=== PATIENT | female | born 1990 | race Caucasian/White ===

== ENCOUNTER 2022-11-25 21:32 | Outpatient (REF) | payer OTHER, SELFPAY ==
[2022-11-29 17:09] LABS: Age Gdln ACOG Testing Note (.); HPV Aptima Negative (Negative); IGP, Aptima HPV, rfx 16/18,45 Note (.)
== END 2022-11-25 21:33 | disposition home or self-care (01) ==
LOC: LAB 21:32
PROVIDERS: Visit Provider Physician Assistant
DX: Z01.419 Encounter for gynecological examination (general) (routine) without abnormal findings (principal)
CPT/HCPCS: 87624; G0145

== ENCOUNTER 2023-01-22 14:30 | Outpatient (RCR) | payer OTHER, SELFPAY ==
[2023-01-22 15:24] LABS: HCG Quantitative 1631 mIU/mL
== END 2023-02-13 15:48 | disposition home or self-care (01) ==
LOC: LAB 14:30
PROVIDERS: Visit Provider Obstetrics & Gynecology
DX: Z34.91 Encounter for supervision of normal pregnancy, unspecified, first trimester (principal)
CPT/HCPCS: 36415; 84702

== ENCOUNTER 2023-01-24 04:22 | Emergency (ER) | payer OTHER, SELFPAY ==
[2023-01-24 04:28] VITALS: BP 119/88; PULSE 86; RESP 98; TEMP 36.8; O2SAT 100; BMI 35.5
--- NOTE | 2023-01-24 04:36 | PC.NURSE ---
Patient to ED with complaint of vaginal bleeding and cramping at 5 weeks . This is her second , her first being when she was 18 years old and was terminated with an . Her OB is Dr Escobedo who ordered a quant HCG on that was drawn here and she was to have that repeated this AM, but when her bleeding was accompanied by cramping she decided to come to the ED. She has been bleeding for 6 days with no stopping, just varying degrees of flow and color.
--- NOTE | 2023-01-24 04:51 | ED.FEMALEGU1 ---
HPI - Female Genitourinary General Chief complaint: Vaginal Bleeding Stated complaint: vaginal bleeding Time Seen by Provider: 01/24/23 04:47 Source: patient Mode of arrival: walk-in Limitations: no limitations History of Present Illness HPI Narrative: patient believes she is about 5-6 weeks . mild bleeding on and off for 6 days. Tonight pelvic pain that would come and go. Pain tonight and she went to [facility]. Was never seen. Went home as the pain had resolved. At home the pain returned and she came here. Now that she is here, the pain has resolved again Related Data Home Medications Medication Instructions Recorded Confirmed levothyroxine 175 mcg tablet 175 mcg PO DAILY 01/24/23 01/24/23 Allergies Allergy/AdvReac Type Severity Reaction Status Date / Time No Known Drug Allergies Allergy Verified 01/24/23 04:31 Review of Systems ROS Status of ROS 10 or more systems reviewed and unremarkable except as noted in history and below PFSH PFSH Social History Smoking status: Never smoker Exam Constitutional Vital Signs, click to edit/add: Last Vital Signs Temp 98.3 F 01/24/23 04:28 Pulse 86 01/24/23 04:28 Resp 98 H 01/24/23 04:28 BP 119/88 01/24/23 04:28 Pulse Ox 100 01/24/23 04:28 O2 Del Method Room Air 01/24/23 04:28 Common normals: no apparent distress, average body habitus, oriented x3, no limitations, healthy appearing, alert and well nourished Eye Common normals: EOMs intact bilaterally Respiratory Common normals: normal respiratory effort, no retractions, no use of accessory muscles and clear to auscultation bilaterally Cardio Common normals: regular rate, regular rhythm, S1 normal heart sound and S2 normal heart sound GI Common normals: Normal to inspection, nondistended, normoactive bowel sounds present, soft to palpation and non-tender Extremity Common normals: normal to inspection and full ROM Neuro Common normals: oriented x3, CN's II-XII intact bilaterally, moves all extremities, no focal motor deficits and no sensory deficits noted Psych Appearance: grossly normal Course Vital Signs Vital signs: Vital Signs Temperature 98.3 F 01/24/23 04:28 Pulse Rate 86 01/24/23 04:28 Respiratory Rate 98 H 01/24/23 04:28 Blood Pressure 119/88 01/24/23 04:28 Pulse Oximetry 100 01/24/23 04:28 Oxygen Delivery Method Room Air 01/24/23 04:28 Temperature 98.3 F 01/24/23 04:28 Pulse Rate 86 01/24/23 04:28 Respiratory Rate 98 H 01/24/23 04:28 Blood Pressure 119/88 01/24/23 04:28 Pulse Oximetry 100 01/24/23 04:28 Oxygen Delivery Method Room Air 01/24/23 04:28 MDM - Female Genitourinary MDM Narrative Medical decision making narrative: patient presents with history of of 5-6 week duration based on her last menstrual period. She has been bleeding on and off for past 6 days. Called her OB and had lab testing performed a couple of days ago. Developed pain and cramping tonight and went to [facility]. There she was never seen . Her pain resolved and she went home. At home the pain returned and she came here. Arrives here asymptomatic. Physicall exam neg. Labs returned and her quantitative HCG has decreased from 1631 01/22 to 949 today. She has developed more cramping since she has been waiting. She is informed clinically she is having a miscarriage. Discussed ordering a Pelvic US. She understands the Tech is not here in the hospital and would have to come from home for the procedure. She did not want to wait. discussed performing a pelvic exam and she decided she did not want either at this time and would follow up with Dr Escobedo. She was advised she could return is she changed her mind Lab Data Labs: Lab Results 01/24/23 01/24/23 Range/Units 05:00 05:18 WBC 8.6 (4.0-11.0) 10^3/uL RBC 4.21 (4.20-5.40) 10^6/uL Hgb 12.9 (12.0-16.0) g/dL Hct 37.6 (36.0-48.0) % MCV 89.3 (81.0-99.0) fL MCH 30.6 (26.7-34.0) pg MCHC 34.3 (29.9-35.2) g/dL RDW 11.7 (11.0-15.0) % Plt Count 287 (150-450) 10^3/uL MPV 10.3 (9.5-13.5) fL Neut % (Auto) 62.9 (43.0-75.0) % Lymph % (Auto) 24.0 (20.5-60.0) % Harlan % (Auto) 9.4 (1.7-12.0) % Eos % (Auto) 2.4 (0.9-7.0) % Baso % (Auto) 1.0 (0.2-2.0) % Neut # (Auto) 5.4 (1.4-6.5) 10^3/uL Lymph # (Auto) 2.1 (1.2-3.8) 10^3/uL Harlan # (Auto) 0.8 (0.3-0.8) 10^3/uL Eos # (Auto) 0.2 (0.0-0.7) 10^3/uL Baso # (Auto) 0.1 (0.0-0.1) 10^3/uL Abs Immat Gran (auto) 0.03 (0.00-0.03) 10^3/uL Imm/Tot Granulo (auto) 0.3 (0.0-0.5) % Sodium 140 (136-145) mmol/L Potassium 3.7 (3.5-5.1) mmol/L Chloride 106 (98-107) mmol/L Carbon Dioxide 26.4 (21.0-32.0) mmol/L Anion Gap 11.3 BUN 5.0 L (7.0-18.0) mg/dL Creatinine 0.71 (0.55-1.02) mg/dL Est GFR ( Amer) >60 (>=60) Est GFR (Non-Af Amer) >60 (>=60) BUN/Creatinine Ratio 7.0 Glucose 105 (74-106) mg/dL Calcium 9.0 (8.5-10.1) mg/dL HCG, Quant 949 mIU/mL Urine Color Lt. yellow (YELLOW) Urine Clarity Clear (CLEAR) Urine pH 7.5 (5.0-9.0) Ur Specific [place] 1.010 (1.005-1.025) Urine Protein Negative (NEG/TRACE) mg/dL Urine Glucose (UA) Negative (NEGATIVE) mg/dL Urine Ketones Negative (NEGATIVE) mg/dL Urine Occult Blood Large A (NEGATIVE) Urine Nitrite Negative (NEGATIVE) Urine Bilirubin Negative (NEGATIVE) Urine Urobilinogen 0.2 (0.2-1.0) EU/dL Ur Leukocyte Esterase Negative (NEGATIVE) Urine RBC 2-5 A (0-2) #/HPF Urine WBC None seen (NONE SEEN) #/HPF Ur Squamous Epith Cells None seen (NONE/RARE) #/LPF Urine Crystals None seen (None Seen) #/HPF Urine Bacteria None seen (NONE SEEN) #/HPF Urine Casts None seen (NONE SEEN) #/LPF Urine Mucus None seen (NONE SEEN) C.trachomatis DNA (JANEEN) Negative (Negative) N.gonorrhoeae DNA (JANEEN) Negative (Negative) Discharge Plan Discharge Chief Complaint: Vaginal Bleeding Clinical Impression: Threatened Patient Disposition: Home, Self-Care Prescriptions / Home Meds: No Action levothyroxine 175 mcg tablet 175 mcg PO DAILY Instructions: Threatened Miscarriage (ED) Additional Instructions: follow up with Dr Escobedo Thursday. Stand Alone Forms: Portal Instructions Referrals: Physician,Non-Staff, [Primary Care Provider] - 1 week Discharge Date/Time: 01/24/23 06:23
[2023-01-24 05:21] LABS: Bilirubin Urine NEGATIVE (NEGATIVE); Blood Urine LARGE (NEGATIVE); Clarity Urine CLEAR (CLEAR); Color Urine LT. YELLOW (YELLOW); Glucose Urine UA NEGATIVE (NEGATIVE); Ketones Urine NEGATIVE (NEGATIVE); Leukocyte Esterase Urine NEGATIVE (NEGATIVE); Nitrite Urine NEGATIVE (NEGATIVE); Protein Urine NEGATIVE (NEG/TRACE); Urobilinogen Urine 0.2 EU/dL (0.2-1.0); pH Urine 7.5 (5.0-9.0)
[2023-01-24 05:23] LABS: Urine Microscopic Indicated YES
[2023-01-24 05:26] LABS: Basophils Absolute Auto 0.1 10^3/uL (0.0-0.1); Eosinophils Absolute Auto 0.2 10^3/uL (0.0-0.7); Eosinophils Percent Auto 2.4 % (0.9-7.0); Hematocrit 37.6 % (36.0-48.0); Hemoglobin 12.9 g/dL (12.0-16.0); Immature Granulocytes Abs Auto 0.03 10^3/uL (0.00-0.03); Immature Granulocytes Pct Auto 0.3 % (0.0-0.5); Lymphocytes Absolute Auto 2.1 10^3/uL (1.2-3.8); Mean Corpuscular HGB Conc 34.3 g/dL (29.9-35.2); Mean Corpuscular Hemoglobin 30.6 pg (26.7-34.0); Mean Corpuscular Volume 89.3 fL (81.0-99.0); Mean Platelet Volume 10.3 fL (9.5-13.5); Monocytes Absolute Auto 0.8 10^3/uL (0.3-0.8); Monocytes Percent Auto 9.4 % (1.7-12.0); Neutrophils Absolute Auto 5.4 10^3/uL (1.4-6.5); Neutrophils Percent Auto 62.9 % (43.0-75.0); Platelet Count 287 10^3/uL (150-450); Red Blood Count 4.21 10^6/uL (4.20-5.40); Red Cell Distribution Width 11.7 % (11.0-15.0); White Blood Count 8.6 10^3/uL (4.0-11.0)
[2023-01-24 05:51] LABS: Bacteria Urine NONE SEEN #/HPF (NONE SEEN); Cast Seen? NONE SEEN #/LPF (NONE SEEN); Crystals Seen? None Seen #/HPF (None Seen); Mucus Urine NONE SEEN (NONE SEEN); Squamous Epithelial Cell Urine NONE SEEN #/LPF (NONE/RARE); WBC Urine NONE SEEN #/HPF (NONE SEEN)
[2023-01-24 06:00] LABS: Anion Gap 11.3; Carbon Dioxide 26.4 mmol/L (21.0-32.0); Chloride 106 mmol/L (98-107); Estimated GFR (African America >60 (>=60); Estimated GFR (Non-African Ame >60 (>=60); Glucose 105 mg/dL (74-106); HCG Quantitative 949 mIU/mL; Potassium 3.7 mmol/L (3.5-5.1); Sodium 140 mmol/L (136-145)
[2023-01-26 22:08] LABS: Neisseria gonorrhoeae, NAA Negative (Negative)
== END 2023-01-24 06:23 | disposition home or self-care (01) ==
PROVIDERS: Emergency Provider Internal Medicine
DX: O20.0 Threatened abortion (principal); Z3A.01 Less than 8 weeks gestation of pregnancy; Z79.890 Hormone replacement therapy
CPT/HCPCS: 36415; 80048; 81001; 84702; 85025; 87210; 87491; 87591; 99283

== ENCOUNTER 2023-02-05 10:02 | Outpatient (RCR) | payer OTHER, SELFPAY ==
[2023-02-05 10:45] LABS: HCG Quantitative 87 mIU/mL
[2023-02-12 10:58] LABS: HCG Quantitative 128 mIU/mL
== END 2023-02-15 08:00 | disposition home or self-care (01) ==
LOC: LAB 10:02
PROVIDERS: Visit Provider Obstetrics & Gynecology
DX: O03.9 Complete or unspecified spontaneous abortion without complication (principal)
CPT/HCPCS: 36415; 84702

== ENCOUNTER 2023-02-19 09:30 | Outpatient (RCR) | payer OTHER, SELFPAY ==
--- OUTSIDE RECORDS SUMMARY | 2023-02-19 09:33 | XMS_ITS | CCD ---
Author Name Unknown Address [address] [place] [address] Organization [facility] Care Team Providers Care Cloth Grader Name Role Phone DR DAVID BARCLAY Admitting Unavailable NING, DR HERNANDEZ Attending Unavailable DR LE MENDOZA Primary Care Unavailable DR DAVID BARCLAY Consulting Unavailable AYLEEN TRUJILLO Attending Unavailable JAYRO COREY Referring Unavailable JAYRO COREY Attending Unavailable DAVID BARCLAY Attending Unavailable Problems Problem Classification Problem Date Documented Date Episodic/Chronic Immunizations and screening for infectious disease (1 source) Encounter for screening for human papillomavirus (HPV); Translations: [ENC SCREENING HUMAN PAPILLOMAVIRUS] Onset: 11-21-2021 Episodic Other screening for suspected conditions (not mental disorders or infectious disease) (4 sources) Encounter for screening for malignant neoplasm of cervix; Translations: [ENC SCREENING MALIG NEOPLASM CERV] Onset: 11-19-2021 Episodic Results Test Name Value Interpretation Reference Range Facil ity PAP ACOG PANEL 2: 30 to 65on 11-26-2021 . . Normal [facility] Comment on above: Result Comment: Performed at: WB Performed By: #### [id number] #### [facility] [address] [address] [address] Florencia Carpenter Age Gdln ACOG Testing 30-65 Normal [facility] Comment on above: Performed By: #### [id number] #### [facility] [address] [address] [address] Florencia Carpenter DIAGNOSIS: Comment [facility] Comment on above: Result Comment: NEGATIVE FOR INTRAEPITHE LIAL LESION OR MALIGNANCY. Performed at: WB Performed By: #### [id number] #### [facility] [address] [address] [address] Florencia Carpenter HPV Aptima Negative Normal Negative [facility] Comment on above: Result Comment: This nucleic acid amplif ication test detects fourteen high-risk HPV types (16,18,31,33,35,39,45,51,52,56,58,59,66,68) without differentiation. Performed at: =G Performed By: #### [id number] #### [facility] [address] [place] [address] Dr. Florencia Carpenter Methodology: Comment Normal [facility] Comment on above: Result Comment: This liquid based ThinPr ep(R) pap test was screened with the use of an image guided system. Performed at: WB Performed By: #### [id number] #### [facility] [address] [place] [address] Dr. Florencia Carpenter Note: Comment Normal [facility] Comment on above: Result Comment: The Pap smear is a scree rebeka test designed to aid in the detection of premalignant and malignant conditions of the uterine cervix. It is not a diagnostic procedure and should not be used as the sole means of detecting cervical cancer. Both false-positive and false-negative reports do occur. . Performed at: WB Performed By: #### [id number] #### [facility] [address] [place] [address] Dr. Florencia Carpenter Performed by: Comment Normal [facility] Comment on above: Result Comment: Ruthann Ricketts Cytotechnol ogdayana (ASCP) Performed at: WB Performed By: #### [id number] #### [facility] [address] [place] [address] Dr. Florencia Carpenter Specimen adequacy: Comment Normal [facility] Comment on above: Result Comment: Satisfactory for evaluat ion. Endocervical and/or squamous metaplastic cells (endocervical component) are present. Performed at: WB Performed By: #### [id number] #### [facility] [address] [place] [address] Dr. Florencia Carpenter Encounters Encounter Date Encounter Type Care Provider Facility Start: 02-05-2023 End: 02-05-2023 ambulatory DAVID BARCLAY Not Available Start: 01-16-2023 End: 01-16-2023 ambulatory JAYRO COREY Not Available Start: 12-31-2022 End: 12-31-2022 ambulatory AYLEEN TRUJILLO Not Available Start: 11-19-2021 End: 11-19-[address] DAVID BARCLAY Facility: Payers Date Payer Category Payer Unknown [id number] 1990 Unknown [id number] 2.16.84 [id number] 1990 Unknown [id number] 1990 Unknown [id number] 1990 Unknown [id number]. [id number] 1959 Unknown [id number] Summary Purpose Family History No Family History Records FoundNo Family History Records Found Advance Directives No Advanced Directives Records FoundNo Advanced Directives Records Found Additional Source Comments INFORMATION SOURCE (unrecogn ized section and content) DATE CREATED AUTHOR 11/26/2021 [facility] DATE CREATED AUTHOR AUTHOR'S ROSLYN ATLILLIAM 02/06/2023 [facility] EPIC FOR RECORDS PERTAINING TO PATIENTS WHO ARE OR HAVE BEEN ENROLLED IN A CHEMICAL DEPENDENCY/SUBSTANCEABUSE PROGRAM, SOME INFORMATION MAY BE OMITTED. This clinical summary was aggregated from multiple sources. Caution should be exercised in using it in the provision of clinical care. This summary normalizes information from multiple sources, and as a consequence, information in this document may materially change the coding, format and clinical context of patient data. In addition, data may be omitted in some cases. CLINICAL DECISIONS SHOULD BE BASED ON THE PRIMARY CLINICAL RECORDS. [facility] [employer] provides no warranty or guarantee of the accuracy or completeness of information in this document.
[2023-02-19 10:26] LABS: HCG Quantitative 94 mIU/mL
--- OUTSIDE RECORDS SUMMARY | 2023-02-26 09:24 | XMS_ITS | CCD ---
Author Name Unknown Address [address] [place] [address] Organization [facility] Care Team Providers Care Outboard Motor Assembler Name Role Phone DR DAVID BARCLAY Admitting [...] 30 to 65on 11-26-2021 . . Normal [facility] Comment on above: Result Comment: Performed at: WB Performed By: #### [id number] #### [facility] [address] [address] [address] Florencia Carpenter Age Gdln ACOG Testing 30-65 Normal [facility] Comment on above: Performed By: #### [id number] #### [facility] [address] [address] [address] Florencia Carpenter DIAGNOSIS: Comment [facility] Comment on above: Result Comment: NEGATIVE FOR INTRAEPITHE LIAL LESION OR MALIGNANCY. Performed at: WB Performed By: #### [id number] #### [facility] [address] [address] [address] Florencia Carpenter HPV Aptima Negative Normal Negative [facility] Comment on above: Result Comment: This nucleic acid amplif ication test detects fourteen high-risk HPV types (16,18,31,33,35,39,45,51,52,56,58,59,66,68) without differentiation. Performed at: =G Performed By: #### [id number] #### [facility] [address] [place] [address] Dr. Florencia Carpenter Methodology: Comment Normal [facility] Comment on above: Result Comment: This liquid based ThinPr ep(R) pap test was screened with the use of an image guided system. Performed at: WB Performed By: #### [id number] #### [facility] [address] [place] [address] Dr. Florencia Carpenter Note: Comment Normal [facility] Comment on above: Result Comment: The Pap smear is a scree rbeeka test designed to aid in the detection of premalignant and malignant conditions of the uterine cervix. It is not a diagnostic procedure and should not be used as the sole means of detecting cervical cancer. Both false-positive and false-negative reports do occur. . Performed at: WB Performed By: #### [id number] #### [facility] [address] [place] [address] Dr. Florencia Carpenter Performed by: Comment Normal [facility] Comment on above: Result Comment: Ruthann Ricketts Cytotechnol ogdayana (ASCP) Performed at: WB Performed By: #### [id number] #### [facility] [address] [place] [address] Dr. Florencia Carpenter Specimen adequacy: Comment Normal [facility] Comment on above: Result Comment: Satisfactory for evaluat ion. Endocervical and/or squamous metaplastic cells (endocervical component) are present. Performed at: WB Performed By: #### [id number] #### [facility] [address] [place] [address] Dr. Florencia Carpenter Encounters Encounter Date Encounter Type Care Provider Facility Start: 02-05-2023 End: 02-05-2023 ambulatory DAVID BARCLAY Not Available Start: 01-16-2023 End: 01-16-2023 ambulatory JAYRO COREY Not Available Start: 12-31-2022 End: 12-31-2022 ambulatory AYLEEN TRUJILLO Not Available Start: 11-19-2021 End: 11-19-[address] DAVID BARCLAY Facility: Payers Date Payer Category Payer Unknown [id number] 1990 Unknown [id number] 2.16.84 [id number] 1990 Unknown [id number] 1990 Unknown [id number] 1990 Unknown [id number]. [id number] 1959 Unknown [id number] Summary Purpose Family History No Family History Records FoundNo Family History Records Found Advance Directives No Advanced Directives Records FoundNo Advanced Directives Records Found Additional Source Comments INFORMATION SOURCE (unrecogn ized section and content) DATE CREATED AUTHOR 11/26/2021 [facility] DATE CREATED AUTHOR AUTHOR'S ROSLYN ATLILLIAM 02/06/2023 [facility] EPIC FOR RECORDS [...] BE BASED ON THE PRIMARY CLINICAL RECORDS. [facility] [employer] provides no warranty or guarantee of the accuracy or completeness of information in this document.
[2023-02-26 10:33] LABS: HCG Quantitative 53 mIU/mL
[2023-03-05 12:30] LABS: HCG Quantitative 24 mIU/mL
[2023-03-12 12:07] LABS: HCG Quantitative 11 mIU/mL
== END 2023-03-18 17:25 | disposition home or self-care (01) ==
LOC: LAB 09:30
PROVIDERS: Visit Provider Obstetrics & Gynecology
DX: O03.9 Complete or unspecified spontaneous abortion without complication (principal)
CPT/HCPCS: 36415; 84702

== ENCOUNTER 2023-02-21 09:45 | Outpatient (OUT) | payer OTHER, SELFPAY ==
--- OUTSIDE RECORDS SUMMARY | 2023-02-21 09:50 | XMS_ITS | CCD ---
Author Name Unknown Address [address] [place] [address] Organization [facility] Care Team Providers Care Web Design Intern Name Role Phone DR DAVID BARCLAY Admitting [...] 30 to 65on 11-26-2021 . . Normal [facility] Comment on above: Result Comment: Performed at: WB Performed By: #### [id number] #### [facility] [address] [address] [address] Florencia Carpenter Age Gdln ACOG Testing 30-65 Normal [facility] Comment on above: Performed By: #### [id number] #### [facility] [address] [address] [address] Florencia Carpenter DIAGNOSIS: Comment [facility] Comment on above: Result Comment: NEGATIVE FOR INTRAEPITHE LIAL LESION OR MALIGNANCY. Performed at: WB Performed By: #### [id number] #### [facility] [address] [address] [address] Florencia Carpenter HPV Aptima Negative Normal Negative [facility] Comment on above: Result Comment: This nucleic acid amplif ication test detects fourteen high-risk HPV types (16,18,31,33,35,39,45,51,52,56,58,59,66,68) without differentiation. Performed at: =G Performed By: #### [id number] #### [facility] [address] [place] [address] Dr. Florencia Carpenter Methodology: Comment Normal [facility] Comment on above: Result Comment: This liquid based ThinPr ep(R) pap test was screened with the use of an image guided system. Performed at: WB Performed By: #### [id number] #### [facility] [address] [place] [address] Dr. Florencia Carpenter Note: Comment Normal [facility] Comment on above: Result Comment: The Pap smear is a scree rebeka test designed to aid in the detection of premalignant and malignant conditions of the uterine cervix. It is not a diagnostic procedure and should not be used as the sole means of detecting cervical cancer. Both false-positive and false-negative reports do occur. . Performed at: WB Performed By: #### [id number] #### [facility] [address] [place] [address] Dr. Florencia Carpenter Performed by: Comment Normal [facility] Comment on above: Result Comment: Ruthann Ricketts Cytotechnol ogdayana (ASCP) Performed at: WB Performed By: #### [id number] #### [facility] [address] [place] [address] Dr. Florencia Carpenter Specimen adequacy: Comment Normal [facility] Comment on above: Result Comment: Satisfactory for evaluat ion. Endocervical and/or squamous metaplastic cells (endocervical component) are present. Performed at: WB Performed By: #### [id number] #### [facility] [address] [place] [address] Dr. Florencia Carpenter Encounters Encounter Date Encounter Type Care Provider Facility Start: 02-05-2023 End: 02-05-2023 ambulatory DAVID BARCLAY Not Available Start: 01-16-2023 End: 01-16-2023 ambulatory JAYRO COREY Not Available Start: 12-31-2022 End: 12-31-2022 ambulatory AYLEEN TRUJILLO Not Available Start: 11-19-2021 End: 11-19-[address] DAVID BARCLAY Facility: Payers Date Payer Category Payer Unknown [id number] 1990 Unknown [id number] 2.16.84 [id number] 1990 Unknown [id number] 1990 Unknown [id number] 1990 Unknown [id number]. [id number] 1959 Unknown [id number] Summary Purpose Family History No Family History Records FoundNo Family History Records Found Advance Directives No Advanced Directives Records FoundNo Advanced Directives Records Found Additional Source Comments INFORMATION SOURCE (unrecogn ized section and content) DATE CREATED AUTHOR 11/26/2021 [facility] DATE CREATED AUTHOR AUTHOR'S ROSLYN ATLILLIAM 02/06/2023 [facility] d[facility] Specialists EPIC FOR RECORDS PERTAINING TO [...] BE BASED ON THE PRIMARY CLINICAL RECORDS. [facility] [employer] provides no warranty or guarantee of the accuracy or completeness of information in this document.
--- NOTE | 2023-02-21 09:57 | US_ITS ---
The [address] [address] Patient Name: PAM ACEVES MRN: [id number] date: 1990 Sex: F Assigned Patient Location: Current Patient Location: LAB Accession/Order Number: [id number] Exam Date: 02/21/2023 10:00 Report Date: 02/23/2023 07:59 At the request of: DAVID BARCLAY Procedure: US pelvis transvaginal EXAM: Ultrasound of the pelvis HISTORY: . Follow up miscarriage O03.9 . COMPARISON: None. TECHNIQUE: Transvaginal scanning was performed FINDINGS: Scanning of the pelvis demonstrates a retroverted uterus measuring 7.1 x 4.3 x 3.6 cm. Endometrial complex measures 9 mm in its maximal AP dimension. No fluid or masses are noted within the endometrial complex. Right ovary measures 4.3 x 2.1 x 2.3 cm. Color-flow is noted. Follicles are noted. Left ovary measures 3.4 x 3 x 2.4 cm. Color-flow is noted. There is a 1.7 x 1.3 cm cyst within the left ovary. No fluid is noted in the cul-de-sac. US/US pelvis transvaginal IMPRESSION: 1. Normal-appearing uterus and endometrial complex. 2. Normal right ovary. 3. 1.7 x 1.3 cm simple cyst within the left ovary. Electronically authenticated by: ANGEL MCWILLIAMS Date: 02/23/2023 07:59
== END 2023-02-21 09:46 | disposition home or self-care (01) ==
LOC: US 09:48
PROVIDERS: Visit Provider Obstetrics & Gynecology
DX: O03.9 Complete or unspecified spontaneous abortion without complication (principal); N83.292 Other ovarian cyst, left side
CPT/HCPCS: 76830

== ENCOUNTER 2023-03-19 10:17 | Outpatient (RCR) | payer OTHER, SELFPAY ==
--- OUTSIDE RECORDS SUMMARY | 2023-03-19 10:40 | XMS_ITS | CCD ---
Author Name Unknown Address [address] [place] [address] Organization [facility] Care Team Providers Care Wound Nurse Name Role Phone DR DAVID BARCLAY Admitting [...] 30 to 65on 11-26-2021 . . Normal [facility] Comment on above: Result Comment: Performed at: WB Performed By: #### [id number] #### [facility] [address] [address] [address] Florencia Carpenter Age Gdln ACOG Testing 30-65 Normal [facility] Comment on above: Performed By: #### [id number] #### [facility] [address] [address] [address] Florencia Carpenter DIAGNOSIS: Comment [facility] Comment on above: Result Comment: NEGATIVE FOR INTRAEPITHE LIAL LESION OR MALIGNANCY. Performed at: WB Performed By: #### [id number] #### [facility] [address] [address] [address] Florencia Carpenter HPV Aptima Negative Normal Negative [facility] Comment on above: Result Comment: This nucleic acid amplif ication test detects fourteen high-risk HPV types (16,18,31,33,35,39,45,51,52,56,58,59,66,68) without differentiation. Performed at: =G Performed By: #### [id number] #### [facility] [address] [place] [address] Dr. Florencia Carpenter Methodology: Comment Normal [facility] Comment on above: Result Comment: This liquid based ThinPr ep(R) pap test was screened with the use of an image guided system. Performed at: WB Performed By: #### [id number] #### [facility] [address] [place] [address] Dr. Florencia Carpenter Note: Comment Normal [facility] Comment on above: Result Comment: The Pap smear is a scree rebeka test designed to aid in the detection of premalignant and malignant conditions of the uterine cervix. It is not a diagnostic procedure and should not be used as the sole means of detecting cervical cancer. Both false-positive and false-negative reports do occur. . Performed at: WB Performed By: #### [id number] #### [facility] [address] [place] [address] Dr. Florencia Carpenter Performed by: Comment Normal [facility] Comment on above: Result Comment: Ruthann Ricketts Cytotechnol ogdayana (ASCP) Performed at: WB Performed By: #### [id number] #### [facility] [address] [place] [address] Dr. Florencia Carpenter Specimen adequacy: Comment Normal [facility] Comment on above: Result Comment: Satisfactory for evaluat ion. Endocervical and/or squamous metaplastic cells (endocervical component) are present. Performed at: WB Performed By: #### [id number] #### [facility] [address] [place] [address] Dr. Florencia Carpenter Encounters Encounter Date Encounter Type Care Provider Facility Start: 02-05-2023 End: 02-05-2023 ambulatory DAVID BARCLAY Not Available Start: 01-16-2023 End: 01-16-2023 ambulatory JAYRO COREY Not Available Start: 12-31-2022 End: 12-31-2022 ambulatory AYLEEN TRUJILLO Not Available Start: 11-19-2021 End: 11-19-[address] DAVID BARCLAY Facility: Payers Date Payer Category Payer Unknown [id number] 1990 Unknown [id number] 2.16.84 [id number] 1990 Unknown [id number] 1990 Unknown [id number] 2.16.840 .[id number] 1990 Unknown [id number] 2.16.840. [id number] 1959 Unknown [id number] Summary Purpose Family History No Family History Records FoundNo Family History Records Found Advance Directives No Advanced Directives Records FoundNo Advanced Directives Records Found Additional Source Comments INFORMATION SOURCE (unrecogn ized section and content) DATE CREATED AUTHOR 11/26/2021 [facility] DATE CREATED AUTHOR AUTHOR'S ROSLYN ATLILLIAM 02/06/2023 [facility] EPIC FOR RECORDS PERTAINING [...] BE BASED ON THE PRIMARY CLINICAL RECORDS. [facility] [employer] provides no warranty or guarantee of the accuracy or completeness of information in this document.
[2023-03-19 12:35] LABS: HCG Quantitative 7 mIU/mL
== END 2023-04-16 17:42 | disposition home or self-care (01) ==
LOC: LAB 10:17
PROVIDERS: Visit Provider Obstetrics & Gynecology
DX: O03.9 Complete or unspecified spontaneous abortion without complication (principal)
CPT/HCPCS: 36415; 84702

== ENCOUNTER 2023-03-26 15:17 | Outpatient (OUT) | payer OTHER, SELFPAY ==
--- OUTSIDE RECORDS SUMMARY | 2023-03-26 15:23 | XMS_ITS | CCD ---
Author Name Unknown Address [address] [place] [address] Organization [facility] Care Team Providers Care Pump And Blower Operator Name Role Phone DR DAVID BARCLAY Admitting [...] 30 to 65on 11-26-2021 . . Normal [facility] Comment on above: Result Comment: Performed at: WB Performed By: #### [id number] #### [facility] [address] [address] [address] Florencia Carpenter Age Gdln ACOG Testing 30-65 Normal [facility] Comment on above: Performed By: #### [id number] #### [facility] [address] [address] [address] Florencia Carpenter DIAGNOSIS: Comment [facility] Comment on above: Result Comment: NEGATIVE FOR INTRAEPITHE LIAL LESION OR MALIGNANCY. Performed at: WB Performed By: #### [id number] #### [facility] [address] [address] [address] Florencia Carpenter HPV Aptima Negative Normal Negative [facility] Comment on above: Result Comment: This nucleic acid amplif ication test detects fourteen high-risk HPV types (16,18,31,33,35,39,45,51,52,56,58,59,66,68) without differentiation. Performed at: =G Performed By: #### [id number] #### [facility] [address] [place] [address] Dr. Florencia Carpenter Methodology: Comment Normal [facility] Comment on above: Result Comment: This liquid based ThinPr ep(R) pap test was screened with the use of an image guided system. Performed at: WB Performed By: #### [id number] #### [facility] [address] [place] [address] Dr. Florencia Carpenter Note: Comment Normal [facility] Comment on above: [...] Performed at: WB Performed By: #### [id number] #### [facility] [address] [place] [address] Dr. Florencia Carpenter Performed by: Comment Normal [facility] Comment on above: Result Comment: Ruthann Ricketts Cytotechnol ogdayana (ASCP) Performed at: WB Performed By: #### [id number] #### [facility] [address] [place] [address] Dr. Florencia Carpenter Specimen adequacy: Comment Normal [facility] Comment on above: Result Comment: Satisfactory for evaluat ion. Endocervical and/or squamous metaplastic cells (endocervical component) are present. Performed at: WB Performed By: #### [id number] #### [facility] [address] [place] [address] Dr. Florencia Carpenter Encounters Encounter Date Encounter Type Care Provider Facility Start: 02-05-2023 End: 02-05-2023 ambulatory DAVID BARCLAY Not Available Start: 01-16-2023 End: 01-16-2023 ambulatory JAYRO COREY Not Available Start: 12-31-2022 End: 12-31-2022 ambulatory AYLEEN TRUJILLO Not Available Start: 11-19-2021 End: 11-19-[address] DAVID BARCLAY Facility: Payers Date Payer Category Payer Unknown [id number] 1990 Unknown [id number] 2.16.84 [id number] 1990 Unknown [id number] 1990 Unknown [id number] 2.16.840 .[id number] 1990 Unknown [id number]. [id number] 1959 Unknown [id number] Summary Purpose Family History No Family History Records FoundNo Family History Records Found Advance Directives No Advanced Directives Records FoundNo Advanced Directives Records Found Additional Source Comments INFORMATION SOURCE (unrecogn ized section and content) DATE CREATED AUTHOR 11/26/2021 [facility] DATE CREATED AUTHOR AUTHOR'S ROSLYN ATLILLIAM 02/06/2023 [facility] Specialists EPIC FOR RECORDS [...] BE BASED ON THE PRIMARY CLINICAL RECORDS. [facility] [employer] provides no warranty or guarantee of the accuracy or completeness of information in this document.
[2023-03-26 16:23] LABS: HCG Quantitative 5 mIU/mL
== END 2023-03-26 15:18 | disposition home or self-care (01) ==
LOC: LAB 15:18
PROVIDERS: Visit Provider Obstetrics & Gynecology
DX: O03.9 Complete or unspecified spontaneous abortion without complication (principal)
CPT/HCPCS: 36415; 84702

== ENCOUNTER 2023-03-28 10:29 | Outpatient (OUT) | payer OTHER, SELFPAY ==
--- OUTSIDE RECORDS SUMMARY | 2023-03-28 10:32 | XMS_ITS | CCD ---
Author Name Unknown Address [address] [place] [address] Organization [facility] Care Team Providers Care Sterile Processing Technologist Name Role Phone DR DAVID BARCLAY Admitting [...] 30 to 65on 11-26-2021 . . Normal [facility] Comment on above: Result Comment: Performed at: WB Performed By: #### [id number] #### [facility] [address] [address] [address] Florencia Carpenter Age Gdln ACOG Testing 30-65 Normal [facility] Comment on above: Performed By: #### [id number] #### [facility] [address] [address] [address] Florencia Carpenter DIAGNOSIS: Comment [facility] Comment on above: Result Comment: NEGATIVE FOR INTRAEPITHE LIAL LESION OR MALIGNANCY. Performed at: WB Performed By: #### [id number] #### [facility] [address] [address] [address] Florencia Carpenter HPV Aptima Negative Normal Negative [facility] Comment on above: Result Comment: This nucleic acid amplif ication test detects fourteen high-risk HPV types (16,18,31,33,35,39,45,51,52,56,58,59,66,68) without differentiation. Performed at: =G Performed By: #### [id number] #### [facility] [address] [place] [address] Dr. Florencia Carpenter Methodology: Comment Normal [facility] Comment on above: Result Comment: This liquid based ThinPr ep(R) pap test was screened with the use of an image guided system. Performed at: WB Performed By: #### [id number] #### [facility] [address] [place] [address] Dr. Florencia Carpenter Note: Comment Normal [facility] Comment on above: Result Comment: [...] Performed at: WB Performed By: #### [id number] #### [facility] [address] [place] [address] Dr. Florencia Carpenter Performed by: Comment Normal [facility] Comment on above: Result Comment: Ruthann Ricketts Cytotechnol ogdayana (ASCP) Performed at: WB Performed By: #### [id number] #### [facility] [address] [place] [address] Dr. Florencia Carpenter Specimen adequacy: Comment Normal [facility] Comment on above: Result Comment: Satisfactory for evaluat ion. Endocervical and/or squamous metaplastic cells (endocervical component) are present. Performed at: WB Performed By: #### [id number] #### [facility] [address] [place] [address] Dr. Florencia Carpenter Encounters Encounter Date Encounter Type Care Provider Facility Start: 02-05-2023 End: 02-05-2023 ambulatory DAVID BARCLAY Not Available Start: 01-16-2023 End: 01-16-2023 ambulatory JAYRO COREY Not Available Start: 12-31-2022 End: 12-31-2022 ambulatory AYLEEN TRUJILLO Not Available Start: 11-19-2021 End: 11-19-[address] DAVID BARCLAY Facility: Payers Date Payer Category Payer Unknown [id number] 1990 Unknown [id number] 2.16.84 [id number] 1990 Unknown [id number] [id number] [id number] 1990 Unknown [id number] 2.16.840 .[id number] 1990 Unknown [id number] 2.16.840. [id number] 1959 Unknown [id number] Summary Purpose Family History No Family History Records FoundNo Family History Records Found Advance Directives No Advanced Directives Records FoundNo Advanced Directives Records Found Additional Source Comments INFORMATION SOURCE (unrecogn ized section and content) DATE CREATED AUTHOR 11/26/2021 [facility] DATE CREATED AUTHOR AUTHOR'S ROSLYN ATLILLIAM 02/06/2023 [facility] EPIC FOR RECORDS PERTAINING [...] BE BASED ON THE PRIMARY CLINICAL RECORDS. [facility] [employer] provides no warranty or guarantee of the accuracy or completeness of information in this document.
[2023-03-28 11:40] LABS: HCG Quantitative 6 mIU/mL
== END 2023-03-28 10:30 | disposition home or self-care (01) ==
LOC: LAB 10:30
PROVIDERS: Visit Provider Obstetrics & Gynecology
DX: O03.9 Complete or unspecified spontaneous abortion without complication (principal)
CPT/HCPCS: 36415; 84702

== ENCOUNTER 2023-08-21 02:06 | Emergency (ER) | payer OTHER, SELFPAY ==
[2023-08-21 02:13] VITALS: BP 115/89; PULSE 104; TEMP 36.4; O2SAT 99; BMI 33.9
--- OUTSIDE RECORDS SUMMARY | 2023-08-21 02:13 | XMS_ITS ---
Patient Summarization (C-CDA 2.1 CCD) Created on: August 21, 2023 PAM ACEVES : 1990 Sex: Female Author Organization Sample organization Care Team Providers Care Binding Bench Worker Name Role Phone DR DAVID ESCOBEDO Admitting Unavailable FANNY, DR HERNANDEZ Attending Unavailable DR LE MENDOZA Primary Care Unavailable FANNY, DR HERNANDEZ Consulting Unavailable Anamika CLEARY, Joceline Primary Care Provider AYLEEN TRUJILLO Attending Unavailable MADHAV, JAYRO Referring Unavailable MADHAV, JAYRO Attending Unavailable MADHAV, JAYRO Attending Unavailable FANNY, DAVID Attending Unavailable MADHAV, JAYRO Attending Unavailable Encounters Encounter Date Encounter Type Care Provider Facility Start: 05-11-2023 End: 05-11-2023 ambulatory JAYROTRINA BARRAZAPFER Not Available Start: 04-27-2023 End: 04-27-2023 ambulatory JAYRO BARRAZAPFER Not Available Start: 03-28-2023 [facility] Result Encounter David Escobedo DO Work Phone: [facility] Unsolicited Start: 03-28-2023 [facility] Result Encounter David Escobedo DO Work Phone: [facility] Unsolicited Start: 02-05-2023 End: 02-05-2023 ambulatory DAVID FANNY Not Available Start: 01-16-2023 End: 01-16-2023 ambulatory JAYRO BARRAZAPFER Not Available Start: 12-31-2022 End: 12-31-2022 ambulatory AYLEEN TRUJILLO Not Available Start: 11-19-2021 End: 11-19-[address] DAVID ESCOBEDO Facility:[facility] Medications Current Medications Medication Drug Class(es) Dates Sig (Normalized) Sig (Original) levothyroxine sodium 0.175 mg oral tablet (1 source) l-Thyroxine Start: 01-16-2023 End: 04-26-2023 take 1 tablet by mouth in the morning levothyroxine (Synthroid, Levoxyl) 175 MCG tablet Indications: Hypothyroidism (acquired) (CMS/HCC) Take 1 tablet (175 mcg) by mouth in the morning. 100 tablet 0 01/16/2023 04/26/2023 Active Payers Date Payer Category Payer Unknown [employer] [id number] 2022-Present [phone] [address] [address] [place] [address] [id number] 2022 Unknown [id number] 1990 Unknown [id number] [id number] 3 1990 Unknown [id number] [id number] 59 1990 Unknown [id number] [id number] 59 1990 Unknown [id number] [id number] 59 1990 Unknown [id number] [id number] 59 1990 Unknown [id number] 59 1959 Unknown [id number] Plan of Treatment Date Care Activity Detail Author Start: 11-26-2027 Screening for malign ant neoplasm of cervix [facility] Start: 11-30-2023 End: 11-30-2023 Patient encounter procedure 11/30/2023 10:00 AM EDT Office Visit [facility] [address] [facility] [place] [address] David Escobedo DO [address], [place] [id number] [facility] Start: 08-16-2023 Influenza vaccination Influenza Vacc ine (#1) [facility] Comment on above: Postponed from 10/17 (Patient Refused) Problems Problem Classification Problem Date Documented Date Episodic/Chronic Immunizations and screening for infectious disease (1 source) Encounter for screening for human papillomavirus (HPV); Translations: [ENC SCREENING HUMAN PAPILLOMAVIRUS] Onset: 11-21-2021 Episodic Other screening for suspected conditions (not mental disorders or infectious disease) (4 sources) Encounter for screening for malignant neoplasm of cervix; Translations: [ENC SCREENING MALIG NEOPLASM CERV] Onset: 11-19-2021 Episodic Procedures Date Procedure Procedure Detail Performing Clinician Start: 03-28-2023 [facility] PREG QUANT HCG Core y Fanny DO Work Phone: Start: 11-25-2022 Microscopic observat ion [Identifier] in Cervix by Cyto stain David [employer] DO Work Phone: Results Test Name Value Interpretation Reference Range Facil ity [facility] PREG QUANT HCGon 024 HCG QUANTITATIVE 6 mIU/mL [facility] Comment on above: 5-50 0.2-1 WEEK 50-500 1-2 WEEKS 100-5,000 2-3 WEEKS 500-10,000 3-4 WEEKS 1,000-50,000 4-5 WEEKS 10,000-100,000 5-6 WEEKS 15,000-200,000 6-8 WEEKS 10,000-100,000 2-3 MONTHS [facility] PAP ACOG PANEL 2: 30 to 65on 11-26-2021 . . Normal [facility] Comment on above: Result Comment: Perf ormed at: WB Performed By: #### [id number] #### [facility] [address] [place] [address] Dr. Florencia Carpenter Age Gdln ACOG Testing 30-65 Normal [facility] Comment on above: Performed By: #### [id number] #### [facility] [address] [address] [address] Florencia Carpenter DIAGNOSIS: Comment Normal [facility] Comment on above: Result Comment: NEGA TIVE FOR INTRAEPITHELIAL LESION OR MALIGNANCY. Performed at: WB Performed By: #### [id number] #### [facility] [address] [address] [address] Florencia Carpenter HPV Aptima Negative Normal Negative [facility] Comment on above: Result Comment: This nucleic acid amplification test detects fourteen high-risk HPV types (16,18,31,33,35,39,45,51,52,56,58,59,66,68) without differentiation. Performed at: =G Performed By: #### [id number] #### [facility] [address] [place] [address] Dr. Florencia Carpenter Methodology: Comment Normal [facility] Comment on above: Result Comment: This liquid based ThinPrep(R) pap test was screened with the use of an image guided system. Performed at: WB Performed By: #### [id number] #### [facility] [address] [place] [address] Dr. Florencia Carpenter Note: Comment Normal [facility] Comment on above: Result Comment: The Pap smear is a screening test designed to aid in the detection of premalignant and malignant conditions of the uterine cervix. It is not a diagnostic procedure and should not be used as the sole means of detecting cervical cancer. Both false-positive and false-negative reports do occur. . Performed at: WB Performed By: #### [id number] #### [facility] [address] [place] [address] Dr. Florencia Carpenter Performed by: Comment Normal [facility] Comment on above: Result Comment: Ermelinda Ricketts, Plant Engineering Manager (ASCP) Performed at: WB Performed By: #### [id number] #### [facility] [address] [place] [address] Dr. Florencia Carpenter Specimen adequacy: Comment Normal [facility] Comment on above: Result Comment: Sati sfactory for evaluation. Endocervical and/or squamous metaplastic cells (endocervical component) are present. Performed at: WB Performed By: #### [id number] #### [facility] [address] [place] [address] Dr. Florencia Carpenter Social History Date Type Detail Facility Start: 02-05-2023 Alcohol intake Ex-drinker (finding) [facility] Start: 01-16-2023 Alcohol Comment caffeine intak e: 1 cup of coffe daily [facility] Start: 12-19-2022 Tobacco smoking status NHIS Ex-smoke r [facility] Start: 12-12-2022 End: 12-19-2022 Cigarettes smoked current (pack per day) - Reported 0.5 [facility] Start: 12-19-2022 Tobacco use and exposure Smoke less tobacco non-user [facility] Start: 12-12-2022 End: 01-16-2023 Humiliation, Afraid, Rape, and Kick questionnaire [HARK] [facility] Start: 11-26-2015 End: 07-22-2022 History of tobacco use Current smoker [facility] Start: 11-26-2015 End: 07-22-2022 History of tobacco use Cigarette Smoker [facility] Start: 1990 Sex Assigned At Not on file [facility] Within the last year , have you been afraid of your partner or ex-partner? No [facility] Are you now , , , , never or living with a partner? [facility] How often to you hav e a drink containing alcohol? 2-3 time sa week [facility] How many standard dr inks containing alcohol do you have on a typical day? 1 or 2 [facility] How often do you hav e 6 or more drinks on 1 occasion? Never [facility] How hard is it for y ou to pay for the very basics like food, housing, medical care, and heating Not very hard [facility] Do you feel stress - tense, restless, nervous, or anxious, or unable to sleep at night because your mind is troubled all the time - these days [OSQ] Only a little [facility] On those days that y ou engage in moderate to strenuous exercise, how many minutes, on average, do you exercise? Patient refused [facility] (I/We) worried whelevon er (my/our) food would run out before (I/we) got money to buy more. Never true [facility] Summary Purpose Family History No Family History Records FoundNo Family History Records Found Advance Directives No Advanced Directives Records FoundNo Advanced Directives Records Found Additional Source Comments INFORMATION SOURCE (unrecogn ized section and content) DATE CREATED AUTHOR 11/26/2021 [facility] DATE CREATED AUTHOR AUTHOR'S ROSLYN JOHANSEN 05/12/2023 [facility] Specialists [facility] Care Teams (unrecognized sec tion and content) Binding Bench Worker Relationship Specialty Start Date End Date Joceline Willson MD [address] [place] [address] PCP - General Family Medicine 12/19/22 FOR RECORDS PERTAINING TO PATIENTS WHO ARE [...] BE BASED ON THE PRIMARY CLINICAL RECORDS. [facility]. provides no warranty or guarantee of the accuracy or completeness of information in this document.
--- NOTE | 2023-08-21 02:21 | ED.NAVMDI1 ---
HPI - Nausea/Vomiting/Diarrhea General Chief complaint: Nausea/Vomiting/Diarrhea Stated complaint: abd pain diarrhea Time Seen by Provider: 08/21/23 02:18 Source: patient Mode of arrival: walk-in History of Present Illness HPI Narrative: food poisoning this past thursday with recurrent vomiting . Now has nausea and diarrhea past couple of day. no blood. abdominal cramping Related Data Home Medications ?Medication ?Instructions ?Recorded ?Confirmed levothyroxine 175 mcg tablet 175 mcg PO DAILY 01/24/23 01/24/23 Allergies Allergy/AdvReac Type Severity Reaction Status Date / Time No Known Drug Allergies Allergy Verified 01/24/23 04:31 Review of Systems ROS Status of ROS 10 or more systems reviewed and unremarkable except as noted in history and below [facility] Social History Smoking status: Never smoker Exam Constitutional Vital Signs, click to edit/add: Last Vital Signs Temp 97.5 F L 08/21/23 02:13 Pulse 104 H 08/21/23 02:13 Resp 16 08/21/23 02:13 BP 115/89 08/21/23 02:13 Pulse Ox 99 08/21/23 02:13 O2 Del Method Room Air 08/21/23 02:13 Common normals: no apparent distress, average body habitus, oriented x3, no limitations, healthy appearing, alert and well nourished [facility] Common normals: normocephalic and head/scalp atraumatic Eye Common normals: PERRL, EOMs intact bilaterally and conjunctivae normal Respiratory Common normals: normal respiratory effort, no retractions, no use of accessory muscles and clear to auscultation bilaterally Cardio Common normals: regular rate, regular rhythm, S1 normal heart sound and S2 normal heart sound GI Common normals: Normal to inspection, nondistended, normoactive bowel sounds present, soft to palpation and non-tender Extremity Common normals: normal to inspection and full ROM Neuro Common normals: oriented x3, CN's II-XII intact bilaterally, moves all extremities and no focal motor deficits Psych Appearance: grossly normal Course Vital Signs Vital signs: Vital Signs Temperature 97.5 F L 08/21/23 02:13 Pulse Rate 104 H 08/21/23 02:13 Respiratory Rate 16 08/21/23 02:13 Blood Pressure 115/89 08/21/23 02:13 Pulse Oximetry 99 08/21/23 02:13 Oxygen Delivery Method Room Air 08/21/23 02:13 Temperature 97.5 F L 08/21/23 02:13 Pulse Rate 104 H 08/21/23 02:13 Respiratory Rate 16 08/21/23 02:13 Blood Pressure 115/89 08/21/23 02:13 Pulse Oximetry 99 08/21/23 02:13 Oxygen Delivery Method Room Air 08/21/23 02:13 MDM - Nausea/Vomiting/Diarrhea MDM Narrative Medical decision making narrative: patient presents with diarrhea and crampy abdominal pain. Abdomen nontender. Patient hydrated. labs sent including stool culture and patient discharged home with [facility] Lab Data Labs: Lab Results 08/21/23 08/21/23 Range/Units 02:20 02:30 WBC 12.3 H (4.0-11.0) 10^3/uL RBC 5.91 H (4.20-5.40) 10^6/uL Hgb 17.8 H (12.0-16.0) g/dL Hct 50.2 H (36.0-48.0) % MCV 84.9 (81.0-99.0) fL MCH 30.1 (26.7-34.0) pg MCHC 35.5 H (29.9-35.2) g/dL RDW 12.1 (11.0-15.0) % Plt Count 379 (150-450) 10^3/uL MPV 10.7 (9.5-13.5) fL Neut % (Auto) 65.9 (43.0-75.0) % Lymph % (Auto) 15.8 L (20.5-60.0) % Hernando % (Auto) 11.2 (1.7-12.0) % Eos % (Auto) 6.0 (0.9-7.0) % Baso % (Auto) 0.5 (0.2-2.0) % Neut # (Auto) 8.1 H (1.4-6.5) 10^3/uL Lymph # (Auto) 1.9 (1.2-3.8) 10^3/uL Hernando # (Auto) 1.4 H (0.3-0.8) 10^3/uL Eos # (Auto) 0.7 (0.0-0.7) 10^3/uL Baso # (Auto) 0.1 (0.0-0.1) 10^3/uL Abs Immat Gran (auto) 0.07 H (0.00-0.03) 10^3/uL Imm/Tot Granulo (auto) 0.6 H (0.0-0.5) % Sodium 135 L (136-145) mmol/L Potassium 3.9 (3.5-5.1) mmol/L Chloride 101 (98-107) mmol/L Carbon Dioxide 25.9 (21.0-32.0) mmol/L Anion Gap 12.0 BUN 10.0 (7.0-18.0) mg/dL Creatinine 0.97 (0.55-1.02) mg/dL Est GFR ( Amer) >60 (>=60) Est GFR (Non-Af Amer) >60 (>=60) BUN/Creatinine Ratio 10.3 Glucose 113 H (74-106) mg/dL Calcium 9.6 (8.5-10.1) mg/dL Total Bilirubin 0.6 (0.2-1.0) mg/dL AST 8 L (15-37) U/L ALT 16 (14-59) U/L Alkaline Phosphatase 84 (46-116) U/L Total Protein 7.3 (6.4-8.2) g/dL Albumin 3.8 (3.4-5.0) g/dL Globulin 3.5 g/dL Albumin/Globulin Ratio 1.1 Stl Cryptosporidium Ag Negative (Negative) Giardia lamblia Ag Negative (Negative) C. difficile Toxin PCR Negative (NEGATIVE) Discharge Plan Discharge Stand Alone Forms: Portal Instructions Chief Complaint: Nausea/Vomiting/Diarrhea Clinical Impression: Dehydration, Diarrhea Patient Disposition: Home, Self-Care Prescriptions / Home Meds: No Action levothyroxine 175 mcg tablet 175 mcg PO DAILY Print Language: Ukrainian Instructions: Dehydration (ED), Acute Diarrhea (ED) Additional Instructions: follow up with your family doctor next week Referrals: Genna Mcbride NP [Primary Care Provider] - 1 week Discharge Date/Time: 08/21/23 05:10
[2023-08-21 02:35] LABS: Basophils Percent Auto 0.5 % (0.2-2.0); Hematocrit 50.2 % (36.0-48.0); Hemoglobin 17.8 g/dL (12.0-16.0); Lymphocytes Percent Auto 15.8 % (20.5-60.0); Mean Corpuscular HGB Conc 35.5 g/dL (29.9-35.2); Mean Corpuscular Hemoglobin 30.1 pg (26.7-34.0); Mean Corpuscular Volume 84.9 fL (81.0-99.0); Mean Platelet Volume 10.7 fL (9.5-13.5); Monocytes Percent Auto 11.2 % (1.7-12.0); Neutrophils Percent Auto 65.9 % (43.0-75.0); Platelet Count 379 10^3/uL (150-450); Red Blood Count 5.91 10^6/uL (4.20-5.40); Red Cell Distribution Width 12.1 % (11.0-15.0); White Blood Count 12.3 10^3/uL (4.0-11.0)
[2023-08-21 02:36] LABS: Basophils Absolute Auto 0.1 10^3/uL (0.0-0.1); Eosinophils Absolute Auto 0.7 10^3/uL (0.0-0.7); Immature Granulocytes Abs Auto 0.07 10^3/uL (0.00-0.03); Immature Granulocytes Pct Auto 0.6 % (0.0-0.5); Lymphocytes Absolute Auto 1.9 10^3/uL (1.2-3.8); Monocytes Absolute Auto 1.4 10^3/uL (0.3-0.8); Neutrophils Absolute Auto 8.1 10^3/uL (1.4-6.5)
[2023-08-21] MEDS: 0.9 % SODIUM CHLORIDE 1,000 ML 999 ML IV ×2 (02:38→03:33)
[2023-08-21 02:50] LABS: Alanine Aminotransferase 16 U/L (14-59); Albumin Globulin Ratio 1.1; Albumin Level 3.8 g/dL (3.4-5.0); Alkaline Phosphatase 84 U/L (46-116); Aspartate Amino Transferase 8 U/L (15-37); BUN Creatinine Ratio 10.3; Bilirubin Total 0.6 mg/dL (0.2-1.0); Calcium 9.6 mg/dL (8.5-10.1); Carbon Dioxide 25.9 mmol/L (21.0-32.0); Chloride 101 mmol/L (98-107); Estimated GFR (African America >60 (>=60); Estimated GFR (Non-African Ame >60 (>=60); Globulin 3.5 g/dL; Glucose 113 mg/dL (74-106); Potassium 3.9 mmol/L (3.5-5.1); Sodium 135 mmol/L (136-145); Total Protein 7.3 g/dL (6.4-8.2)
[2023-08-21] MEDS: DICYCLOMINE HCL 20 MG/2 ML VIAL IM (05:01)
[2023-08-21 11:10] LABS: C. Difficile PCR NEGATIVE (NEGATIVE)
[2023-08-24 13:07] LABS: Cryptosporidium EIA Negative (Negative); Giardia lamblia Ag, EIA Negative (Negative)
== END 2023-08-21 05:10 | disposition home or self-care (01) ==
PROVIDERS: Emergency Provider Internal Medicine; PCP Nurse Practitioner Family
DX: E86.0 Dehydration (principal); R19.7 Diarrhea, unspecified
CPT/HCPCS: 36415; 80053; 85025; 87045; 87046; 87328; 87329; 87427; 87493; 87507; 96360; 96361; 96372; 99284; J0500

== ENCOUNTER 2023-12-07 19:39 | Outpatient (REF) | payer OTHER, SELFPAY ==
--- OUTSIDE RECORDS SUMMARY | 2023-12-07 19:43 | XMS_ITS | CCD ---
Author Organization [facility] Care Team Providers Care Reinforcing Bar Setter Name Role Phone DR DAVID ESCOBEDO Admitting Unavailable DR DAVID ESCOBEDO Attending Unavailable DR LE MENDOZA Primary Care Unavailable DR DAVID ESCOBEDO Consulting Unavailable Anamika CLEARY, Joceline Primary Care Provider AYLEEN TRUJILLO Attending Unavailable JAYRO MCBRIDE Referring Unavailable JAYRO MCBRIDE Attending Unavailable JAYRO MCBRIDE Attending Unavailable JAYRO MCBRIDE Attending Unavailable JAYRO MCBRIDE Attending Unavailable JAYRO MCBRIDE Attending Unavailable DAVID ESCOBEDO Attending Unavailable Medications Current Medications Medication Drug Class(es) Dates Sig (Normalized) Sig (Original) levothyroxine sodium 0.175 mg oral tablet (5 sources) l-Thyroxine Start: 10-01-2023 take 1 tablet by mouth in the morning levothyroxine (Synthroid, Levoxyl) 175 MCG tablet Indications: Hypothyroidism (acquired) (CMS/HCC) TAKE 1 TABLET(175 MCG) BY MOUTH IN THE MORNING 100 tablet 10/01/2023 Active Start: 01-16-2023 End: 04-26-2023 take 1 tablet by mouth in the morning levothyroxine (Synthroid, Levoxyl) 175 MCG tablet Indications: Hypothyroidism (acquired) (CMS/HCC) Take 1 tablet (175 mcg) by mouth in the morning. 100 tablet 0 01/16/2023 04/26/2023 Active 1 mg dose 1.5 ml semaglutide 1.34 mg/ml pen injector (4 sources) Start: 06-17-2023 semaglutide (O zempic) 2 MG/1.5ML solution pen-injector 2 mL 1 (one) time per week Takes 40 units weekly. 06/17/2023 Active Start: 06-17-2023 semaglutide (O zempic) 2 MG/1.5ML solution pen-injector 2.65 mg 1 (one) time per week 06/17/2023 Active Problems Problem Classification Problem Date Documented Date Episodic/Chronic Immunizations and screening for infectious disease (1 source) Encounter for screening for human papillomavirus (HPV); Translations: [ENC SCREENING HUMAN PAPILLOMAVIRUS] Onset: 11-21-2021 Episodic Malaise and fatigue (2 sources) Fatigue; Translations: [Other fatigue] 11-17-2023 Episodic Other screening for suspected conditions (not mental disorders or infectious disease) (4 sources) Encounter for screening for malignant neoplasm of cervix; Translations: [ENC SCREENING MALIG NEOPLASM CERV] Onset: 11-19-2021 Episodic Other skin disorders (2 sources) Alopecia; Translations: [Nonscarring hair loss, unspecified] 11-17-2023 Episodic Thyroid disorders (2 sources) Acquired hypothyroidism; Translations: [Hypothyroidism, unspecified] 11-17-2023 Chronic Results Test Name Value Interpretation Reference Range Facil ity [facility] PREG QUANT HCGon 024 HCG QUANTITATIVE 6 mIU/mL [facility] Comment on above: 5-50 0.2-1 WEEK 50-500 1-2 WEEKS 100-5,000 2-3 WEEKS 500-10,000 3-4 WEEKS 1,000-50,000 4-5 WEEKS 10,000-100,000 5-6 WEEKS 15,000-200,000 6-8 WEEKS 10,000-100,000 2-3 MONTHS [facility] PAP ACOG PANEL 2: 30 to 65on 11-26-2021 . . Normal [facility] Comment on above: Result Comment: Perf ormed at: WB Performed By: #### [id number] #### [facility] [address] [address] [address] Florencia Carpenter Age Gdln ACOG Testing 30-65 Normal [facility] Comment on above: Performed By: #### [id number] #### [facility] [address] [address] [address] Florencia Carpenter DIAGNOSIS: Comment [facility] Comment on above: Result Comment: NEGA TIVE FOR INTRAEPITHELIAL LESION OR MALIGNANCY. Performed at: WB Performed By: #### [id number] #### [facility] [address] [place] [address] Dr. Florencia Carpenter HPV Aptima Negative Normal Negative [facility] Comment on above: Result Comment: This nucleic acid amplification test detects fourteen high-risk HPV types (16,18,31,33,35,39,45,51,52,56,58,59,66,68) without differentiation. Performed at: =G Performed By: #### [id number] #### [facility] [address] [place] [address] Dr. Florencia Carpenter Methodology: Comment Normal [facility] Comment on above: Result Comment: This liquid based ThinPrep(R) pap test was screened with the use of an image guided system. Performed at: WB Performed By: #### [id number] #### [facility] [address] [place] [address] Dr. Florencia Carpenter Note: Comment Normal [facility] Comment on above: Result Comment: The Pap smear is a screening test designed to aid in the detection of premalignant and malignant conditions of the uterine cervix. It is not a diagnostic procedure and should not be used as the sole means of detecting cervical cancer. Both false-positive and false-negative reports do occur. . Performed at: WB Performed By: #### [id number] #### [facility] [address] [place] [address] Dr. Florencia Carpenter Performed by: Comment Normal [facility] Comment on above: Result Comment: Ermelinda Ricketts, Physical Therapy Manager (ASCP) Performed at: WB Performed By: #### [id number] #### [facility] [address] [place] [address] Dr. Florencia Carpenter Specimen adequacy: Comment Normal [facility] Comment on above: Result Comment: Sati sfactory for evaluation. Endocervical and/or squamous metaplastic cells (endocervical component) are present. Performed at: WB Performed By: #### [id number] #### [facility] [address] [place] [address] Dr. Florencia Carpenter Vital Signs Date Time Vital Sign Value Performing Clinician Faci lity 11-17-2023 15:26-0400 Body height 167.6 cm Jayro Mcbride [employer] Work Phone: [facility] 11-17-2023 15:26-0400 Body mass index (BMI) [Ratio] 30.09 kg/m2 Jayro Mcbride [employer] Work Phone: [facility] 11-17-2023 15:26-0400 Body weight 84.55 kg Jayro Mcbride [employer] Work Phone: [facility] 11-17-2023 15:26-0400 Diastolic blood pressure 86 mm[Hg] Jayro Mcbride [employer] Work Phone: [facility] 11-17-2023 15:26-0400 Heart rate 96 /min Jayro Mcbride [employer] Work Phone: [facility] 11-17-2023 15:26-0400 SaO2% (BldA) [Mass fraction] 96 % Jayro Mcbride [employer] Work Phone: [facility] 11-17-2023 15:26-0400 Systolic blood pressure 118 mm[Hg] Jayro Mcbride [employer] Work Phone: [facility] Encounters Encounter Date Encounter Type Care Provider Facility Start: 11-20-2023 End: 11-20-2023 Telephone encounter Ana Laura Brennan MA [facility] Start: 11-17-2023 End: 11-17-2023 Office outpatient visit 15 minutes Jayro Mcbride [employer] Work Phone: [facility] Comment on above: Alopecia; Other fatigue; Acquired hypothyroidism (CMS/HCC) Start: 11-17-2023 End: 11-17-2023 ambulatory JAYRO MCBRIDE Not Available Start: 11-17-2023 End: 11-17-2023 Bamboo flowsheet Jayro Mcbride [employer] Work Phone: [facility] Start: 11-17-2023 End: 11-17-2023 Bamboo flowsheet Jayro Mcbride [employer] Work Phone: [facility] Start: 08-28-2023 End: 08-28-2023 ambulatory JAYRO MCBRIDE Not Available Start: 05-11-2023 End: 05-11-2023 ambulatory JAYRO MCBRIDE Not Available Start: 04-27-2023 End: 04-27-2023 ambulatory JAYRO MCBRIDE Not Available Start: 03-28-2023 [facility] Result Encounter Cor shashank Dawkinso DO Work Phone: [facility] Unsolicited Start: 03-28-2023 [facility] Result Encounter Cor shashank Fanny DO Work Phone: [facility] Unsolicited Start: 02-05-2023 End: 02-05-2023 ambulatory DAVID ESCOBEDO Not Available Start: 01-16-2023 End: 01-16-2023 ambulatory JAYRO MCBRIDE Not Available Start: 12-31-2022 End: 12-31-2022 ambulatory AYLEEN THOMASIGGS Not Available Start: 11-19-2021 End: 11-19-[address] DAVID ESCOBEDO Facility: Procedures Date Procedure Procedure Detail Performing Clinician Start: 03-28-2023 [facility] PREG QUANT HCG Core y Fanny DO Work Phone: Start: 11-25-2022 Microscopic observat ion [Identifier] in Cervix by Cyto stain David Escobedo DO Work Phone: Plan of Treatment Date Care Activity Detail Author Start: 11-26-2027 Screening for malign ant neoplasm of cervix [facility] Start: 01-12-2024 Influenza vaccination Influenza Vacc ine (#1) [facility] Comment on above: Postponed from 10/17 (Patient Refused) Start: 12-07-2023 End: 12-07-2023 Patient encounter procedure 12/07/2023 3:40 PM EDT Office Visit [facility] [address] [place] [id number] David Escobedo DO [address] [place] [address] [facility] Start: 11-30-2023 End: 11-30-2023 Patient encounter procedure 11/30/2023 10:00 AM EDT Office Visit [facility] [address] [facility] [facility] [address] [place] [address] David Escobedo DO [address] [facility] [place] [address] [facility] Start: 11-17-2023 End: 11-17-2023 Patient encounter procedure 11/17/2023 3:30 PM EDT Office Visit [facility] [address] [facility] [place] [id number] Jayro Mcbride [employer] [address] [place], [place] [id number] Arrived [facility] Comment on above: Arrived Start: 11-17-2023 End: 11-16-2024 CBC W Auto Differential panel - Blood CBC and differential Lab Routine Alopecia Other fatigue Expected: 11/17/2023 (Approximate), Expires: 11/16/2024 [facility] Comment on above: Expected: 11/17/2023 (Approximate), Expires: 11/16/2024 Start: 11-17-2023 End: 11-16-2024 Ferritin [Mass/volume] in Serum or Plasma Ferritin Lab Routine Alopecia Other fatigue Expected: 11/17/2023 (Approximate), Expires: 11/16/2024 [facility] Comment on above: Expected: 11/17/2023 (Approximate), Expires: 11/16/2024 Start: 11-17-2023 End: 11-16-2024 TSH W/REFLEX TO FT4 TSH W/REFLEX TO FT4 Lab Routine Alopecia Other fatigue Acquired hypothyroidism (CMS/HCC) Expected: 11/17/2023 (Approximate), Expires: 11/16/2024 [facility] Work Phone: Comment on above: Expected: 11/17/2023 (Approximate), Expires: 11/16/2024 Start: 10-18-2023 Influenza vaccination Influenza Vacc ine (#1) [facility] Start: 08-16-2023 Influenza vaccination Influenza Vacc ine (#1) [facility] Comment on above: Postponed from 10/17 (Patient Refused) Payers Date Payer Category Payer Unknown [employer] [id number] 2022-Present [phone] [address] [address] [place] [address] [id number] 2022 Unknown [id number] 1990 Unknown [id number] 3 1990 Unknown [id number] 59 1990 Unknown [id number] 59 1990 Unknown [id number] 59 1990 Unknown [id number] 59 1990 Unknown [id number] 59 1990 Unknown [id number] 59 1990 Unknown [id number] 59 1959 Unknown [id number] Social History Date Type Detail Facility Start: 12-19-2022 End: 08-28-2023 Tobacco smoking status [facility] Ex-smoker [facility] are Start: 11-26-2015 End: 07-22-2022 History of tobacco use Current smoker [facility] Start: 11-26-2015 End: 07-22-2022 History of tobacco use Cigarette Smoker [facility] Start: 12-12-2022 End: 12-19-2022 Cigarettes smoked current (pack per day) - Reported 0.5 [facility] Start: 12-19-2022 End: 07-12-2024 Tobacco use and exposure Smokeless tobacco non-user [facility] Start: 02-05-2023 End: 08-28-2023 Alcohol intake Ex-drinker (finding) [facility] Start: 12-12-2022 End: 01-16-2023 Humiliation, Afraid, Rape, and Kick questionnaire [HARK] [facility] Within the last year , have [...] exercise? Patient refused [facility] (I/We) worried hailey er (my/our) food would run out before (I/we) got money to buy more. Never true [facility] Start: 01-16-2023 Alcohol Comment caffeine intak e: 1 cup of coffe daily [facility] Start: 1990 Sex Assigned At Not on file [facility] Start: 11-17-2023 Alcoholic beverage intake Curr ent drinker of alcohol (finding) [facility] Start: 11-17-2023 Alcohol Comment caffeine intak e: 1 cup daily [facility] Start: 08-28-2023 Alcohol Comment caffeine intake: [facility] Telephone encounter Note 11-20-2023 Telephone Encounter - Gerber Perdomo - 11/20/2023 4:21 PM EDT Note Date & Type Note Facility 11-20-2023 Telephone encount er Note Pt called back and I gave her the message :) [facility] Note 11-20-2023 Telephone Encounter - Gerber Perdomo - 11/20/2023 4:21 PM EDTTelephone Encounter - Ana Laura Brennan MA - 11/20/2023 2:45 PM EDT Note Date & Type Note Facility 11-20-2023 Miscellaneous Notes Formattin g of this note might be different from the original. Pt called back and I gave her the message :) MyChart message: Your labs are all normal range. Could definitely be a side effect of the semaglutide your using. documented in this encounter [facility] Telephone encounter Note 11-20-2023 Telephone Encounter - Ana Laura Brennan MA - 11/20/2023 2:45 PM EDT Note Date & Type Note Facility 11-20-2023 Telephone encount er Note MyChart message: Your labs are all normal range. Could definitely be a side effect of the semaglutide your using. [facility] History of Present illness Narrative 11-17-2023 Jayro Mcbride NP - 11/17/2023 3:30 PM EDT Note Date & Type Note Facility 11-17-2023 History of Presen t illness Narrative Images from the original note were not included. Cathy San is a 33 y.o. female presents with chief complaint of Fatigue and Alopecia HPI: HPI Presents to the office with complaints of fatigue and alopecia. Rarely uses curling iron or blow dryer on hair. Does root touch ups every 3 months. Has been losing clumps of hair the past few weeks and has noticed increased fatigue. She is using compounded semaglutide prescribed by another provider. Is planning on finishing the bottle she has at home and then taking a break. SUBJECTIVE: MEDICATIONS: Current Outpatient Medications Medication Instructions levothyroxine (Synthroid, Levoxyl) 175 MCG tablet TAKE 1 TABLET(175 MCG) BY MOUTH IN THE MORNING semaglutide (Ozempic) 2 MG/1.5ML solution pen-injector 2 mL, Weekly, Takes 40 units weekly. REVIEW OF SYMPTOMS: Review of Systems Constitutional: Positive for fatigue. OBJECTIVE: Visit Vitals BP 118/86 (BP Location: Left arm, Patient Position: Sitting, BP Cuff Size: Small adult) Pulse 96 Ht 5' 6 Wt 186 lb 6.4 oz SpO2 96% BMI 30.09 kg/m OB Status Having periods Smoking Status Former BSA 1.98 m Physical Exam Vitals reviewed. Constitutional: Appearance: Normal appearance. HENT: Head: Normocephalic and atraumatic. Mouth/Throat: Mouth: Mucous membranes are moist. Eyes: Pupils: Pupils are equal, round, and reactive to light. Cardiovascular: Rate and Rhythm: Normal rate and regular rhythm. Pulses: Normal pulses. Heart sounds: Normal heart sounds. Pulmonary: Effort: Pulmonary effort is normal. Breath sounds: Normal breath sounds. Musculoskeletal: Cervical back: Neck supple. Skin: General: Skin is warm and dry. Capillary Refill: Capillary refill takes less than 2 seconds. Findings: No rash. Neurological: General: No focal deficit present. Mental Status: She is alert and oriented to person, place, and time. ASSESSMENT AND PLAN: Assessment/Plan Diagnoses and all orders for this visit: Alopecia - TSH W/REFLEX TO FT4; Future - CBC and differential; Future - Ferritin; Future -Check labs to r/o underlying cause. Discussed it can be side effect from the semaglutide. Other fatigue - TSH W/REFLEX TO FT4; Future - CBC and differential; Future - Ferritin; Future -Check labs to r/o underlying cause Acquired hypothyroidism (CMS/HCC) - TSH W/REFLEX TO FT4; Future -On synthroid documented in this encounter [facility] Evaluation note Note Date & Type Note Facility Evaluation note Diagnosis Alopecia Other fatigue Acquired hypothyroidism (CMS/HCC) Unspecified hypothyroidism documented in this encounter [facility] Summary Purpose Family History No Family History Records FoundNo Family History Records Found Advance Directives No Advanced Directives Records FoundNo Advanced Directives Records Found Additional Source Comments INFORMATION SOURCE (unrecogn ized section and content) DATE CREATED AUTHOR 11/26/2021 [facility] DATE CREATED AUTHOR AUTHOR'S ORGANDOLORES ATION 11/19/2023 [facility] Care Teams (unrecognized sec tion and content) Reinforcing Bar Setter Relationship Specialty Start Date End Date Joceline Willson MD [address] [place] [address] PCP - General Family Medicine 12/19/22 [employer]forcing [employer]ter Relationship Specialty Start Date End Date Joceline Willson MD [address] [place] [address] PCP - General Family Medicine 12/19/22 Reinforcing Bar Setter Relationship Specialty Start Date End Date Joceline Willson MD [address] [place] [address] PCP - General Family Medicine 12/19/22 Reinforcing Bar Setter Relationship Specialty Start Date End Date Joceline Willson MD [address] [place] [address] PCP - General Family Medicine 12/19/22 Reason for Visit (unrecogniz ed section and content) Reason Comments Fatigue Alopecia FOR RECORDS PERTAINING TO PATIENTS WHO ARE [...] BE BASED ON THE PRIMARY CLINICAL RECORDS. [employer] provides no warranty or guarantee of the accuracy or completeness of information in this document.
== END 2023-12-07 19:40 | disposition home or self-care (01) ==
LOC: LAB 19:39
PROVIDERS: PCP Nurse Practitioner Family; Visit Provider Obstetrics & Gynecology
DX: Z01.419 Encounter for gynecological examination (general) (routine) without abnormal findings (principal)
CPT/HCPCS: 87624; 88175

== ENCOUNTER 2024-01-20 15:13 | Outpatient (RCR) | payer OTHER, SELFPAY ==
[2024-01-20 16:06] LABS: HCG Quantitative 79 mIU/mL
[2024-01-22 16:10] LABS: HCG Quantitative 158 mIU/mL
== END 2024-02-16 10:42 | disposition home or self-care (01) ==
LOC: LAB 15:13
PROVIDERS: PCP Nurse Practitioner Family; Visit Provider Obstetrics & Gynecology
DX: N92.6 Irregular menstruation, unspecified (principal); Z87.59 Personal history of other complications of pregnancy, childbirth and the puerperium
CPT/HCPCS: 36415; 84702

== ENCOUNTER 2024-01-28 14:01 | Outpatient (RCR) | payer OTHER, SELFPAY ==
[2024-01-28 15:12] LABS: HCG Quantitative 2239 mIU/mL
[2024-01-30 12:52] LABS: HCG Quantitative 2981 mIU/mL
[2024-02-04 16:13] LABS: HCG Quantitative 4079 mIU/mL
[2024-02-15 12:03] LABS: HCG Quantitative 5388 mIU/mL
== END 2024-02-16 10:41 | disposition home or self-care (01) ==
LOC: LAB 14:01
PROVIDERS: PCP Nurse Practitioner Family; Visit Provider Obstetrics & Gynecology
DX: N92.6 Irregular menstruation, unspecified (principal)
CPT/HCPCS: 36415; 84702

== ENCOUNTER 2024-02-12 12:41 | Outpatient (OUT) | payer OTHER, SELFPAY ==
--- NOTE | 2024-02-12 12:44 | US_ITS ---
The [address] [address] Patient Name: PAM ACEVES MRN: [id number] date: 1990 Sex: F Assigned Patient Location: US Current Patient Location: US Accession/Order Number: [id number] Exam Date: 02/12/2024 13:06 Report Date: 02/12/2024 13:53 At the request of: DAVID ESCOBEDO Procedure: US OB transvaginal EXAMINATION: US OB transvaginal HISTORY: Missed menses N92.6 COMPARISON: No relevant comparison available. FINDINGS: GESTATIONAL SAC: Absent YOLK SAC: Absent POLE: Absent CARDIAC: Absent UTERUS: Normal size and appearance. Small nabothian cysts within cervix. OVARIES: Right: Heterogeneous hyperechoic material within right adnexa adjacent the ovary approximately 3.4 x 3.6 x 1.5 cm in size. No appreciable blood flow within this tissue on color Doppler. There does appear to be a small focal pulsatile area that may represent blood vessel. Small amount of free fluid within right adnexa. Left: Normal. CERVIX: 2.8 cm in length and closed. CUL-DE-SAC: Normal. OTHER: None. AGE BY LMP: 7 weeks 3 days [place] BY LMP: 09/27/2024 AGE BY US CRL: Not applicable [place] BY US CRL: US/US OB transvaginal IMPRESSION: 1. No intrauterine and the endometrium is only 11 mm in thickness. 2. Heterogeneous material within right adnexa without appreciable gestational sac, yolk sac, or pole. A pulsatile area likely represents a vessel within this area. Small amount of free fluid within right adnexa. I suspect rupture of a hemorrhagic cysts from the right ovary with clotted blood products in the adnexa and small amount of free fluid. Given the lack of significant endometrial thickening and no current or history of patient tenderness within the right adnexa a ruptured ectopic is felt less likely. (I discussed how the patient was doing with the shipping receiving clerk). Follow-up recommended. Findings are being called to the office of Dr. Escobedo. Electronically authenticated by: TONY MISHRA Date: 02/12/2024 13:53
--- OUTSIDE RECORDS SUMMARY | 2024-02-12 12:56 | XMS_ITS | CCD ---
Author Organization [facility] Care Team Providers Care Commutator Tester Name Role Phone DR DAVID ESCOBEDO Admitting Unavailable DR DAVID ESCOBEDO Attending Unavailable DR LE MENDOZA Primary Care Unavailable DR DAVID ESCOBEDO Consulting Unavailable Anamika CLEARY, Joceline Primary Care Provider AYLEEN TRUJILLO Attending Unavailable JAYRO MCBRIDE Referring Unavailable JAYRO MCBRIDE Attending Unavailable JAYRO MCBRIDE Attending Unavailable JAYRO MCBRIDE Attending Unavailable JAYRO MCBRIDE Attending Unavailable JAYRO MCBRIDE Attending Unavailable DAVID ESCOBEDO Attending Unavailable DAVID ESCOBEDO Attending Unavailable Medications Current Medications Medication Drug Class(es) Dates Sig (Normalized) Sig (Original) levothyroxine sodium 0.175 mg oral tablet (14 sources) l-Thyroxine Start: 10-01-2023 take 1 tablet [...] morning. 100 tablet 0 01/16/2023 04/26/2023 Active Progesterone 200 MG supposit ory (5 sources) Start: 01-20-2024 End: 02-19-2024 Progesterone 200 MG supposit ory Indications: History of miscarriage Insert 200 mg into the vagina at bedtime Insert suppository vaginally every night at bedtime until 12 weeks gestation 30 suppository 3 01/20/2024 02/19/2024 Active 1 mg dose 1.5 ml semaglutide 1.34 mg/ml pen injector (13 sources) Start: 06-17-2023 semaglutide (O zempic) 2 MG/1.5ML solution pen-injector 2 mL 1 (one) time per week Takes 40 units weekly. 06/17/2023 Active Start: 06-17-2023 semaglutide (O zempic) 2 MG/1.5ML solution pen-injector 2.65 mg 1 (one) time per week 06/17/2023 Active Problems Problem Classification Problem Date Documented Date Episodic/Chronic Abdominal pain (2 sources) Pain in female pelvis; Translations: [Pelvic and perineal pain] 12-07-2023 Episodic Immunizations and screening for infectious disease (1 [...] [facility] PREG QUANT HCGon 024 HCG QUANTITATIVE 4079 mIU/mL [facility] Comment on above: 5-50 0.2-1 WEEK 50-500 1-2 WEEKS 100-5,000 2-3 WEEKS 500-10,000 3-4 WEEKS 1,000-50,000 4-5 WEEKS 10,000-100,000 5-6 WEEKS 15,000-200,000 6-8 WEEKS 10,000-100,000 2-3 MONTHS [facility] PREG QUANT HCGon 024 HCG QUANTITATIVE 2981 mIU/mL [facility] Comment on above: 5-50 0.2-1 WEEK 50-500 1-2 WEEKS 100-5,000 2-3 WEEKS 500-10,000 3-4 WEEKS 1,000-50,000 4-5 WEEKS 10,000-100,000 5-6 WEEKS 15,000-200,000 6-8 WEEKS 10,000-100,000 2-3 MONTHS [facility] [employer] TBH PREG QUANT HCGon 024 HCG QUANTITATIVE 2239 mIU/mL [facility] Comment on above: 5-50 0.2-1 WEEK 50-500 1-2 WEEKS 100-5,000 2-3 WEEKS 500-10,000 3-4 WEEKS 1,000-50,000 4-5 WEEKS 10,000-100,000 5-6 WEEKS 15,000-200,000 6-8 WEEKS 10,000-100,000 2-3 MONTHS [facility] [employer] [facility] TBH PREG QUANT HCGon 024 HCG QUANTITATIVE 158 mIU/mL [facility] Comment on above: 5-50 0.2-1 WEEK 50-500 1-2 WEEKS 100-5,000 2-3 WEEKS 500-10,000 3-4 WEEKS 1,000-50,000 4-5 WEEKS 10,000-100,000 5-6 WEEKS 15,000-200,000 6-8 WEEKS 10,000-100,000 2-3 MONTHS [facility] [employer] [facility] e TBH PREG QUANT HCGon 024 HCG QUANTITATIVE 79 mIU/mL [facility] Comment on above: 5-50 0.2-1 WEEK 50-500 1-2 WEEKS 100-5,000 2-3 WEEKS 500-10,000 3-4 WEEKS 1,000-50,000 4-5 WEEKS 10,000-100,000 5-6 WEEKS 15,000-200,000 6-8 WEEKS 10,000-100,000 2-3 MONTHS [facility] [employer] IGP,APTIMA HPV,AGE GDLNon AGE GDLN ACOG TESTING Note . [facility] Comment on above: TESTS RESULT FLAG UN ITS REF RANGE LAB Clinician Provided Cytology Information Source.............Cervix;Endocervix No. of containers..01 ThinPrep Vial Age Joe RUBALCAVA Wendy... 30 FLAG LEGEND: L-Low Normal,H-High Normal,LL-Alert Low,HH-Alert High <-Panic Low,>-Panic High,A-Abnormal,AA-Critical Abnormal Performed at: 01 =G [address] [address] Chanel Francois MD, HPV APTIMA Negative Negative [facility] Comment on above: This nucleic acid am plification test detects fourteen high- risk HPV types (16,18,31,33,35,39,45,51,52,56,58,59,66,68) without differentiation. Performed at: = - [address] [id number] Candle Extrusion Machine Operator: Chanel Francois MD, Phone: [phone] Performed at: - [address] [id number] Cand[employer] Extrusion Machine Operator: Chanel Francois MD, Phone: [phone] IGP, APTIMA HPV, RFX 16/18,45 Note . [facility] Comment on above: TESTS RESULT FLAG UN ITS REF RANGE LAB DIAGNOSIS: 02 NEGATIVE FOR INTRAEPITHELIAL LESION OR MALIGNANCY. Specimen adequacy: 02 Satisfactory for evaluation. Endocervical and/or squamous metaplastic cells (endocervical component) are present. Performed by: 02 Vega Madden, International Accounting Manager ([facility]) . 02 Note: Note 02 The Pap smear is a screening test designed to aid in the detection of premalignant and malignant conditions of the uterine cervix. It is not a diagnostic procedure and should not be used as the sole means of detecting cervical cancer. Both false-positive and false-negative reports do occur. Test Methodology: Note 02 This liquid based ThinPrep(R) pap test was screened with the use of an image guided system. HPV Genotype Reflex Note 02 Criteria not met, HPV Genotype not performed. FLAG LEGEND: L-Low Normal,H-High Normal,LL-Alert Low,HH-Alert High <-Panic Low,>-Panic High,A-Abnormal,AA-Critical Abnormal Performed at: [address] [place] [address] Chanel Francois MD, BRUSH-SPATULA CERVIX ENDOCERVIX [facility] PREG QUANT HCGon 03-28- 024 HCG QUANTITATIVE 6 mIU/mL [facility] Comment on above: 5-50 0.2-1 WEEK 50-500 1-2 WEEKS 100-5,000 2-3 WEEKS 500-10,000 3-4 WEEKS 1,000-50,000 4-5 WEEKS 10,000-100,000 5-6 WEEKS 15,000-200,000 6-8 WEEKS 10,000-100,000 2-3 MONTHS [facility] PAP ACOG PANEL 2: 30 to 65on 11-26-2021 . . Normal [facility] Comment on above: Result Comment: Perf ormed at: WB Performed By: #### [id number] #### [facility] [address] [address] [address] Florencia Carpenter Age Gdln ACOG Testing 30-65 Normal [facility] Comment on above: Performed By: #### [id number] #### [facility] [address] [address] [address] Florencia Carpenter DIAGNOSIS: Comment Normal [facility] Comment on above: Result Comment: NEGA TIVE FOR INTRAEPITHELIAL LESION OR MALIGNANCY. Performed at: WB Performed By: #### [id number] #### [facility] [address] [address] [address] Florencia Carpenter HPV Aptima Negative Normal Negative [facility] Comment on above: Result Comment: This nucleic acid amplification test detects fourteen high-risk HPV types (16,18,31,33,35,39,45,51,52,56,58,59,66,68) without differentiation. Performed at: =G Performed By: #### [id number] #### [facility] [address] [address] [address] Florencia Carpenter Methodology: Comment [facility] Comment on above: Result Comment: This liquid based ThinPrep(R) pap test was screened with the use of an image guided system. Performed at: WB Performed By: #### [id number] #### [facility] [address] [address] [address] Florencia Carpenter Note: Comment [facility] Comment on above: Result Comment: The Pap smear is a screening test designed to aid in the detection of premalignant and malignant conditions of the uterine cervix. It is not a diagnostic procedure and should not be used as the sole means of detecting cervical cancer. Both false-positive and false-negative reports do occur. . Performed at: WB Performed By: #### [id number] #### [facility] [address] [address] [address] Florencia Carpenter Performed by: Comment Normal [facility] Comment on above: Result Comment: Ermelinda Ricketts, International Accounting Manager ([employer]) Performed at: WB Performed By: #### [id number] #### [facility] [address] [place], [place] [address] Dr. Florencia Carpenter Specimen adequacy: Comment Normal [facility] Comment on above: Result Comment: Sati sfactory for evaluation. Endocervical and/or squamous metaplastic cells (endocervical component) are present. Performed at: WB Performed By: #### [id number] #### [facility] [address] [place], [place] [address] Dr. Florencia Carpenter Vital Signs Date Time Vital Sign Value Performing Clinician Faci lity 12-07-2023 16:37-0400 Body mass index (BMI) [Ratio] 31.31 kg/m2 David Fanny DO Work Phone: [facility] 12-07-2023 16:37-0400 Body weight 88 kg David Fanny DO Work Phone: [facility] 12-07-2023 16:37-0400 Diastolic blood pressure 78 mm[Hg] David Fanny DO Work Phone: [facility] 12-07-2023 16:37-0400 Systolic blood pressure 114 mm[Hg] David Fanny DO Work Phone: [facility] 11-17-2023 15:26-0400 Body height 167.6 cm Jayro Mcbride FORM SETTER SUPERVISOR Work Phone: [facility] 11-17-2023 15:26-0400 Body mass index (BMI) [Ratio] 30.09 kg/m2 Jayro Reed FORM SETTER SUPERVISOR Work Phone: [facility] 11-17-2023 15:26-0400 Body weight 84.55 kg Jayro Mcbride FORM SETTER SUPERVISOR Work Phone: [facility] 11-17-2023 15:26-0400 Diastolic blood pressure 86 mm[Hg] Jayro Mcbride FORM SETTER SUPERVISOR Work Phone: [facility] 11-17-2023 15:26-0400 Heart rate 96 /min Jayro Mcbride FORM SETTER SUPERVISOR Work Phone: [facility] 11-17-2023 15:26-0400 SaO2% (BldA) [Mass fraction] 96 % Jayro Mcbride FORM SETTER SUPERVISOR Work Phone: [facility] 11-17-2023 15:26-0400 Systolic blood pressure 118 mm[Hg] Jayro Mcbride FORM SETTER SUPERVISOR Work Phone: [facility] Encounters Encounter Date Encounter Type Care Provider Facility Start: 02-04-2024 End: 02-04-2024 [facility] Result Encounter David Fanny DO Work Phone: [facility] Unsolic[facility] Start: 02-04-2024 End: 02-04-2024 [facility] Result Encounter David Fanny DO Work Phone: [facility]olic[facility] Start: 01-30-2024 End: 01-30-2024 [facility] Result Encounter David Fanny DO Work Phone: [facility]solic[facility] Start: 01-30-2024 End: 01-30-2024 [facility] Result Encounter David Fanny DO Work Phone: [facility]olic[facility] Start: 01-28-2024 End: 01-28-2024 [facility] Result Encounter David Fanny DO Work Phone: [facility]olic[facility] Start: 01-28-2024 End: 01-28-2024 [facility] Result Encounter David Fanny DO Work Phone: [facility]olic[facility] Start: 01-22-2024 End: 01-22-2024 [facility] Result Encounter David Fanny DO Work Phone: [facility] Start: 01-22-2024 End: 01-22-2024 [facility] Result Encounter David Fanny DO Work Phone: [facility]solic[facility] Start: 01-20-2024 End: 01-20-2024 [facility] Result Encounter David Fanny DO Work Phone: [facility]solic[facility] Start: 01-20-2024 End: 01-20-2024 [facility] Result Encounter David Fanny DO Work Phone: [facility]solic[facility] Start: 12-07-2023 End: 12-07-2023 Patient encounter procedure David Fanny DO Work Phone: [facility] Work Phone: Start: 12-07-2023 End: 12-07-2023 Periodic preventive med est patient 18-39 yrs David Fanny DO Work Phone: [facility] Comment on above: Well woman exam with routine gynecological exam; Pelvic pain in female Start: 12-07-2023 End: 12-07-2023 ambulatory DAVID FANNY Not Available Start: 12-07-2023 End: 12-07-2023 Bamboo flowsheet David Fanny DO Work Phone: [facility] Start: 12-07-2023 End: 12-14-2023 Bamboo flowsheet Daivd Fanny DO Work Phone: [facility] Start: 12-07-2023 End: 12-14-2023 [facility] Result Encounter David Fanny DO Work Phone: [facility]solic[facility] Start: 11-20-2023 End: 11-20-2023 Telephone encounter Ana Laura Brennan MA [facility] Start: 11-17-2023 End: 11-17-2023 Office outpatient visit 15 minutes Jayro Mcbride FORM SETTER SUPERVISOR Work Phone: [facility] Comment on above: Alopecia; Other fatigue; Acquired hypothyroidism (CMS/HCC) Start: 11-17-2023 End: 11-17-2023 ambulatory JAYRO MCBRIDE Not Available Start: 11-17-2023 End: 11-17-2023 Bamboo flowsheet Jayro Mcbride FORM SETTER SUPERVISOR Work Phone: [facility] Start: 11-17-2023 End: 11-17-2023 Bamboo flowsheet Jayro Mcbride FORM SETTER SUPERVISOR Work Phone: [facility] Start: 08-28-2023 End: 08-28-2023 ambulatory JAYRO MCBRIDE Not Available Start: 05-11-2023 End: 05-11-2023 ambulatory JAYRO MCBRIDE Not Available Start: 04-27-2023 End: 04-27-2023 ambulatory JAYRO MCBRIDE Not Available Start: 03-28-2023 [facility] Result Encounter Cor ey Fanny DO Work Phone: [facility]solic[facility] Start: 03-28-2023 [facility] Result Encounter Cor ey Fanny DO Work Phone: [facility]solic[facility] Start: 02-05-2023 End: 02-05-2023 ambulatory DAVID ESCOBEDO Not Available Start: 01-16-2023 End: 01-16-2023 ambulatory JAYRO MCBRIDE Not Available Start: 12-31-2022 End: 12-31-2022 ambulatory AYLEEN TRUJILLO Not Available Start: 11-19-2021 End: 11-19-[address] DAVID ESCOBEDO Facility: Procedures Date Procedure Procedure Detail Performing Clinician Start: 02-04-2024 [facility] PREG QUANT HCG Core y Fanny DO Work Phone: Start: 01-30-2024 [facility] PREG QUANT HCG Core y Fanny DO Work Phone: Start: 01-28-2024 [facility] PREG QUANT HCG Core y Fanny DO Work Phone: Start: 01-22-2024 [facility] PREG QUANT HCG Core y Fanny DO Work Phone: Start: 01-20-2024 [facility] PREG QUANT HCG Core y Fanny DO Work Phone: Start: 12-07-2023 IGP,APTIMA HPV,AGE GDLN David Escobedo DO Work Phone: Start: 12-07-2023 Microscopic observat ion [Identifier] in Cervix by Cyto stain David Escobedo DO Work Phone: Start: 03-28-2023 [facility] PREG QUANT HCG Core y Fanny DO Work Phone: Start: 11-25-2022 Microscopic observat ion [Identifier] in Cervix by Cyto stain David Escobedo DO Work Phone: Plan of Treatment Date Care Activity Detail Author Start: 11-26-2027 Screening for malign ant neoplasm of cervix [facility] Start: 12-06-2026 Screening for malign ant neoplasm of cervix Pap Smear [facility] Start: 02-25-2024 End: 02-25-2024 ambulatory 02/25/2024 2:00 PM EST Initial [facility] [address] [place] [address] [facility] Start: 02-25-2024 End: 02-25-2024 Professional / ancillary services management 02/25/2024 1:30 PM EST [facility]illary [facility] [address] [place] [address] [facility] Start: 01-12-2024 Influenza vaccination Influenza Vacc ine (#1) [facility] Comment on above: Postponed from 10/17 (Patient Refused) Start: 12-07-2023 End: 12-07-2023 Patient encounter procedure [facility] Comment on above: Arrived Start: 12-07-2023 End: 12-06-2024 US for US PELVIS-TRANSVAG IF INDICATED Imaging Routine Pelvic pain in female Expected: 12/07/2023 (Approximate), Expires: 12/06/2024 [facility] Comment on above: Expected: 12/07/2023 (Approximate), Expires: 12/06/2024 Start: 11-30-2023 End: 11-30-2023 Patient encounter procedure 11/30/2023 10:00 AM EDT Office Visit [facility] [address] [place] [address] David Escobedo, DO [address] [place] [address] [facility] Start: 11-17-2023 End: 11-17-2023 Patient encounter procedure 11/17/2023 3:30 PM EDT Office Visit [facility] [address] [place] [address] Jayro Mcbride NP [address] [place] [address] Arrived [facility] Comment on above: Arrived Start: 11-17-2023 End: 11-16-2024 CBC W Auto Differential panel - Blood CBC and differential Lab Routine Alopecia Other fatigue Expected: 11/17/2023 (Approximate), Expires: 11/16/2024 [facility] Comment on above: Expected: 11/17/2023 (Approximate), Expires: 11/16/2024 Start: 11-17-2023 End: 11-16-2024 Ferritin [Mass/volume] in Serum or Plasma Ferritin Lab Routine Alopecia Other fatigue Expected: 11/17/2023 (Approximate), Expires: 11/16/2024 [facility] Comment on above: Expected: 11/17/2023 (Approximate), Expires: 11/16/2024 Start: 11-17-2023 End: 11-16-2024 TSH W/REFLEX TO FT4 TSH W/REFLEX TO FT4 Lab Routine Alopecia Other fatigue Acquired hypothyroidism (CMS/HCC) Expected: 11/17/2023 (Approximate), Expires: 11/16/2024 [facility] Work Phone: Comment on above: Expected: 11/17/2023 (Approximate), Expires: 11/16/2024 Start: 10-18-2023 Influenza vaccination Influenza Vacc ine (#1) [facility] Start: 08-16-2023 Influenza vaccination Influenza Vacc ine (#1) [facility] Comment on above: Postponed from 10/17 (Patient Refused) Cytology Cervical or vaginal smear or scraping study Pap Smear Pathology and Cytology Routine Well woman exam with routine gynecological exam Ordered: 12/07/2023 [facility] Work Phone: Comment on above: Ordered: 12/07/2023 Human papilloma viru s DNA [Presence] in Unspecified specimen by Probe with amplification HPV DNA probe, amplified Microbiology Routine Well woman exam with routine gynecological exam Ordered: 12/07/2023 [facility] Comment on above: Ordered: 12/07/2023 Payers Date Payer Category Payer Private Health Insurance [facility] [id number] 2022 Unknown [employer] [id number] 2022-Present [phone] [address] [address] [place] [address] [id number] 2022 Unknown [id number] 1990 Unknown [id number] .[id number] 1990 Unknown [id number] [id number] .2.1258 1990 Unknown [id number] [id number] .2.9 1990 Unknown [id number] [id number] .2.9 1990 Unknown [id number] [id number] .2.9 1990 Unknown [id number] [id number] .2.9 1990 Unknown [id number] [id number] .2.9 1990 Unknown [id number] [id number] .2.1259 1990 Unknown [id number] .2.1259 1959 Unknown [id number] Social History Date Type Detail Facility Start: 12-19-2022 End: 08-28-2023 Tobacco smoking status [facility] Start: 11-26-2015 End: 07-22-2022 History of tobacco use Current smoker [facility] Start: 11-26-2015 End: 07-22-2022 History of tobacco use Cigarette Smoker [facility] Start: 12-12-2022 End: 12-19-2022 Cigarettes smoked current (pack per day) - Reported 0.5 [facility] Start: 12-19-2022 End: 08-28-2023 Tobacco use and exposure Smokeless tobacco non-user [...] got money to buy more. Never true [facility] Start: 01-16-2023 Alcohol Comment caffeine intak e: 1 cup of coffe daily [facility] Start: 1990 Sex Assigned At Not on file [facility] Start: 11-17-2023 End: 12-07-2023 Alcoholic beverage intake Current drinker of alcohol (finding) [facility] Start: 11-17-2023 Alcohol Comment caffeine intak e: 1 cup daily [facility] Start: 08-28-2023 Alcohol Comment caffeine intake: [facility] History of Present illness Narrative 12-07-2023 Che Huitron LPN - 12/07/2023 3:40 PM EDT Note Date & Type Note Facility 12-07-2023 History of Presen t illness Narrative Reason for Appointment: Patient ID: Cathy San is a 33 y.o. female who presents for Well Women Visit Patient presents today for Annual Exam. MEDICATIONS Current Outpatient Medications Medication Instructions levothyroxine (Synthroid, Levoxyl) 175 MCG tablet TAKE 1 TABLET(175 MCG) BY MOUTH IN THE MORNING semaglutide (Ozempic) 2 MG/1.5ML solution pen-injector 2 mL, Weekly, Takes 40 units weekly. ALLERGIES No Known Allergies PROBLEMS Active Ambulatory Problems Diagnosis Date Noted No Active Ambulatory Problems Resolved Ambulatory Problems Diagnosis Date Noted No Resolved Ambulatory Problems Past Medical History: Diagnosis Date Asthma ([facility]) 1994 Disease of thyroid gland ([facility]) 2002 Miscarriage 01/26/2023 HISTORY PAST MEDICAL HISTORY SOCIAL HISTORY Past Medical History: Diagnosis Date Asthma ([facility]) 1994 Disease of thyroid gland ([facility]) 2002 Miscarriage 01/26/2023 Social History Tobacco Use Smoking status: Former Current packs/day: 0.00 Average packs/day: 0.5 packs/day for 7.0 years (3.5 ttl pk-yrs) Types: Cigarettes Start date: 11/26/2015 Quit date: 07/22/2022 Years since quittin.3 Smokeless tobacco: Never Vaping Use Vaping status: Never Used Substance Use Topics Alcohol use: Yes Comment: caffeine intake: 1 cup daily Drug use: Never FAMILY HISTORY Family History Problem Relation Name Age of Onset Miscarriages / Stillbirths Mother Mellissa San Arthritis Maternal Grandmother Neelima valentine Cancer Maternal Grandmother Neelima valentine Miscarriages / Stillbirths Sister Vidhya San Miscarriages / Stillbirths Sister Tiana Whaley SURGICAL HISTORY Past Surgical History: Procedure Laterality Date TONSILLECTOMY 1993 REVIEW OF SYSTEMS Review of Systems: Review of Systems Genitourinary: Positive for menstrual problem and pelvic pain. All other systems reviewed and are negative. OBJECTIVE Objective: Physical Exam Constitutional: Appearance: Normal appearance. She is well-developed. Genitourinary: Vulva normal. Breasts: Breasts are soft. Right: Normal. Left: Normal. Cardiovascular: Rate and Rhythm: Normal rate and regular rhythm. Pulmonary: Effort: Pulmonary effort is normal. Breath sounds: Normal breath sounds. Abdominal: General: Bowel sounds are normal. There is no distension. Palpations: Abdomen is soft. Tenderness: There is no abdominal tenderness. There is no guarding or rebound. Musculoskeletal: General: No swelling. Normal range of motion. Right lower leg: No edema. Left lower leg: No edema. Neurological: Mental Status: She is alert and oriented to person, place, and time. Skin: General: Skin is warm and dry. Psychiatric: Mood and Affect: Mood normal. Behavior: Behavior normal. Vitals and nursing note reviewed. Exam conducted with a executive services administrator present. Vitals: Estimated body mass index is 31.31 kg/m as calculated from the following: Height as of 11/17/23: 5' 6 . Weight as of this encounter: 194 lb. BP: 114/78 No LMP recorded. ASSESSMENT & PLAN ICD-10-CM 1. Well woman exam with routine gynecological exam Z01.419 Pap Smear HPV DNA probe, amplified Annual Exam: Patient presents today for an annual exam. Patient states she is doing well and has complaints of uterine pain snf through cycle. Patient to have US obtained on day 14 or 15 of cycle. Pap was obtained without difficulty. Orders Placed This Encounter Procedures HPV DNA probe, amplified Follow Up: Patient is to return in one year for annual unless needed otherwise. Documented by Che Huitron LPN on behalf of: David Escobedo DO documented in this encounter [facility] Telephone encounter Note 11-20-2023 Telephone Encounter [...] semaglutide your using. documented in this encounter [facility] Telephone encounter Note 11-20-2023 Telephone Encounter - Ana Laura Brennan MA - 11/20/2023 2:45 PM EDT Note Date & Type Note Facility 11-20-2023 Telephone encount er Note MyChart message: Your labs are all normal range. Could definitely be a side effect of the semaglutide your using. [facility] History of Present illness Narrative 11-17-2023 Jayro [...] hypothyroidism documented in this encounter [facility] Evaluation note Note Date & Type Note Facility Evaluation note Diagnosis Well woman exam with routine gynecological exam Routine gynecological examination Pelvic pain in female Unspecified symptom associated with female genital organs documented in this encounter [facility] Summary Purpose Family History No Family History Records FoundNo Family History Records Found Advance Directives No Advanced Directives Records FoundNo Advanced Directives Records Found Additional Source Comments INFORMATION SOURCE (unrecogn ized section and content) DATE CREATED AUTHOR 11/26/2021 [facility] DATE CREATED AUTHOR AUTHOR'S ORGANIZ ATION 12/09/2023 [facility] Special[facility] Care Teams (unrecognized sec tion and content) Commutator Tester Relationship Specialty Start Date End Date Joceline Willson MD [address] [facility] [place] [address] PCP - General Family Medicine 12/19/22 Commutator Tester Relationship Specialty Start Date End Date Joceline Willson MD [address] [place] [address] PCP - General Family Medicine 12/19/22 Commutator Tester Relationship Specialty Start Date End Date Joceline Willson MD [address] [facility] [place] [address] PCP - General Family Medicine 12/19/22 Commutator Tester Relationship Specialty Start Date End Date Joceline Willson MD [address] [place] [address] PCP - General Family Medicine 12/19/22 Commutator Tester Relationship Specialty Start Date End Date Joceline Willson MD [address] [facility] [place] [address] PCP - General Family Medicine 12/19/22 Commutator Tester Relationship Specialty Start Date End Date Joceline Willson MD [address] [place] [address] PCP - General Family Medicine 12/19/22 Commutator Tester Relationship Specialty Start Date End Date Joceline Willson MD [address] [place] [address] PCP - General Family Medicine 12/19/22 Reason for Visit (unrecogniz ed section and content) Reason Comments Fatigue Alopecia Reason Comments Well Women Visit FOR RECORDS PERTAINING TO PATIENTS WHO ARE [...] BE BASED ON THE PRIMARY CLINICAL RECORDS. [facility] [employer] [facility]. provides no warranty or guarantee of the accuracy or completeness of information in this document.
== END 2024-02-12 12:42 | disposition home or self-care (01) ==
LOC: US 12:41
PROVIDERS: PCP Nurse Practitioner Family; Visit Provider Obstetrics & Gynecology
DX: N92.6 Irregular menstruation, unspecified (principal)
CPT/HCPCS: 76817

== ENCOUNTER 2024-02-18 12:34 | Outpatient (RCR) | payer OTHER, SELFPAY ==
--- OUTSIDE RECORDS SUMMARY | 2024-02-18 12:47 | XMS_ITS | CCD ---
Author Organization [facility] Care Team Providers Care Society Editor Name Role Phone DR DAVID ESCOBEDO Admitting [...] (Original) levothyroxine sodium 0.175 mg oral tablet (15 sources) l-Thyroxine Start: 10-01-2023 take 1 tablet [...] 04/26/2023 Active Progesterone 200 MG supposit ory (6 sources) Start: 01-20-2024 End: 02-19-2024 Progesterone 200 MG supposit ory Indications: History of miscarriage Insert 200 mg into the vagina at bedtime Insert suppository vaginally every night at bedtime until 12 weeks gestation 30 suppository 3 01/20/2024 02/19/2024 Active 1 mg dose 1.5 ml semaglutide 1.34 mg/ml pen injector (14 sources) Start: 06-17-2023 semaglutide (O zempic) 2 [...] TBH PREG QUANT HCGon 024 HCG QUANTITATIVE 5388 mIU/mL [facility] Comment on above: 5-50 0.2-1 WEEK 50-500 1-2 WEEKS 100-5,000 2-3 WEEKS 500-10,000 3-4 WEEKS 1,000-50,000 4-5 WEEKS 10,000-100,000 5-6 WEEKS 15,000-200,000 6-8 WEEKS 10,000-100,000 2-3 MONTHS [facility] PREG QUANT HCGon 02-03- 024 HCG QUANTITATIVE 4079 mIU/mL [facility] Comment on above: 5-50 0.2-1 WEEK 50-500 1-2 WEEKS 100-5,000 2-3 WEEKS 500-10,000 3-4 WEEKS 1,000-50,000 4-5 WEEKS 10,000-100,000 5-6 WEEKS 15,000-200,000 6-8 WEEKS 10,000-100,000 2-[facility] PREG QUANT HCGon 024 HCG QUANTITATIVE 2981 mIU/mL [facility] Comment on above: 5-50 0.2-1 WEEK 50-500 1-2 WEEKS 100-5,000 2-3 WEEKS 500-10,000 3-4 WEEKS 1,000-50,000 4-5 WEEKS 10,000-100,000 5-6 WEEKS 15,000-200,000 6-8 WEEKS 10,000-100,000 2-3 [facility] TBH PREG QUANT HCGon 024 HCG QUANTITATIVE 2239 mIU/mL [facility] Comment on above: 5-50 0.2-1 WEEK 50-500 1-2 WEEKS 100-5,000 2-3 WEEKS 500-10,000 3-4 WEEKS 1,000-50,000 4-5 WEEKS 10,000-100,000 5-6 WEEKS 15,000-200,000 6-8 WEEKS 10,000-100,000 2-3 [facility] PREG [facility]ANT HCGon 024 HCG QUANTITATIVE 158 mIU/mL [facility] Comment on above: 5-50 0.2-1 WEEK 50-500 1-2 WEEKS 100-5,000 2-3 WEEKS 500-10,000 3-4 WEEKS 1,000-50,000 4-5 WEEKS 10,000-100,000 5-6 WEEKS 15,000-200,000 6-8 WEEKS 10,000-100,000 2-3 [facility]H PREG QUANT HCGon 024 HCG QUANTITATIVE 79 mIU/mL [facility] Comment on above: 5-50 0.2-1 WEEK 50-500 1-2 WEEKS 100-5,000 2-3 WEEKS 500-10,000 3-4 WEEKS 1,000-50,000 4-5 WEEKS 10,000-100,000 5-6 WEEKS 15,000-200,000 6-8 WEEKS 10,000-100,000 2-3 MONTHS CL[facility] [employer] e IGP,APTIMA HPV,AGE GDLNon AGE GDLN ACOG TESTING Note . [facility] Comment on above: TESTS RESULT FLAG UN ITS REF RANGE LAB Clinician Provided Cytology Information Source.............Cervix;Endocervix No. of containers..01 ThinPrep Vial Age Algo ACOG Wendy... FLAG LEGEND: L-Low Normal,H-High Normal,LL-Alert Low,HH-Alert High <-Panic Low,>-Panic High,A-Abnormal,AA-Critical Abnormal Performed at: 01 =[address] [place] [address] Chanel Francois MD, HPV APTIMA Negative Negative [facility] [employer] [facility] Comment on above: This nucleic acid am plification test detects fourteen high- risk HPV types (16,18,31,33,35,39,45,51,52,56,58,59,66,68) without differentiation. Performed at: =[address] [id number] Senior Analytic Consultant: Chanel Francois MD, Phone: [phone] Performed at: [address], [place], [place] [id number] Senior Analytic Consultant: Chanel Francois MD, Phone: [phone] IGP, APTIMA HPV, RFX 16/18,45 Note . [facility] Comment on above: TESTS RESULT FLAG UN ITS REF RANGE LAB DIAGNOSIS: 02 NEGATIVE FOR INTRAEPITHELIAL LESION OR MALIGNANCY. Specimen adequacy: 02 Satisfactory for evaluation. Endocervical and/or squamous metaplastic cells (endocervical component) are present. Performed by: 02 Vega Madden, Crushing Mill Operator ([facility]) . 02 Note: Note 02 The Pap [...] Low,>-Panic High,A-Abnormal,AA-Critical Abnormal Performed at: 02 WB [facility] [address] [place] [address] Chanel Francois MD, BRUSH-SPATULA CERVIX ENDOCERVIX [facility] TB PREG QUANT HCGon 024 HCG QUANTITATIVE 6 mIU/mL [facility] Comment on above: 5-50 0.2-1 WEEK 50-500 1-2 WEEKS 100-5,000 2-3 WEEKS 500-10,000 3-4 WEEKS 1,000-50,000 4-5 WEEKS 10,000-100,000 5-6 WEEKS 15,000-200,000 6-8 WEEKS 10,000-100,000 2-3 MONTHS [facility] PAP ACOG PANEL 2: 30 to 65on 11-26-2021 . . Normal [facility] Comment on above: Result Comment: Perf ormed at: WB Performed By: #### [id number] #### [facility] [address] [address] [address] Florencia Carpenter Age Gdln ACOG Testing 30-65 [facility] Comment on above: Performed By: #### [id number] #### [facility] [address] [address] [address] Florencia Carepnter DIAGNOSIS: Comment Normal [facility] Comment on above: Result Comment: NEGA TIVE FOR INTRAEPITHELIAL LESION OR MALIGNANCY. Performed at: WB Performed By: #### [id number] #### [facility] [address] [address] [address] Florencia Carpenter HPV Aptima Negative Normal Negative [facility] Comment on above: Result Comment: This nucleic acid amplification test detects fourteen high-risk HPV types (16,18,31,33,35,39,45,51,52,56,58,59,66,68) without differentiation. Performed at: =G Performed By: #### [id number] #### [facility] [address] [address] [address] Florencia Carpenter Methodology: Comment [facility] Comment on above: Result Comment: This liquid based ThinPrep(R) pap test was screened with the use of an image guided system. Performed at: WB Performed By: #### [id number] #### [facility] [address] [address] [address] Florencia Carpenter Note: Comment Normal [facility] Comment on above: Result Comment: The Pap smear is a screening test designed to aid in the detection of premalignant and malignant conditions of the uterine cervix. It is not a diagnostic procedure and should not be used as the sole means of detecting cervical cancer. Both false-positive and false-negative reports do occur. . Performed at: WB Performed By: #### [id number] #### [facility] [address] [address] [address] Florencia Carpenter Performed by: Comment Normal [facility] Comment on above: Result Comment: Ermelinda Ricketts, Crushing Mill Operator (ASCP) Performed at: WB Performed By: #### [id number] #### [facility] [address] [place] [address] Dr. Florencia Carpenter Specimen adequacy: Comment Normal [facility] Comment on above: Result Comment: Sati sfactory for evaluation. Endocervical and/or squamous metaplastic cells (endocervical component) are present. Performed at: WB Performed By: #### [id number] #### [facility] [address] [place] [address] Dr. Florencia Crapenter Vital Signs Date Time Vital Sign Value Performing Clinician Faci lity 12-07-2023 16:37-0400 Body mass index (BMI) [Ratio] 31.31 kg/m2 [employer] Work Phone: [facility] 12-07-2023 16:37-0400 Body weight 88 kg [employer] Work Phone: [facility] 12-07-2023 16:37-0400 Diastolic blood pressure 78 mm[Hg] David Fanny DO Work Phone: [facility] 12-07-2023 16:37-0400 Systolic blood pressure 114 mm[Hg] David Fanny [employer] Work Phone: [facility] 11-17-2023 15:26-0400 Body height 167.6 cm Jayro Reed [employer] Work Phone: [facility] 11-17-2023 15:26-0400 Body mass index (BMI) [Ratio] 30.09 kg/m2 Jayro Mcbride [employer] Work Phone: [facility] 11-17-2023 15:26-0400 Body weight 84.55 kg Jayro Mcbride [employer] Work Phone: [facility] 11-17-2023 15:26-0400 Diastolic blood pressure 86 mm[Hg] Jayro Mcbride [employer] Work Phone: [facility] 11-17-2023 15:26-0400 Heart rate 96 /min Jayro Mcbride [employer] Work Phone: [facility] 11-17-2023 15:26-0400 SaO2% (BldA) [Mass fraction] 96 % Jayro Mcbride [employer] Work Phone: [facility] 11-17-2023 15:26-0400 Systolic blood pressure 118 mm[Hg] Jayro Mcbride [employer] Work Phone: [facility] Healthcare Encounters Encounter Date Encounter Type Care Provider Facility Start: 02-15-2024 End: 02-15-2024 [facility] Result Encounter David Fanny DO Work Phone: [facility] Unsolicited Start: 02-15-2024 End: 02-15-2024 [facility] Result Encounter David Fanny DO Work [...] OB Start: 12-07-2023 End: 12-14-2023 Bamboo flowsheet David Fanny DO Work Phone: [facility] Start: 12-07-2023 End: 12-14-2023 [facility] Result Encounter David Fanny DO Work Phone: [facility] External [facility] Unsolicited Start: 11-20-2023 End: 11-20-2023 Telephone encounter Ana Laura Brennan MA [facility] Start: 11-17-2023 End: 11-17-2023 Office outpatient visit 15 minutes Jayro Mcbride [employer] Work Phone: [facility] Comment on above: Alopecia; Other fatigue; Acquired hypothyroidism (CMS/HCC) Start: 11-17-2023 End: 11-17-2023 ambulatory JAYRO KAMPFER Not Available Start: 11-17-2023 End: 11-17-2023 Bamboo flowsheet Jayro Mcbride [employer] Work Phone: [facility] Start: 11-17-2023 End: 11-17-2023 Bamboo flowsheet Jayro Lanepkenia [employer] Work Phone: [facility] Start: 08-28-2023 End: 08-28-2023 ambulatory JAYRO KAMPFER Not Available Start: 05-11-2023 End: 05-11-2023 ambulatory JAYRO KAMPFER Not Available Start: 04-27-2023 End: 04-27-2023 ambulatory JAYRO KAMPFER Not Available Start: 03-28-2023 [facility] Result Encounter Cor ey Fanny DO Work Phone: [facility] External [facility] Unsolicited Start: 03-28-2023 [facility] Result Encounter Cor ey Fanny DO Work Phone: [facility] External [facility] Unsolicited Start: 02-05-2023 End: 02-05-2023 ambulatory DAVID FANNY Not Available Start: 01-16-2023 End: 01-16-2023 ambulatory JAYRO KAMPFER Not Available Start: 12-31-2022 End: 12-31-2022 ambulatory AYLEEN TRUJILLO Not Available Start: 11-19-2021 End: 11-19-[address] DAVID ESCOBEDO Facility:H1 Procedures Date Procedure Procedure Detail Performing Clinician Start: 02-15-2024 TBH PREG QUANT HCG Core y Fanny DO Work Phone: Start: 02-04-2024 TBH PREG QUANT HCG Core [...] Phone: Start: 12-07-2023 IGP,APTIMA HPV,AGE GDLN David Fanny DO Work Phone: Start: 12-07-2023 Microscopic observat ion [Identifier] in Cervix by Cyto stain David Fanny DO Work Phone: Start: 03-28-2023 TBH PREG QUANT HCG Core y Fanny DO Work Phone: Start: 11-25-2022 Microscopic observat ion [Identifier] in Cervix by Cyto stain David Fanny DO Work Phone: Plan of Treatment Date Care Activity Detail Author Start: 11-26-2027 Screening for malign ant neoplasm of cervix [facility] Start: 12-06-2026 Screening for malign ant neoplasm of cervix Pap Smear [facility] Start: 02-25-2024 End: 02-25-2024 ambulatory 02/25/2024 2:00 PM EST Initial [facility] [address] [place] [address] [facility] Start: 02-25-2024 End: 02-25-2024 Professional / ancillary services management 02/25/2024 1:30 PM EST Ancillary Procedure [facility] [address] [place] [id number] [facility] Start: 01-12-2024 Influenza vaccination Influenza Vacc ine (#1) [facility] Comment on above: Postponed from 10/17 (Patient Refused) Start: 12-07-2023 End: 12-07-2023 Patient encounter procedure [facility] Comment on above: Arrived Start: 12-07-2023 End: 12-06-2024 US for US PELVIS-TRANSVAG IF INDICATED Imaging Routine Pelvic pain in female Expected: 12/07/2023 (Approximate), Expires: 12/06/2024 [facility] Comment on above: Expected: 12/07/2023 (Approximate), Expires: 12/06/2024 Start: 11-30-2023 End: 11-30-2023 Patient encounter procedure 11/30/2023 10:00 AM EDT Office Visit [facility] [address] [place] [id number] David Escobedo DO [address] [place] [address] [facility] Start: 11-17-2023 End: 11-17-2023 Patient encounter procedure 11/17/2023 3:30 PM EDT Office Visit [facility] [address] [place] [place] [phone] Jayro Mcbride NP [address] [place] [address] Arrived [facility] Comment on above: Arrived Start: 11-17-2023 End: 11-16-2024 CBC W Auto Differential panel - Blood CBC and differential Lab Routine Alopecia Other fatigue Expected: 11/17/2023 (Approximate), Expires: 11/16/2024 [facility] Comment on above: Expected: 11/17/2023 (Approximate), Expires: 11/16/2024 Start: 11-17-2023 End: 11-16-2024 Ferritin [Mass/volume] in Serum or Plasma Ferritin Lab Routine Alopecia Other fatigue Expected: 11/17/2023 (Approximate), Expires: 11/16/2024 [facility] Comment on above: Expected: 11/17/2023 (Approximate), Expires: 11/16/2024 Start: 11-17-2023 End: 11-16-2024 TSH W/REFLEX TO FT4 TSH W/REFLEX TO FT4 Lab Routine Alopecia Other fatigue Acquired hypothyroidism (CMS/HCC) Expected: 11/17/2023 (Approximate), Expires: 11/16/2024 [facility] Work Phone: Comment on above: Expected: 11/17/2023 (Approximate), Expires: 11/16/2024 Start: 10-18-2023 Influenza vaccination Influenza Vacc ine (#1) [facility] Start: 08-16-2023 Influenza vaccination Influenza Vacc ine (#1) [facility] Comment on above: Postponed from 10/17 (Patient Refused) Cytology Cervical or vaginal smear or scraping study Pap Smear Pathology and Cytology Routine Well woman exam with routine gynecological exam Ordered: 12/07/2023 [facility] Work Phone: Comment on above: Ordered: 12/07/2023 Human papilloma viru s DNA [Presence] in Unspecified specimen by Probe with amplification HPV DNA probe, amplified Microbiology Routine Well woman exam with routine gynecological exam Ordered: 12/07/2023 [facility] Comment on above: Ordered: 12/07/2023 Payers Date Payer Category Payer Private Health Insurance [facility] [id number] 2022 Unknown [employer] [id number] 2022-Present [phone] [address] [address] [place] [address] [id number] 2022 Unknown [id number] 1990 Unknown [id number] .[id number] 1990 Unknown [id number] [id number] .2.9 1990 Unknown [id number] [id number] .2.1258 1990 Unknown [id number] [id number] .2.9 1990 Unknown [id number] [id number] .2.9 1990 Unknown [id number] [id number] .2.9 1990 Unknown [id number] [id number] .2.9 1990 Unknown [id number] [id number] .2.9 1990 Unknown [id number] [id number] .2.9 1959 Unknown [id number] Social History Date Type Detail Facility Start: 12-19-2022 End: 08-28-2023 Tobacco smoking status [facility] Ex-smoker [facility] are Start: 11-26-2015 End: 07-22-2022 History of tobacco use Current smoker [facility] Start: 11-26-2015 End: 07-22-2022 History of tobacco use Cigarette Smoker [facility] Start: 12-12-2022 End: 12-19-2022 Cigarettes smoked current (pack per day) - Reported 0.5 [facility] Start: 12-19-2022 End: 08-28-2023 Tobacco use and exposure Smokeless tobacco non-user [facility] Start: 02-05-2023 End: 08-28-2023 Alcohol intake Ex-drinker (finding) [facility] Start: 12-12-2022 End: 01-16-2023 Humiliation, Afraid, [...] intak e: 1 cup of coffe daily [facility] Start: 1990 Sex Assigned At Not on file [facility] Start: 11-17-2023 End: 12-07-2023 Alcoholic beverage intake Current drinker of alcohol (finding) [facility] Start: 11-17-2023 Alcohol Comment caffeine intak e: 1 cup daily [facility] Start: 08-28-2023 Alcohol Comment caffeine intake: [...] Problems Past Medical History: Diagnosis Date Asthma ([facility]) 1994 Disease of thyroid gland ([facility]) 2002 Miscarriage 01/26/2023 HISTORY PAST MEDICAL HISTORY SOCIAL HISTORY Past Medical History: Diagnosis Date Asthma ([facility]) 1994 Disease of thyroid gland ([facility]) 2002 Miscarriage 01/26/2023 Social History Tobacco Use [...] nursing note reviewed. Exam conducted with a manager country present. Vitals: Estimated body mass index is [...] well and has complaints of uterine pain long term through cycle. Patient to have US obtained on day 14 or 15 of cycle. Pap was obtained without difficulty. Orders Placed This Encounter Procedures HPV DNA probe, amplified Follow Up: Patient is to return in one year for annual unless needed otherwise. Documented by Che Huitron LPN on behalf of: David Escobedo DO documented in this encounter [facility] Telephone encounter Note 11-20-2023 Telephone Encounter - Gerber Perdomo - 11/20/2023 4:21 PM EDT Note Date & Type Note Facility 11-20-2023 Telephone encount er Note Pt called back and I gave her the message :) [facility] Note 11-20-2023 Telephone Encounter - Gerber [...] semaglutide your using. documented in this encounter [facility] Telephone encounter Note 11-20-2023 Telephone Encounter - Ana Laura Brennan MA - 11/20/2023 2:45 PM EDT Note Date & Type Note Facility 11-20-2023 Telephone encount er Note MyChart message: Your labs are all normal range. Could definitely be a side effect of the semaglutide your using. [facility] History of Present illness Narrative 11-17-2023 Jayro [...] [facility] DATE CREATED AUTHOR AUTHOR'S ORGANIZ ATION 12/09/2023 [facility] dical Specialists [employer] Care Teams (unrecognized sec tion and content) Society Editor Relationship Specialty Start Date End Date Joceline Willson MD [address] [place] [address] PCP - General Family Medicine 12/19/22 Society Editor Relationship Specialty Start Date End Date Joceline Willson MD [address] [place] [address] PCP - General Family Medicine 12/19/22 Society Editor Relationship Specialty Start Date End Date Joceline Willson MD [address] [place] [address] PCP - General Family Medicine 12/19/22 Society Editor Relationship Specialty Start Date End Date Joceline Willson MD [address] [place] [address] PCP - General Family Medicine 12/19/22 Society Editor Relationship Specialty Start Date End Date Joceline Willson MD [address] [place] [address] PCP - General Family Medicine 12/19/22 Society Editor Relationship Specialty Start Date End Date Joceline Willson MD [address] [place] [address] PCP - General Family Medicine 12/19/22 Society Editor Relationship Specialty Start Date End Date Joceline Willson MD [address] [place] [address] PCP - General Family Medicine 12/19/22 Reason [...] BE BASED ON THE PRIMARY CLINICAL RECORDS. [facility] [employer] [facility]. provides no warranty or guarantee of the accuracy or completeness of information in this document.
[2024-02-18 13:51] LABS: HCG Quantitative 4654 mIU/mL
[2024-02-22 09:02] LABS: HCG Quantitative 4176 mIU/mL
[2024-03-17 16:10] LABS: HCG Quantitative 5 mIU/mL
== END 2024-03-18 12:34 | disposition home or self-care (01) ==
LOC: LAB 12:34
PROVIDERS: PCP Nurse Practitioner Family; Visit Provider Obstetrics & Gynecology
DX: O36.80X0 Pregnancy with inconclusive fetal viability, not applicable or unspecified (principal)
CPT/HCPCS: 36415; 84702

== ENCOUNTER 2024-02-24 08:50 | Outpatient (OUT) | payer OTHER, SELFPAY ==
--- NOTE | 2024-02-24 09:43 | P.GSHP_ITS ---
History of Present Illness History of Present Illness Chief complaint: Missed AB Narrative: Patient presents for presurgical testing. The patient states she had a positive home test on January 18 followed by vaginal bleeding and an ultrasound which demonstrated no yolk sac and no pole. The patient states her bleeding has slowed, and she does not have any cramping or abdominal pain today. Review of Systems ROS Narrative REVIEW OF SYSTEMS: Negative except as stated in HPI, ten or more systems reviewed. Constitutional: No fever, chills, weakness ENT: No sore throat or epistaxis Cardiovascular: No edema, chest pain, palpitations, or activity intolerance Respiratory: No shortness of breath, cough, or wheezing Musculoskeletal: No joint pain or swelling Gastrointestinal: No abdominal pain, constipation, diarrhea, or vomiting Genitourinary: No dysuria or hematuria Neurological: No numbness, tingling, weakness, or headache Psychiatric: No mood [facility] History (Updated 02/24/24 @ 09:38 by Patience Shin NP) Missed (~02/2024) ?O02.1 - Missed (ICD-10) Miscarriage (~2023) ?O03.9 - Complete or unspecified spontaneous without complication (ICD-10) COVID-19 (01/2024) ?U07.1 - COVID-19 (ICD-10) Asthma ?J45.909 - Unspecified asthma, uncomplicated (ICD-10) Migraine ?G43.909 - Migraine, unspecified, not intractable, without status migrainosus (ICD-10) Heartburn ?R12 - Heartburn (ICD-10) Hypothyroidism ?E03.9 - Hypothyroidism, unspecified (ICD-10) Surgical History (Updated 02/24/24 @ 09:23 by Patience Shin NP) History of tonsillectomy ?Z90.89 - Acquired absence of other organs (ICD-10) Family History (Updated 02/24/24 @ 09:23 by Patience Shin NP) Other Family history of DVT Family history of cancer Family history of myocardial infarction Social History (Updated 02/24/24 @ 09:19 by Patience Shin NP) Within the past year, how often did you have a drink containing alcohol: monthly or less Smoking status: Former smoker Non-prescribed substance use: denies use 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[employer], 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 Highest level of school completed/degree received: Associate degree: academic program Meds Home Medications and Allergies Home Medications ?Medication ?Instructions ?Recorded ?Confirmed ?Type levothyroxine 175 mcg tablet 175 mcg PO DAILY 01/24/23 02/24/24 History Allergies Allergy/AdvReac Type Severity Reaction Status Date / Time No Known Drug Allergies Allergy Verified 02/24/24 09:18 Exam Narrative Exam Narrative: Constitutional: Awake, alert, comfortable, well-appearing, nontoxic, interactive, vital signs as charted Head: Normocephalic, atraumatic Neck: Supple, normal appearance, normal range of motion, no meningeal signs, no lymphadenopathy Respiratory: No respiratory distress, breath sounds clear Cardiovascular: Regular rate and rhythm, strong and regular heart tones Abdomen: Nontender, normal bowel sounds, soft, no CVA tenderness Musculoskeletal: Normal gait, no swelling or edema Skin: No rashes or induration, no lesions, only visible skin inspected Neuro: No neurological deficits, normal sensation Psychiatric: Oriented ?3, normal affect Assessment and Plan Assessment and Plan (1) Missed : Onset Date: ~02/2024 Plan D&C with suction scheduled with Dr. Escobedo February 26, 2024.
== END 2024-02-24 08:51 | disposition home or self-care (01) ==
LOC: PST 08:50
PROVIDERS: PCP Nurse Practitioner Family; Visit Provider Obstetrics & Gynecology
DX: Z01.818 Encounter for other preprocedural examination (principal); O02.1 Missed abortion
CPT/HCPCS: G0463

== ENCOUNTER 2024-02-26 06:12 | Day surgery (SDC) | payer OTHER, SELFPAY ==
[2024-02-24 09:36] VITALS: BP 123/76; PULSE 77; TEMP 36.5; O2SAT 99; BMI 33.6
[2024-02-26] VITALS (9 sets, daily range): BP systolic 97–125; BP diastolic 71–90; PULSE 65–117; TEMP 36.2–36.7; O2SAT 98–100; BMI 34.0
--- OUTSIDE RECORDS SUMMARY | 2024-02-26 06:14 | XMS_ITS | CCD ---
Author Organization [facility] Care Team Providers Care Rn Research Name Role Phone DR DAVID ESCOBEDO Admitting [...] (Original) levothyroxine sodium 0.175 mg oral tablet (19 sources) l-Thyroxine Start: 02-19-2024 take 1 tablet by mouth before mealtime levothyroxine (Synthroid, Levoxyl) 175 MCG tablet Indications: Hypothyroidism (acquired) (CMS/HCC) Take 1 tablet (175 mcg) by mouth in the morning. Take before meals. 100 tablet 02/19/2024 Active Start: 10-01-2023 End: 02-19-2024 take 1 tablet by mouth in the morning levothyroxine (Synthroid, Levoxyl) 175 MCG tablet Indications: Hypothyroidism (acquired) (CMS/HCC) TAKE 1 TABLET(175 MCG) BY MOUTH IN THE MORNING 100 tablet 10/01/2023 02/19/2024 Discontinued (Reorder) Start: 01-16-2023 End: 04-26-2023 take 1 tablet by mouth in the morning levothyroxine (Synthroid, Levoxyl) 175 MCG tablet Indications: Hypothyroidism (acquired) (CMS/HCC) Take 1 tablet (175 mcg) by mouth in the morning. 100 tablet 0 01/16/2023 04/26/2023 Active Progesterone 200 MG supposit ory (8 sources) Start: 01-20-2024 End: 02-19-2024 Progesterone 200 MG supposit ory Indications: History of miscarriage Insert 200 mg into the vagina at bedtime Insert suppository vaginally every night at bedtime until 12 weeks gestation 30 suppository 3 01/20/2024 02/19/2024 Active 1 mg dose 1.5 ml semaglutide 1.34 mg/ml pen injector (17 sources) Start: 06-17-2023 semaglutide (O zempic) 2 [...] hair loss, unspecified] 11-17-2023 Episodic Thyroid disorders (3 sources) Acquired hypothyroidism; Translations: [Hypothyroidism, unspecified] 11-17-2023 Chronic Results Test Name Value Interpretation Reference Range Facil ity [facility] PREG QUANT HCGon 025 HCG QUANTITATIVE 4176 mIU/mL [facility] Comment on above: 5-50 0.2-1 WEEK 50-500 1-2 WEEKS 100-5,000 2-3 WEEKS 500-10,000 3-4 WEEKS 1,000-50,000 4-5 WEEKS 10,000-100,000 5-6 WEEKS 15,000-200,000 6-8 WEEKS 10,000-100,000 2-3 MON[facility]S [facility] 025 HCG QUANTITATIVE 4654 mIU/mL [facility] Comment on above: 5-50 0.2-1 WEEK 50-500 1-2 WEEKS 100-5,000 2-3 WEEKS 500-10,000 3-4 WEEKS 1,000-50,000 4-5 WEEKS 10,000-100,000 5-6 WEEKS 15,000-200,000 6-8 WEEKS 10,000-100,000 2-3 [facility] 024 HCG QUANTITATIVE 5388 mIU/mL [facility] Comment on above: 5-50 0.2-1 WEEK 50-500 1-2 WEEKS 100-5,000 2-3 WEEKS 500-10,000 3-4 WEEKS 1,000-50,000 4-5 WEEKS 10,000-100,000 5-6 WEEKS 15,000-200,000 6-8 WEEKS 10,000-100,000 2-3 [facility] HCGon 024 HCG QUANTITATIVE 4079 mIU/mL [facility] Comment on above: 5-50 0.2-1 WEEK 50-500 1-2 WEEKS 100-5,000 2-3 WEEKS 500-10,000 3-4 WEEKS 1,000-50,000 4-5 WEEKS 10,000-100,000 5-6 WEEKS 15,000-200,000 6-8 WEEKS 10,000-100,000 2-3 [facility]on 024 HCG QUANTITATIVE 2981 mIU/mL [facility] Comment on above: 5-50 0.2-1 WEEK 50-500 1-2 WEEKS 100-5,000 2-3 WEEKS 500-10,000 3-4 WEEKS 1,000-50,000 4-5 WEEKS 10,000-100,000 5-6 WEEKS 15,000-200,000 6-8 WEEKS 10,000-100,000 2-3 [facility] PREG QUANT HCGon 024 HCG QUANTITATIVE 2239 mIU/mL [facility] Comment on above: 5-50 0.2-1 WEEK 50-500 1-2 WEEKS 100-5,000 2-3 WEEKS 500-10,000 3-4 WEEKS 1,000-50,000 4-5 WEEKS 10,000-100,000 5-6 WEEKS 15,000-200,000 6-8 WEEKS 10,000-100,000 2-3 [facility] PREG QUANT HCGon 024 HCG QUANTITATIVE 158 mIU/mL [facility] Comment on above: 5-50 0.2-1 WEEK 50-500 1-2 WEEKS 100-5,000 2-3 WEEKS 500-10,000 3-4 WEEKS 1,000-50,000 4-5 WEEKS 10,000-100,000 5-6 WEEKS 15,000-200,000 6-8 WEEKS 10,000-100,000 2-3 [facility] PREG QUANT HCGon 024 HCG QUANTITATIVE 79 mIU/mL [facility] Comment on above: 5-50 0.2-1 WEEK 50-500 1-2 WEEKS 100-5,000 2-3 WEEKS 500-10,000 3-4 WEEKS 1,000-50,000 4-5 WEEKS 10,000-100,000 5-6 WEEKS 15,000-200,000 6-8 WEEKS 10,000-100,000 2-3 [facility] IGP,APTIMA HPV,AGE GDLNon AGE GDLN ACOG TESTING Note . [facility] Comment on above: TESTS RESULT FLAG UN ITS REF RANGE LAB Clinician Provided Cytology Information Source.............Cervix;Endocervix No. of containers..01 ThinPrep Vial Age Algo ACOG Wendy... 30-65 FLAG LEGEND: L-Low Normal,H-High Normal,LL-Alert Low,HH-Alert High <-Panic Low,>-Panic High,A-Abnormal,AA-Critical Abnormal Performed at: 01 =[address] [address] Chanel Francois MD, HPV APTIMA Negative Negative [facility] Comment on above: This nucleic acid am plification test detects fourteen high- risk HPV types (16,18,31,33,35,39,45,51,52,56,58,59,66,68) without differentiation. Performed at: =[facility] [id number] [employer]: Chanel Francois MD, Phone: [phone] Performed at: [address] [id number] [employer]: Chanel Francois MD, Phone: [phone] IGP, APTIMA HPV, RFX 16/18,45 Note . [facility] Comment on above: TESTS RESULT FLAG UN ITS REF RANGE LAB DIAGNOSIS: 02 NEGATIVE FOR INTRAEPITHELIAL LESION OR MALIGNANCY. Specimen adequacy: 02 Satisfactory for evaluation. Endocervical and/or squamous metaplastic cells (endocervical component) are present. Performed by: 02 Vega Madden, Pilot Safety Inspector (ASCP) . 02 Note: Note 02 The Pap [...] High,A-Abnormal,AA-Critical Abnormal Performed at: 02 WB [facility] [address] [address] Chanel Francois MD, BRUSH-SPATULA CERVIX ENDOCERVIX [facility] PREG QUANT HCGon 024 HCG QUANTITATIVE 6 mIU/mL [facility] Comment on above: 5-50 0.2-1 WEEK 50-500 1-2 WEEKS 100-5,000 2-3 WEEKS 500-10,000 3-4 WEEKS 1,000-50,000 4-5 WEEKS 10,000-100,000 5-6 WEEKS 15,000-200,000 6-8 WEEKS 10,000-100,000 2-3 MONTHS [facility] PAP ACOG PANEL 2: 30 to 65on 11-26-2021 . . Normal [facility] Comment on above: Result Comment: Perf ormed at: WB Performed By: #### [id number] #### [facility] [address] [place] [address] Dr. Florencia Carpenter Age Gdln ACOG Testing 30-65 Normal [facility] Comment on above: Performed By: #### [id number] #### [facility] [address] [place] [address] Dr. Florencia Carpenter DIAGNOSIS: Comment Normal [facility] Comment on above: Result Comment: NEGA TIVE FOR INTRAEPITHELIAL LESION OR MALIGNANCY. Performed at: WB Performed By: #### [id number] #### [facility] [address] [address] [address] Florencia Carpenter HPV Aptima Negative Normal Negative [facility] Comment on above: Result Comment: This nucleic acid amplification test detects fourteen high-risk HPV types (16,18,31,33,35,39,45,51,52,56,58,59,66,68) without differentiation. Performed at: =G Performed By: #### [id number] #### [facility] [address] [place] [address] Dr. Florencia Carpenter Methodology: Comment Normal [facility] Comment on above: Result Comment: This liquid based ThinPrep(R) pap test was screened with the use of an image guided system. Performed at: WB Performed By: #### [id number] #### [facility] [address] [place] [address] Dr. Florencia Carpenter Note: Comment Normal [facility] Comment on above: Result Comment: The Pap smear is a screening test designed to aid in the detection of premalignant and malignant conditions of the uterine cervix. It is not a diagnostic procedure and should not be used as the sole means of detecting cervical cancer. Both false-positive and false-negative reports do occur. . Performed at: WB Performed By: #### [id number] #### [facility] [address] [address] [address] Florencia Carpenter Performed by: Comment Normal [facility] Comment on above: Result Comment: Ermelnida Ricketts, Pilot Safety Inspector (ASCP) Performed at: WB Performed By: #### [id number] #### [facility] [address] [place] [address] Dr. Florencia Carpenter Specimen adequacy: Comment Normal [facility] Comment on above: Result Comment: Sati sfactory for evaluation. Endocervical and/or squamous metaplastic cells (endocervical component) are present. Performed at: WB Performed By: #### [id number] #### [facility] [address] [address] [address] Florencia Carpenter Vital Signs Date Time Vital Sign Value Performing Clinician Faci lity 12-07-2023 16:37-0400 Body mass index (BMI) [Ratio] 31.31 kg/m2 David Fanny DO Work Phone: [facility] 12-07-2023 16:37-0400 Body weight 88 kg David Fanny DO Work Phone: [facility] 12-07-2023 16:37-0400 Diastolic blood pressure 78 mm[Hg] LUBB-TEXo DO Work Phone: [facility] 12-07-2023 16:37-0400 Systolic blood pressure 114 mm[Hg] LUBB-TEXo DO Work Phone: [facility] 11-17-2023 15:26-0400 Body height 167.6 cm Jayro Laneconniekenia RELAY SHOP SUPERVISOR Work Phone: [facility] 11-17-2023 15:26-0400 Body mass index (BMI) [Ratio] 30.09 kg/m2 Jayro Lanetheresa [employer] SUPERVISOR Work Phone: [facility] 11-17-2023 15:26-0400 Body weight 84.55 kg Jayro Mcbride [employer] SUPERVISOR Work Phone: [facility] 11-17-2023 15:26-0400 Diastolic blood pressure 86 mm[Hg] Jayro Lanetheresa [employer]AY SH[employer] SUPERVISOR Work Phone: [facility] 11-17-2023 15:26-0400 Heart rate 96 /min Jayro Lanetheresa [employer] SUPERVISOR Work Phone: [facility] 11-17-2023 15:26-0400 SaO2% (BldA) [Mass fraction] 96 % Jayro Lanetheresa [employer] SUPERVISOR Work Phone: [place] [id number] 15:26-0400 Systolic blood pressure 118 mm[Hg] Jayro Reed CASTRO Work Phone: [facility] Encounters Encounter Date Encounter Type Care Provider Facility Start: 02-22-2024 End: 02-22-2024 [facility] Result Encounter David Fanny DO Work Phone: [facility] Unsolicited Start: 02-22-2024 End: 02-22-2024 [facility] Result Encounter David Fanny DO Work Phone: [facility] Unsolicited Start: 02-19-2024 End: 02-19-2024 Refgeorge Willson MD Work Phone: [facility] Comment on above: Hypothyroidism (acqu ired) (CMS/HCC) Start: 02-18-2024 End: 02-18-2024 [facility] Result Encounter David Fanny DO Work Phone: [facility] Unsolicited Start: 02-18-2024 End: 02-18-2024 [facility] Result Encounter David Fanny DO Work [...] Office outpatient visit 15 minutes Jayro Mcbride [employer] SUPERVISOR Work Phone: [facility] Comment on above: Alopecia; Other fatigue; Acquired hypothyroidism (CMS/HCC) Start: 11-17-2023 End: 11-17-2023 ambulatory JAYRO KAMPFER Not Available Start: 11-17-2023 End: 11-17-2023 Bamboo flowsheet Jayro Mcbride [employer] SUPERVISOR Work Phone: [facility] Start: 11-17-2023 End: 11-17-2023 Bamboo flowsheet Jayro Lanepfer [employer] SUPERVISOR Work Phone: [facility] Start: [...] Date Procedure Procedure Detail Performing Clinician Start: 02-22-2024 [facility] PREG QUANT HCG Core y Fanny DO Work Phone: Start: 02-18-2024 [facility] PREG QUANT HCG Core y Fanny DO Work Phone: Start: 02-15-2024 [facility] PREG QUANT HCG Core [...] Screening for malign ant neoplasm of cervix [facility] Start: 12-06-2026 Screening for malign ant neoplasm of cervix Pap Smear [facility] Start: 02-25-2024 End: 02-25-2024 ambulatory 02/25/2024 2:00 PM EST Initial [facility] [address] [place] [address] [facility] Start: 02-25-2024 End: 02-25-2024 Professional / ancillary services management 02/25/2024 1:30 PM EST Ancillary Procedure [facility] [address] [place] [id number] [facility] Start: 01-12-2024 Influenza vaccination Influenza Vacc ine (#1) [facility] Comment on above: Postponed from 10/17 (Patient Refused) Start: 12-07-2023 End: 12-07-2023 Patient encounter procedure [facility] Comment on above: Arrived Start: 12-07-2023 End: 12-06-2024 US for US PELVIS-TRANSVAG IF INDICATED Imaging Routine Pelvic pain in female Expected: 12/07/2023 (Approximate), Expires: 12/06/2024 [facility] Comment on above: Expected: 12/07/2023 (Approximate), Expires: 12/06/2024 Start: 11-30-2023 End: 11-30-2023 Patient encounter procedure 11/30/2023 10:00 AM EDT Office Visit [facility] [address] [place] [id number] David Escobedo DO [address] [place] [address] [facility] Start: 11-17-2023 End: 11-17-2023 Patient encounter procedure 11/17/2023 3:30 PM EDT Office Visit [facility] [address] [facility] [place] [id number] Jayro Mcbride, GLORIA [address] [facility] [place] [address] Arrived [facility] Comment on above: Arrived Start: 11-17-2023 End: 11-16-2024 CBC W Auto Differential panel - Blood CBC and differential Lab Routine Alopecia Other fatigue Expected: 11/17/2023 (Approximate), Expires: 11/16/2024 [facility] Comment on above: Expected: 11/17/2023 (Approximate), Expires: 11/16/2024 Start: 11-17-2023 End: 11-16-2024 Ferritin [Mass/volume] in Serum or Plasma Ferritin Lab Routine Alopecia Other fatigue Expected: 11/17/2023 (Approximate), Expires: 11/16/2024 [facility] Comment on above: Expected: 11/17/2023 (Approximate), Expires: 11/16/2024 Start: 11-17-2023 End: 11-16-2024 TSH W/REFLEX TO FT4 TSH W/REFLEX TO FT4 Lab Routine Alopecia Other fatigue Acquired hypothyroidism (CMS/HCC) Expected: 11/17/2023 (Approximate), Expires: 11/16/2024 [facility] Work Phone: Comment on above: Expected: 11/17/2023 (Approximate), Expires: 11/16/2024 Start: 10-18-2023 Influenza vaccination Influenza Vacc ine (#1) [facility] Start: 08-16-2023 Influenza vaccination Influenza Vacc ine (#1) [facility] Comment on above: Postponed from 10/17 (Patient Refused) Cytology Cervical or vaginal smear or scraping study Pap Smear Pathology and Cytology Routine Well woman exam with routine gynecological exam Ordered: 12/07/2023 [facility] Work Phone: Comment on above: Ordered: 12/07/2023 Human papilloma viru s DNA [Presence] in Unspecified specimen by Probe with amplification HPV DNA probe, amplified Microbiology Routine Well woman exam with routine gynecological exam Ordered: 12/07/2023 [facility] Comment on above: Ordered: 12/07/2023 Payers Date Payer Category Payer Private Health Insurance [employer] [id number] 2022 Unknown [employer] [id number] 2022-Present [phone] [address] [address] [place] [address] [id number] 2022 Unknown [id number] 1990 Unknown [id number] [id number] .2.593 1990 Unknown [id number] [id number] .2.1259 1990 Unknown [id number] [id number] .2.9 1990 Unknown [id number] [id number] .2.1259 1990 Unknown [id number] [id number] .2.9 1990 Unknown [id number] [id number] .2.1259 1990 Unknown [id number] [id number] .2.9 1990 Unknown [id number] [id number] .2.1259 1990 Unknown [id number] .2.1259 1959 Unknown [id number] Social History Date Type Detail Facility Start: 12-19-2022 End: 08-28-2023 Tobacco smoking status MNIS Ex-smoker [facility] Start: 11-26-2015 End: 07-22-2022 History of tobacco use Current smoker [facility] Start: 11-26-2015 End: 07-22-2022 History of tobacco use Cigarette Smoker [facility] Start: 12-12-2022 End: 12-19-2022 Cigarettes [...] History of Present illness Narrative 12-07-2023 Che Huitron, NAVIGATION OFFICER - 12/07/2023 3:40 PM EDT Note Date [...] Problems Past Medical History: Diagnosis Date Asthma ([facility] 1994 Disease of thyroid gland ([facility]) 2002 Miscarriage 01/26/2023 HISTORY PAST MEDICAL HISTORY SOCIAL HISTORY Past Medical History: Diagnosis Date Ast[facility] 1994 Disease of thyroid gland ([facility]) 2002 Miscarriage 01/26/2023 Social History Tobacco Use [...] Grandmother Neelima valentine Cancer Maternal Grandmother Neelima ripchemo Miscarriages / Stillbirths Sister Vidhya San Miscarriages / Stillbirths Sister Tiana Monaeer SURGICAL HISTORY Past Surgical History: Procedure Laterality [...] nursing note reviewed. Exam conducted with a director project management present. Vitals: Estimated body mass index is [...] well and has complaints of uterine pain chcf through cycle. Patient to have US obtained on day 14 or 15 of cycle. Pap was obtained without difficulty. Orders Placed This Encounter Procedures HPV DNA probe, amplified Follow Up: Patient is to return in one year for annual unless needed otherwise. Documented by Che Huitron LPN on behalf of: David Escobedo DO documented in this encounter [facility] Telephone encounter Note 11-20-2023 Telephone Encounter - Gerber Perdomo - 11/20/2023 4:21 PM EDT Note Date & Type Note Facility 11-20-2023 Telephone encount er Note Pt called back and I gave her the message :) [facility] Note 11-20-2023 Telephone Encounter - Gerber Perdomo - 11/20/2023 4:21 PM EDTTelephone Encounter - Ana Laura Brennan MA - 11/20/2023 2:45 PM EDT Note Date & Type Note Facility 11-20-2023 Miscellaneous Notes Formattin g of this note might be different from the original. Pt called back and I gave her the message :) [email or web address] message: Your labs are all normal range. Could definitely be a side effect of the semaglutide your using. documented in this encounter [facility] Telephone encounter Note 11-20-2023 Telephone Encounter - Ana Laura Brennan MA - 11/20/2023 2:45 PM EDT Note Date & Type Note Facility 11-20-2023 Telephone encount er Note [email or web address] message: Your labs are all normal range. Could definitely be a side effect of the semaglutide your using. [facility] History of Present illness Narrative 11-17-2023 Jayro [...] organs documented in this encounter [facility] Evaluation note Note Date & Type Note Facility Evaluation note Diagnosis Hypothyroidism (acquired) (CMS/HCC) Unspecified hypothyroidism documented in this encounter [facility] Summary Purpose Family History No Family History Records FoundNo Family History Records Found Advance Directives No Advanced Directives Records FoundNo Advanced Directives Records Found Additional Source Comments INFORMATION SOURCE (unrecogn ized section and content) DATE CREATED AUTHOR 11/26/2021 [facility] DATE CREATED AUTHOR AUTHOR'S ORGANIZ ATION 12/09/2023 [facility] d[facility] Specialists [facility] Care Teams (unrecognized sec tion and content) Rn Research Relationship Specialty Start Date End Date Joceline Willson MD [address] [place] [address] PCP - General Family Medicine 12/19/22 Rn Research Relationship Specialty Start Date End Date Joceline Willson MD [address] [place] [address] PCP - General Family Medicine 12/19/22 Rn Research Relationship Specialty Start Date End Date Joceline Willson MD [address] [place] [address] PCP - General Family Medicine 12/19/22 Rn Research Relationship Specialty Start Date End Date Joceline Willson MD [address] [place] [address] PCP - General Family Medicine 12/19/22 Rn Research Relationship Specialty Start Date End Date Joceline Willson MD [address] [place] [address] PCP - General Family Medicine 12/19/22 Rn Research Relationship Specialty Start Date End Date Joceline Willson MD [address] [place] [address] PCP - General Family Medicine 12/19/22 Rn Research Relationship Specialty Start Date End Date Joceline Willson MD [address] [place] [address] PCP - General Family Medicine 12/19/22 Rn Research Relationship Specialty Start Date End Date Joceline Willson MD [address] [place] [address] PCP - General Family Medicine 12/19/22 Reason [...] BE BASED ON THE PRIMARY CLINICAL RECORDS. [employer] [facility]. provides no warranty or guarantee of the accuracy or completeness of information in this document.
[2024-02-26 06:29] LABS: Basophils Absolute Auto 0.1 10^3/uL (0.0-0.1); Basophils Percent Auto 1.8 % (0.2-2.0); Eosinophils Absolute Auto 0.5 10^3/uL (0.0-0.7); Eosinophils Percent Auto 6.1 % (0.9-7.0); Hematocrit 41.5 % (36.0-48.0); Hemoglobin 14.2 g/dL (12.0-16.0); Immature Granulocytes Abs Auto 0.05 10^3/uL (0.00-0.03); Immature Granulocytes Pct Auto 0.6 % (0.0-0.5); Lymphocytes Absolute Auto 2.4 10^3/uL (1.2-3.8); Lymphocytes Percent Auto 31.3 % (20.5-60.0); Mean Corpuscular HGB Conc 34.2 g/dL (29.9-35.2); Mean Corpuscular Hemoglobin 30.1 pg (26.7-34.0); Mean Corpuscular Volume 88.1 fL (81.0-99.0); Mean Platelet Volume 9.9 fL (9.5-13.5); Monocytes Absolute Auto 0.6 10^3/uL (0.3-0.8); Monocytes Percent Auto 7.5 % (1.7-12.0); Neutrophils Absolute Auto 4.1 10^3/uL (1.4-6.5); Neutrophils Percent Auto 52.7 % (43.0-75.0); Platelet Count 286 10^3/uL (150-450); Red Blood Count 4.71 10^6/uL (4.20-5.40); White Blood Count 7.7 10^3/uL (4.0-11.0)
[2024-02-26] MEDS: LACTATED RINGER'S SOLUTION 1,000 ML 50 ML IV (07:04)
[2024-02-26 07:05] LABS: HCG Quantitative 2458 mIU/mL
--- NOTE | 2024-02-26 08:02 | P.ON_ITS ---
Brief Operative Note Date of procedure: 02/26/24 Pre-op diagnosis general: missed Post-op diagnosis: same as pre-op Procedure: NAME OF PROCEDURE: [D&C suction ] PROCEDURE: The patient was taken back to the OR where she was given general anesthesia without difficulty. She was then placed in dorsal lithotomy position, prepped and draped in the normal sterile fashion. A weighted speculum was placed in the patient's vagina and the anterior lip of the cervix was identified and grasped with a single-tooth tenaculum. The patient was then gently dilated using Hegar dilators after we had sounded roughly to 9 cm. The suction curette was then tested. The suction curette was then placed in the patient's uterus and products of conception were removed using an 10-Kosovan suction curette. ?Excellent hemostasis was noted. The patient tolerated the procedure well. Sponge, lap, and needle counts were correct x 2. All instruments were then removed from the patient's vagina. The patient was taken to the Recovery Room in stable condition . ?? Anesthesia: MAC Surgeon: Isael Escobedo Estimated blood loss (mL): 5 Pathology: other (poc) Condition: stable Disposition: PACU Urinary Catheter Management Urinary Catheter Management Urethral: Cath placed during this visit: no
--- NOTE | 2024-02-26 09:05 | PC.NURSE ---
0904: pt ambulates to bathroom,voids without difficulty.
== END 2024-02-26 09:10 | disposition home or self-care (01) ==
PROVIDERS: PCP Nurse Practitioner Family; Visit Provider Obstetrics & Gynecology
PROC: (CPT 1965; principal; 2024-02-26 07:30)
DX: O02.1 Missed abortion (principal); Z87.891 Personal history of nicotine dependence; J45.909 Unspecified asthma, uncomplicated; Z86.16 Personal history of COVID-19
CPT/HCPCS: 01965; 59820; 36415; 84702; 85025; 86900; 86901; 88305; J1100; J1885; J2250; J2405; J2704; J3010

== ENCOUNTER 2024-03-16 15:51 | Outpatient (OUT) | payer OTHER, SELFPAY ==
--- NOTE | 2024-03-16 15:53 | US_ITS ---
[address] [address] Patient Name: PAM ACEVES MRN: [id number] date: 1990 Sex: F Assigned Patient Location: US Current Patient Location: US Accession/Order Number: [id number] Exam Date: 03/16/2024 16:09 Report Date: 03/16/2024 19:39 At the request of: DAVID BARCLAY Procedure: US OB transvaginal EXAM: US OB transvaginal HISTORY: Hemorrhagic cyst. with uncertain viability COMPARISON: None. TECHNIQUE: Endovaginal approach OB ultrasound is performed. Multiple grayscale images are submitted for review. FINDINGS: The uterus is retroverted. The cervix measures 3.4 cm in length and appears closed. Small volume of fluid is seen within the cervical canal. The endometrium measures 9 mm in thickness. No intrauterine gestation sac is visualized. The right ovary measures 3.9 x 2.2 x 1.7 cm and demonstrates normal morphology. The left ovary measures 3.7 x 3 x 2.9 cm. approximately 2.2 x 1.3 x 2.2 cm cyst is seen in the left ovary. An approximately 2.5 cm heterogeneous hypoechoic structure with low-level internal echoes is seen adjacent to the left ovary. This structure may represent a paraovarian complex cystic structure. However, ectopic cannot be excluded. Clinical, laboratory and continued sonographic correlation is suggested. No significant free pelvic fluid is seen. US/US OB transvaginal IMPRESSION: No evidence for intrauterine . An approximately 2.5 cm heterogeneous hypoechoic structure with low-level internal echoes is seen adjacent to the left ovary. This structure may represent a paraovarian complex cystic structure. However, ectopic cannot be excluded. Clinical, laboratory and continued sonographic correlation is suggested. Electronically authenticated by: ELIZABETH RODRIGUEZ Date: 03/16/2024 19:39
--- OUTSIDE RECORDS SUMMARY | 2024-03-16 16:10 | XMS_ITS | CCD ---
Author Organization [facility] Care Team Providers Care Plant Culture Manager Name Role Phone DR DAVID ESCOBEDO Admitting Unavailable DR DAVID ESCOBEDO Attending Unavailable DR LE MENDOZA Primary Care Unavailable DR DAVID ESCOBEDO Consulting Unavailable Anamika CLEARY, Joceline Primary Care Provider KYLEIGH LYONS Attending Unavailable JAYRO MCBRIDE Attending Unavailable JAYRO MCBRIDE Attending Unavailable REED, JAYRO Attending Unavailable REED, JAYRO Attending Unavailable DAVID ESCOBEDO Attending Unavailable Medications Current Medications Medication Drug Class(es) Dates Sig (Normalized) Sig (Original) levothyroxine sodium 0.175 mg oral tablet (20 sources) l-Thyroxine Start: 10-01-2023 End: 02-19-2024 take 1 tablet by mouth before mealtime levothyroxine (Synthroid, Levoxyl) 175 MCG tablet Indications: Hypothyroidism (acquired) (CMS/HCC) Take 1 tablet (175 mcg) by mouth in the morning. Take before meals. 100 tablet 02/19/2024 Active Start: 01-16-2023 End: 04-26-2023 take 1 [...] gestation 30 suppository 3 01/20/2024 02/19/2024 Active Completed/Discontinued Medications Medication Drug Class(es) Dates Sig (Normalized) Sig (Original) 1 mg dose 1.5 ml semaglutide 1.34 mg/ml pen injector (20 sources) Start: 06-17-2023 End: 03-14-2024 semaglutide (Ozempic) 2 MG/1.5ML solution pen-injector 2 mL 1 (one) time per week Takes 40 units weekly. 06/17/2023 03/14/2024 Discontinued Start: 06-17-2023 semaglutide (O zempic) 2 MG/1.5ML [...] Fatigue; Translations: [Other fatigue] 11-17-2023 Episodic Other aftercare (2 sources) Surgical follow-up; Translations: [Encounter for follow-up examination after completed treatment for conditions other than malignant neoplasm] 03-14-2024 Episodic Other screening for suspected conditions (not mental disorders or infectious disease) (4 sources) Encounter for screening for malignant neoplasm of cervix; Translations: [ENC SCREENING MALIG NEOPLASM CERV] Onset: 11-19-2021 Episodic Other skin disorders (2 sources) Alopecia; Translations: [Nonscarring hair loss, unspecified] 11-17-2023 Episodic Thyroid disorders (3 sources) Acquired hypothyroidism; Translations: [Hypothyroidism, unspecified] 11-17-2023 Chronic Results Test Name Value Interpretation Reference Range Facility ALL CBC WITH AUTO DIFFon BASOPHILS ABSOLUTE AUTO 0.1 [facility] Basophils/100 WBC (Bld) 1.8 % 0.2 - 2.0 % [facility] Eosinophils/100 WBC (Bld) 6.1 % 0.9 - 7.0 % [facility] Erythrocyte distribution width (RBC) [Ratio] 12 % 11.0 - 15.0 % [facility] Hematocrit (Bld) [Volume fraction] 41.5 % 36.0 - 48.0 % [facility] Hemoglobin (Bld) [Mass/Vol] 14.2 g/dL 12.0 - 16.0 g/dL [facility] IMMATURE GRANULOCYTES ABS AUTO 0.05 High [facility] Immature granulocytes/100 WBC (Bld) 0.6 % High 0.0 - 0.5 % [facility] Interpretation and review of laboratory results Abnormal [facility] LYMPHOCYTES ABSOLUTE AUTO 2.4 [facility] Lymphocytes/100 WBC (Bld) 31.3 % 20.5 - 60.0 % [facility] MCH (RBC) [Entitic mass] 30.1 pg 26.7 - 34.0 pg [facility] MCHC (RBC) [Mass/Vol] 34.2 g/dL 29.9 - 35.2 g/dL [facility] MCV (RBC) [Entitic vol] 88.1 fL 81.0 - 99.0 fL [facility] MONOCYTES ABSOLUTE AUTO 0.6 [facility] Monocytes/100 WBC (Bld) 7.5 % 1.7 - 12.0 % [facility] NEUTROPHILS ABSOLUTE AUTO 4.1 [facility] Neutrophils/100 WBC (Bld) 52.7 % 43.0 - 75.0 % [facility] Platelet mean volume (Bld) [Entitic vol] 9.9 fL 9.5 - 13.5 fL [facility] are TBH EO # 0.5 [facility] TB PLT 286 [facility] TB RBC 4.71 [facility] TB WBC 7.7 [facility] PREG QUANT HCGon 025 HCG QUANTITATIVE 4176 mIU/mL [facility]thcare Comment on above: 5-50 0.2-1 WEEK 50-500 1-2 WEEKS 100-5,000 2-3 WEEKS 500-10,000 3-4 WEEKS 1,000-50,000 4-5 WEEKS 10,000-100,000 5-6 WEEKS 15,000-200,000 6-8 WEEKS 10,000-100,000 2-3 MONTHS [facility] TB[facility] PREG QUANT HCGon 025 HCG QUANTITATIVE 4654 mIU/mL [facility] Hea lthcare Comment on above: 5-50 0.2-1 WEEK 50-500 1-2 WEEKS 100-5,000 2-3 WEEKS 500-10,000 3-4 WEEKS 1,000-50,000 4-5 WEEKS 10,000-100,000 5-6 WEEKS 15,000-200,000 6-8 WEEKS 10,000-100,000 2-3 [facility]S [facility] PREG QUANT HCGon 02-14- 024 HCG QUANTITATIVE 5388 mIU/mL [facility] Hea ltare Comment on above: 5-50 0.2-1 WEEK 50-500 1-2 WEEKS 100-5,000 2-3 WEEKS 500-10,000 3-4 WEEKS 1,000-50,000 4-5 WEEKS 10,000-100,000 5-6 WEEKS 15,000-200,000 6-8 WEEKS 10,000-100,000 2-3 MONTHS [facility] TBH PREG QUANT HCGon 024 HCG QUANTITATIVE 4079 mIU/mL [facility] lthcare Comment on above: 5-50 0.2-1 WEEK 50-500 1-2 WEEKS 100-5,000 2-3 WEEKS 500-10,000 3-4 WEEKS 1,000-50,000 4-5 WEEKS 10,000-100,000 5-6 WEEKS 15,000-200,000 6-8 WEEKS 10,000-100,000 2-3 MONTHS [facility] e TBH PREG QUANT HCGon 024 HCG QUANTITATIVE 2981 mIU/mL [facility] lthcare Comment on above: 5-50 0.2-1 WEEK 50-500 1-2 WEEKS 100-5,000 2-3 WEEKS 500-10,000 3-4 WEEKS 1,000-50,000 4-5 WEEKS 10,000-100,000 5-6 WEEKS 15,000-200,000 6-8 WEEKS 10,000-100,000 2-3 MONTHS [facility] TB[facility] PREG QUANT HCGon 01-27- 024 HCG QUANTITATIVE 2239 mIU/mL [facility] Hea lthcare Comment on above: 5-50 0.2-1 WEEK 50-500 1-2 WEEKS 100-5,000 2-3 WEEKS 500-10,000 3-4 WEEKS 1,000-50,000 4-5 WEEKS 10,000-100,000 5-6 WEEKS 15,000-200,000 6-8 WEEKS 10,000-100,000 2-3 MONTHS [facility] TBH PREG QUANT HCGon 024 HCG QUANTITATIVE 158 mIU/mL [facility] Comment on above: 5-50 0.2-1 WEEK 50-500 1-2 WEEKS 100-5,000 2-3 WEEKS 500-10,000 3-4 WEEKS 1,000-50,000 4-5 WEEKS 10,000-100,000 5-6 WEEKS 15,000-200,000 6-8 WEEKS 10,000-100,000 2-3 MONTHS [facility] PREG QUANT HCGon 024 HCG QUANTITATIVE 79 mIU/mL [facility] Comment on above: 5-50 0.2-1 WEEK 50-500 1-2 WEEKS 100-5,000 2-3 WEEKS 500-10,000 3-4 WEEKS 1,000-50,000 4-5 WEEKS 10,000-100,000 5-6 WEEKS 15,000-200,000 6-8 WEEKS 10,000-100,000 2-3 MONTHS [facility] IGP,APTIMA HPV,AGE GDLNon AGE GDLN ACOG TESTING Note . [facility] Comment on above: TESTS RESULT FLAG UN ITS REF RANGE LAB Clinician Provided Cytology Information Source.............Cervix;Endocervix No. of containers..01 ThinPrep Vial Age Algo ACOG Wendy... FLAG LEGEND: L-Low Normal,H-High Normal,LL-Alert Low,HH-Alert High <-Panic Low,>-Panic High,A-Abnormal,AA-Critical Abnormal Performed at: 01 =[address] [place] [address] Chanel Francois MD, HPV APTIMA Negative Negative [facility] Comment on above: This nucleic acid am plification test detects fourteen high- risk HPV types (16,18,31,33,35,39,45,51,52,56,58,59,66,68) without differentiation. Performed at: =[address] [id number] [employer] Attendant: Chanel Francois MD, Phone: [phone] Performed at: [address], [place] [id number] [employer] Attendant: Chanel Francois MD, Phone: [phone] IGP, APTIMA HPV, RFX 16/18,45 Note . [facility] Comment on above: TESTS RESULT FLAG UN ITS REF RANGE LAB DIAGNOSIS: 02 NEGATIVE FOR INTRAEPITHELIAL LESION OR MALIGNANCY. Specimen adequacy: 02 Satisfactory for evaluation. Endocervical and/or squamous metaplastic cells (endocervical component) are present. Performed by: 02 Vega Madden, Material Preparation Worker (ASCP) . 02 Note: Note 02 The [...] High,A-Abnormal,AA-Critical Abnormal Performed at: 02 WB [facility] [address] [address] Chanel Francois MD, BRUSH-SPATULA CERVIX ENDOCERVIX [facility] PREG QUANT HCGon 02-- 024 HCG QUANTITATIVE 6 mIU/mL [facility] Comment on above: 5-50 0.2-1 WEEK 50-500 1-2 WEEKS 100-5,000 2-3 WEEKS 500-10,000 3-4 WEEKS 1,000-50,000 4-5 WEEKS 10,000-100,000 5-6 WEEKS 15,000-200,000 6-8 WEEKS 10,000-100,000 2-3 MONTHS [facility] PAP ACOG PANEL 2: 30 to 65on 11-26-2021 . . Normal [facility] Comment on above: Result Comment: Perf ormed at: WB Performed By: #### [id number] #### [facility] [address] [address] [address] Florencia Carpenter Age Gdln ACOG Testing 30-65 Normal [facility] Comment on above: Performed By: #### [id number] #### [facility] [address] [address] [address] Florencia Carpenter DIAGNOSIS: Comment Normal [facility] Comment on above: Result Comment: NEGA TIVE FOR INTRAEPITHELIAL LESION OR MALIGNANCY. Performed at: WB Performed By: #### [id number] #### [facility] [address] [place] [address] Dr. Florencia Carpenter HPV Aptima Negative Normal Negative [facility] Comment on above: Result Comment: This nucleic acid amplification test detects fourteen high-risk HPV types (16,18,31,33,35,39,45,51,52,56,58,59,66,68) without differentiation. Performed at: =G Performed By: #### [id number] #### [facility] [address] [place] [address] Dr. Florencia Carpenter Methodology: Comment Normal [facility] Comment on above: Result Comment: This liquid based ThinPrep(R) pap test was screened with the use of an image guided system. Performed at: WB Performed By: #### [id number] #### [facility] [address] [place] [address] Dr. Florencia Carpenter Note: Comment Normal [facility] Comment on above: Result Comment: The Pap smear is a screening test designed to aid in the detection of premalignant and malignant conditions of the uterine cervix. It is not a diagnostic procedure and should not be used as the sole means of detecting cervical cancer. Both false-positive and false-negative reports do occur. . Performed at: WB Performed By: #### [id number] #### [facility] [address] [place] [address] Dr. Florencia Carpenter Performed by: Comment Normal [facility] Comment on above: Result Comment: Ermelinda Ricketts, Material Preparation Worker (ASCP) Performed at: WB Performed By: #### [id number] #### [facility] [address] [place] [address] Dr. Florencia Carpenter Specimen adequacy: Comment Normal [facility] Comment on above: Result Comment: Sati sfactory for evaluation. Endocervical and/or squamous metaplastic cells (endocervical component) are present. Performed at: WB Performed By: #### [id number] #### [facility] [address] [place] [address] Dr. Florencia Carpenter Vital Signs Date Time Vital Sign Value Performing Clinician Faci rosarioy 03-14-2024 15:22-0500 Body mass index (BMI) [Ratio] 35.35 kg/m2 Kyleigh REYNOLDS Work Phone: [facility] 03-14-2024 15:22-0500 Body weight 99.34 kg Kyleigh REYNOLDS Work Phone: [facility] 03-14-2024 15:22-0500 Diastolic blood pressure 70 mm[Hg] Kyleigh REYNOLDS Work Phone: [facility] 03-14-2024 15:22-0500 Systolic blood pressure 110 mm[Hg] Kyleigh REYNOLDS Work Phone: [facility] 12-07-2023 16:37-0400 Body mass index (BMI) [Ratio] 31.31 kg/m2 David Fanny DO Work Phone: [facility] 12-07-2023 16:37-0400 Body weight 88 kg David Fanny DO Work Phone: [facility] 12-07-2023 16:37-0400 Diastolic blood pressure 78 mm[Hg] David Fanny DO Work Phone: [facility] 12-07-2023 16:37-0400 Systolic blood pressure 114 mm[Hg] David Fanny DO Work Phone: [facility] 11-17-2023 15:26-0400 Body height 167.6 cm Jayro Mcbride MANUFACTURER'S REPRESENTATIVE Work Phone: [facility] 11-17-2023 15:26-0400 Body mass index (BMI) [Ratio] 30.09 kg/m2 Jayro Mcbride MANUFACTURER'S REPRESENTATIVE Work Phone: [facility] 11-17-2023 15:26-0400 Body weight 84.55 kg Jayro Reed MANUFACTURER'S REPRESENTATIVE Work Phone: [facility] 11-17-2023 15:26-0400 Diastolic blood pressure 86 mm[Hg] Jayro Mcbride MANUFACTURER'S REPRESENTATIVE Work Phone: [facility] 11-17-2023 15:26-0400 Heart rate 96 /min Jayro Mcbride MANUFACTURER'S REPRESENTATIVE Work Phone: [facility] 11-17-2023 15:26-0400 SaO2% (BldA) [Mass fraction] 96 % Jayro Mcbride MANUFACTURER'S REPRESENTATIVE Work Phone: [facility] 11-17-2023 15:26-0400 Systolic blood pressure 118 mm[Hg] Jayro Mcbride MANUFACTURER'S REPRESENTATIVE Work Phone: [facility] Encounters Encounter Date Encounter Type Care Provider Facility Start: 03-14-2024 End: 03-14-2024 Postop follow up visit related to original px Kyleigh Lyons PA Work Phone: [facility] Comment on above: Postoperative examin ation Start: 03-14-2024 End: 03-14-2024 ambulatory KYLEIGH LYONS Not Available Start: 03-14-2024 End: 03-14-2024 Bamboo flowsheet Kyleigh Lyons PA Work Phone: [facility] Start: 03-14-2024 End: 03-14-2024 Bamboo flowsheet Kyleigh Lyons PA Work Phone: [facility] Start: 02-26-2024 End: 02-26-2024 [facility] Result Encounter David Fanny DO Work Phone: [facility] Unsolicited Start: 02-26-2024 End: 02-26-2024 [facility] Result Encounter David Fanny DO Work Phone: [facility] Start: 02-22-2024 End: 02-22-2024 [facility] Result Encounter David Fanny DO Work Phone: [facility] Start: 02-22-2024 End: 02-22-2024 [facility] Result Encounter David Fanny DO Work Phone: [facility] Start: 02-19-2024 End: 02-19-2024 Loli Willson MD Work Phone: [facility] Comment on above: Hypothyroidism (acqu ired) (CMS/HCC) [...] Office outpatient visit 15 minutes Jayro Mcbride MANUFACTURER'S REPRESENTATIVE Work Phone: [facility] Comment on above: Alopecia; Other fatigue; Acquired hypothyroidism (CMS/HCC) Start: 11-17-2023 End: 11-17-2023 ambulatory JAYRO MCBRIDE Not Available Start: 11-17-2023 End: 11-17-2023 Bamboo flowsheet Jayro Mcbride MANUFACTURER'S REPRESENTATIVE Work Phone: [facility] Start: 11-17-2023 End: 11-17-2023 Bamboo flowsheet Jayro Mcbride MANUFACTURER'S REPRESENTATIVE Work Phone: [facility] Start: 08-28-2023 End: 08-28-2023 ambulatory JAYRO MCBRIDE Not Available Start: 05-11-2023 End: 05-11-2023 ambulatory JAYRO MCBRIDE Not Available Start: 04-27-2023 End: 04-27-2023 ambulatory JAYRO MCBRIDE Not Available Start: 03-28-2023 [facility] Result Encounter Cor ey Fanny DO Work Phone: [facility]olic[facility] Start: 03-28-2023 [facility] Result Encounter Cor ey Fanny DO Work Phone: [facility] Unsolic[facility] Start: 11-19-2021 End: 11-19-[address] DAVID ESCOBEDO Facility: Procedures Date Procedure Procedure Detail Performing Clinician Start: 02-26-2024 ALL CBC WITH AUTO DIFF David Escobedo DO Work Phone: Start: 02-22-2024 TBH PREG QUANT HCG Core [...] Screening for malign ant neoplasm of cervix [facility] Start: 12-06-2026 Screening for malign ant neoplasm of cervix Pap Smear [facility] Start: 03-14-2024 End: 03-14-2024 Patient encounter procedure 03/14/2024 3:20 PM EST Office Visit [facility] [address] [facility] [place] [phone] Kyleigh Lyons PA [address] [place] [address] Arrived [facility] Comment on above: Arrived Start: 02-25-2024 End: 02-25-2024 ambulatory 02/25/2024 2:00 PM EST Initial [facility] [address] [place] [id number] [facility] Start: 02-25-2024 End: 02-25-2024 Professional / ancillary services management 02/25/2024 1:30 PM EST Ancillary Procedure [facility] [address] [place] [id number] [facility] Start: 01-12-2024 Influenza vaccination Influenza Vacc ine (#1) [facility] Comment on above: Postponed from 10/17 [...] EDT Office Visit [facility] [address] [place] [phone] David Escobedo DO [address] [place] [address] [facility] Start: 11-17-2023 End: 11-17-2023 Patient encounter procedure 11/17/2023 3:30 PM EDT Office Visit [facility] [address] [place] [phone] Jayro Mcbride NP [address] [place] [facility] [address] Arrived [facility] Comment on above: [...] hypothyroidism (CMS/HCC) Expected: 11/17/2023 (Approximate), Expires: 11/16/2024 [facility] Work Phone: Comment on above: Expected: 11/17/2023 (Approximate), Expires: 11/16/2024 Start: 10-18-2023 Influenza vaccination Influenza Vacc ine (#1) [facility] Start: 08-16-2023 Influenza vaccination Influenza Vacc ine (#1) [facility] Comment on above: Postponed from 10/17 (Patient Refused) Cytology Cervical or vaginal smear or scraping study Pap Smear Pathology and Cytology Routine Well woman exam with routine gynecological exam Ordered: 12/07/2023 [facility] Work Phone: Comment on above: Ordered: 12/07/2023 Human papilloma viru s DNA [Presence] in Unspecified specimen by Probe with amplification HPV DNA probe, amplified Microbiology Routine Well woman exam with routine gynecological exam Ordered: 12/07/2023 [facility] Comment on above: Ordered: 12/07/2023 Payers Date Payer Category Payer Private Health Insurance [facility] [id number] 2022 Unknown [employer] [id number] 2022-Present [phone] [address] [address] [place] [address] [id number] 2022 Unknown [id number] 1990 Unknown [id number] 1990 Unknown [id number] .2.9 1990 Unknown [id number] .2.9 1990 Unknown [id number] .2.9 1990 Unknown [id number] .2.9 1990 Unknown [id number] .2.9 1990 Unknown [id number] 1959 Unknown [id number] Social History Date Type Detail Facility Start: 12-19-2022 End: 08-28-2023 Tobacco smoking status [facility] Ex-smoker [facility] are Start: 11-26-2015 End: 07-22-2022 History of tobacco use Current smoker [facility] Start: 11-26-2015 End: 07-22-2022 History of tobacco use Cigarette Smoker [facility] Start: 12-12-2022 End: 12-19-2022 Cigarettes smoked current (pack per day) - Reported 0.5 [facility] Start: 12-19-2022 End: 08-28-2023 Tobacco use and exposure Smokeless tobacco non-user [facility] Start: 02-05-2023 End: 08-28-2023 Alcohol intake Ex-drinker (finding) [facility] Start: 12-12-2022 End: 01-16-2023 Humiliation, Afraid, [...] intak e: 1 cup of coffe daily [facility] Start: 1990 Sex Assigned At Not on file [facility] Start: 11-17-2023 End: 03-14-2024 Alcoholic beverage intake Current drinker of alcohol (finding) [facility] Start: 11-17-2023 Alcohol Comment caffeine intak e: 1 cup daily [facility] Start: 08-28-2023 Alcohol Comment caffeine intake: [facility] History of Present illness Narrative 03-14-2024 Che WanCAROL rangel - 03/14/2024 3:20 PM EST Note Date & Type Note Facility 03-14-2024 History of Presen t illness Narrative Reason for Appointment: Patient ID: Cathy San is a 33 y.o. female who presents for Post-op Visit Patient presents today for 2 Week Post Op Follow Up appointment. MEDICATIONS Current Outpatient Medications Medication Instructions levothyroxine (SYNTHROID, LEVOXYL) 175 mcg, Oral, Daily before breakfast ALLERGIES No Known Allergies PROBLEMS Active Ambulatory Problems Diagnosis Date Noted No Active Ambulatory Problems Resolved Ambulatory Problems Diagnosis Date Noted No Resolved Ambulatory Problems Past Medical History: Diagnosis Date Ast[facility] ([facility]) 1994 Disease of thyroid gland ([facility]) 2002 Miscarriage 01/26/2023 HISTORY PAST MEDICAL HISTORY SOCIAL HISTORY Past Medical History: Diagnosis Date Asthma ([facility]) 1994 Disease of thyroid gland ([facility]) 2002 Miscarriage 01/26/2023 Social History Tobacco Use Smoking status: Former Current packs/day: 0.00 Average packs/day: 0.5 packs/day for 7.0 years (3.5 ttl pk-yrs) Types: Cigarettes Start date: 11/26/2015 Quit date: 07/22/2022 Years since quittin.6 Smokeless tobacco: Never Vaping Use Vaping status: [...] SYSTEMS Review of Systems: Review of Systems All other systems reviewed and are negative. OBJECTIVE Objective: Physical Exam Constitutional: Appearance: Normal appearance. She is well-developed. Cardiovascular: Rate and Rhythm: Normal rate and [...] nursing note reviewed. Exam conducted with a combat control present. Vitals: Estimated body mass index is 35.35 kg/m as calculated from the following: Height as of 11/17/23: 5' 6 . Weight as of this encounter: 219 lb. BP: 110/70 No LMP recorded. ASSESSMENT & PLAN ICD-10-CM 1. Postoperative examination Z09 Patient presents for post operative appointment from suction D&C on 02/26/2024. Patient voiced that she was good for 6 days and then had a gush of blood. Patient voiced she is still losing tissue. Patient voiced that she had some questions in regards to insurance coverage for surgical procedure and Property Officer aware and will reach out to insurance to further look into. Answered patients questions in regards to conceiving in the future. Patient to return to office for annual and PRN. Documented by Che Huitron LPN on behalf of: GAIL Morales documented in this encounter [facility] History of Present illness Narrative 12-07-2023 [...] Problems Past Medical History: Diagnosis Date Asthma ([facility]) 1994 Disease of thyroid gland ([facility]) 2002 Miscarriage 01/26/2023 HISTORY PAST MEDICAL HISTORY SOCIAL HISTORY Past Medical History: Diagnosis Date Asthma ([facility]) 1994 Disease of thyroid gland ([facility]) 2002 Miscarriage 01/26/2023 Social History Tobacco [...] Mother Mellissa San Arthritis Maternal Grandmother Neelima ripple Cancer Maternal Grandmother Neelima valentine Miscarriages / [...] nursing note reviewed. Exam conducted with a combat control present. Vitals: Estimated body mass index is [...] well and has complaints of uterine pain correction through cycle. Patient to have US obtained on day 14 or 15 of cycle. Pap was obtained without difficulty. Orders Placed This Encounter Procedures HPV DNA probe, amplified Follow Up: Patient is to return in one year for annual unless needed otherwise. Documented by Che Huitron LPN on behalf of: David Escobedo DO documented in this encounter [facility] Telephone encounter Note 11-20-2023 Telephone Encounter - Gerber Perdomo - 11/20/2023 4:21 PM EDT Note Date & Type Note Facility 11-20-2023 Telephone encount er Note Pt called back and I gave her the message :) [facility] Healthcare Note 11-20-2023 Telephone Encounter - Gerber [...] semaglutide your using. documented in this encounter [facility] Telephone encounter Note 11-20-2023 Telephone Encounter - Ana Laura Brennan MA - 11/20/2023 2:45 PM EDT Note Date & Type Note Facility 11-20-2023 Telephone encount er Note MyChart message: Your labs are all normal range. Could definitely be a side effect of the semaglutide your using. [facility] History of Present illness Narrative 11-17-2023 [...] & Type Note Facility Evaluation note Diagnosis Postoperative examination Follow-up examination, following unspecified surgery documented in this encounter [facility] Summary Purpose Family History No Family History Records FoundNo Family History Records Found Advance Directives No Advanced Directives Records FoundNo Advanced Directives Records Found Additional Source Comments INFORMATION SOURCE (unrecogn ized section and content) DATE CREATED AUTHOR 11/26/2021 [facility] DATE CREATED AUTHOR AUTHOR'S ORGANIZ ATION 03/15/2024 [facility] Care Teams (unrecognized sec tion and content) Plant Culture Manager Relationship Specialty Start Date End Date Joceline Willson MD [address] [place] [address] PCP - General Family Medicine 12/19/22 Plant [employer] Manager Relationship Specialty Start Date End Date Joceline Willson MD [address] [facility] [place] [address] PCP - General Family Medicine 12/19/22 Plant Culture Manager Relationship Specialty Start Date End Date Joceline Willson MD [address] [facility] [place] [address] PCP - General Family Medicine 12/19/22 Plant Culture Manager Relationship Specialty Start Date End Date Joceline Willson MD [address] [facility] [place] [address] PCP - General Family Medicine 12/19/22 Plant Culture Manager Relationship Specialty Start Date End Date Joceline Willson MD [address] [facility] [place] [address] PCP - General Family Medicine 12/19/22 Plant Culture Manager Relationship Specialty Start Date End Date Joceline Willson MD [address] [place] [address] PCP - General Family Medicine 12/19/22 Plant Culture Manager Relationship Specialty Start Date End Date Joceline Willson MD [address] [place] [address] PCP - General Family Medicine 12/19/22 Plant Culture Manager Relationship Specialty Start Date End Date Joceline Willson MD [address] [facility] [place], [place] [id number] PCP - General Family Medicine 12/19/22 Reason for Visit (unrecogniz ed section and content) Reason Comments Fatigue Alopecia Reason Comments Well Women Visit Reason Comments Post-op Visit FOR RECORDS PERTAINING TO PATIENTS WHO [...] BE BASED ON THE PRIMARY CLINICAL RECORDS. [facility] [employer] provides no warranty or guarantee of the accuracy or completeness of information in this document.
== END 2024-03-16 15:52 | disposition home or self-care (01) ==
LOC: US 15:51
PROVIDERS: PCP Nurse Practitioner Family; Visit Provider Obstetrics & Gynecology
DX: O36.80X0 Pregnancy with inconclusive fetal viability, not applicable or unspecified (principal)
CPT/HCPCS: 76817

== ENCOUNTER 2024-04-27 15:14 | Outpatient (RCR) | payer OTHER, SELFPAY ==
--- OUTSIDE RECORDS SUMMARY | 2024-04-27 15:37 | XMS_ITS | CCD ---
Author Organization [facility] Care Team Providers Care Acute Coordinator Name Role Phone DR DAVID ESCOBEDO Admitting Unavailable DR DAVID ESCOBEDO Attending Unavailable DR LE MENDOZA Primary Care Unavailable DR DAVID ESCOBEDO Consulting Unavailable Anamika CLEARY, Joceline Primary Care Provider KYLEIGH LYONS Attending Unavailable JAYRO MCBRIDE Attending Unavailable JAYRO MCBRIDE Attending Unavailable MADHAV, JAYRO Attending Unavailable MADHAV, JAYRO Attending Unavailable DAVID ESCOBEDO Attending Unavailable [...] Test Name Value Interpretation Reference Range Facility [facility] PREG QUANT HCGon 025 HCG QUANTITATIVE 5 mIU/mL [facility] Comment on above: 5-50 0.2-1 WEEK 50-500 1-2 WEEKS 100-5,000 2-3 WEEKS 500-10,000 3-4 WEEKS 1,000-50,000 4-5 WEEKS 10,000-100,000 5-6 WEEKS 15,000-200,000 6-8 WEEKS 10,000-100,000 2-3 MONTHS [facility] US OB TRANSVAGINALon [address] [place] [address] Ultrasound Report Signed Patient: PAM SAN MR#: [id number] : 1990 Acct:[id number] Age/Sex: 33 / F ADM Date: 03/16/24 Loc: US Attending Dr: David Escobedo D.O. Ordering Physician: David Escobedo D.O. Date of Service: 03/16/24 Procedure(s): US OB transvaginal Accession Number(s): [id number] cc: David Escobedo D.O.; Jayro Mcbride NP [place] [id number] Patient Name: PAM SAN MRN: [id number] date: 1990 Sex: F Assigned Patient Location: US Current Patient Location: US Accession/Order Number: [id number] Exam Date: 03/16/2024 16:09 Report Date: 03/16/2024 19:39 At the request of: DAVID ESCOBEDO Procedure: US OB transvaginal EXAM: US OB transvaginal HISTORY: Hemorrhagic cyst. with uncertain viability COMPARISON: None. TECHNIQUE: Endovaginal approach OB ultrasound is performed. Multiple grayscale images are submitted for review. FINDINGS: The uterus is retroverted. The cervix measures 3.4 cm in length and appears closed. Small volume of fluid is seen within the cervical canal. The endometrium measures 9 mm in thickness. No intrauterine gestation sac is visualized. The right ovary measures 3.9 x 2.2 x 1.7 cm and demonstrates normal morphology. The left ovary measures 3.7 x 3 x 2.9 cm. approximately 2.2 x 1.3 x 2.2 cm cyst is seen in the left ovary. An approximately 2.5 cm heterogeneous hypoechoic structure with low-level internal echoes is seen adjacent to the left ovary. This structure may represent a paraovarian complex cystic structure. However, ectopic cannot be excluded. Clinical, laboratory and continued sonographic correlation is suggested. No significant free pelvic fluid is seen. US/US OB transvaginal IMPRESSION: No evidence for intrauterine . An approximately 2.5 cm heterogeneous hypoechoic structure with low-level internal echoes is seen adjacent to the left ovary. This structure may represent a paraovarian complex cystic structure. However, ectopic cannot be excluded. Clinical, laboratory and continued sonographic correlation is suggested. Electronically authenticated by: TATA VAUGHN Date: 03/16/2024 19:39 Dictated By: Tata Vaughn M.D. 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 Ordering Physician: David Escobedo D.O. Date of Service: 03/16/24 Procedure(s): US OB transvaginal Accession Number(s): [id number] cc: David Escobedo D.O.; Jayro Mcbride NP [address] [place] [id number] Patient Name: PAM SAN MRN: [facility]:[id number] date: 1990 Sex: F Assigned Patient Location: US Current Patient Location: US Accession/Order Number: [id number] Exam Date: 03/16/2024 16:09 Report Date: 03/16/2024 19:39 At the request of: DAVID ESCOBEDO Procedure: US OB transvaginal EXAM: US OB transvaginal HISTORY: Hemorrhagic cyst. with uncertain viability COMPARISON: None. TECHNIQUE: Endovaginal approach OB ultrasound is performed. Multiple grayscale images are submitted for review. FINDINGS: The uterus is retroverted. The cervix measures 3.4 cm in length and appears closed. Small volume of fluid is seen within the cervical canal. The endometrium measures 9 mm in thickness. No intrauterine gestation sac is visualized. The right ovary measures 3.9 x 2.2 x 1.7 cm and demonstrates normal morphology. The left ovary measures 3.7 x 3 x 2.9 cm. approximately 2.2 x 1.3 x 2.2 cm cyst is seen in the left ovary. An approximately 2.5 cm heterogeneous hypoechoic structure with low-level internal echoes is seen adjacent to the left ovary. This structure may represent a paraovarian complex cystic structure. However, ectopic cannot be excluded. Clinical, laboratory and continued sonographic correlation is suggested. No significant free pelvic fluid is seen. US/US OB transvaginal IMPRESSION: No evidence for intrauterine . An approximately 2.5 cm heterogeneous hypoechoic structure with low-level internal echoes is seen adjacent to the left ovary. This structure may represent a paraovarian complex cystic structure. However, ectopic cannot be excluded. Clinical, laboratory and continued sonographic correlation is suggested. Electronically authenticated by: TATA VAUGHN Date: 03/16/2024 19:39 Dictated By: Tata Vaughn M.D. 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 Helper: [facility] Radiology Study observation (narrative) [facility] US OB TRANSVAGINALOrdered By : Radiologist Radiology on 03-16-2024 [facility] Work Phone: ALL CBC WITH AUTO DIFFon BASOPHILS ABSOLUTE AUTO 0.1 N [facility] Basophils/100 WBC (Bld) 1.8 % 0.2 - 2.0 % [facility] Eosinophils/100 WBC (Bld) 6.1 % 0.9 - 7.0 % [facility] Erythrocyte distribution width (RBC) [Ratio] 12 % 11.0 - 15.0 % [facility] Hematocrit (Bld) [Volume fraction] 41.5 % 36.0 - 48.0 % [facility] Hemoglobin (Bld) [Mass/Vol] 14.2 g/dL 12.0 - 16.0 g/dL [facility] IMMATURE GRANULOCYTES ABS AUTO 0.05 High [facility] Immature granulocytes/100 WBC (Bld) 0.6 % High 0.0 - 0.5 % [facility] Interpretation and review of laboratory results Abnormal [facility] LYMPHOCYTES ABSOLUTE AUTO 2.4 [facility] Lymphocytes/100 WBC (Bld) 31.3 % 20.5 - 60.0 % [facility] MCH (RBC) [Entitic mass] 30.1 pg 26.7 - 34.0 pg [facility] MCHC (RBC) [Mass/Vol] 34.2 g/dL 29.9 - 35.2 g/dL [facility] MCV (RBC) [Entitic vol] 88.1 fL 81.0 - 99.0 fL [facility] MONOCYTES ABSOLUTE AUTO 0.6 N [facility] Monocytes/100 WBC (Bld) 7.5 % 1.7 - 12.0 % [facility] NEUTROPHILS ABSOLUTE AUTO 4.1 [facility] Neutrophils/100 WBC (Bld) 52.7 % 43.0 - 75.0 % [facility] Platelet mean volume (Bld) [Entitic vol] 9.9 fL 9.5 - 13.5 fL [facility] TB EO # 0.5 [facility] PLT 286 [facility] RBC 4.71 [facility] WBC 7.7 [facility] PREG QUANT HCGon 025 HCG QUANTITATIVE 4176 mIU/mL [facility] Comment on above: 5-50 0.2-1 WEEK 50-500 1-2 WEEKS 100-5,000 2-3 WEEKS 500-10,000 3-4 WEEKS 1,000-50,000 4-5 WEEKS 10,000-100,000 5-6 WEEKS 15,000-200,000 6-8 WEEKS 10,000-100,000 [facility]25 HCG QUANTITATIVE 4654 mIU/mL [facility] Comment on above: 5-50 0.2-1 WEEK 50-500 1-2 WEEKS 100-5,000 2-3 WEEKS 500-10,000 3-4 WEEKS 1,000-50,000 4-5 WEEKS 10,000-100,000 5-6 WEEKS 15,000-200,000 6-8 WEEKS 10,000-100,000 2[facility] 024 HCG QUANTITATIVE 5388 mIU/mL [facility] Comment on above: 5-50 0.2-1 WEEK 50-500 1-2 WEEKS 100-5,000 2-3 WEEKS 500-10,000 3-4 WEEKS 1,000-50,000 4-5 WEEKS 10,000-100,000 5-6 WEEKS 15,000-200,000 6-8 WEEKS 10,000-100,000 2-3 MONTHS [facility] PREG QUANT HCGon 024 HCG QUANTITATIVE 4079 mIU/mL [facility] Comment on above: 5-50 0.2-1 WEEK 50-500 1-2 WEEKS 100-5,000 2-3 WEEKS 500-10,000 3-4 WEEKS 1,000-50,000 4-5 WEEKS 10,000-100,000 5-6 WEEKS 15,000-200,000 6-8 WEEKS 10,000-100,000 2-3 MONTHS [facility] PREG QUANT HCGon 024 HCG QUANTITATIVE 2981 mIU/mL [facility] Comment on above: 5-50 0.2-1 WEEK 50-500 1-2 WEEKS 100-5,000 2-3 WEEKS 500-10,000 3-4 WEEKS 1,000-50,000 4-5 WEEKS 10,000-100,000 5-6 WEEKS 15,000-200,000 6-8 WEEKS 10,000-100,000 2-3 MONTHS [facility] PREG QUANT HCGon 024 HCG QUANTITATIVE 2239 mIU/mL [facility] Comment on above: 5-50 0.2-1 WEEK 50-500 1-2 WEEKS 100-5,000 2-3 WEEKS 500-10,000 3-4 WEEKS 1,000-50,000 4-5 WEEKS 10,000-100,000 5-6 WEEKS 15,000-200,000 6-8 WEEKS 10,000-100,000 2-3 MONTHS [facility] PREG QUANT HCGon 024 HCG QUANTITATIVE 158 mIU/mL [facility] Comment on above: 5-50 0.2-1 WEEK 50-500 1-2 WEEKS 100-5,000 2-3 WEEKS 500-10,000 3-4 WEEKS 1,000-50,000 4-5 WEEKS 10,000-100,000 5-6 WEEKS 15,000-200,000 6-8 WEEKS 10,000-100,000 2-[address] [facility] PREG QUANT HCGon 024 HCG QUANTITATIVE 79 mIU/mL [facility] Comment on above: 5-50 0.2-1 WEEK 50-500 1-2 WEEKS 100-5,000 2-3 WEEKS 500-10,000 3-4 WEEKS 1,000-50,000 4-5 WEEKS 10,000-100,000 5-6 WEEKS 15,000-200,000 6-8 WEEKS 10,000-100,000 2-[address] [facility] IGP,APTIMA HPV,AGE GDLNon AGE GDLN ACOG TESTING Note . [facility] Comment on above: TESTS RESULT FLAG UN ITS REF RANGE LAB Clinician Provided Cytology Information Source.............Cervix;Endocervix No. of containers..01 ThinPrep Vial Age Algo ACOG Wendy... FLAG LEGEND: L-Low Normal,H-High Normal,LL-Alert Low,HH-Alert High <-Panic Low,>-Panic High,A-Abnormal,AA-Critical Abnormal Performed at: 01 =G [address] [place] [address] Chanel Francois MD, HPV APTIMA Negative Negative [facility] Comment on above: This nucleic acid am plification test detects fourteen high- risk HPV types (16,18,31,33,35,39,45,51,52,56,58,59,66,68) without differentiation. Performed at: = - [facility] [id number] Radon Inspector: Chanel Francois MD, Phone: [phone] Performed at: - [facility], [place] [id number] Radon Inspector: Chanel Francois MD, Phone: [phone] IGP, APTIMA HPV, RFX 16/18,45 Note . [facility] Comment on above: TESTS RESULT FLAG UN ITS REF RANGE LAB DIAGNOSIS: 02 NEGATIVE FOR INTRAEPITHELIAL LESION OR MALIGNANCY. Specimen adequacy: 02 Satisfactory for evaluation. Endocervical and/or squamous metaplastic cells (endocervical component) are present. Performed by: 02 Vega Madden, Appian Developer ([facility]) . 02 Note: Note 02 [...] High,A-Abnormal,AA-Critical Abnormal Performed at: 02 WB [facility] [address] [place] [address] Chanel Francois MD, BRUSH-SPATULA CERVIX [facility]IX [facility] PREG QUANT HCGon 024 HCG QUANTITATIVE 6 mIU/mL [facility] Comment on above: 5-50 0.2-1 WEEK 50-500 1-2 WEEKS 100-5,000 2-3 WEEKS 500-10,000 3-4 WEEKS 1,000-50,000 4-5 WEEKS 10,000-100,000 5-6 WEEKS 15,000-200,000 6-8 WEEKS 10,000-100,000 2-3 [facility] PAP ACOG PANEL 2: 30 to 65on 11-26-2021 . . Normal [facility] Comment on above: Result Comment: Perf ormed at: WB Performed By: #### [id number] #### [facility] [address] [place] [address] [address] Florencia Carpenter Age Gdln ACOG Testing 30-65 Normal [facility] Comment on above: Performed By: #### [id number] #### [facility] [address] [place] [address] [address] Florencia Carpenter DIAGNOSIS: Comment Normal [facility] Comment on above: Result Comment: NEGA TIVE FOR INTRAEPITHELIAL LESION OR MALIGNANCY. Performed at: WB Performed By: #### [id number] #### [facility] [address] [place] [address] [address] Floerncia Carpenter HPV Aptima Negative Normal Negative [facility] Comment on above: Result Comment: This nucleic acid amplification test detects fourteen high-risk HPV types (16,18,31,33,35,39,45,51,52,56,58,59,66,68) without differentiation. Performed at: =G Performed By: #### [id number] #### [facility] [address] [place] [address] Dr. Florencia Carpenter Methodology: Comment Normal [facility] Comment on above: Result Comment: This liquid based ThinPrep(R) pap test was screened with the use of an image guided system. Performed at: WB Performed By: #### [id number] #### [facility] [address] [place] [address] Dr. Florencia Carpenter Note: Comment Normal [facility] Comment on above: Result Comment: The Pap smear is a screening test designed to aid in the detection of premalignant and malignant conditions of the uterine cervix. It is not a diagnostic procedure and should not be used as the sole means of detecting cervical cancer. Both false-positive and false-negative reports do occur. . Performed at: WB Performed By: #### [id number] #### [facility] [address] [place] [address] Dr. Florencia Carpenter Performed by: Comment Normal [facility] Comment on above: Result Comment: Ermelinda Ricketts, Appian Developer (ASCP) Performed at: WB Performed By: #### [id number] #### [facility] [address] [place] [address] Dr. Florencia Carpenter Specimen adequacy: Comment Normal [facility] Comment on above: Result Comment: Sati sfactory for evaluation. Endocervical and/or squamous metaplastic cells (endocervical component) are present. Performed at: WB Performed By: #### [id number] #### [facility] [address] [place] [address] Dr. Florencia Carpenter Vital Signs Date Time Vital Sign Value Performing Clinician Eulalia giang 03-14-2024 15:22-0500 Body mass index (BMI) [Ratio] 35.35 kg/m2 Kyleigh REYNOLDS Work Phone: [facility] 03-14-2024 15:22-0500 Body weight 99.34 kg Kyleigh REYNOLDS Work Phone: [facility] 03-14-2024 15:22-0500 Diastolic blood pressure 70 mm[Hg] Kyleigh REYNOLDS Work Phone: [facility] 03-14-2024 15:22-0500 Systolic blood pressure 110 mm[Hg] Kyleigh Lyons PA Work Phone: [facility] 12-07-2023 16:37-0400 Body mass index (BMI) [Ratio] 31.31 kg/m2 David Fanny DO Work Phone: [facility] 12-07-2023 16:37-0400 Body weight 88 kg David Fanny DO Work Phone: [facility] 12-07-2023 16:37-0400 Diastolic blood pressure 78 mm[Hg] David Fanny DO Work Phone: [facility] 12-07-2023 16:37-0400 Systolic blood pressure 114 mm[Hg] David Fanny DO Work Phone: [facility] 11-17-2023 15:26-0400 Body height 167.6 cm Jayro Lanetheresa SPECIAL EDUCATION ASSISTANT Work Phone: [facility] 11-17-2023 15:26-0400 Body mass index (BMI) [Ratio] 30.09 kg/m2 Jayro Lanetheresa SPECIAL EDUCATION ASSISTANT Work Phone: [facility] 11-17-2023 15:26-0400 Body weight 84.55 kg Jayro Mcbride SPECIAL EDUCATION ASSISTANT Work Phone: [facility] 11-17-2023 15:26-0400 Diastolic blood pressure 86 mm[Hg] Jayro Lanetheresa SPECIAL EDUCATION ASSISTANT Work Phone: [facility] 11-17-2023 15:26-0400 Heart rate 96 /min Jayro Lanetheresa SPECIAL EDUCATION ASSISTANT Work Phone: [facility] 11-17-2023 15:26-0400 SaO2% (BldA) [Mass fraction] 96 % Jayro Lanetheresa SPECIAL EDUCATION ASSISTANT Work Phone: [facility] 11-17-2023 15:26-0400 Systolic blood pressure 118 mm[Hg] Jayro Lanetheresa SPECIAL EDUCATION ASSISTANT Work Phone: [facility] Encounters Encounter Date Encounter Type Care Provider Facility Start: 03-17-2024 End: 03-17-2024 [facility] Result Encounter David Fanny DO Work Phone: [facility] Unsolicited Start: 03-17-2024 End: 03-17-2024 [facility] Result Encounter David Fanny DO Work Phone: [facility] Unsolic[facility] Start: 03-16-2024 End: 03-16-2024 [facility] Result Encounter David Fanny DO Work Phone: [facility] Unsolicited Start: 03-16-2024 End: 03-16-2024 [facility] Result Encounter David Fanny DO Work Phone: [facility] Unsolicited Start: 03-14-2024 End: 03-14-2024 Postop follow up visit related to original px Kyleigh REYNOLDS Work Phone: [facility] Comment on [...] Loli Willson MD Work Phone: [facility] Comment on above: Hypothyroidism (acqu ired) (CMS/HCC) [...] Office outpatient visit 15 minutes Jayro Mcbride SPECIAL EDUCATION ASSISTANT Work Phone: [facility] Comment on above: Alopecia; Other fatigue; Acquired hypothyroidism (CMS/HCC) Start: 11-17-2023 End: 11-17-2023 ambulatory JAYRO MCBRIDE Not Available Start: 11-17-2023 End: 11-17-2023 Bamboo flowsheet Jayro Mcbride SPECIAL EDUCATION ASSISTANT Work Phone: [facility] Start: 11-17-2023 End: 11-17-2023 Bamboo flowsheet Jayro Mcbride SPECIAL EDUCATION ASSISTANT Work Phone: [facility] Start: 08-28-2023 [...] Date Procedure Procedure Detail Performing Clinician Start: 03-17-2024 [facility] PREG QUANT HCG Core y Fanny DO Work Phone: Start: 03-16-2024 US OB TRANSVAGINAL Core y Fanyn DO Work Phone: Start: 02-26-2024 ALL CBC WITH AUTO DIFF David Fanny DO Work Phone: Start: 02-22-2024 [facility] PREG [...] Screening for malign ant neoplasm of cervix [facility] Start: 12-06-2026 Screening for malign ant neoplasm of cervix Pap Smear [facility] Start: 03-14-2024 End: 03-14-2024 Patient encounter procedure 03/14/2024 3:20 PM EST Office Visit [facility] [address] [place] [address] Kyleigh Lyons PA [address] [place], [place] [id number] Arrived [facility] Comment on above: Arrived Start: 02-25-2024 End: 02-25-2024 ambulatory 02/25/2024 2:00 PM EST Initial [facility] [address] [place] [address] [facility] Start: 02-25-2024 End: 02-25-2024 Professional / ancillary services management 02/25/2024 1:30 PM EST Ancillary Procedure [facility] [address] [place] [address] [facility] Start: 01-12-2024 Influenza vaccination Influenza Vacc ine (#1) [facility] Comment on above: Postponed from 10/17 (Patient Refused) Start: 12-07-2023 End: 12-07-2023 [facility] Comment on above: Arrived Start: 12-07-2023 End: 12-06-2024 US for US PELVIS-TRANSVAG IF INDICATED Imaging Routine Pelvic pain in female Expected: 12/07/2023 (Approximate), Expires: 12/06/2024 [facility] Comment on above: Expected: 12/07/2023 (Approximate), Expires: 12/06/2024 Start: 11-30-2023 End: 11-30-2023 Patient encounter procedure 11/30/2023 10:00 AM EDT Office Visit [facility] [address] [place] [address] David Escobedo DO [address] [facility] [address] [place] [address] [facility] Start: 11-17-2023 End: 11-17-2023 Patient encounter procedure 11/17/2023 3:30 PM EDT Office Visit [facility] [address] [place] [id number] Jayro Mcbride NP [address] [place] [address] Arrived [facility] Comment on above: Arrived Start: 11-17-2023 End: 11-16-2024 CBC W Auto Differential panel - Blood CBC and differential Lab Routine Alopecia Other fatigue Expected: 11/17/2023 (Approximate), Expires: 11/16/2024 [facility] Comment on above: Expected: 11/17/2023 (Approximate), Expires: 11/16/2024 Start: 11-17-2023 End: 11-16-2024 Ferritin [Mass/volume] in Serum or Plasma Ferritin Lab Routine Alopecia Other fatigue Expected: 11/17/2023 (Approximate), Expires: 11/16/2024 [facility] Comment on above: Expected: 11/17/2023 (Approximate), Expires: 11/16/2024 Start: 11-17-2023 End: 11-16-2024 TSH W/REFLEX TO FT4 TSH W/REFLEX TO FT4 Lab Routine Alopecia Other fatigue Acquired hypothyroidism (CMS/HCC) Expected: 11/17/2023 (Approximate), Expires: 11/16/2024 [facility] Work Phone: Comment on above: Expected: 11/17/2023 (Approximate), Expires: 11/16/2024 Start: 10-18-2023 Influenza vaccination Influenza Vacc ine (#1) [facility] Start: 08-16-2023 Influenza vaccination Influenza Vacc ine (#1) [facility] Comment on above: Postponed from 10/17 (Patient Refused) Cytology Cervical or vaginal smear or scraping study Pap Smear Pathology and Cytology Routine Well woman exam with routine gynecological exam Ordered: 12/07/2023 [facility] Work Phone: Comment on above: Ordered: 12/07/2023 Human papilloma viru s DNA [Presence] in Unspecified specimen by Probe with amplification HPV DNA probe, amplified Microbiology Routine Well woman exam with routine gynecological exam Ordered: 12/07/2023 [facility] Comment on above: Ordered: 12/07/2023 Payers Date Payer Category Payer Private Health Insurance [facility] [id number] 2022 Unknown [employer] [id number] 2022-Present [phone] [address] [address] [place] [address] [id number] 2022 Unknown [id number] 1990 Unknown [id number] .[id number] 1990 Unknown [id number] .2.9 1990 Unknown [id number] .2.9 1990 Unknown [id number] [id number] .2.9 1990 Unknown [id number] [id number] .2.9 1990 Unknown [id number] [id number] .2.9 1990 Unknown [id number] .2.1259 1959 Unknown [id number] Social History Date Type Detail Facility Start: 12-19-2022 End: 08-28-2023 Tobacco smoking status [facility] Ex-smoker [facility] are Start: 11-26-2015 End: 07-22-2022 History of tobacco use Current smoker [facility] Start: 11-26-2015 End: 07-22-2022 History of tobacco use Cigarette Smoker [facility] Start: 12-12-2022 End: 12-19-2022 Cigarettes smoked current (pack per day) - Reported 0.5 [facility] Start: 12-19-2022 End: 08-28-2023 Tobacco use and exposure Smokeless tobacco non-user [facility] Start: 02-05-2023 End: 08-28-2023 Alcohol [...] History of Present illness Narrative 03-14-2024 Che Huitron LPN - 03/14/2024 3:20 PM EST Note Date & Type Note Facility 03-14-2024 History of Presen t illness Narrative Reason for Appointment: Patient ID: Pam San is a 33 y.o. female who [...] Problems Past Medical History: Diagnosis Date Asthma ([facility]) 1994 Disease of thyroid gland ([facility]) 2002 Miscarriage 01/26/2023 HISTORY PAST MEDICAL HISTORY SOCIAL HISTORY Past Medical History: Diagnosis Date Asthma ([facility]) 1994 Disease of thyroid gland ([facility]) 2002 Miscarriage 01/26/2023 Social History Tobacco Use [...] nursing note reviewed. Exam conducted with a litigation attorney associate present. 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 female who [...] Problems Past Medical History: Diagnosis Date Asthma ([facility]) 1994 Disease of thyroid gland ([facility]) 2002 Miscarriage 01/26/2023 HISTORY PAST MEDICAL HISTORY SOCIAL HISTORY Past Medical History: Diagnosis Date Asthma (CMS/[facility]) 1994 Disease of thyroid gland ([facility]) 2002 Miscarriage 01/26/2023 Social History Tobacco Use [...] nursing note reviewed. Exam conducted with a litigation attorney associate present. Vitals: Estimated body mass index is [...] well and has complaints of uterine pain fpc through cycle. Patient to have US obtained on day 14 or 15 of cycle. Pap was obtained without difficulty. Orders Placed This Encounter Procedures HPV DNA probe, amplified Follow Up: Patient is to return in one year for annual unless needed otherwise. Documented by Che Huitron LPN on behalf of: David Escobedo DO documented in this encounter [facility] Telephone encounter Note 11-20-2023 Telephone Encounter [...] semaglutide your using. documented in this encounter [facility] Telephone encounter Note 11-20-2023 Telephone Encounter - Ana Laura Brennan MA - 11/20/2023 2:45 PM EDT Note Date & Type Note Facility 11-20-2023 Telephone encount er Note MyChart message: Your labs are all normal range. Could definitely be a side effect of the semaglutide your using. [facility] History of Present illness Narrative 11-17-2023 Jayro Mcbride NP - 11/17/2023 3:30 PM EDT Note Date & Type Note Facility 11-17-2023 History of Presen t illness Narrative Images from the original note were not included. Pam San is a 33 y.o. female presents [...] Future -On synthroid documented in this encounter [facility] Evaluation note Note Date & Type [...] (CMS/HCC) Unspecified hypothyroidism documented in this encounter [facility] Evaluation note Note Date & Type Note Facility Evaluation note Diagnosis Postoperative examination Follow-up examination, following unspecified surgery documented in this encounter [facility] Summary Purpose Family History No Family History Records FoundNo Family History Records Found Advance Directives No Advanced Directives Records FoundNo Advanced Directives Records Found Additional Source Comments INFORMATION SOURCE (unrecogn ized section and content) DATE CREATED AUTHOR 11/26/2021 [facility] DATE CREATED AUTHOR AUTHOR'S ORGANIZ ATION 03/15/2024 [facility] [employer] Care Teams (unrecognized sec tion and content) Acute Coordinator Relationship Specialty Start Date End Date Joceline Willson MD [address] [facility] [place] [address] PCP - General Family Medicine 12/19/22 Acute Coordinator Relationship Specialty Start Date End Date Joceline Willson MD [address] [facility] [place] [address] PCP - General Family Medicine 12/19/22 Acute Coordinator Relationship Specialty Start Date End Date Joceline Willson MD [address] [facility] [place] [address] PCP - General Family Medicine 12/19/22 Acute Coordinator Relationship Specialty Start Date End Date Joceline Willson MD [address] [place] [address] PCP - General Family Medicine 12/19/22 Acute Coordinator Relationship Specialty Start Date End Date Joceline Willson MD [address] [place] [address] PCP - General Family Medicine 12/19/22 Acute Coordinator Relationship Specialty Start Date End Date Joceline Willson MD [address] [place] [address] PCP - General Family Medicine 12/19/22 Acute Coordinator Relationship Specialty Start Date End Date Joceline Willson MD [address] [facility] [place] [address] PCP - General Family Medicine 12/19/22 Acute Coordinator Relationship Specialty Start Date End Date Joceline Willson MD [address] [place] [address] PCP - General Family Medicine 12/19/22 Acute Coordinator Relationship Specialty Start Date End Date Joceline Willson MD [address] [place] [address] PCP - General Family Medicine 12/19/22 Reason [...] BE BASED ON THE PRIMARY CLINICAL RECORDS. [facility]. provides no warranty or guarantee of the accuracy or completeness of information in this document.
[2024-04-27 15:52] LABS: HCG Quantitative 45 mIU/mL
[2024-04-29 13:21] LABS: HCG Quantitative 154 mIU/mL
[2024-05-02 15:53] LABS: HCG Quantitative 247 mIU/mL
[2024-05-04 12:22] LABS: HCG Quantitative 485 mIU/mL
[2024-05-09 16:26] LABS: HCG Quantitative 1449 mIU/mL
[2024-05-11 14:42] LABS: HCG Quantitative 1411 mIU/mL
== END 2024-05-16 13:03 | disposition home or self-care, planned readmission (81) ==
LOC: LAB 15:14
PROVIDERS: PCP Nurse Practitioner Family; Visit Provider Obstetrics & Gynecology
DX: Z87.59 Personal history of other complications of pregnancy, childbirth and the puerperium (principal)
CPT/HCPCS: 36415; 84702

== ENCOUNTER 2024-04-28 15:51 | Outpatient (OUT) | payer OTHER, SELFPAY ==
--- NOTE | 2024-04-28 15:54 | US_ITS ---
The [address] [address] Patient Name: PAM ACEVES MRN: [id number] date: 1990 Sex: F Assigned Patient Location: Current Patient Location: Accession/Order Number: [id number] Exam Date: 04/29/2024 08:16 Report Date: 04/29/2024 08:27 At the request of: DAVID BARCLAY DO Procedure: US OB transvaginal ULTRASOUND OB TRANSVAGINAL COMPARISON: 03/16/2024 CLINICAL DATA: Follow-up left ovarian cyst. Positive test. Real-time ultrasound evaluation pelvis was performed utilizing a transabdominal approach. No focal myometrial abnormalities are identified. The endometrial lining is estimated 8 - 9 mm. No gestational sac is identified. A nabothian cyst is again seen measuring 7 - 8 mm in size. The right ovary measures 4.3 x 2.5 x 3.1 cm. The left ovary measures 3.8 x 1.8 x 1.9 cm. Small follicles are present bilaterally. There is also a slightly irregular cystic structure within the right ovary with thickened wall measuring 2.3 x 2.1 x 2.3 cm. If patient is indeed , this might be the corpus luteum. There is a small paraovarian cyst on the left measuring 1 cm in size. There is also still a heterogeneous hypoechoic area adjacent to the left ovary measuring 14 x 17 x 13 mm area. This might be complex cystic. It is smaller than the prior. No free fluid is noted. US/US OB transvaginal IMPRESSION: NO EVIDENCE OF INTRAUTERINE . CORRELATION WITH BETA-HCG IS RECOMMENDED ALONG WITH REPEAT ULTRASOUND, WARRANTED. DECREASING SIZE OF LEFT SIMPLE AND COMPLEX APPEARING PARAOVARIAN CYSTIC STRUCTURES. CONTINUED ULTRASOUND FOLLOW-UP COULD BE CONSIDERED. SMALL COMPLEX RIGHT OVARIAN CYST. IF PATIENT IS TRULY , THIS MIGHT BE CORPUS LUTEUM. Impression dictated by: Johana Lackey M.D.04/29/2024 8:27 AM Dictation Location: [place] [address] Electronically authenticated by: [id number] Y Date: 04/29/2024 08:27
--- OUTSIDE RECORDS SUMMARY | 2024-04-28 15:57 | XMS_ITS | CCD ---
Author Organization [facility] Care Team Providers Care Mortgage Underwriter Name Role Phone DR DAVID ESCOBEDO Admitting [...] 04/26/2023 Active Progesterone 200 MG supposit ory (9 sources) Start: 04-27-2024 End: 05-27-2024 Progesterone 200 MG supposit ory Indications: History of miscarriage Insert 200 mg into the vagina in the morning and 200 mg before bedtime. Insert suppository vaginally twice daily.. 60 suppository 2 04/27/2024 05/27/2024 Active Start: 01-20-2024 End: 02-19-2024 Progesterone 200 MG [...] TBH PREG QUANT HCGon 025 HCG QUANTITATIVE 45 mIU/mL [facility] Comment on above: 5-50 0.2-1 WEEK 50-500 1-2 WEEKS 100-5,000 2-3 WEEKS 500-10,000 3-4 WEEKS 1,000-50,000 4-5 WEEKS 10,000-100,000 5-6 WEEKS 15,000-200,000 6-8 WEEKS 10,000-100,000 2-[facility]CGon 025 HCG QUANTITATIVE 5 mIU/mL [facility] Comment on above: 5-50 0.2-1 WEEK 50-500 1-2 WEEKS 100-5,000 2-3 WEEKS 500-10,000 3-4 WEEKS 1,000-50,000 4-5 WEEKS 10,000-100,000 5-6 WEEKS 15,000-200,000 6-8 WEEKS 10,000-100,000 2-3 [facility] TRANSVAGINALon 025 [place] [address] Ultrasound Report Signed Patient: PAM SAN MR#: [id number] : 1990 Acct:[id number] Age/Sex: 33 / F ADM Date: 03/16/24 Loc: US Attending Dr: David Escobedo D.O. Ordering Physician: David Escobedo D.O. Date of Service: 03/16/24 Procedure(s): US OB transvaginal Accession Number(s): [id number] cc: David Escobedo D.O.; Jayro Mcbride NP [address] [address] Patient Name: PAM SAN MRN: [id number] date: 1990 Sex: F Assigned Patient Location: US Current Patient Location: US Accession/Order Number: [id number] Exam Date: 03/16/2024 16:09 Report Date: 03/16/2024 [...] M.D. Signed By: 03/16/241941 DD/ 38 TD/TT: Administrative Officer: [facility] Radiology, Radiologist, MD - 03/16/2024 [place] [address] Ultrasound Report Signed Patient: PAM SAN MR#: [id number] : 1990 Acct:[id number] Age/Sex: 33 / F ADM Date: 03/16/24 Loc: US Attending Dr: David Escobedo D.O. Ordering Physician: David Escobedo D.O. Date of Service: 03/16/24 Procedure(s): US OB transvaginal Accession Number(s): [id number] cc: David Escobedo D.O.; Jayro Mcbride NP [address] [place] [id number] Patient Name: PAM SAN MRN: [id number] date: 1990 Sex: F Assigned Patient Location: US Current Patient Location: US Accession/Order Number: [id number] Exam Date: 03/16/2024 16:09 Report Date: 03/16/2024 [...] M.D. Signed By: 03/16/241941 DD/ 38 TD/TT: Administrative Officer: [facility] Radiology Study observation (narrative) [facility] US OB TRANSVAGINALOrdered By : Radiologist Radiology on 03-16-2024 [facility] Work Phone: ALL CBC WITH AUTO DIFFon BASOPHILS ABSOLUTE AUTO 0.1 N [facility] Basophils/100 WBC (Bld) 1.8 % 0.2 - 2.0 % [facility] Eosinophils/100 WBC (Bld) 6.1 % 0.9 - 7.0 % [facility] Erythrocyte distribution width (RBC) [Ratio] 12 % 11.0 - 15.0 % [facility] Hematocrit (Bld) [Volume fraction] 41.5 % 36.0 - 48.0 % [facility] Hemoglobin (Bld) [Mass/Vol] 14.2 g/dL 12.0 - 16.0 g/dL [facility] IMMATURE GRANULOCYTES ABS AUTO 0.05 High [facility] Immature granulocytes/100 WBC (Bld) 0.6 % High 0.0 - 0.5 % [facility] Interpretation and review of laboratory results Abnormal [facility] LYMPHOCYTES ABSOLUTE AUTO 2.4 [facility] Lymphocytes/100 WBC (Bld) 31.3 % 20.5 - 60.0 % [facility] MCH (RBC) [Entitic mass] 30.1 pg 26.7 - 34.0 pg [facility] MCHC (RBC) [Mass/Vol] 34.2 g/dL 29.9 - 35.2 g/dL [facility] MCV (RBC) [Entitic vol] 88.1 fL 81.0 - 99.0 fL [facility] MONOCYTES ABSOLUTE AUTO 0.6 N [facility] Monocytes/100 WBC (Bld) 7.5 % 1.7 - 12.0 % [facility] NEUTROPHILS ABSOLUTE AUTO 4.1 [facility] Neutrophils/100 WBC (Bld) 52.7 % 43.0 - 75.0 % [facility] Platelet mean volume (Bld) [Entitic vol] 9.9 fL 9.5 - 13.5 fL [facility] TBH EO # 0.5 [facility] TBH PLT 286 [facility] TB RBC 4.71 [facility] WBC 7.7 [facility] TB PREG QUANT HCGon 025 HCG QUANTITATIVE 4176 mIU/mL [facility] Comment on above: 5-50 0.2-1 WEEK 50-500 1-2 WEEKS 100-5,000 2-3 WEEKS 500-10,000 3-4 WEEKS 1,000-50,000 4-5 WEEKS 10,000-100,000 5-6 WEEKS 15,000-200,000 6-8 WEEKS 10,000-100,000 2-3 MONTHS [facility] PREG QUANT HCGon 025 HCG QUANTITATIVE 4654 mIU/mL [facility] Comment on above: 5-50 0.2-1 WEEK 50-500 1-2 WEEKS 100-5,000 2-3 WEEKS 500-10,000 3-4 WEEKS 1,000-50,000 4-5 WEEKS 10,000-100,000 5-6 WEEKS 15,000-200,000 6-8 WEEKS 10,000-100,000 2-3 MONTHS [facility] PREG QUANT HCGon 024 HCG QUANTITATIVE 5388 mIU/mL [facility] Comment on above: 5-50 0.2-1 WEEK 50-500 1-2 WEEKS 100-5,000 2-3 WEEKS 500-10,000 3-4 WEEKS 1,000-50,000 4-5 WEEKS 10,000-100,000 5-6 WEEKS 15,000-200,000 6-8 WEEKS 10,000-100,000 2-3 MONTHS [facility] PREG QUANT HCGon 024 HCG QUANTITATIVE 4079 mIU/mL [facility] Comment on above: 5-50 0.2-1 WEEK 50-500 1-2 WEEKS 100-5,000 2-3 WEEKS 500-10,000 3-4 WEEKS 1,000-50,000 4-5 WEEKS 10,000-100,000 5-6 WEEKS 15,000-200,000 6-8 WEEKS 10,000-100,000 2-3 MONTHS [facility] PREG QUANT HCGon 024 HCG QUANTITATIVE 2981 mIU/mL [facility] Comment on above: 5-50 0.2-1 WEEK 50-500 1-2 WEEKS 100-5,000 2-3 WEEKS 500-10,000 3-4 WEEKS 1,000-50,000 4-5 WEEKS 10,000-100,000 5-6 WEEKS 15,000-200,000 6-8 WEEKS 10,000-100,000 2-3 MONTHS [facility] PREG QUANT HCGon 024 HCG QUANTITATIVE 2239 mIU/mL [facility] Comment on above: 5-50 0.2-1 WEEK 50-500 1-2 WEEKS 100-5,000 2-3 WEEKS 500-10,000 3-4 WEEKS 1,000-50,000 4-5 WEEKS 10,000-100,000 5-6 WEEKS 15,000-200,000 6-8 WEEKS 10,000-100,000 2-3 MONTHS [facility] PREG QUANT HCGon 024 HCG QUANTITATIVE 158 mIU/mL [facility] Comment on above: 5-50 0.2-1 WEEK 50-500 1-2 WEEKS 100-5,000 2-3 WEEKS 500-10,000 3-4 WEEKS 1,000-50,000 4-5 WEEKS 10,000-100,000 5-6 WEEKS 15,000-200,000 6-8 WEEKS 10,000-100,000 2-3 MONTHS [facility] PREG QUANT HCGon 024 HCG QUANTITATIVE 79 mIU/mL [facility] Comment on above: 5-50 0.2-1 WEEK 50-500 1-2 WEEKS 100-5,000 2-3 WEEKS 500-10,000 3-4 WEEKS 1,000-50,000 4-5 WEEKS 10,000-100,000 5-6 WEEKS 15,000-200,000 6-8 WEEKS 10,000-100,000 2-3 MONTHS [facility] IGP,APTIMA HPV,AGE GDLNon AGE GDLN ACOG TESTING Note . [facility] Comment on above: TESTS RESULT FLAG UN ITS REF RANGE LAB Clinician Provided Cytology Information Source.............Cervix;Endocervix No. of containers..01 ThinPrep Vial Age Algo ACOG Wendy... 30-65 FLAG LEGEND: L-Low Normal,H-High Normal,LL-Alert Low,HH-Alert High <-Panic Low,>-Panic High,A-Abnormal,AA-Critical Abnormal Performed at: 01 =[address] [address] Chanel Francois MD, HPV APTIMA Negative Negative [facility] Comment on above: This nucleic acid am plification test detects fourteen high- risk HPV types (16,18,31,33,35,39,45,51,52,56,58,59,66,68) without differentiation. Performed at: =[address] [id number] Cad Application Support Specialist: Chanel Francois MD, Phone: [phone] Performed at: [address] [id number] Cad Application Support Specialist: Chanel Francois MD, Phone: [phone] IGP, APTIMA HPV, RFX 16/18,45 Note . [facility] Comment on above: TESTS RESULT FLAG UN ITS REF RANGE LAB DIAGNOSIS: 02 NEGATIVE FOR INTRAEPITHELIAL LESION OR MALIGNANCY. Specimen adequacy: 02 Satisfactory for evaluation. Endocervical and/or squamous metaplastic cells (endocervical component) are present. Performed by: 02 Vega Madden, Html Developer (ASC) . 02 Note: Note 02 The Pap [...] High,A-Abnormal,AA-Critical Abnormal Performed at: 02 WB [facility] [address] [address] Chanel Francois MD, BRUSH-SPATULA CERVIX ENDOCERVIX [facility] [email or web address] TBH PREG QUANT HCGon 024 HCG QUANTITATIVE 6 mIU/mL [facility] Comment on above: 5-50 0.2-1 WEEK 50-500 1-2 WEEKS 100-5,000 2-3 WEEKS 500-10,000 3-4 WEEKS 1,000-50,000 4-5 WEEKS 10,000-100,000 5-6 WEEKS 15,000-200,000 6-8 WEEKS 10,000-100,000 2-3 MONTHS [facility] [email or web address] PAP ACOG PANEL 2: 30 to 65on 11-26-2021 . . Normal [facility] Comment on above: Result Comment: Perf ormed at: WB Performed By: #### [id number] #### [facility] [address] [place] [address] Dr. Florencia Carpenter Age Gdln ACOG Testing 30-65 Normal [facility] Comment on above: Performed By: #### [id number] #### [facility] [address] [place] [address] Dr. Florencia Carpenter DIAGNOSIS: Comment Normal [facility] Comment on above: Result Comment: NEGA TIVE FOR INTRAEPITHELIAL LESION OR MALIGNANCY. Performed at: WB Performed By: #### [id number] #### [facility] [address] [address] [address] Florencia Carpenter HPV Aptima Negative Normal Negative [facility] Comment on above: Result Comment: This nucleic acid amplification test detects fourteen high-risk HPV types (16,18,31,33,35,39,45,51,52,56,58,59,66,68) without differentiation. Performed at: =G Performed By: #### [id number] #### [facility] [address] [place] [address] Dr. Florencia Carpenter Methodology: Comment Normal [facility] Comment on above: Result Comment: This liquid based ThinPrep(R) pap test was screened with the use of an image guided system. Performed at: WB Performed By: #### [id number] #### [facility] [address] [place] [address] Dr. Florencia Carpenter Note: Comment Normal [facility] Comment on above: Result Comment: The Pap smear is a screening test designed to aid in the detection of premalignant and malignant conditions of the uterine cervix. It is not a diagnostic procedure and should not be used as the sole means of detecting cervical cancer. Both false-positive and false-negative reports do occur. . Performed at: WB Performed By: #### [id number] #### [facility] [address] [place] [address] Dr. Florencia Carpenter Performed by: Comment Normal [facility] Comment on above: Result Comment: Ermelinda Ricketts, Html Developer (ASCP) Performed at: WB Performed By: #### [id number] #### [facility] [address] [place] [address] Dr. Florencia Carpenter Specimen adequacy: Comment Normal [facility] Comment on above: Result Comment: Sati sfactory for evaluation. Endocervical and/or squamous metaplastic cells (endocervical component) are present. Performed at: WB Performed By: #### [id number] #### [facility] [address] [place] [address] Dr. Florencia Carpenter Vital Signs Date Time Vital Sign Value Performing Clinician Eulalia giang 03-14-2024 15:22-0500 Body mass index (BMI) [Ratio] 35.35 kg/m2 Kyleigh REYNOLDS Work Phone: [facility] 03-14-2024 15:22-0500 Body weight 99.34 kg Kyleigh Lyons PA Work Phone: [facility] 03-14-2024 15:22-0500 Diastolic blood pressure 70 mm[Hg] Kyleigh Lyons PA Work Phone: [facility] 03-14-2024 15:22-0500 Systolic blood pressure 110 mm[Hg] Kyleigh Lyons PA Work Phone: [facility] 12-07-2023 16:37-0400 Body mass index (BMI) [Ratio] 31.31 kg/m2 David Fanny DO Work Phone: [facility] 12-07-2023 16:37-0400 Body weight 88 kg David Fanny DO Work Phone: [facility] 12-07-2023 16:37-0400 Diastolic blood pressure 78 mm[Hg] David Fanny DO Work Phone: [facility] 12-07-2023 16:37-0400 Systolic blood pressure 114 mm[Hg] David Fanny DO Work Phone: [facility] 11-17-2023 15:26-0400 Body height 167.6 cm Jayro Mcbride NP Work Phone: [facility] 11-17-2023 15:26-0400 Body mass index (BMI) [Ratio] 30.09 kg/m2 Jayro Mcbride CARD FILER Work Phone: [facility] 11-17-2023 15:26-0400 Body weight 84.55 kg Jayro Mcbride CARD FILER Work Phone: [facility] 11-17-2023 15:26-0400 Diastolic blood pressure 86 mm[Hg] Jayro Mcbride CARD FILER Work Phone: [facility] 11-17-2023 15:26-0400 Heart rate 96 /min Jayro Mcbride CARD FILER Work Phone: [facility] 11-17-2023 15:26-0400 SaO2% (BldA) [Mass fraction] 96 % Jayro Mcbride CARD FILER Work Phone: [facility] 11-17-2023 15:26-0400 Systolic blood pressure 118 mm[Hg] Jayro Mcbride CARD FILER Work Phone: [facility] Encounters Encounter Date Encounter Type Care Provider Facility Start: 04-27-2024 End: 04-27-2024 [facility] Result Encounter David Fanny DO Work Phone: [facility] External Department Unsolicited Start: 04-27-2024 End: 04-27-2024 [facility] Result Encounter David Fanny DO Work [...] Start: 03-14-2024 End: 03-14-2024 Bamboo flowsheet Kyleigh REYNOLDS Work Phone: [facility] Start: 02-26-2024 [...] Loli Willson MD Work Phone: [facility] Comment [...] Office outpatient visit 15 minutes Jayro Mcbride CARD FILER Work Phone: [facility] Comment on above: Alopecia; Other fatigue; Acquired hypothyroidism (CMS/HCC) Start: 11-17-2023 End: 11-17-2023 ambulatory JAYRO KAMPFER Not Available Start: 11-17-2023 End: 11-17-2023 Bamboo flowsheet Jayro Mcbride CARD FILER Work Phone: [facility] Start: 11-17-2023 End: 11-17-2023 Bamboo flowsheet Jayro Baldwinfer CARD FILER Work Phone: [facility] Start: 08-28-2023 [...] Date Procedure Procedure Detail Performing Clinician Start: 04-27-2024 [facility] PREG QUANT HCG Core y Fanny DO Work Phone: Start: 03-17-2024 TB[facility] PREG QUANT HCG Core y Fanny DO Work Phone: Start: 03-16-2024 US OB TRANSVAGINAL Core y Fanny DO Work Phone: Start: 02-26-2024 ALL CBC [...] Screening for malign ant neoplasm of cervix [facility] Start: 12-06-2026 Screening for malign ant neoplasm of cervix Pap Smear [facility] Start: 05-04-2024 End: 05-04-2024 Patient encounter procedure 05/04/2024 4:00 PM EDT Office Visit [facility] [address] [place] [phone] Jayro Mcbride NP [address] [place] [facility] [place] [address] [facility] Start: 03-14-2024 End: 03-14-2024 Patient encounter procedure 03/14/2024 3:20 PM EST Office Visit [facility] [address] [place] [address] Kyleigh Lyons PA [address] [place], [place] [id number] Arrived [facility] Comment on above: Arrived Start: 02-25-2024 End: 02-25-2024 ambulatory 02/25/2024 2:00 PM EST Initial [facility] [address] [place] [address] [facility] Start: 02-25-2024 End: 02-25-2024 Professional / ancillary services management 02/25/2024 1:30 PM EST Ancillary Procedure [facility] [address] [place] [address] [facility] Start: 01-12-2024 Influenza vaccination Influenza Vacc ine (#1) [facility] Comment on above: Postponed from 10/17 (Patient Refused) Start: 12-07-2023 End: 12-07-2023 Patient encounter procedure [facility] Comment on above: Arrived Start: 12-07-2023 End: 12-06-2024 US for US PELVIS-TRANSVAG IF INDICATED Imaging Routine Pelvic pain in female Expected: 12/07/2023 (Approximate), Expires: 12/06/2024 [facility] Comment on above: Expected: 12/07/2023 (Approximate), Expires: 12/06/2024 Start: 11-30-2023 End: 11-30-2023 Patient encounter procedure 11/30/2023 10:00 AM EDT Office Visit [facility] OB [address] [place] [phone] David Escobedo DO [address] [place], [place] [id number] [facility] Start: 11-17-2023 End: 11-17-2023 Patient encounter procedure 11/17/2023 3:30 PM EDT Office Visit [facility] [address] [place] [phone] Jayro Mcbride CARD FILER [address] [place] [address] Arrived [facility] Comment on above: Arrived Start: 11-17-2023 End: 11-16-2024 CBC W Auto Differential panel - Blood CBC and differential Lab Routine Alopecia Other fatigue Expected: 11/17/2023 (Approximate), Expires: 11/16/2024 [facility] Comment on above: Expected: 11/17/2023 (Approximate), Expires: 11/16/2024 Start: 11-17-2023 End: 11-16-2024 Ferritin [Mass/volume] in Serum or Plasma Ferritin Lab Routine Alopecia Other fatigue Expected: 11/17/2023 (Approximate), Expires: 11/16/2024 [facility] Comment on above: Expected: 11/17/2023 (Approximate), Expires: 11/16/2024 Start: 11-17-2023 End: 11-16-2024 TSH W/REFLEX TO FT4 TSH W/REFLEX TO FT4 Lab Routine Alopecia Other fatigue Acquired hypothyroidism (CMS/HCC) Expected: 11/17/2023 (Approximate), Expires: 11/16/2024 [facility] Work Phone: Comment on above: Expected: 11/17/2023 (Approximate), Expires: 11/16/2024 Start: 10-18-2023 Influenza vaccination Influenza Vacc ine (#1) [facility] Start: 08-16-2023 Influenza vaccination Influenza Vacc ine (#1) [facility] Comment on above: Postponed from 10/17 (Patient Refused) Cytology Cervical or vaginal smear or scraping study Pap Smear Pathology and Cytology Routine Well woman exam with routine gynecological exam Ordered: 12/07/2023 [facility] Work Phone: Comment on above: Ordered: 12/07/2023 Human papilloma viru s DNA [Presence] in Unspecified specimen by Probe with amplification HPV DNA probe, amplified Microbiology Routine Well woman exam with routine gynecological exam Ordered: 12/07/2023 [facility] Comment on above: Ordered: 12/07/2023 Payers Date Payer Category Payer Private Health Insurance [facility] [id number] 2022 Unknown [employer] [id number] 2022-Present [phone] [address] [address] [place] [address] [id number] 2022 Unknown [id number] 1990 Unknown [id number] .[id number] 1990 Unknown [id number] .2.9 1990 Unknown [id number] .2.9 1990 Unknown [id number] [id number] .2.9 1990 Unknown [id number] [id number] .2.9 1990 Unknown [id number] [id number] .2.9 1990 Unknown [id number] .[id number] 1959 Unknown [id number] Social History Date Type Detail Facility Start: 12-19-2022 End: 08-28-2023 Tobacco smoking status [facility] Ex-smoker [facility] are Start: 11-26-2015 End: 07-22-2022 History of tobacco use Current smoker [facility] Start: 11-26-2015 End: 07-22-2022 History of tobacco use Cigarette Smoker [facility] Start: 12-19-2022 End: 04-27-2024 Cigarettes smoked current (pack per day) - Reported 0.5 [facility] Start: 12-19-2022 End: 08-28-2023 Tobacco use and exposure Smokeless tobacco non-user [facility] Start: 02-05-2023 End: 08-28-2023 Alcohol intake Ex-drinker (finding) [facility] Start: 12-12-2022 End: 04-27-2024 Humiliation, Afraid, Rape, and Kick questionnaire [HARK] [...] Alcohol Comment caffeine intake: [facility] How often to you hav e a drink containing alcohol? 2-4 times a month [facility] Do you feel stress - tense, restless, nervous, or anxious, or unable to sleep at night because your mind is troubled all the time - these days [OSQ] Not at all [facility] History of Present illness Narrative 03-14-2024 [...] Problems Past Medical History: Diagnosis Date Asthma ([facility]) 1994 Disease of thyroid gland ([facility]) 2002 Miscarriage 01/26/2023 HISTORY PAST MEDICAL HISTORY SOCIAL HISTORY Past Medical History: Diagnosis Date Asthma ([facility]) 1994 Disease of thyroid gland ([facility]) 2002 Miscarriage 01/26/2023 Social History Tobacco [...] nursing note reviewed. Exam conducted with a agricultural pilot present. Vitals: Estimated body mass index is 35.35 kg/m as calculated from the following: Height as of 11/17/23: 5' 6 . Weight as of this encounter: 219 lb. BP: 110/70 No LMP recorded. ASSESSMENT & PLAN ICD-10-CM 1. Postoperative examination Z09 Patient presents for post operative appointment from [facility] on 02/26/2024. Patient voiced that she was good for 6 days and then had a gush of blood. Patient voiced she is still losing tissue. Patient voiced that she had some questions in regards to insurance coverage for surgical procedure and Rig Manager aware and will reach out to insurance [...] Problems Past Medical History: Diagnosis Date Asthma (CMS/HCC) 1994 Disease of thyroid gland ([facility]) 2002 Miscarriage 01/26/2023 HISTORY PAST MEDICAL HISTORY SOCIAL HISTORY Past Medical History: Diagnosis Date Asthma (CMS/HCC) 1994 Disease of thyroid gland ([facility]) 2002 Miscarriage 01/26/2023 Social History Tobacco [...] Mother Mellissa San Arthritis Maternal Grandmother Neelima mitchellple Cancer Maternal Grandmother Neelima valentine Miscarriages / Stillbirths Sister Vidhya San Miscarriages / Stillbirths Sister Tiana Whaley SURGICAL HISTORY Past Surgical History: Procedure Laterality Date TONSILLECTOMY 1994 REVIEW OF SYSTEMS Review of Systems: Review [...] nursing note reviewed. Exam conducted with a agricultural pilot present. Vitals: Estimated body mass index is [...] well and has complaints of uterine pain mcfp through cycle. Patient to have US obtained on day 14 or 15 of cycle. Pap was obtained without difficulty. Orders Placed This Encounter Procedures HPV DNA probe, amplified Follow Up: Patient is to return in one year for annual unless needed otherwise. Documented by Che Huitron LPN on behalf of: David Escobedo DO documented in this encounter [facility] Telephone encounter Note 11-20-2023 Telephone Encounter - Gerber Leanne - 11/20/2023 4:21 PM EDT Note Date [...] side effect of the semaglutide your using. [facility] History of Present illness Narrative 11-17-2023 [...] Future -On synthroid documented in this encounter [facility] Evaluation note Note Date & Type Note Facility Evaluation note Diagnosis Alopecia Other fatigue Acquired hypothyroidism (CMS/HCC) Unspecified hypothyroidism documented in this encounter [facility] Evaluation note Note Date & Type Note Facility Evaluation note Diagnosis Well woman exam with routine gynecological exam Routine gynecological examination Pelvic pain in female Unspecified symptom associated with female genital organs documented in this encounter [facility] Evaluation note Note Date & Type Note Facility Evaluation note Diagnosis Hypothyroidism (acquired) (CMS/HCC) Unspecified hypothyroidism documented in this encounter [facility] Evaluation note Note Date & Type Note Facility Evaluation note Diagnosis Postoperative examination Follow-up examination, following unspecified surgery documented in this encounter [facility] Summary Purpose Family History No Family History Records FoundNo Family History Records Found Advance Directives No Advanced Directives Records FoundNo Advanced Directives Records Found Additional Source Comments INFORMATION SOURCE (unrecogn ized section and content) DATE CREATED AUTHOR 11/26/2021 [facility] DATE CREATED AUTHOR AUTHOR'S ORGANIZ ATION 03/15/2024 [facility] Care Teams (unrecognized sec tion and content) Mortgage Underwriter Relationship Specialty Start Date End Date Joceline Willson MD [address] [place] [address] PCP - General Family Medicine 12/19/22 Mortgage Underwriter Relationship Specialty Start Date End Date Joceline Willson MD [address] [place] [address] PCP - General Family Medicine 12/19/22 Mortgage Underwriter Relationship Specialty Start Date End Date Joceline Willson MD [address] [place] [address] PCP - General Family Medicine 12/19/22 Mortgage Underwriter Relationship Specialty Start Date End Date Joceline Willson MD [address] [place] [address] PCP - General Family Medicine 12/19/22 Mortgage Underwriter Relationship Specialty Start Date End Date Joceline Willson MD [address] [place] [address] PCP - General [facility] Medicine 12/19/22 Mortgage Underwriter Relationship Specialty Start Date End Date Joceline Willson MD [address] [place] [address] PCP - [facility] 12/19/22 Mortgage Underwriter Relationship Specialty Start Date End Date Joceline Willson MD [address] [place] [address] PCP - General [facility] Medicine 12/19/22 Mortgage Underwriter Relationship Specialty Start Date End Date Joceline Willson MD [address] [place] [address] PCP - General [facility] Medicine 12/19/22 Mortgage Underwriter Relationship Specialty Start Date End Date Joceline Willson MD [address] [place] [address] PCP - General Family Medicine 12/19/22 Reason [...] BE BASED ON THE PRIMARY CLINICAL RECORDS. [facility] [facility]. provides no warranty or guarantee of the accuracy or completeness of information in this document.
== END 2024-04-28 15:52 | disposition home or self-care (01) ==
LOC: US 15:51
PROVIDERS: PCP Nurse Practitioner Family; Visit Provider Obstetrics & Gynecology
DX: N83.202 Unspecified ovarian cyst, left side (principal); N83.291 Other ovarian cyst, right side
CPT/HCPCS: 76817

== ENCOUNTER 2024-05-06 06:59 | Outpatient (OUT) | payer OTHER, SELFPAY ==
--- OUTSIDE RECORDS SUMMARY | 2024-05-06 07:02 | XMS_ITS | CCD ---
Author Organization [facility] Care Team Providers Care 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 Name Role Phone DR DAVID ESCOBEDO Admitting Unavailable DR DAVID ESCOBEDO Attending Unavailable DR LE MENDOZA Primary Care Unavailable DR DAVID ESCOBEDO Consulting Unavailable Anamika CLEARY, Joceline Primary Care Provider KYLEIGH LYONS Attending Unavailable REED, JAYRO Attending Unavailable JAYRO MCBRIDE Attending Unavailable REED, [...] morning. 100 tablet 0 01/16/2023 04/26/2023 Active Completed/Discontinued Medications Medication Drug Class(es) Dates Sig (Normalized) Sig (Original) Progesterone 200 MG suppository (10 sources) Start: 04-27-2024 End: 05-04-2024 Progesterone 200 MG suppository Indications: History of miscarriage Insert 200 mg into the vagina in the morning and 200 mg before bedtime. Insert suppository vaginally twice daily.. 60 suppository 2 04/27/2024 05/04/2024 Discontinued Start: 04-27-2024 End: 05-27-2024 Progesterone 200 MG [...] Start: 06-17-2023 End: 03-14-2024 semaglutide (Ozempic) 2 MG/1 .5ML solution pen-injector 2 mL 1 (one) time [...] other than malignant neoplasm] 03-14-2024 Episodic Other and delivery including normal (1 source) ; Translations: [Encounter for supervision of normal , unspecified, unspecified trimester] 05-05-2024 Episodic Other screening for suspected conditions (not mental disorders or infectious disease) (4 sources) Encounter for screening for malignant neoplasm of cervix; Translations: [ENC SCREENING MALIG NEOPLASM CERV] Onset: 11-19-2021 Episodic Other skin disorders (2 sources) Alopecia; Translations: [Nonscarring hair loss, unspecified] 11-17-2023 Episodic Thyroid disorders (4 sources) Acquired hypothyroidism; Translations: [Hypothyroidism, unspecified] 11-17-2023 Chronic Results Test Name Value Interpretation Reference Range Facility [facility] PREG QUANT HCGon 025 HCG QUANTITATIVE 45 mIU/mL [facility] Comment on above: 5-50 0.2-1 WEEK 50-500 1-2 WEEKS 100-5,000 2-3 WEEKS 500-10,000 3-4 WEEKS 1,000-50,000 4-5 WEEKS 10,000-100,000 5-6 WEEKS 15,000-200,000 6-8 WEEKS 10,000-100,000 2-[facility] 025 HCG QUANTITATIVE 5 mIU/mL [facility] Comment on above: 5-50 0.2-1 WEEK 50-500 1-2 WEEKS 100-5,000 2-3 WEEKS 500-10,000 3-4 WEEKS 1,000-50,000 4-5 WEEKS 10,000-100,000 5-6 WEEKS 15,000-200,000 6-8 WEEKS 10,000-100,000 2[facility] [address] [place] [address] Ultrasound Report Signed Patient: PAM SAN MR#: [id number] : 1990 Acct:[id number] Age/Sex: 33 / F ADM Date: 03/16/24 Loc: US Attending Dr: David Escobedo D.O. Ordering Physician: David Escobedo D.O. Date of Service: 03/16/24 Procedure(s): US OB transvaginal Accession Number(s): [id number] cc: David Escobedo D.O.; Jayro Mcbride NP [place] [id number] Patient Name: PAM SAN MRN: [facility]:[id number] date: 1990 Sex: F Assigned Patient Location: US Current Patient Location: US Accession/Order Number: [id number] Exam Date: 03/16/2024 16:09 Report Date: 03/16/2024 [...] M.D. Signed By: 03/16/241941 DD/ 38 TD/TT: Digital Data Analyst: [facility] Radiology, Radiologist, - 03/16/2024 [place] [address] Ultrasound Report Signed Patient: PAM SAN MR#: [id number] : 1990 Acct:[id number] Age/Sex: 33 / F ADM Date: 03/16/24 Loc: US Attending Dr: David Escobedo D.O. Ordering Physician: David Escobedo D.O. Date of Service: 03/16/24 Procedure(s): US OB transvaginal Accession Number(s): [id number] cc: David Escobedo D.O.; Jayro Mcbride NP [place] [id number] Patient Name: PAM SAN MRN: [id number] date: 1990 Sex: F Assigned Patient Location: US Current Patient Location: US Accession/Order Number: [id number] Exam Date: 03/16/2024 16:09 Report Date: 03/16/2024 [...] M.D. Signed By: 03/16/241941 DD/ 38 TD/TT: Digital Data Analyst: [facility] Radiology Study observation (narrative) [facility] US OB TRANSVAGINALOrdered By : Radiologist Radiology on 03-16-2024 [facility] Work Phone: ALL CBC WITH AUTO DIFFon BASOPHILS ABSOLUTE AUTO 0.1 [facility] Basophils/100 WBC (Bld) 1.8 % 0.2 - 2.0 % [facility] Eosinophils/100 WBC (Bld) 6.1 % 0.9 - 7.0 % [facility] Erythrocyte distribution width (RBC) [Ratio] 12 % 11.0 - 15.0 % [facility] Hematocrit (Bld) [Volume fraction] 41.5 % 36.0 - 48.0 % [facility] Hemoglobin (Bld) [Mass/Vol] 14.2 g/dL 12.0 - 16.0 g/dL [facility] IMMATURE GRANULOCYTES ABS AUTO 0.05 High [facility] Immature granulocytes/100 WBC (Bld) 0.6 % High 0.0 - 0.5 % [facility] Interpretation and review of laboratory results Abnormal [facility] LYMPHOCYTES ABSOLUTE AUTO 2.4 [facility] Lymphocytes/100 WBC (Bld) 31.3 % 20.5 - 60.0 % [facility] MCH (RBC) [Entitic mass] 30.1 pg 26.7 - 34.0 pg [facility] MCHC (RBC) [Mass/Vol] 34.2 g/dL 29.9 - 35.2 g/dL [facility] MCV (RBC) [Entitic vol] 88.1 fL 81.0 - 99.0 fL [facility] MONOCYTES ABSOLUTE AUTO 0.6 [facility] Monocytes/100 WBC (Bld) 7.5 % 1.7 - 12.0 % [facility] NEUTROPHILS ABSOLUTE AUTO 4.1 [facility] Neutrophils/100 WBC (Bld) 52.7 % 43.0 - 75.0 % [facility] Platelet mean volume (Bld) [Entitic vol] 9.9 fL 9.5 - 13.5 fL [facility] EO # 0.5 [facility] TB PLT 286 [facility] TB RBC 4.71 [facility] TB WBC 7.7 [facility] PREG QUANT HCGon 025 HCG QUANTITATIVE 4176 mIU/mL [facility] Comment on above: 5-50 0.2-1 WEEK 50-500 1-2 WEEKS 100-5,000 2-3 WEEKS 500-10,000 3-4 WEEKS 1,000-50,000 4-5 WEEKS 10,000-100,000 5-6 WEEKS 15,000-200,000 6-8 WEEKS 10,000-100,000 2-[facility] 025 HCG QUANTITATIVE 4654 mIU/mL [facility] Comment on above: 5-50 0.2-1 WEEK 50-500 1-2 WEEKS 100-5,000 2-3 WEEKS 500-10,000 3-4 WEEKS 1,000-50,000 4-5 WEEKS 10,000-100,000 5-6 WEEKS 15,000-200,000 6-8 WEEKS 10,000-100,000 2[facility] 024 HCG QUANTITATIVE 5388 mIU/mL [facility] Comment on above: 5-50 0.2-1 WEEK 50-500 1-2 WEEKS 100-5,000 2-3 WEEKS 500-10,000 3-4 WEEKS 1,000-50,000 4-5 WEEKS 10,000-100,000 5-6 WEEKS 15,000-200,000 6-8 WEEKS 10,000-100,000 2-[facility] 02-03- 024 HCG QUANTITATIVE 4079 mIU/mL [facility] Comment on above: 5-50 0.2-1 WEEK 50-500 1-2 WEEKS 100-5,000 2-3 WEEKS 500-10,000 3-4 WEEKS 1,000-50,000 4-5 WEEKS 10,000-100,000 5-6 WEEKS 15,000-200,000 6-8 WEEKS 10,000-100,000 2[facility] 12-14-2 024 HCG QUANTITATIVE 2981 mIU/mL [facility] Comment on above: 5-50 0.2-1 WEEK 50-500 1-2 WEEKS 100-5,000 2-3 WEEKS 500-10,000 3-4 WEEKS 1,000-50,000 4-5 WEEKS 10,000-100,000 5-6 WEEKS 15,000-200,000 6-8 WEEKS 10,000-100,000 2-3 MONTHS [facility] PREG QUANT HCGon 024 HCG QUANTITATIVE 2239 mIU/mL [facility] Comment on above: 5-50 0.2-1 WEEK 50-500 1-2 WEEKS 100-5,000 2-3 WEEKS 500-10,000 3-4 WEEKS 1,000-50,000 4-5 WEEKS 10,000-100,000 5-6 WEEKS 15,000-200,000 6-8 WEEKS 10,000-100,000 2-3 MONTHS [facility] PREG QUANT HCGon 024 HCG QUANTITATIVE 158 mIU/mL [facility] Comment on above: 5-50 0.2-1 WEEK 50-500 1-2 WEEKS 100-5,000 2-3 WEEKS 500-10,000 3-4 WEEKS 1,000-50,000 4-5 WEEKS 10,000-100,000 5-6 WEEKS 15,000-200,000 6-8 WEEKS 10,000-100,000 2-3 MONTHS [facility] PREG QUANT HCGon 024 HCG QUANTITATIVE 79 mIU/mL [facility] Comment on above: 5-50 0.2-1 WEEK 50-500 1-2 WEEKS 100-5,000 2-3 WEEKS 500-10,000 3-4 WEEKS 1,000-50,000 4-5 WEEKS 10,000-100,000 5-6 WEEKS 15,000-200,000 6-8 WEEKS 10,000-100,000 2-3 MONTHS [facility] [place] [facility] [place] IGP,APTIMA HPV,AGE GDLNon AGE GDLN ACOG TESTING Note . [facility] Comment on above: TESTS RESULT FLAG UN ITS REF RANGE LAB Clinician Provided Cytology Information Source.............Cervix;Endocervix No. of containers..01 ThinPrep Vial Age Joe RUBALCAVA Wendy... 30 FLAG LEGEND: L-Low Normal,H-High Normal,LL-Alert Low,HH-Alert High <-Panic Low,>-Panic High,A-Abnormal,AA-Critical Abnormal Performed at: 01 =G [address] [address] Chanel Francois MD, HPV APTIMA Negative Negative [facility] Comment on above: This nucleic acid am plification test detects fourteen high- risk HPV types (16,18,31,33,35,39,45,51,52,56,58,59,66,68) without differentiation. Performed at: =G - [facility] [id number] Box Car Washer: Chanel Francois MD, Phone: [phone] Performed at: - [address] [id number] Box Car Washer: Chanel Francois MD, Phone: [phone] IGP, APTIMA HPV, RFX 16/18,45 Note . [facility] Comment on above: TESTS RESULT FLAG UN ITS REF RANGE LAB DIAGNOSIS: 02 NEGATIVE FOR INTRAEPITHELIAL LESION OR MALIGNANCY. Specimen adequacy: 02 Satisfactory for evaluation. Endocervical and/or squamous metaplastic cells (endocervical component) are present. Performed by: 02 Vega Madden, Yard Pilot ([facility]) . 02 Note: Note [...] <-Panic Low,>-Panic High,A-Abnormal,AA-Critical Abnormal Performed at: [address] [address] Chanel Francois MD, BRUSH-SPATULA CERVIX [facility]REG [facility]ANT HCGon 03-28- 024 HCG QUANTITATIVE 6 mIU/mL [facility] Comment on above: 5-50 0.2-1 WEEK 50-500 1-2 WEEKS 100-5,000 2-3 WEEKS 500-10,000 3-4 WEEKS 1,000-50,000 4-5 WEEKS 10,000-100,000 5-6 WEEKS 15,000-200,000 6-8 WEEKS 10,000-100,000 2-[facility] PAP ACOG PANEL 2: 30 to 65on 11-26-2021 . . Normal [facility] Comment on above: Result Comment: Perf ormed at: WB Performed By: #### [id number] #### [facility] [address] [place] [address] Dr. Florencia Carpenter Age Gdln ACOG Testing 30-65 [facility] Comment on above: Performed By: #### [id number] #### [facility] [address] [place] [address] [address] Florencia Carpenter DIAGNOSIS: Comment [facility] Comment on above: Result Comment: NEGA TIVE FOR INTRAEPITHELIAL LESION OR MALIGNANCY. Performed at: WB Performed By: #### [id number] #### [facility] [address] [place] [address] Dr. Florencia Carpenter HPV Aptima Negative Normal Negative [facility] Comment on above: Result Comment: This nucleic acid amplification test detects fourteen high-risk HPV types (16,18,31,33,35,39,45,51,52,56,58,59,66,68) without differentiation. Performed at: =G Performed By: #### [id number] #### [facility] [address] [place] [address] Dr. Florencia Carpenter Methodology: Comment [facility] Comment on above: Result Comment: This liquid based ThinPrep(R) pap test was screened with the use of an image guided system. Performed at: WB Performed By: #### [id number] #### [facility] [address] [place] [address] [address] Florencia Carpenter Note: Comment [facility] Comment on above: Result Comment: The Pap smear is a screening test designed to aid in the detection of premalignant and malignant conditions of the uterine cervix. It is not a diagnostic procedure and should not be used as the sole means of detecting cervical cancer. Both false-positive and false-negative reports do occur. . Performed at: WB Performed By: #### [id number] #### [facility] [address] [place] [address] Dr. Florencia Carpenter Performed by: Comment Normal [facility] Comment on above: Result Comment: Ermelinda Ricketts, Yard Pilot (ASCP) Performed at: WB Performed By: #### [id number] #### [facility] [address] [place], [place] [address] Dr. Florencia Carpenter Specimen adequacy: Comment Normal [facility] Comment on above: Result Comment: Sati sfactory for evaluation. Endocervical and/or squamous metaplastic cells (endocervical component) are present. Performed at: WB Performed By: #### [id number] #### [facility] [address] [place], [place] [address] Dr. Florencia Carpenter Vital Signs Date Time Vital Sign Value Performing Clinician Faci lity 05-04-2024 15:46-0400 Body height 167.6 cm Jayro Reed MEDIA PRODUCTION SUPPORT MANAGER Work Phone: [facility] 05-04-2024 15:46-0400 Body mass index (BMI) [Ratio] 35.02 kg/m2 Jayro Reed MEDIA PRODUCTION SUPPORT MANAGER Work Phone: [facility] 05-04-2024 15:46-0400 Body temperature 99.39 [degF] Jayro Reed MEDIA PRODUCTION SUPPORT MANAGER Work Phone: [facility] 05-04-2024 15:46-0400 Body weight 98.43 kg Jayro Lanetheresa MEDIA PRODUCTION SUPPORT MANAGER Work Phone: [facility] 05-04-2024 15:46-0400 Diastolic blood pressure 60 mm[Hg] Jayro Lanetheresa MEDIA PRODUCTION SUPPORT MANAGER Work Phone: [facility] 05-04-2024 15:46-0400 Heart rate 102 /min Jayro Reed MEDIA PRODUCTION SUPPORT MANAGER Work Phone: [facility] 05-04-2024 15:46-0400 SaO2% (BldA) [Mass fraction] 98 % Jayro Reed MEDIA PRODUCTION SUPPORT MANAGER Work Phone: [facility] 05-04-2024 15:46-0400 Systolic blood pressure 120 mm[Hg] Jayro Reed MEDIA PRODUCTION SUPPORT MANAGER Work Phone: [facility] 03-14-2024 15:22-0500 Body mass index (BMI) [Ratio] 35.35 kg/m2 Kyleigh Lyons PA Work Phone: [facility] 03-14-2024 15:22-0500 Body weight 99.34 kg Kyleigh Lyons PA Work Phone: [facility] 03-14-2024 15:22-0500 Diastolic blood pressure 70 mm[Hg] Kyleigh Lyons PA Work Phone: [facility] 03-14-2024 15:22-0500 Systolic blood pressure 110 mm[Hg] Kyleigh Lyons PA Work Phone: [facility] 12-07-2023 16:37-0400 Body mass index (BMI) [Ratio] 31.31 kg/m2 David Fanny DO Work Phone: [facility] 12-07-2023 16:37-0400 Body weight 88 kg David Fanny DO Work Phone: [facility] 12-07-2023 16:37-0400 Diastolic blood pressure 78 mm[Hg] David Fanny DO Work Phone: [facility] 12-07-2023 16:37-0400 Systolic blood pressure 114 mm[Hg] David Fanny DO Work Phone: [facility] 11-17-2023 15:26-0400 Body height 167.6 cm Jayro Reed MEDIA PRODUCTION SUPPORT MANAGER Work Phone: [facility] 11-17-2023 15:26-0400 Body mass index (BMI) [Ratio] 30.09 kg/m2 Jayro Reed MEDIA PRODUCTION SUPPORT MANAGER Work Phone: [facility] 11-17-2023 15:26-0400 Body weight 84.55 kg Jayro Reed MEDIA PRODUCTION SUPPORT MANAGER Work Phone: [facility] 11-17-2023 15:26-0400 Diastolic blood pressure 86 mm[Hg] Jayro Reed MEDIA PRODUCTION SUPPORT MANAGER Work Phone: [facility] 11-17-2023 15:26-0400 Heart rate 96 /min Jayro Mcbride MEDIA PRODUCTION SUPPORT MANAGER Work Phone: [facility] 11-17-2023 15:26-0400 SaO2% (BldA) [Mass fraction] 96 % Jayro Mcbride MEDIA PRODUCTION SUPPORT MANAGER Work Phone: [facility] 11-17-2023 15:26-0400 Systolic blood pressure 118 mm[Hg] Jayro Mcbride MEDIA PRODUCTION SUPPORT MANAGER Work Phone: [facility] Encounters Encounter Date Encounter Type Care Provider Facility Start: 05-04-2024 End: 05-04-2024 Patient encounter status Jayro Mcbride MEDIA PRODUCTION SUPPORT MANAGER Work Phone: [facility] Work Phone: Start: 05-04-2024 End: 05-04-2024 Periodic preventive med est patient 18-39 yrs Jayro Mcbride MEDIA PRODUCTION SUPPORT MANAGER Work Phone: [facility] Comment on above: Encounter for wellne ss examination (Primary Dx); Acquired hypothyroidism (CMS/HCC); , unspecified gestational age Start: 04-27-2024 End: 04-27-2024 [facility] Result Encounter [...] up visit related to original px Kyleigh Rileyey PA Work Phone: [facility] Comment [...] Start: 01-30-2024 End: 01-30-2024 [facility] Result Encounter Dvaid Fanny DO Work Phone: [facility] Unsolicited Start: 01-30-2024 End: 01-30-2024 [facility] Result Encounter David Fanny DO Work Phone: [facility] Unsolicited Start: 01-28-2024 End: 01-28-2024 [facility] Result Encounter David Afnny DO Work Phone: [facility] Unsolicited [...] Office outpatient visit 15 minutes Jayro Mcbride MEDIA PRODUCTION SUPPORT MANAGER Work Phone: [facility] Comment on above: Alopecia; Other fatigue; Acquired hypothyroidism (CMS/HCC) Start: 11-17-2023 End: 11-17-2023 ambulatory JAYRO MCBRIDE Not Available Start: 11-17-2023 End: 11-17-2023 Bamboo flowsheet Jayro Mcbride MEDIA PRODUCTION SUPPORT MANAGER Work Phone: [facility] Start: 11-17-2023 End: 11-17-2023 Bamboo flowsheet Jayro Mcbride MEDIA PRODUCTION SUPPORT MANAGER Work Phone: [facility] Start: 08-28-2023 [...] Screening for malign ant neoplasm of cervix [facility] Start: 12-06-2026 Screening for malign ant neoplasm of cervix Pap Smear [facility] Start: 05-04-2024 End: 05-04-2024 Patient encounter procedure 05/04/2024 4:00 PM EDT Office Visit [facility] [address] [place] [address] Jayro Mcbride NP [address] [place] [address] [facility] Start: 03-14-2024 End: 03-14-2024 Patient encounter procedure 03/14/2024 3:20 PM EST Office Visit [facility] [address] [phone] Kyleigh Lyons PA [address] [place] [address] Arrived [facility] Comment on above: Arrived Start: 02-25-2024 End: 02-25-2024 ambulatory 02/25/2024 2:00 PM EST Initial [facility] [address] [place] [phone] [facility] Start: 02-25-2024 End: 02-25-2024 Professional / ancillary services management 02/25/2024 1:30 PM EST Ancillary Procedure [facility] [address] [phone] [facility] Start: 01-12-2024 Influenza vaccination Influenza Vacc ine (#1) [facility] Comment on above: Postponed from 10/17 (Patient Refused) Start: 12-07-2023 End: 12-07-2023 [facility] Comment on above: Arrived Start: 12-07-2023 End: 12-06-2024 US for US PELVIS-TRANSVAG IF INDICATED Imaging Routine Pelvic pain in female Expected: 12/07/2023 (Approximate), Expires: 12/06/2024 [facility] Comment on above: Expected: 12/07/2023 (Approximate), Expires: 12/06/2024 Start: 11-30-2023 End: 11-30-2023 Patient encounter procedure 11/30/2023 10:00 AM EDT Office Visit [facility] OB [address] [phone] David Escobedo DO [address] [place] [address] [facility] Start: 11-17-2023 End: 11-17-2023 Patient encounter procedure 11/17/2023 3:30 PM EDT Office Visit [facility] [address] [place] [address] Jayro Mcbride NP [address] [place] [address] Arrived [facility] Comment on above: Arrived Start: 11-17-2023 End: 11-16-2024 CBC W Auto Differential panel - Blood CBC and differential Lab Routine Alopecia Other fatigue Expected: 11/17/2023 (Approximate), Expires: 11/16/2024 [facility] Comment on above: Expected: 11/17/2023 (Approximate), Expires: 11/16/2024 Start: 11-17-2023 End: 11-16-2024 Ferritin [Mass/volume] in Serum or Plasma Ferritin Lab Routine Alopecia Other fatigue Expected: 11/17/2023 (Approximate), Expires: 11/16/2024 [facility] Comment on above: Expected: 11/17/2023 (Approximate), Expires: 11/16/2024 Start: 11-17-2023 End: 11-16-2024 TSH W/REFLEX TO FT4 TSH W/REFLEX TO FT4 Lab Routine Alopecia Other fatigue Acquired hypothyroidism (CMS/HCC) Expected: 11/17/2023 (Approximate), Expires: 11/16/2024 [facility] Work Phone: Comment on above: Expected: 11/17/2023 (Approximate), Expires: 11/16/2024 Start: 10-18-2023 Influenza vaccination Influenza Vacc ine (#1) [facility] Start: 08-16-2023 Influenza vaccination Influenza Vacc ine (#1) [facility] Comment on above: Postponed from 10/17 (Patient Refused) Cytology Cervical or vaginal smear or scraping study Pap Smear Pathology and Cytology Routine Well woman exam with routine gynecological exam Ordered: 12/07/2023 [facility] Work Phone: Comment on above: Ordered: 12/07/2023 Human papilloma viru s DNA [Presence] in Unspecified specimen by Probe with amplification HPV DNA probe, amplified Microbiology Routine Well woman exam with routine gynecological exam Ordered: 12/07/2023 [facility] Comment on above: Ordered: 12/07/2023 Immunizations Immunization Date Immunization Notes Care Provider Ronaldo romo 12-20-2020 Pfizer Purple Cap SARS-CoV-2 Vaccination Jayro Mcbride MEDIA PRODUCTION SUPPORT MANAGER Work Phone: [facility] 11-29-2020 Pfizer Purple Cap SARS-CoV-2 Vaccination Jayro Mcbride MEDIA PRODUCTION SUPPORT MANAGER Work Phone: [facility] 08-24-2017 tetanus toxoid, redu devon diphtheria toxoid, and acellular pertussis vaccine, adsorbed Jayro Mcbride MEDIA PRODUCTION SUPPORT MANAGER Work Phone: [facility] 09-05-1996 diphtheria, tetanus toxoids and acellular pertussis vaccine, unspecified formulation Jayro Mcbride MEDIA PRODUCTION SUPPORT MANAGER Work Phone: [facility] 09-05-1996 measles, mumps and rubella virus vaccine Jayro Laneconniekenia MEDIA PRODUCTION SUPPORT MANAGER Work Phone: [facility] Payers Date Payer Category Payer Private Health Insurance [facility] [place] [id number] 2022 Unknown [employer] [id number] 2022-Present [phone] [address] [address] [place] [phone] 2022 Unknown [id number] 1990 Unknown [id number] .[id number] 1990 Unknown [id number] .2.1258 1990 Unknown [id number] .2.1258 1990 Unknown [id number] .2.9 1990 Unknown [id number] .2.1258 1990 Unknown [id number] .2.9 1990 Unknown [id number] .2.1259 1959 Unknown [id number] Social History Date Type Detail Facility Start: 12-19-2022 End: 08-28-2023 Tobacco smoking status NHIS Ex-smoker [facility] are Start: 11-26-2015 End: 07-22-2022 History of tobacco use Current smoker [facility] Start: 11-26-2015 End: 07-22-2022 History of tobacco use Cigarette Smoker [facility] Start: 12-19-2022 End: 04-27-2024 Cigarettes smoked [...] Sex Assigned At Not on file N [facility] Start: 11-17-2023 End: 05-04-2024 Alcoholic beverage intake Current drinker of alcohol (finding) [facility] Start: 11-17-2023 Alcohol Comment caffeine intak e: 1 cup daily [facility] Start: 08-28-2023 Alcohol Comment caffeine intake: [facility] How often to you hav e a drink containing alcohol? 2-4 times a month [facility] Do you feel stress - tense, restless, nervous, or anxious, or unable to sleep at night because your mind is troubled all the time - these days [OSQ] Not at all [facility] Clinical Notes 11-17-2023 to 05-04-2024 Jayro Mcbride NP - 05/04/2024 4:00 PM EDTSusan Spitler, CARPENTER'S ASSISTANT - 03/14/2024 3:20 PM ESTSusan Spitler, CARPENTER'S ASSISTANT - 12/07/2023 3:40 PM EDTTelephone Encounter - Gerber Perdomo - 11/20/2023 4:21 PM EDT Note Date & Type Note Facility 05-04-2024 History of Presen t illness Narrative Images from the original note were not included. Pam San is a 33 y.o. female presents with chief complaint of Annual Exam HPI: HPI History of Present Illness The patient is a 33-year-old female who presents for her annual exam. She reports a potential miscarriage, having discovered her on Thursday. Initial blood work on showed normal results, and a subsequent test on Thursday indicated a threefold increase in hCG levels. However, she experienced bleeding on Thursday night, and a follow-up blood test on Thursday revealed only a slight increase in hCG levels. This pattern mirrors her previous miscarriage. Despite this, her hCG levels have doubled over the past two days. She continues to experience dark, non-clotty bleeding. She has discontinued progesterone due to its cost and lack of insurance coverage. She has been unable to contact Dr. Escobedo's office for her transvaginal ultrasound results. 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 She has no children. She reports no early symptoms such as nausea but does report a metallic taste in her mouth and occasional lightheadedness. She also reports mild pain in her right ovary, which was not present during her last . She has not noticed any leg swelling or easy bruising. She has gained some weight and has been experiencing hair loss, which she attributes to semaglutide use. Her thyroid function was last checked in October or November 2023, and her medication dosage has remained unchanged for over a year. She has been experiencing hand and elbow pain, which she attributes to her work. She has not been formally diagnosed with arthritis. She has also been experiencing intermittent shoulder pain for the past two weeks and back pain for the past six months. She reports no unusual rashes and has not been evaluated for autoimmune conditions. She occasionally wakes up with joint pain, which resolves with movement. She finds ibuprofen helpful for severe pain. She reports no gastrointestinal issues or urinary problems. She recently learned that her father has a blood clotting disorder and is on anticoagulant therapy. She has not been evaluated for this condition. She has a family history of miscarriages, with her grandmother having had four before successfully carrying a to term. She has been three times but has not carried any to term. Supplemental Information She needs to go to the eye doctor, as it has been a few years since her last visit. She went to the dentist last month. SOCIAL HISTORY She does not smoke or drink alcohol. 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 FAMILY HISTORY Her father has a blood clotting disorder and is on blood thinners. Her grandmother had four miscarriages before having one child. Three out of five women in her family, including her mother, have had at least one miscarriage. MEDICATIONS Current: semaglutide SUBJECTIVE: MEDICATIONS: Current Outpatient Medications Medication Instructions levothyroxine (SYNTHROID, LEVOXYL) 175 mcg, Oral, Daily before breakfast REVIEW OF SYMPTOMS: Review of Systems Constitutional: Negative. HENT: Negative. Eyes: Negative. Respiratory: Negative. Cardiovascular: Negative. Gastrointestinal: Negative for abdominal pain and nausea. Genitourinary: Positive for vaginal bleeding. Negative for pelvic pain and vaginal pain. Skin: Negative for pallor. Neurological: Negative for dizziness, weakness and light-headedness. Endocrine: Negative. Allergic/Immunologic: Negative. OBJECTIVE: Visit Vitals BP 120/60 Pulse 102 Temp 99.4 F (Tympanic) Ht 5' 6 Wt 217 lb SpO2 98% BMI 35.02 kg/m OB Status Having periods Smoking Status Former BSA 2.14 m Physical Exam Vitals reviewed. Constitutional: General: She is awake. She is not in acute distress. Appearance: Normal appearance. She is well-developed and normal weight. She is not ill-appearing. HENT: Head: Normocephalic and atraumatic. Right Ear: Tympanic membrane, ear canal and external ear normal. Left Ear: Tympanic membrane, ear canal and external ear normal. Nose: Nose normal. Mouth/Throat: Mouth: Mucous membranes are moist. Pharynx: Oropharynx is clear. Eyes: General: No scleral icterus. Pupils: Pupils are equal, round, and reactive to light. Cardiovascular: Rate and Rhythm: Normal rate and regular rhythm. Pulses: Normal pulses. Heart sounds: Normal heart sounds. Pulmonary: Effort: Pulmonary effort is normal. Breath sounds: Normal breath sounds. Abdominal: General: Abdomen is protuberant. Bowel sounds are normal. Palpations: Abdomen is soft. Tenderness: There is no abdominal tenderness. Musculoskeletal: Cervical back: Normal range of motion and neck supple. Right lower leg: No edema. Left lower leg: No edema. Skin: General: Skin is warm and dry. Capillary Refill: Capillary refill takes less than 2 seconds. Findings: No rash. Neurological: General: No focal deficit present. Mental Status: She is alert and oriented to person, place, and time. Sensory: Sensation is intact. Motor: Motor function is intact. Coordination: Coordination is intact. Gait: Gait is intact. Psychiatric: Attention and Perception: Attention and perception normal. Mood and Affect: Mood and affect normal. Speech: Speech normal. Behavior: Behavior is cooperative. Thought Content: Thought content normal. Cognition and Memory: Cognition and memory normal. Judgment: Judgment normal. ASSESSMENT AND PLAN: Assessment/Plan Diagnoses and all orders for this visit: Encounter for wellness examination -Wellness performed at today. Height, weight, BMI, problem list, and immunizations records reviewed. Dental care discussed with patient. Encouraged annual vision screenings and semi-annual dental care. Encouraged healthy eating habits, limit or eliminate junk food and sources of excess calories. Encouraged regular periods of exercise, 150 minutes of exercise weekly or amount appropriate to current level of function. Discussed family/friend/social support and importance of maintaining emotional connections. Follow up annually and as needed. Acquired hypothyroidism (CMS/HCC) -On synthroid , unspecified gestational age -Managed by Dr. Escobedo, imaging and labs pending per patient. documented in this encounter [facility] 03-14-2024 History of Presen t illness Narrative [...] Problems Past Medical History: Diagnosis Date Asthma ([facility]) 1994 Disease of thyroid gland ([facility]) 2002 Miscarriage 01/26/2023 HISTORY PAST MEDICAL HISTORY SOCIAL HISTORY Past Medical History: Diagnosis Date Asthma (CMS/HCC) 1994 Disease of thyroid gland ([facility]/HCC) 2002 Miscarriage 01/26/2023 Social History Tobacco Use [...] Grandmother Neelima ripple Cancer Maternal Grandmother Neelima ripchemo Miscarriages / [...] nursing note reviewed. Exam conducted with a fabric normalizer present. Vitals: Estimated body mass index is 35.35 kg/m as calculated from the following: Height as of 11/17/23: 5' 6 . Weight as of this encounter: 219 lb. BP: 110/70 No LMP recorded. ASSESSMENT & PLAN ICD-10-CM 1. Postoperative examination Z09 Patient presents for post operative appointment from [facility] on [facility]26/2024. Patient voiced that she was good for 6 days and then had a gush of blood. Patient voiced she is still losing tissue. Patient voiced that she had some questions in regards to insurance coverage for surgical procedure and Welfare Eligibility Interviewer aware and will reach out to insurance to further look into. Answered patients questions in regards to conceiving in the future. Patient to return to office for annual and PRN. Documented by Che Huitron LPN on behalf of: GAIL Morales documented in this encounter [facility] 12-07-2023 History of Presen t illness Narrative [...] Problems Past Medical History: Diagnosis Date Asthma ([facility]) 1994 Disease of thyroid gland ([facility]) 2002 Miscarriage 01/26/2023 HISTORY PAST MEDICAL HISTORY SOCIAL HISTORY Past Medical History: Diagnosis Date Asthma ([facility]) 1994 Disease of thyroid gland ([facility]) 2002 Miscarriage 01/26/2023 Social History Tobacco Use [...] Grandmother Neelima ripple Cancer Maternal Grandmother Neelima ripple Miscarriages / Stillbirths Sister Vidhya San Miscarriages [...] nursing note reviewed. Exam conducted with a fabric normalizer present. Vitals: Estimated body mass index is 31.31 kg/m as calculated from the following: Height as of 10/1/24: 5' 6 . Weight as of this encounter: 194 lb. BP: 114/78 No LMP recorded. ASSESSMENT & PLAN ICD-10-CM 1. Well woman exam with routine gynecological exam Z01.419 Pap Smear HPV DNA probe, amplified Annual Exam: Patient presents today for an annual exam. Patient states she is doing well and has complaints of uterine pain detention through cycle. Patient to have US obtained on day 14 or 15 of cycle. Pap was obtained without difficulty. Orders Placed This Encounter Procedures HPV DNA probe, amplified Follow Up: Patient is to return in one year for annual unless needed otherwise. Documented by Che Huitron LPN on behalf of: David Escobedo DO documented in this encounter [facility] 11-20-2023 Telephone encount er Note Pt called back and I gave her the message :) [facility] 11-20-2023 Miscellaneous Notes Formattin g of this note might be different from the original. Pt called back and I gave her the message :) MyChart message: Your labs are all normal range. Could definitely be a side effect of the semaglutide your using. documented in this encounter [facility] 11-20-2023 Telephone encount er Note MyChart message: Your labs are all normal range. Could definitely be a side effect of the semaglutide your using. [facility] 11-17-2023 History of Presen t illness Narrative [...] in this encounter [facility] Evaluation note Diagnosis Alopecia Other fatigue Acquired hypothyroidism (CMS/HCC) Unspecified hypothyroidism [facility] Diagnosis Well woman exam with routine gynecological exam Routine gynecological examination Pelvic pain in female Unspecified symptom associated with female genital organs [facility] Diagnosis Hypothyroidism (acquired) (CMS/HCC) Unspecified hypothyroidism [facility] Diagnosis Postoperative examination Follow-up examination, following unspecified surgery [facility] Diagnosis Encounter for wellness examination- Primary Acquired hypothyroidism (CMS/HCC) Unspecified hypothyroidism , unspecified gestational age documented in this encounter [facility] Summary Purpose Family History No Family History Records FoundNo Family History Records Found Advance Directives No Advanced Directives Records FoundNo Advanced Directives Records Found Additional Source Comments INFORMATION SOURCE (unrecogn ized section and content) DATE CREATED AUTHOR 11/26/2021 [facility] DATE CREATED AUTHOR AUTHOR'S ORGANIZ ATION 03/15/2024 [facility] Care Teams (unrecognized sec tion and content) 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 Relationship Specialty Start Date End Date Joceline Willson MD [address] [facility] [place] [address] PCP - General Family Medicine 12/19/22 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 Relationship Specialty Start Date End Date Joceline Willson MD [address] [facility] [place] [address] PCP - General Family Medicine 12/19/22 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 Relationship Specialty Start Date End Date Joceline Willson MD [address] [facility] [place] [address] PCP - General Family Medicine 12/19/22 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 Relationship Specialty Start Date End Date Joceline Willson MD [address] [facility] [place] [address] PCP - General Family Medicine 12/19/22 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 Relationship Specialty Start Date End Date Joceline Willson MD [address] [place] [address] PCP - General Family Medicine 12/19/22 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 Relationship Specialty Start Date End Date Joceline Willson MD [address] [place] [address] PCP - General Family Medicine 12/19/22 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 Relationship Specialty Start Date End Date Joceline Willson MD [address] [place] [address] PCP - General Family Medicine 12/19/22 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 Relationship Specialty Start Date End Date Joceline Willson MD [address] [place] [address] PCP - General Family Medicine 12/19/22 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 Relationship Specialty Start Date End Date Joceline Willson MD [address] [place] [address] PCP - General Family Medicine 12/19/22 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 Relationship Specialty Start Date End Date Joceline Willson MD [address] [place] [address] PCP - General Family Medicine 12/19/22 Reason for Visit (unrecogniz ed section and content) Reason Comments Fatigue Alopecia Reason Comments Well Women Visit Reason Comments Post-op Visit Reason Comments Annual Exam FOR RECORDS PERTAINING TO PATIENTS WHO ARE [...] BE BASED ON THE PRIMARY CLINICAL RECORDS. [facility] provides no warranty or guarantee of the accuracy or completeness of information in this document.
[2024-05-06 07:18] LABS: Basophils Absolute Auto 0.1 10^3/uL (0.0-0.1); Basophils Percent Auto 1.2 % (0.2-2.0); Eosinophils Absolute Auto 0.4 10^3/uL (0.0-0.7); Eosinophils Percent Auto 4.9 % (0.9-7.0); Hematocrit 39.5 % (36.0-48.0); Hemoglobin 13.9 g/dL (12.0-16.0); Immature Granulocytes Abs Auto 0.02 10^3/uL (0.00-0.03); Immature Granulocytes Pct Auto 0.3 % (0.0-0.5); Lymphocytes Absolute Auto 1.6 10^3/uL (1.2-3.8); Mean Corpuscular HGB Conc 35.2 g/dL (29.9-35.2); Mean Corpuscular Hemoglobin 30.4 pg (26.7-34.0); Mean Corpuscular Volume 86.4 fL (81.0-99.0); Mean Platelet Volume 9.9 fL (9.5-13.5); Monocytes Absolute Auto 0.7 10^3/uL (0.3-0.8); Monocytes Percent Auto 8.6 % (1.7-12.0); Neutrophils Absolute Auto 4.8 10^3/uL (1.4-6.5); Platelet Count 259 10^3/uL (150-450); Red Blood Count 4.57 10^6/uL (4.20-5.40); Red Cell Distribution Width 12.2 % (11.0-15.0); White Blood Count 7.5 10^3/uL (4.0-11.0)
[2024-05-06 07:28] LABS: Estimated Average Glucose 94 mg/dL; Glycohemoglobin A1C 4.9 % (4.5-6.2)
[2024-05-06 08:45] LABS: Free T4 0.89 ng/dL (0.76-1.46)
[2024-05-06 08:54] LABS: Thyroid Stimulating Hormone 17.866 uIU/mL (0.358-3.740)
[2024-05-06 08:55] LABS: HCG Quantitative 599 mIU/mL
== END 2024-05-06 07:00 | disposition home or self-care (01) ==
LOC: LAB 07:00
PROVIDERS: PCP Nurse Practitioner Family; Visit Provider Obstetrics & Gynecology
DX: Z87.59 Personal history of other complications of pregnancy, childbirth and the puerperium (principal)
CPT/HCPCS: 36415; 83036; 84439; 84443; 84702; 85025

== ENCOUNTER 2024-05-18 15:14 | Outpatient (RCR) | payer OTHER, SELFPAY ==
[2024-05-18 16:33] LABS: HCG Quantitative 2873 mIU/mL
[2024-05-25 13:42] LABS: HCG Quantitative 4020 mIU/mL
[2024-06-02 09:25] LABS: HCG Quantitative 4187 mIU/mL
[2024-06-09 17:15] LABS: HCG Quantitative 2022 mIU/mL
== END 2024-06-20 09:54 | disposition home or self-care (01) ==
LOC: LAB 15:14
PROVIDERS: PCP Nurse Practitioner Family; Visit Provider Obstetrics & Gynecology
DX: O36.80X0 Pregnancy with inconclusive fetal viability, not applicable or unspecified (principal); Z87.59 Personal history of other complications of pregnancy, childbirth and the puerperium; Z3A.00 Weeks of gestation of pregnancy not specified
CPT/HCPCS: 36415; 84702

== ENCOUNTER 2024-06-04 08:31 | Outpatient (OUT) | payer OTHER, SELFPAY ==
--- OUTSIDE RECORDS SUMMARY | 2024-06-04 08:35 | XMS_ITS | CCD ---
Author Organization [facility] Care Team Providers Care Floor Manager Name Role Phone DR DAVID ESCOBEDO [...] Drug Class(es) Dates Sig (Normalized) Sig (Original) Ethinyl Estradiol / Ferrous fumarate / Norethindrone (1 source) Estrogen Start: 05-30-2024 End: 06-27-2024 take 1 tablet by mouth once daily, then take 1 tablet by mouth once daily norethindrone-ethiny l estradiol (03/07) 1-20 MG-MCG tablet Indications: History of miscarriage Take 1 tablet by mouth Daily for 28 days Take 1 tablet by mouth daily 28 tablet 11 05/30/2024 06/27/2024 Active levothyroxine sodium 0.175 mg oral tablet (20 sources) l-Thyroxine Start: 05-30-2024 take 1 tablet by mouth before mealtime levothyroxine (Synthroid, Levoxyl) 175 MCG tablet Indications: Hypothyroidism (acquired) (CMS/HCC) TAKE 1 TABLET BY MOUTH IN THE MORNING. TAKE BEFORE MEALS 100 tablet 05/30/2024 Active Start: 05-09-2024 End: 05-09-2025 take 1 tablet by mouth before mealtime levothyroxine (Synthroid) 50 MCG tablet Indications: Thyroid disease (CMS/HCC) Take 1 tablet (50 mcg) by mouth in the morning. Take before meals. 30 tablet 11 05/09/2024 05/09/2025 Active Start: 10-01-2023 End: 05-30-2024 take 1 tablet by mouth before mealtime levothyroxine (Synthroid, Levoxyl) 175 MCG tablet Indications: Hypothyroidism (acquired) (CMS/HCC) Take 1 tablet (175 mcg) by mouth in the morning. Take before meals. 100 tablet 02/19/2024 05/30/2024 Discontinued Start: 01-16-2023 End: 04-26-2023 take 1 tablet [...] hair loss, unspecified] 11-17-2023 Episodic Thyroid disorders (5 sources) Acquired hypothyroidism; Translations: [Hypothyroidism, unspecified] 11-17-2023 Chronic Results Test Name Value Interpretation Reference Range Facility [facility] PREG QUANT HCGon 025 HCG QUANTITATIVE 4187 mIU/mL [facility] Comment on above: 5-50 0.2-1 WEEK 50-500 1-2 WEEKS 100-5,000 2-3 WEEKS 500-10,000 3-4 WEEKS 1,000-50,000 4-5 WEEKS 10,000-100,000 5-6 WEEKS 15,000-200,000 6-8 WEEKS 10,000-100,000 2-3 MONTHS [facility] PREG QUANT HCGon 025 HCG QUANTITATIVE 4020 mIU/mL [facility] Comment on above: 5-50 0.2-1 WEEK 50-500 1-2 WEEKS 100-5,000 2-3 WEEKS 500-10,000 3-4 WEEKS 1,000-50,000 4-5 WEEKS 10,000-100,000 5-6 WEEKS 15,000-200,000 6-8 WEEKS 10,000-100,000 2-3 MONTHS [facility] PREG QUANT HCGon 025 HCG QUANTITATIVE 2873 mIU/mL [facility] Comment on above: 5-50 0.2-1 WEEK 50-500 1-2 WEEKS 100-5,000 2-3 WEEKS 500-10,000 3-4 WEEKS 1,000-50,000 4-5 WEEKS 10,000-100,000 5-6 WEEKS 15,000-200,000 6-8 WEEKS 10,000-100,000 2-3 MONTHS [facility] PREG QUANT HCGon 025 HCG QUANTITATIVE 1411 mIU/mL [facility] Comment on above: 5-50 0.2-1 WEEK 50-500 1-2 WEEKS 100-5,000 2-3 WEEKS 500-10,000 3-4 WEEKS 1,000-50,000 4-5 WEEKS 10,000-100,000 5-6 WEEKS 15,000-200,000 6-8 WEEKS 10,000-100,000 2-3 MONTHS [facility] PREG QUANT HCGon 025 HCG QUANTITATIVE 1449 mIU/mL [facility] Comment on above: 5-50 0.2-1 WEEK 50-500 1-2 WEEKS 100-5,000 2-3 WEEKS 500-10,000 3-4 WEEKS 1,000-50,000 4-5 WEEKS 10,000-100,000 5-6 WEEKS 15,000-200,000 6-8 WEEKS 10,000-100,000 2-3 MONTHS [facility] PREG QUANT HCGon 04-27- 025 HCG QUANTITATIVE 45 mIU/mL [facility] Comment on above: 5-50 0.2-1 WEEK 50-500 1-2 WEEKS 100-5,000 2-3 WEEKS 500-10,000 3-4 WEEKS 1,000-50,000 4-5 WEEKS 10,000-100,000 5-6 WEEKS 15,000-200,000 6-8 WEEKS 10,000-100,000 2-3 MONTHS [facility] PREG QUANT HCGon 025 HCG QUANTITATIVE 5 mIU/mL [facility] Comment on above: 5-50 0.2-1 WEEK 50-500 1-2 WEEKS 100-5,000 2-3 WEEKS 500-10,000 3-4 WEEKS 1,000-50,000 4-5 WEEKS 10,000-100,000 5-6 WEEKS 15,000-200,000 6-8 WEEKS 10,000-100,000 2-[address] [facility] US OB TRANSVAGINALon 025 [place] [address] Ultrasound Report Signed Patient: PAM SAN MR#: [id number] : 1990 Acct:[id number] Age/Sex: 33 / F ADM Date: 03/16/24 Loc: US Attending Dr: David Escobedo D.O. Ordering Physician: David Escobedo D.O. Date of Service: 03/16/24 Procedure(s): US OB transvaginal Accession Number(s): [id number] cc: David Escobedo D.O.; Jayro Mcbride NP [place] [id number] Patient Name: PAM SAN MRN: [id number] date: 1990 Sex: F Assigned Patient Location: Current Patient Location: US Accession/Order Number: [id number] Exam Date: 03/16/2024 16:09 Report Date: 03/16/2024 [...] M.D. Signed By: 03/16/241941 DD/ 38 TD/TT: Prefitter Doors: [facility] Radiology, Radiologist, MD - 03/16/2024 [place] [address] Ultrasound Report Signed Patient: PAM SAN MR#: [id number] : 1990 Acct:[id number] Age/Sex: 33 / F ADM Date: 03/16/24 Loc: US Attending Dr: David Escobedo D.O. Ordering Physician: David Escobedo D.O. Date of Service: 03/16/24 Procedure(s): US OB transvaginal Accession Number(s): [id number] cc: David Escobedo D.O.; Jayro Mcbride NP The [address] [address] Patient Name: PAM SAN MRN: [facility]:[id number] date: 1990 Sex: F Assigned Patient Location: US Current Patient Location: US Accession/Order Number: [id number] Exam Date: 03/16/2024 16:09 Report Date: 03/16/2024 [...] M.D. Signed By: 03/16/241941 DD/ 38 TD/TT: Prefitter Doors: [facility] Radiology Study observation (narrative) [facility] US OB TRANSVAGINALOrdered By : Radiologist Radiology on 03-16-[address] [facility] Work Phone: ALL CBC WITH AUTO DIFFon BASOPHILS ABSOLUTE AUTO 0.1 N [facility] Basophils/100 WBC (Bld) 1.8 % 0.2 - 2.0 % [facility] Eosinophils/100 WBC (Bld) 6.1 % 0.9 - 7.0 % [facility] Erythrocyte distribution width (RBC) [Ratio] 12 % 11.0 - 15.0 % [facility] Hematocrit (Bld) [Volume fraction] 41.5 % 36.0 - 48.0 % [facility] Hemoglobin (Bld) [Mass/Vol] 14.2 g/dL 12.0 - 16.0 g/dL [facility] IMMATURE GRANULOCYTES ABS AUTO 0.[address] [facility] Immature granulocytes/100 WBC (Bld) 0.6 % High 0.0 - 0.5 % [facility] Interpretation and review of laboratory results Abnormal [facility] LYMPHOCYTES ABSOLUTE AUTO 2.[address] [facility] Lymphocytes/100 WBC (Bld) 31.3 % 20.5 - 60.0 % [facility] MCH (RBC) [Entitic mass] 30.1 pg 26.7 - 34.[address] [facility] MCHC (RBC) [Mass/Vol] 34.2 g/dL 29.9 - 35.2 g/dL [facility] MCV (RBC) [Entitic vol] 88.1 fL 81.0 - 99.[address] [facility] MONOCYTES ABSOLUTE AUTO 0.6 N [facility] Monocytes/100 WBC (Bld) 7.5 % 1.7 - 12.0 % [facility] NEUTROPHILS ABSOLUTE AUTO 4.[address] [facility] Neutrophils/100 WBC (Bld) 52.7 % 43.0 - 75.0 % [facility] Platelet mean volume (Bld) [Entitic vol] 9.9 fL 9.5 - 13.5 fL [facility] EO # 0.5 [facility] PLT 286 [facility] RBC 4.71 [facility] WBC 7.[address] [facility] HCG QUANTITATIVE 4176 mIU/mL [facility] Comment on above: 5-50 0.2-1 WEEK 50-500 1-2 WEEKS 100-5,000 2-3 WEEKS 500-10,000 3-4 WEEKS 1,000-50,000 4-5 WEEKS 10,000-100,000 5-6 WEEKS 15,000-200,000 6-8 WEEKS 10,000-100,000 2-3 MONTHS [facility] PREG QUANT HCGon 025 HCG QUANTITATIVE 4654 mIU/mL [facility] Comment on above: 5-50 0.2-1 WEEK 50-500 1-2 WEEKS 100-5,000 2-3 WEEKS 500-10,000 3-4 WEEKS 1,000-50,000 4-5 WEEKS 10,000-100,000 5-6 WEEKS 15,000-200,000 6-8 WEEKS 10,000-100,000 2-3 MONTHS [facility] PREG QUANT HCGon 024 HCG QUANTITATIVE 5388 mIU/mL [facility] Comment on above: 5-50 0.2-1 WEEK 50-500 1-2 WEEKS 100-5,000 2-3 WEEKS 500-10,000 3-4 WEEKS 1,000-50,000 4-5 WEEKS 10,000-100,000 5-6 WEEKS 15,000-200,000 6-8 WEEKS 10,000-100,000 2-3 MONTHS [facility] PREG QUANT HCGon 024 HCG QUANTITATIVE 4079 mIU/mL [facility] Comment on above: 5-50 0.2-1 WEEK 50-500 1-2 WEEKS 100-5,000 2-3 WEEKS 500-10,000 3-4 WEEKS 1,000-50,000 4-5 WEEKS 10,000-100,000 5-6 WEEKS 15,000-200,000 6-8 WEEKS 10,000-100,000 2-3 MONTHS [facility] PREG QUANT HCGon 024 HCG QUANTITATIVE 2981 mIU/mL [facility] Comment on above: 5-50 0.2-1 WEEK 50-500 1-2 WEEKS 100-5,000 2-3 WEEKS 500-10,000 3-4 WEEKS 1,000-50,000 4-5 WEEKS 10,000-100,000 5-6 WEEKS 15,000-200,000 6-8 WEEKS 10,000-100,000 2-3 MONTHS [facility] PREG QUANT HCGon 024 HCG QUANTITATIVE 2239 mIU/mL [facility] Comment on above: 5-50 0.2-1 WEEK 50-500 1-2 WEEKS 100-5,000 2-3 WEEKS 500-10,000 3-4 WEEKS 1,000-50,000 4-5 WEEKS 10,000-100,000 5-6 WEEKS 15,000-200,000 6-8 WEEKS 10,000-100,000 2-3 MONTHS [facility] PREG QUANT HCGon 024 HCG QUANTITATIVE 158 mIU/mL [facility] Comment on above: 5-50 0.2-1 WEEK 50-500 1-2 WEEKS 100-5,000 2-3 WEEKS 500-10,000 3-4 WEEKS 1,000-50,000 4-5 WEEKS 10,000-100,000 5-6 WEEKS 15,000-200,000 6-8 WEEKS 10,000-100,000 2-3 MONTHS [facility] PREG QUANT HCGon 024 HCG QUANTITATIVE 79 mIU/mL [facility] Comment on above: 5-50 0.2-1 WEEK 50-500 1-2 WEEKS 100-5,000 2-3 WEEKS 500-10,000 3-4 WEEKS 1,000-50,000 4-5 WEEKS 10,000-100,000 5-6 WEEKS 15,000-200,000 6-8 WEEKS 10,000-100,000 2-3 MONTHS [facility] IGP,APTIMA HPV,AGE GDLNon AGE GDLN ACOG TESTING Note . [facility] Comment on above: TESTS RESULT FLAG UN ITS REF RANGE LAB Clinician Provided Cytology Information Source.............Cervix;Endocervix No. of containers..01 ThinPrep Vial Age Algo ACOG Wendy... 01 FLAG LEGEND: L-Low Normal,H-High Normal,LL-Alert Low,HH-Alert High <-Panic Low,>-Panic High,A-Abnormal,AA-Critical Abnormal Performed at: 01 =[address] [place] [address] Chanel Francois MD, HPV APTIMA Negative Negative [facility] Comment on above: This nucleic acid am plification test detects fourteen high- risk HPV types (16,18,31,33,35,39,45,51,52,56,58,59,66,68) without differentiation. Performed at: =[address] [id number] Internal Medicine Physician: Chanel Francois MD, Phone: [phone] Performed at: [address] [id number] Internal Medicine Physician: Chanel Francois MD, Phone: [phone] IGP, APTIMA HPV, RFX 16/18,[address] [facility] Comment on above: TESTS RESULT FLAG UN ITS REF RANGE LAB DIAGNOSIS: 02 NEGATIVE FOR INTRAEPITHELIAL LESION OR MALIGNANCY. Specimen adequacy: 02 Satisfactory for evaluation. Endocervical and/or squamous metaplastic cells (endocervical component) are present. Performed by: 02 Vega Madden[employer] ([employer]) . 02 Note: Note 02 The [...] High,A-Abnormal,AA-Critical Abnormal Performed at: 02 WB [facility] [address] [address] Chanel Francois MD, BRUSH-SPATULA CERVIX [facility] P[facility] HCGon 03-28- 024 HCG QUANTITATIVE 6 mIU/mL [facility] Comment on above: 5-50 0.2-1 WEEK 50-500 1-2 WEEKS 100-5,000 2-3 WEEKS 500-10,000 3-4 WEEKS 1,000-50,000 4-5 WEEKS 10,000-100,000 5-6 WEEKS 15,000-200,000 6-8 WEEKS 10,000-100,000 2-3 [facility]COG PAN[facility] 2: 30 to 65on 11-26-2021 . . Normal [facility] Comment on above: Result Comment: Perf ormed at: WB Performed By: #### [id number] #### [facility] [address] [place] [address] Dr. Florencia Carpenter Age Gdln ACOG Testing 30-65 Normal [facility] Comment on above: Performed By: #### [id number] #### [facility] [address] [place] [address] Dr. Florencia Carpenter DIAGNOSIS: Comment [facility] Comment on above: Result Comment: NEGA TIVE FOR INTRAEPITHELIAL LESION OR MALIGNANCY. Performed at: WB Performed By: #### [id number] #### [facility] [address] [place] [address] Dr. Florencia Carpenter HPV Aptima Negative Normal Negative [facility] Comment on above: Result Comment: This nucleic acid amplification test detects fourteen high-risk HPV types (16,18,31,33,35,39,45,51,52,56,58,59,66,68) without differentiation. Performed at: =G Performed By: #### [id number] #### [facility] [address] [place] [address] Dr. Florencia Carpenter Methodology: Comment Normal [facility] Comment on above: Result Comment: This liquid based ThinPrep(R) pap test was screened with the use of an image guided system. Performed at: WB Performed By: #### [id number] #### [facility] [address] [place] [address] Dr. Florencia Carpenter Note: Comment Normal [facility] Comment on above: Result Comment: The Pap smear is a screening test designed to aid in the detection of premalignant and malignant conditions of the uterine cervix. It is not a diagnostic procedure and should not be used as the sole means of detecting cervical cancer. Both false-positive and false-negative reports do occur. . Performed at: WB Performed By: #### [id number] #### [facility] [address] [place] [address] Dr. Florencia Carpenter Performed by: Comment Normal [facility] Comment on above: Result Comment: Ermelinda Ricketts, [employer] ([employer]) Performed at: WB Performed By: #### [id number] #### [facility] [address] [place] [address] Dr. Florencia Carpenter Specimen adequacy: Comment Normal [facility] Comment on above: Result Comment: Sati sfactory for evaluation. Endocervical and/or squamous metaplastic cells (endocervical component) are present. Performed at: WB Performed By: #### [id number] #### [facility] [address] [place] [address] Dr. Florencia Carpenter Vital Signs Date Time Vital Sign Value Performing Clinician Faci lity 05-04-2024 15:46-0400 Body height 167.6 cm Jayro Mcbride NP Work Phone: [facility] 05-04-2024 15:46-0400 Body mass index (BMI) [Ratio] 35.02 kg/m2 Jayro Mcbride [employer] Work Phone: [facility] 05-04-2024 15:46-0400 Body temperature 99.39 [degF] Jayro Mcbride [employer] Work Phone: [facility] 05-04-2024 15:46-0400 Body weight 98.43 kg Jayro Mcbride [employer] Work Phone: [facility] 05-04-2024 15:46-0400 Diastolic blood pressure 60 mm[Hg] Jayro Mcbride [employer] Work Phone: [facility] 05-04-2024 15:46-0400 Heart rate 102 /min Jayro Mcbride [employer] Work Phone: [facility] 05-04-2024 15:46-0400 SaO2% (BldA) [Mass fraction] 98 % Jayro Mcbride [employer] Work Phone: [facility] 05-04-2024 15:46-0400 Systolic blood pressure 120 mm[Hg] Jayro Mcbride [employer] Work Phone: [facility] 03-14-2024 15:22-0500 Body mass index (BMI) [Ratio] 35.35 kg/m2 Kyleigh REYNOLDS Work Phone: [facility] 03-14-2024 15:22-0500 Body weight 99.34 kg Kyleigh REYNOLDS Work Phone: [facility] 03-14-2024 15:22-0500 Diastolic blood pressure 70 mm[Hg] Kyleigh REYNOLDS Work Phone: [facility] 03-14-2024 15:22-0500 Systolic blood pressure 110 mm[Hg] Kyleigh REYNOLDS Work Phone: [facility] 12-07-2023 16:37-0400 Body mass index (BMI) [Ratio] 31.31 kg/m2 David Escobedo DO Work Phone: [facility] 12-07-2023 16:37-0400 Body weight 88 kg David Fanny DO Work Phone: [facility] 12-07-2023 16:37-0400 Diastolic blood pressure 78 mm[Hg] David Fanny DO Work Phone: [facility] 12-07-2023 16:37-0400 Systolic blood pressure 114 mm[Hg] David Fanny DO Work Phone: [facility] 11-17-2023 15:26-0400 Body height 167.6 cm Jayro Mcbride [employer] Work Phone: [facility] 11-17-2023 15:26-0400 Body mass index (BMI) [Ratio] 30.09 kg/m2 Jayro Mcbride [employer] Work Phone: [facility] 11-17-2023 15:26-0400 Body weight 84.55 kg Jayro Mcbride [employer] Work Phone: [facility] 11-17-2023 15:26-0400 Diastolic blood pressure 86 mm[Hg] Jayro Mcbride [employer] Work Phone: [facility] 11-17-2023 15:26-0400 Heart rate 96 /min Jayro Mcbride [employer] Work Phone: [facility] 11-17-2023 15:26-0400 SaO2% (BldA) [Mass fraction] 96 % Jayro Mcbride [employer] Work Phone: [facility] 11-17-2023 15:26-0400 Systolic blood pressure 118 mm[Hg] Jayro Mcbride [employer] Work Phone: [facility] Healthcare Encounters Encounter Date Encounter Type Care Provider Facility Start: 06-02-2024 End: 06-02-2024 [facility] Result Encounter David Fanny DO Work Phone: [facility] External Department Unsolicited Start: 06-02-2024 End: 06-02-2024 [facility] Result Encounter David Fanny DO Work Phone: [facility] External Department Unsolicited Start: 05-30-2024 End: 05-30-2024 Refill Susu Brasher Paul [employer] Work Phone: [facility] Comment on above: Hypothyroidism (acqu ired) (CMS/HCC) Start: 05-25-2024 End: 05-25-2024 [facility] Result Encounter David Fanny DO Work Phone: [facility] External Department Unsolicited Start: 05-25-2024 End: 05-25-2024 [facility] Result Encounter David Fanny DO Work Phone: [facility] External Department Unsolicited Start: 05-18-2024 End: 05-18-2024 [facility] Result Encounter David Fanny DO Work Phone: [facility] External Department Unsolicited Start: 05-18-2024 End: 05-18-2024 [facility] Result Encounter David Fanny DO Work Phone: [facility] External Department Unsolicited Start: 05-11-2024 End: 05-11-2024 [facility] Result Encounter David Fanny DO Work Phone: [facility] External Department Unsolicited Start: 05-11-2024 End: 05-11-2024 [facility] Result Encounter David Fanny DO Work Phone: [facility] External Department Unsolicited Start: 05-09-2024 End: 05-09-2024 [facility] Result Encounter David Fanny DO Work Phone: [facility] External Department Unsolicited Start: 05-09-2024 End: 05-09-2024 [facility] Result Encounter David Fanny DO Work Phone: [facility] External Department Unsolicited Start: 05-04-2024 End: 05-04-2024 Patient encounter status Jayro Mcbride [employer] Work Phone: [facility] Work Phone: Start: 05-04-2024 End: 05-04-2024 Periodic preventive med est patient 18-39 yrs Jayro Mcbride [employer] Work Phone: [facility] Comment on above: Encounter for wellne ss examination (Primary Dx); Acquired hypothyroidism (CMS/HCC); , unspecified gestational age Start: 05-04-2024 End: 05-04-2024 ambulatory JAYRO MCBRIDE Not Available Start: 04-27-2024 End: 04-27-2024 [facility] Result Encounter [...] REYNOLDS Work Phone: [facility] Start: 03-14-2024 [...] Refgeorge Willson MD Work Phone: [facility] [...] Office outpatient visit 15 minutes Jayro Mcbride [employer] Work Phone: [facility] Comment on above: Alopecia; Other fatigue; Acquired hypothyroidism (CMS/HCC) Start: 11-17-2023 End: 11-17-2023 ambulatory JAYRO MCBRIDE Not Available Start: 11-17-2023 End: 11-17-2023 Bamboo flowsheet Jayro Mcbride [employer] Work Phone: [facility] Start: 11-17-2023 End: 11-17-2023 Bamboo flowsheet Jayro Mcbride [employer] Work Phone: [facility] Start: 08-28-2023 End: 08-28-2023 ambulatory JAYRO MCBRIDE Not Available Start: 05-11-2023 End: 05-11-2023 ambulatory JAYRO MCBRIDE Not Available Start: 03-28-2023 [facility] Result Encounter David Fanny DO Work Phone: [facility] External Department Unsolicited Start: 03-28-2023 [facility] Result Encounter David Fanyn DO Work Phone: [facility] External Department Unsolicited Start: 11-19-2021 End: 11-19-[address] DAVID ESCOBEDO Facility:[facility] Procedures Date Procedure Procedure Detail Performing Clinician Start: 06-02-2024 TB PREG QUANT HCG Core y Fanny DO Work Phone: Start: 05-25-2024 [facility] PREG QUANT HCG Core y Fanny DO Work Phone: Start: 05-18-2024 [facility] PREG QUANT HCG Core y Fanny DO Work Phone: Start: 05-11-2024 [facility] PREG QUANT HCG Core y Fanny DO Work Phone: Start: 05-09-2024 [facility] PREG QUANT HCG Core y Fanny DO Work Phone: Start: 04-27-2024 [facility] PREG QUANT HCG Core [...] Screening for malign ant neoplasm of cervix [facility] Start: 12-06-2026 Screening for malign ant neoplasm of cervix Pap Smear [facility] Start: 10-17-2024 Influenza vaccination Influenz a Vaccine (Season Ended) [facility] Start: 05-04-2024 End: 05-04-2024 Patient encounter procedure 05/04/2024 4:00 PM EDT Office Visit [facility] [address] [place] [address] Jayro Mcbride NP [address] [place] [address] [facility] Start: 03-14-2024 End: 03-14-2024 Patient encounter procedure 03/14/2024 3:20 PM EST Office Visit [facility] [address] [address] Kyleigh Lyons PA [address] [place] [address] Arrived [facility] Comment on above: Arrived Start: 02-25-2024 End: 02-25-2024 ambulatory 02/25/2024 2:00 PM EST Initial [facility] [address] [place] [phone] [facility] Start: 02-25-2024 End: 02-25-2024 Professional / ancillary services management 02/25/2024 1:30 PM EST Ancillary Procedure [facility] [address] [phone] [facility] Start: 01-12-2024 Influenza vaccination Influenza Vacc ine (#1) [facility] Comment on above: Postponed from 10/17 (Patient Refused) Start: 12-07-2023 End: 12-07-2023 Patient encounter procedure [facility] Comment on above: Arrived Start: 12-07-2023 End: 12-06-2024 US for US PELVIS-TRANSVAG IF INDICATED Imaging Routine Pelvic pain in female Expected: 12/07/2023 (Approximate), Expires: 12/06/2024 [facility] Comment on above: Expected: 12/07/2023 (Approximate), Expires: 12/06/2024 Start: 11-30-2023 End: 11-30-2023 Patient encounter procedure 11/30/2023 10:00 AM EDT Office Visit [facility] [address] [place] [phone] David Escobedo DO [address] [place] [address] [facility] Start: 11-17-2023 End: 11-17-2023 Patient encounter procedure 11/17/2023 3:30 PM EDT Office Visit [facility] [address] [place] [phone] Jayro Mcbride NP [address] [place] [address] Arrived [facility] Comment on above: Arrived Start: 11-17-2023 End: 11-16-2024 CBC W Auto Differential panel - Blood CBC and differential Lab Routine Alopecia Other fatigue Expected: 11/17/2023 (Approximate), Expires: 11/16/2024 [facility] Comment on above: Expected: 11/17/2023 (Approximate), Expires: 11/16/2024 Start: 11-17-2023 End: 11-16-2024 Ferritin [Mass/volume] in Serum or Plasma Ferritin Lab Routine Alopecia Other fatigue Expected: 11/17/2023 (Approximate), Expires: 11/16/[address] [facility] Comment on above: Expected: 11/17/2023 (Approximate), Expires: 11/16/2024 Start: 11-17-2023 End: 11-16-2024 TSH W/REFLEX TO FT4 TSH W/REFLEX TO FT4 Lab Routine Alopecia Other fatigue Acquired hypothyroidism (CMS/HCC) Expected: 11/17/2023 (Approximate), Expires: 11/16/[address] [facility] Work Phone: Comment on above: Expected: 11/17/2023 (Approximate), Expires: 11/16/2024 Start: 10-18-2023 Influenza vaccination Influenza Vacc ine (#1) [facility] Start: 08-16-2023 Influenza vaccination Influenza Vacc ine (#1) [facility] Comment on above: Postponed from 10/17 (Patient Refused) Cytology Cervical or vaginal smear or scraping study Pap Smear Pathology and Cytology Routine Well woman exam with routine gynecological exam Ordered: 12/07/[address] [facility] Work Phone: Comment on above: Ordered: 12/07/2023 Human papilloma viru s DNA [Presence] in Unspecified specimen by Probe with amplification HPV DNA probe, amplified Microbiology Routine Well woman exam with routine gynecological exam Ordered: 12/07/[address] [facility] Comment on above: Ordered: 12/07/2023 Immunizations Immunization Date Immunization Notes Care Provider Ronaldo romo 12-20-2020 Pfizer Purple Cap SARS-CoV-2 Vaccination Jayro Mcbride [employer] Work Phone: [facility] 11-29-2020 Pfizer Purple Cap SARS-CoV-2 Vaccination Jayro Mcbride [employer] OFFICER Work Phone: [facility] 08-24-2017 tetanus toxoid, redu devon diphtheria toxoid, and acellular pertussis vaccine, adsorbed Jayro Mcbride JUVENILE CORRECTIONS OFFICER Work Phone: [facility] 09-05-1996 diphtheria, tetanus toxoids and acellular pertussis vaccine, unspecified formulation Jayro Mcbride JUVENILE CORRECTIONS OFFICER Work Phone: [facility] 09-05-1996 measles, mumps and rubella virus vaccine Jayro Laneconniekenia JUVENILE CORRECTIONS OFFICER Work Phone: [facility] Payers Date Payer Category Payer Private Health Insurance [employer] [id number] 2022 Unknown [employer] [id number] 2022-Present [phone] [place] [address] [id number] 2022 Unknown [id number] 1990 Unknown [id number] .2.593 1990 Unknown [id number] [id number] .2.9 1990 Unknown [id number] [id number] .2.9 1990 Unknown [id number] 2.16.840.1.259003.3.579 .2.9 1990 Unknown [id number] [id number] .2.1258 1990 Unknown [id number] [id number] .2.9 1990 Unknown [id number] .2.1259 1959 Unknown [id number] Social History Date Type Detail Facility Start: 12-19-2022 End: 08-28-2023 Tobacco smoking status NHIS Ex-smoker [facility] are Start: 11-26-2015 End: 07-22-2022 History [...] file N [facility] Start: 11-17-2023 End: 05-04-2024 Alcoholic beverage intake Current drinker of alcohol (finding) [facility] Start: 11-17-2023 Alcohol Comment caffeine intak e: 1 cup daily [facility] Start: 08-28-2023 Alcohol Comment caffeine intake: [facility] How often to you hav e a drink containing alcohol? 2-4 times a month [facility] Do you feel stress - tense, restless, nervous, or anxious, or unable to sleep at night because your mind is troubled all the time - these days [OSQ] Not at all [facility] Clinical Notes 11-17-2023 to 05-04-2024 Jayro Mcbride, JUVENILE CORRECTIONS OFFICER - 05/04/2024 4:00 PM EDTSusan Spitler, STERILE PROCESS COORDINATOR - 03/14/2024 3:20 PM ESTSusan Spitler, STERILE PROCESS COORDINATOR - 12/07/2023 3:40 PM EDTTelephone Encounter - Artemiochuck Leanne - 11/20/2023 4:21 PM EDT Note [...] smoke or drink alcohol. 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 documented in this encounter [facility] 03-14-2024 History of Presen t illness Narrative [...] Problems Past Medical History: Diagnosis Date Asthma ([facility]/HCC) 1994 Disease of thyroid gland ([facility]) 2002 Miscarriage 01/26/2023 HISTORY PAST MEDICAL HISTORY SOCIAL HISTORY Past Medical History: Diagnosis Date Asthma (CMS/HCC) 1994 Disease of thyroid gland ([facility]/HCC) 2002 Miscarriage 01/26/2023 Social History Tobacco [...] nursing note reviewed. Exam conducted with a dynamite packing machine feeder present. Vitals: Estimated body mass index is 35.35 kg/m as calculated from the following: Height as of 11/17/23: 5' 6 . Weight as of this encounter: 219 lb. BP: 110/70 No LMP recorded. ASSESSMENT & PLAN ICD-10-CM 1. Postoperative examination Z09 Patient presents for post operative appointment from [facility] on 02/26/2024. Patient voiced that she was good for 6 days and then had a gush of blood. Patient voiced she is still losing tissue. Patient voiced that she had some questions in regards to insurance coverage for surgical procedure and Distribution Agent aware and will reach out to insurance to further look into. Answered patients questions in regards to conceiving in the future. Patient to return to office for annual and PRN. Documented by Che Huitron LPN on behalf of: GAIL Morales documented in this encounter [facility] 12-07-2023 History of Presen t illness Narrative [...] Problems Past Medical History: Diagnosis Date Asthma (CMS/[facility]) 1994 Disease of thyroid gland ([facility]) 2002 Miscarriage 01/26/2023 HISTORY PAST MEDICAL HISTORY SOCIAL HISTORY Past Medical History: Diagnosis Date Asthma ([facility]) 1994 Disease of thyroid gland ([facility]) 2002 Miscarriage 01/26/2023 Social History Tobacco [...] nursing note reviewed. Exam conducted with a dynamite packing machine feeder present. Vitals: Estimated body mass index is [...] well and has complaints of uterine pain fci through cycle. Patient to have US obtained on day 14 or 15 of cycle. Pap was obtained without difficulty. Orders Placed This Encounter Procedures HPV DNA probe, amplified Follow Up: Patient is to return in one year for annual unless needed otherwise. Documented by Che Huitron LPN on behalf of: David Escobedo DO documented in this encounter [facility] 11-20-2023 Telephone encount er Note Pt called back and I gave her the message :) [facility] 11-20-2023 Miscellaneous Notes Formattin g of this note might be different from the original. Pt called back and I gave her the message :) MyChart message: Your labs are all normal range. Could definitely be a side effect of the semaglutide your using. documented in this encounter [facility] 11-20-2023 Telephone encount er Note MyChart message: Your labs are all normal range. Could definitely be a side effect of the semaglutide your using. [facility] 11-17-2023 History of Presen t illness Narrative [...] gestational age documented [facility] [...] pital DATE CREATED AUTHOR AUTHOR'S ORGANIZ ATION 05/06/2024 [facility] dical Specialists [facility] Care Teams (unrecognized sec tion and content) Floor Manager Relationship Specialty Start Date End Date Joceline Willson MD [address] [place] [address] PCP - General Family Medicine 12/19/22 Floor Manager Relationship Specialty Start Date End Date Joceline Willson MD [address] [place] [address] PCP - General Family Medicine 12/19/22 Floor Manager Relationship Specialty Start Date End Date Joceline Willson MD [address] [place] [address] PCP - General Family Medicine 12/19/22 Floor Manager Relationship Specialty Start Date End Date Joceline Willson MD [address] [place] [address] PCP - General Family Medicine 12/19/22 Floor Manager Relationship Specialty Start Date End Date Joceline Willson MD [address] [place] [address] PCP - General Family Medicine 12/19/22 Floor Manager Relationship Specialty Start Date End Date Joceline Willson MD [address] [place] [address] PCP - General Family Medicine 12/19/22 Floor Manager Relationship Specialty Start Date End Date Joceline Willson MD [address] [place] [address] PCP - General Family Medicine 12/19/22 Floor Manager Relationship Specialty Start Date End Date Joceline Willson MD [address] [place] [address] PCP - General Family Medicine 12/19/22 Floor Manager Relationship Specialty Start Date End Date Joceline Willson MD [address] [place] [address] PCP - General Family Medicine 12/19/22 Floor Manager Relationship Specialty Start Date End Date Joceline Willson MD [address] [place] [address] PCP - General Family Medicine 12/19/22 Floor Manager Relationship Specialty Start Date End Date Joceline Willson MD [address] [place] [address] PCP - General Family Medicine 12/19/22 Floor Manager Relationship Specialty Start Date End Date Joceline Willson MD [address] [place] [address] PCP - General Family Medicine 12/19/22 Reason for Visit (unrecogniz ed section and content) Reason Comments Fatigue Alopecia Reason Comments Well Women Visit Reason Comments Post-op Visit Reason Comments Annual Exam Reason Comments Med Refill FOR RECORDS PERTAINING TO PATIENTS WHO ARE [...] BE BASED ON THE PRIMARY CLINICAL RECORDS. [facility] [employer] [facility]. provides no warranty or guarantee of the accuracy or completeness of information in this document.
[2024-06-04 09:39] LABS: Thyroid Stimulating Hormone 1.029 uIU/mL (0.358-3.740)
== END 2024-06-04 08:32 | disposition home or self-care (01) ==
LOC: LAB 08:32
PROVIDERS: PCP Nurse Practitioner Family; Visit Provider Obstetrics & Gynecology
DX: E07.9 Disorder of thyroid, unspecified (principal)
CPT/HCPCS: 36415; 84443

== ENCOUNTER 2024-06-16 15:16 | Outpatient (OUT) | payer OTHER, SELFPAY ==
[2024-06-16 16:39] LABS: HCG Quantitative 936 mIU/mL
== END 2024-06-16 15:17 | disposition home or self-care (01) ==
LOC: LAB 15:17
PROVIDERS: PCP Nurse Practitioner Family; Visit Provider Obstetrics & Gynecology
DX: Z87.59 Personal history of other complications of pregnancy, childbirth and the puerperium (principal)
CPT/HCPCS: 36415; 84702

== ENCOUNTER 2024-06-22 13:02 | Emergency (ER) | payer OTHER, SELFPAY ==
[2024-06-22] VITALS (18 sets, daily range): BP systolic 114–118; BP diastolic 65–81; PULSE 69–771; TEMP 36.7; O2SAT 98–100; BMI 34.7
--- NOTE | 2024-06-22 13:09 | ECG_ITS ---
The [facility] Test Date: 2024-06-22 Pat Name: PAM ACEVES Department: Room: - Gender: Female City Wellness Coordinator: : 1990 Requested By: 1030 Order Number: [id number] Reading MD: JENNY CORADO M.D. Measurements Intervals [place] Rate: 69 P: 65 VA: 132 QRS: 81 QRSD: 78 T: 57 QT: 372 QTc: 390 Interpretive Statements 1100 Sinus rhythm 1102 Sinus arrhythmia 9110 normal ECG No previous ECG available for comparison Electronically Signed On 06-22-2024 18:14:11 EDT by JENNY CORADO M.D.
--- NOTE | 2024-06-22 13:10 | ED_ITS ---
HPI HPI - General Adult General Chief complaint: Weakness Stated complaint: CHEST PAINS Time Seen by Provider: 06/22/24 13:04 Source: patient Mode of arrival: ambulance Limitations: no limitations History of Present Illness HPI narrative: 33-year-old female presents to the emergency department for chest pain and palpitations. She was at work and the entire episode lasted about 3 minutes. She developed a sharp pain in the left upper part of her chest which lasted for about 1-1/2 minutes. She felt like her heart was racing and then she felt like she was going to pass out but she did not. By the time she arrived here her symptoms had gone away completely. No trauma or fever. Related Data Home Medications ?Medication ?Instructions ?Recorded ?Confirmed levothyroxine 175 mcg tablet 175 mcg PO DAILY 01/24/23 06/22/24 Allergies Allergy/AdvReac Type Severity Reaction Status Date / Time No Known Drug Allergies Allergy Verified 02/24/24 09:18 Opioid HPI Opioid Management Most Recent Opioid Data: Last Pain Scale 3 02/26/24, 09:04 Review of Systems ROS Narrative A ten point review of systems is negative except as noted above. [facility] Medical History (Updated 06/22/24 @ 15:23 by Hammad Blanca MD) Missed (~02/2024) ?O02.1 - Missed (ICD-10) Miscarriage (~2023) ?O03.9 - Complete or unspecified spontaneous without complication (ICD-10) COVID-19 (01/2024) ?U07.1 - COVID-19 (ICD-10) Asthma ?J45.909 - Unspecified asthma, uncomplicated (ICD-10) Migraine ?G43.909 - Migraine, unspecified, not intractable, without status migrainosus (ICD-10) Heartburn ?R12 - Heartburn (ICD-10) Hypothyroidism ?E03.9 - Hypothyroidism, unspecified (ICD-10) Surgical History (Updated 02/24/24 @ 09:23 by Patience Shin NP) History of tonsillectomy ?Z90.89 - Acquired absence of other organs (ICD-10) Family History (Updated 02/24/24 @ 09:23 by Patience Shin NP) Other Family history of DVT Family history of cancer Family history of myocardial infarction Social History (Updated 02/24/24 @ 09:19 by Patience Shin NP) Within the past year, how often did you have a drink containing alcohol: monthly or less Smoking status: Former smoker Non-prescribed substance use: denies use 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 General: The patient appears well and in no apparent distress. Patient is resting comfortably on cart. Skin: Warm, dry, no pallor noted. There is no rash noted. Head: Normocephalic, atraumatic Eye: Normal conjunctiva, no drainage Ears, Nose, Mouth, and Throat: oral mucosa is moist. Nares patent. Cardiovascular: Regular Rate and Rhythm Respiratory: Patient is in no distress, no accessory muscle use, lungs are clear to auscultation, no wheezing, rales or rhonchi Back: non-tender GI: Soft and nontender Musculoskeletal: The patient has no evidence of calf tenderness, no pitting edema, symmetrical pulses noted bilaterally Neurological: A&O x4, normal speech Psychiatric: Cooperative Constitutional Vital Signs, click to edit/add: Last Vital Signs Temp 98.1 F 06/22/24 13:04 Pulse 79 06/22/24 15:10 Resp 21 H 06/22/24 15:10 BP 118/68 06/22/24 14:46 Pulse Ox 98 06/22/24 15:10 O2 Del Method Room Air 06/22/24 13:04 Course Vital Signs Vital signs: Vital Signs Blood Pressure 114/81 06/22/24 13:01 Temperature 98.1 F 06/22/24 13:04 Pulse Rate 79 06/22/24 15:10 Respiratory Rate 21 H 06/22/24 15:10 Blood Pressure 118/68 06/22/24 14:46 Pulse Oximetry 98 06/22/24 15:10 Oxygen Delivery Method Room Air 06/22/24 13:04 Medical Decision Making MDM Narrative Medical decision making narrative: Her workup including 2 sets of troponin is negative. D-dimer is negative. Her symptoms have not recurred and she has had no dysrhythmias here. She will follow-up with her physician and is discharged home. Treatment diagnosis and follow-up were discussed with the patient. Differential Diagnosis Differential Diagnosis: Cardiac dysrhythmia, myocardial infarction, pulmonary embolus Lab Data Lab results reviewed: Yes I reviewed the patient's lab results Labs: Lab Results 06/22/24 06/22/24 Range/Units 13:24 14:35 WBC 8.0 (4.0-11.0) 10^3/uL RBC 4.58 (4.20-5.40) 10^6/uL Hgb 13.9 (12.0-16.0) g/dL Hct 39.4 (36.0-48.0) % MCV 86.0 (81.0-99.0) fL MCH 30.3 (26.7-34.0) pg MCHC 35.3 H (29.9-35.2) g/dL RDW 11.9 (11.0-15.0) % Plt Count 258 (150-450) 10^3/uL MPV 10.4 (9.5-13.5) fL Neut % (Auto) 59.5 (43.0-75.0) % Lymph % (Auto) 23.5 (20.5-60.0) % [place] % (Auto) 10.9 (1.7-12.0) % Eos % (Auto) 4.5 (0.9-7.0) % Baso % (Auto) 1.1 (0.2-2.0) % Neut # (Auto) 4.8 (1.4-6.5) 10^3/uL Lymph # (Auto) 1.9 (1.2-3.8) 10^3/uL [place] # (Auto) 0.9 H (0.3-0.8) 10^3/uL Eos # (Auto) 0.4 (0.0-0.7) 10^3/uL Baso # (Auto) 0.1 (0.0-0.1) 10^3/uL Abs Immat Gran (auto) 0.04 H (0.00-0.03) 10^3/uL Imm/Tot Granulo (auto) 0.5 (0.0-0.5) % D-Dimer 0.21 (<=0.59) mg/L FEU Sodium 137 (136-145) mmol/L Potassium 3.5 (3.5-5.1) mmol/L Chloride 103 (98-107) mmol/L Carbon Dioxide 29.4 (21.0-32.0) mmol/L Anion Gap 8.1 BUN 11.0 (7.0-18.0) mg/dL Creatinine 0.77 (0.55-1.02) mg/dL Est GFR ( Amer) >60 (>=60 mL/min/1.73m^2) Est GFR (Non-Af Amer) >60 (>=60 mL/min/1.73m^2) BUN/Creatinine Ratio 14.3 Glucose 81 (74-106) mg/dL Calcium 9.5 (8.5-10.1) mg/dL Troponin I High Sens <4.0 L <4.0 L (4.0-51.3) pg/mL Imaging Data Chest x-ray: Radiologist's impression: No acute process ECG Data Attestation: I personally reviewed and interpreted this ECG as follows: (EKG on my interpretation shows sinus rhythm with rate of 69 and no acute change) Discharge Plan Discharge Chief Complaint: Weakness Clinical Impression: Chest pain, Palpitations, Near syncope Patient Disposition: Home, Self-Care Time of Disposition Decision: 15:22 Condition: Good Mode of Transportation: Private Vehicle Prescriptions / Home Meds: No Action levothyroxine 175 mcg tablet 175 mcg PO DAILY Print Language: Luxembourgish Instructions: Chest Pain (ED), Heart Palpitations (ED), Syncope (ED) Referrals: Genna Mcbride NP [Primary Care Provider] - 1 week
[2024-06-22 13:37] LABS: Basophils Absolute Auto 0.1 10^3/uL (0.0-0.1); Basophils Percent Auto 1.1 % (0.2-2.0); Eosinophils Absolute Auto 0.4 10^3/uL (0.0-0.7); Eosinophils Percent Auto 4.5 % (0.9-7.0); Hematocrit 39.4 % (36.0-48.0); Hemoglobin 13.9 g/dL (12.0-16.0); Immature Granulocytes Abs Auto 0.04 10^3/uL (0.00-0.03); Immature Granulocytes Pct Auto 0.5 % (0.0-0.5); Lymphocytes Absolute Auto 1.9 10^3/uL (1.2-3.8); Lymphocytes Percent Auto 23.5 % (20.5-60.0); Mean Corpuscular HGB Conc 35.3 g/dL (29.9-35.2); Mean Corpuscular Hemoglobin 30.3 pg (26.7-34.0); Mean Platelet Volume 10.4 fL (9.5-13.5); Monocytes Absolute Auto 0.9 10^3/uL (0.3-0.8); Monocytes Percent Auto 10.9 % (1.7-12.0); Neutrophils Absolute Auto 4.8 10^3/uL (1.4-6.5); Neutrophils Percent Auto 59.5 % (43.0-75.0); Platelet Count 258 10^3/uL (150-450); Red Blood Count 4.58 10^6/uL (4.20-5.40); Red Cell Distribution Width 11.9 % (11.0-15.0)
[2024-06-22 13:58] LABS: Anion Gap 8.1; BUN Creatinine Ratio 14.3; Calcium 9.5 mg/dL (8.5-10.1); Carbon Dioxide 29.4 mmol/L (21.0-32.0); Chloride 103 mmol/L (98-107); Estimated GFR (African America >60 (>=60 mL/min/1.73m^2); Estimated GFR (Non-African Ame >60 (>=60 mL/min/1.73m^2); Glucose 81 mg/dL (74-106); Potassium 3.5 mmol/L (3.5-5.1); Sodium 137 mmol/L (136-145); Troponin I High Sensitivity <4.0 pg/mL (4.0-51.3)
[2024-06-22 14:55] LABS: D Dimer 0.21 mg/L FEU (<=0.59)
[2024-06-22 15:24] LABS: Troponin I High Sensitivity <4.0 pg/mL (4.0-51.3)
== END 2024-06-22 15:53 | disposition home or self-care (01) ==
PROVIDERS: Emergency Provider Emergency Medicine; PCP Nurse Practitioner Family
DX: R07.9 Chest pain, unspecified (principal); R00.2 Palpitations; R55 Syncope and collapse; Z87.891 Personal history of nicotine dependence
CPT/HCPCS: 36415; 71045; 80048; 84484; 85025; 85378; 93005; 99285

== ENCOUNTER 2024-06-24 10:49 | Outpatient (RCR) | payer OTHER, SELFPAY ==
[2024-06-24 11:38] LABS: HCG Quantitative 368 mIU/mL
[2024-07-07 15:57] LABS: HCG Quantitative 117 mIU/mL
[2024-07-14 15:55] LABS: HCG Quantitative 78 mIU/mL
== END 2024-07-18 10:55 | disposition home or self-care (01) ==
LOC: LAB 10:49
PROVIDERS: PCP Nurse Practitioner Family; Visit Provider Obstetrics & Gynecology
DX: O36.80X0 Pregnancy with inconclusive fetal viability, not applicable or unspecified (principal); Z87.59 Personal history of other complications of pregnancy, childbirth and the puerperium
CPT/HCPCS: 36415; 84702

== ENCOUNTER 2024-06-27 12:41 | Outpatient (OUT) | payer OTHER, SELFPAY ==
--- NOTE | 2024-06-27 12:44 | US_ITS ---
The [address] [address] Patient Name: PAM ACEVES MRN: [id number] date: 1990 Sex: F Assigned Patient Location: US Current Patient Location: US Accession/Order Number: [id number] Exam Date: 06/27/2024 13:27 Report Date: 06/27/2024 13:34 At the request of: DAVID BARCLAY DO Procedure: US thyroid THYROID ULTRASOUND CLINICAL DATA: Thyroid disease COMPARISON: None The right thyroid lobe is slightly larger than left measuring 5.5 x 2.1 x 1.7 cm. Left lobe measures 4.4 x 1.4 x 1.5 cm . The isthmus measures 3 - 4 mm. Thyroid echotexture is diffusely heterogeneous on both sides. There is slight hyperemia. No discrete cystic or solid nodules are identified. US/US thyroid IMPRESSION: HETEROGENEOUS THYROID. ALTHOUGH NONSPECIFIC, THIS CAN BE SEEN WITH GRAVES' DISEASE AND AUTOIMMUNE THYROIDITIS. CORRELATION WITH LABORATORY DATA IS SUGGESTED. Impression dictated by: Johana Lackey M.D. 06/27/2024 1:34 PM Dictation Location: [place] [address] Electronically authenticated by: [id number] Y Date: 06/27/2024 13:34
== END 2024-06-27 12:42 | disposition home or self-care (01) ==
LOC: US 12:41
PROVIDERS: PCP Nurse Practitioner Family; Visit Provider Obstetrics & Gynecology
DX: E07.9 Disorder of thyroid, unspecified (principal); Z30.011 Encounter for initial prescription of contraceptive pills
CPT/HCPCS: 76536

== ENCOUNTER 2024-07-21 15:21 | Outpatient (RCR) | payer OTHER, SELFPAY | END 2024-08-16 09:46 | disposition home or self-care (01) | LOC: LAB 15:21 | PROVIDERS: PCP Nurse Practitioner Family; Visit Provider Obstetrics & Gynecology | DX: Z51.81 Encounter for therapeutic drug level monitoring (principal); Z87.59 Personal history of other complications of pregnancy, childbirth and the puerperium; O36.80X0 Pregnancy with inconclusive fetal viability, not applicable or unspecified | CPT/HCPCS: 36415; 84702 ==

== ENCOUNTER 2024-08-22 19:59 | Emergency (ER) | payer OTHER, SELFPAY ==
--- OUTSIDE RECORDS SUMMARY | 2024-08-08 15:20 | XMS_ITS ---
Author Name Auto Generated Organization OHIP Care Team Providers Care Inspector Chief Name Role Phone GERMAN LYONS Attending Unavailable JAYRO COREY Attending Unavailable JAYRO COREY Attending Unavailable JAYRO COREY Attending Unavailable JAYRO COREY Attending Unavailable JAYRO COREY Attending Unavailable JAYRO COREY Attending Unavailable DAVID BARCLAY Attending Unavailable PROBLEMS No Problem Records Found PROCEDURES No Procedure Records Found RESULTS No Result Records Found ALLERGIES No Allergies Records Found ENCOUNTERS ADMIT/DISCHARGE ACCOUNT NUMBER ADMITTING ENCOUNTER CLASS LOCATION SOURCE 08/08/2024/ 5 [id number] Ambulatory Building:[facility] 06/29/2024/ 5 [id number] Ambulatory Building:[facility] 06/20/2024/ 5 [id number] Ambulatory Building:[facility] 05/04/2024/ 5 [id number] Ambulatory Building:[facility] 03/14/2024/ 5 [id number] Ambulatory Building:[facility] 12/07/2023/ 4 [id number] Ambulatory Building:[facility] 11/17/2023/ 4 [id number] Ambulatory Building:[facility] 08/28/2023/ 4 [id number] Ambulatory Building:R [facility] PAYERS ENCOUNTER GUARANTOR PAYER SUBSCRIBER SOURCE 08/08/2024 PAM MILLERB: [place] [address]Iyt: (HP) Primary Insurance:HEALTH SCOPEPolicy Number: [id number] e Date:2022-02-16 PAM MILLERB: [id number] [place] [address] [facility] 06/29/2024 PAM MILLERB: [place] [address]Dlr: (HP) Primary Insurance:HEALTH SCOPEPolicy Number: [id number] e Date:2022-02-16 PAM MILLERB: [id number] [place] [address] [facility] 06/20/2024 PAM MILLERB: [id number] [place] [address]Jpq: (HP) Primary Insurance:HEALTH SCOPEPolicy Number: [id number] e Date:2022-02-16 PAM MILLERB: [id number] [place] [address] [facility] 05/04/2024 PAM MILLERB: [id number] [place] [address]Mqm: (HP) Primary Insurance:HEALTH SCOPEPolicy Number: [id number] e Date:2022-02-16 PAM FARMERBERGDOB: [id number] [place] [address] [facility] 03/14/2024 PAM TORRESRAYKENNYBERGDOB: [place] [address]Jlq: (HP) Primary Insurance:HEALTH SCOPEPolicy Number: [id number] e Date:2022-02-16 PAM FARMERBERGDOB: [id number] [place] [address] [facility] 12/07/2023 PAMAnshu FARMERBERGDOB: [place] [address]Bdc: (HP) Primary Insurance:HEALTH SCOPEPolicy Number: [id number] e Date:2022-02-16 PAM FARMERPARASDOB: [id number] [place] [address] [facility] 11/17/2023 PAMAnshu FARMERBERGDOB: [place] [address]Tjk: (HP) Primary Insurance:HEALTH SCOPEPolicy Number: [id number] e Date:2022-02-16 PAM FARMERPARASDOB: [id number] [place] [address] [facility] 08/28/2023 PAM DARIANBERGDOB: [place] [address]Ueg: (HP) Primary Insurance:HEALTH SCOPEPolicy Number: [id number] e Date:2022-02-16 PAM DARIANBERGDOB: [id number] [place] [address] [facility]
[2024-08-22] VITALS (10 sets, daily range): BP systolic 108–128; BP diastolic 79–82; PULSE 56–76; TEMP 37.3; O2SAT 98–100; BMI 36.3
--- NOTE | 2024-08-22 20:13 | ED.DIZZY1 ---
HPI - Dizziness General Chief Complaint: Dizziness Stated Complaint: DIZZINESS, NECK AND EAR PAIN Time Seen by Provider: 08/22/24 20:08 Source: patient Mode of arrival: walk-in History of Present Illness HPI Narrative: The patient is a 32-year-old female with a history of thyroid storm who presented to the emergency department tonight with her fianc? secondary to having an episode of chest pain. Apparently at 6:30 PM she was sitting on her couch and without any specific activity had acute onset of chest pain. It was a pressure type sensation. It was a 4 out of 10. It came and went over a 10-minute time period. It did not radiate or move anywhere. It was not associated with diaphoresis, nausea, or shortness of breath. She has no known history of coronary artery disease. No history of hypertension, high cholesterol, diabetes, or tobacco abuse. No premature coronary artery disease in the family. On her way into the emergency department she had acute onset of dizziness. She states it was not a rotational vertigo but rather a lightheadedness. She stated it was not preceded by chest pain or shortness of breath. She did not have any blurry vision, double vision, loss of vision. No nausea. Patient stated that she was only drank 1 glass of water today and that was before she decided to come to the emergency department otherwise she has not ate or drink all day. She states that she has been indoors over the last 2 days when I asked if she had any alcohol use over the August weekend and if she was staying well-hydrated in the 90+ degree temperatures. Patient does have a history of thyroid storm. She is currently euthyroid per the patient on levothyroxine. The patient states when she had a thyroid storm she had palpitations and it does not feel like that at all today. She states however that she has been having problems with her thyroid and that Dr. Escobedo told her that there was some abnormalities and she has an ultrasound ordered. Patient does admit that she has had a lot of stress related to health issues. Her primary care doctor started her on Prozac but told her she only had to take it when she needed it. She has not taken it over the last 2 days. Related Data Home Medications ?Medication ?Instructions ?Recorded ?Confirmed levothyroxine 175 mcg tablet 175 mcg PO DAILY 01/24/23 08/22/24 fluoxetine 20 mg tablet 20 mg PO PRN anxiety 08/22/24 hydroxyzine HCl 25 mg tablet 25 mg PO PRN anxiety 08/22/24 Allergies Allergy/AdvReac Type Severity Reaction Status Date / Time No Known Drug Allergies Allergy Verified 08/22/24 20:10 Review of Systems ROS Narrative 10 Systems were reviewed, and unless noted in the HPI, all other systems are reviewed, unremarkable, or noncontributory. PFSH PFS Medical History Missed (~02/2024) ?O02.1 - Missed (ICD-10) Miscarriage (~2023) ?O03.9 - Complete or unspecified spontaneous without complication (ICD-10) COVID-19 (01/2024) ?U07.1 - COVID-19 (ICD-10) Asthma ?J45.909 - Unspecified asthma, uncomplicated (ICD-10) Migraine ?G43.909 - Migraine, unspecified, not intractable, without status migrainosus (ICD-10) Heartburn ?R12 - Heartburn (ICD-10) Hypothyroidism ?E03.9 - Hypothyroidism, unspecified (ICD-10) Surgical History History of tonsillectomy ?Z90.89 - Acquired absence of other organs (ICD-10) Family History Other Family history of DVT Family history of cancer Family history of myocardial infarction Social History Within the past year, how often did you have a drink containing alcohol: monthly or less Smoking status: Former smoker Non-prescribed substance use: denies use 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 Prior to touching the patient, I asked for consent to examine the patient.? General: Alert and oriented, well nourished, mild distress. Eye: PERRL, EOMI, normal conjunctiva. HENT: Normocephalic, normal hearing, moist oral mucosa, no scleral icterus, no sinus tenderness. Neck: Supple, non-tender, no carotid bruits, no JVD, no lymphadenopathy. Lungs: Clear to auscultation and percussion, non-labored respiration. Heart: Normal rate, regular rhythm, no murmur, gallop or edema. Abdomen: Soft, non-tender, non-distended, normal bowel sounds, no masses. Musculoskeletal: Normal range of motion and strength, no tenderness or swelling. Skin: Skin is warm, dry and pink, no rashes or lesions. Neurologic: Awake, alert, and oriented X3, CN II-XII intact. Psychiatric: Cooperative, appropriate mood and affect.? Following the conclusion of the examination, I have washed my hands thoroughly after removing examination gloves. Constitutional Vital Signs, click to edit/add: Last Vital Signs Temp 99.2 F 08/22/24 20:03 Pulse 66 08/22/24 20:03 Resp 16 08/22/24 20:03 BP 128/80 08/22/24 20:03 Pulse Ox 100 08/22/24 20:03 O2 Del Method Room Air 08/22/24 20:03 Course Course Hospital Course: When the patient arrived she was hooked up to a cardiac care nurse and an EKG was performed. awake overnight monitor reveals a sinus rhythm with a ventricular rate in the 60s. There is no ectopy or arrhythmia appreciated. Morphology appears unremarkable. Laboratories were ordered and the patient was going to be given a liter normal saline bolus. Vital Signs Vital signs: Vital Signs Temperature 99.2 F 08/22/24 20:03 Pulse Rate 66 08/22/24 20:03 Respiratory Rate 16 08/22/24 20:03 Blood Pressure 128/80 08/22/24 20:03 Pulse Oximetry 100 08/22/24 20:03 Oxygen Delivery Method Room Air 08/22/24 20:03 Temperature 99.2 F 08/22/24 20:03 Pulse Rate 66 08/22/24 20:03 Respiratory Rate 16 08/22/24 20:03 Blood Pressure 128/80 08/22/24 20:03 Pulse Oximetry 100 08/22/24 20:03 Oxygen Delivery Method Room Air 08/22/24 20:03 MDM - Dizziness MDM Narrative Medical decision making narrative: In reviewing the patient's history, I cannot PERC the patient out for a pulmonary embolism. Therefore additional testing does not need to be performed. I did calculate a HEART score on the patient. The heart score on the patient is 1. Therefore the patient's low risk. Her MACE risk is 0.9 to 1.7%. Discussed the case with the patient. I discussed all of her laboratories with her. All questions were answered to her satisfaction. In regards to the dizziness and back of head pain it has been going on since May I did ask her to discuss with her doctor if maybe it could be occipital neuralgia. Patient states that she has been doing some research on her own and also feels that it may be that. Differential Diagnosis Differential diagnosis: Likely orthostatic hypotension and other (Anxiety, acute coronary syndrome, pulmonary embolism) Medical Records Attestation: I reviewed the patient's medical records. Lab Data Attestation: I reviewed the patient's lab results. Labs: Lab Results 08/22/24 Range/Units 08:34 WBC 7.7 (4.0-11.0) 10^3/uL RBC 4.81 (4.20-5.40) 10^6/uL Hgb 14.5 (12.0-16.0) g/dL Hct 41.3 (36.0-48.0) % MCV 85.9 (81.0-99.0) fL MCH 30.1 (26.7-34.0) pg MCHC 35.1 (29.9-35.2) g/dL RDW 12.0 (11.0-15.0) % Plt Count 277 (150-450) 10^3/uL MPV 10.6 (9.5-13.5) fL Neut % (Auto) 55.5 (43.0-75.0) % Lymph % (Auto) 25.3 (20.5-60.0) % [place] % (Auto) 10.9 (1.7-12.0) % Eos % (Auto) 6.4 (0.9-7.0) % Baso % (Auto) 1.6 (0.2-2.0) % Neut # (Auto) 4.3 (1.4-6.5) 10^3/uL Lymph # (Auto) 1.9 (1.2-3.8) 10^3/uL [place] # (Auto) 0.8 (0.3-0.8) 10^3/uL Eos # (Auto) 0.5 (0.0-0.7) 10^3/uL Baso # (Auto) 0.1 (0.0-0.1) 10^3/uL Abs Immat Gran (auto) 0.02 (0.00-0.03) 10^3/uL Imm/Tot Granulo (auto) 0.3 (0.0-0.5) % Sodium 143 (136-145) mmol/L Potassium 4.1 (3.5-5.1) mmol/L Chloride 109 H (98-107) mmol/L Carbon Dioxide 24.7 (21.0-32.0) mmol/L Anion Gap 13.4 BUN 19.0 H (7.0-18.0) mg/dL Creatinine 0.85 (0.55-1.02) mg/dL Est GFR ( Amer) >60 (>=60 mL/min/1.73m^2) Est GFR (Non-Af Amer) >60 (>=60 mL/min/1.73m^2) BUN/Creatinine Ratio 22.4 Glucose 117 H (74-106) mg/dL Calcium 9.6 (8.5-10.1) mg/dL Total Bilirubin 0.3 (0.2-1.0) mg/dL AST 13 L (15-37) U/L ALT 15 (14-59) U/L Alkaline Phosphatase 58 (46-116) U/L Troponin I High Sens 4.0 (4.0-51.3) pg/mL Total Protein 6.7 (6.4-8.2) g/dL Albumin 3.4 (3.4-5.0) g/dL Globulin 3.3 g/dL Albumin/Globulin Ratio 1.0 TSH & Free T4 Interp 1.286 (0.358-3.740) uIU/mL ECG Data Attestation: I personally reviewed and interpreted this ECG as follows: ECG interpretation date: 08/22/24 ECG interpretation time: 20:17 Interpretation: Twelve-lead EKG reveals a sinus rhythm with a ventricular of 63 bpm. The ME interval and QRS duration are normal. QTc is not prolonged. [place] is normal. No evidence of ST segment elevation or depressions this infarction or ischemia. Summary: Normal EKG. Discharge Plan Discharge Chief Complaint: Dizziness Clinical Impression: Chest pain, Dizziness Patient Disposition: Home, Self-Care Time of Disposition Decision: 21:11 Condition: Good Mode of Transportation: Private Vehicle Prescriptions / Home Meds: No Action levothyroxine 175 mcg tablet 175 mcg PO DAILY fluoxetine 20 mg tablet 20 mg PO PRN (Reason: anxiety) hydroxyzine HCl 25 mg tablet 25 mg PO PRN (Reason: anxiety) Print Language: Armenian Instructions: Chest Pain (ED), Dizziness (ED) Additional Instructions: Please make sure you follow-up with your primary care doctor for additional testing. At this time your testing is negative and you can safely be worked up for the chest pain as an outpatient. Your thyroid studies and everything looked well. Please make sure you keep your fluid status elevated and stay well-hydrated especially during these hot days. Referrals: Genna Mcbride NP [Primary Care Provider] - 1 week
--- NOTE | 2024-08-22 20:26 | ECG_ITS ---
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 Measurements Intervals [place] Rate: 63 P: 53 MA: 126 QRS: 82 QRSD: 80 T: 49 QT: 388 QTc: 395 Interpretive Statements 1100 Sinus rhythm 9110 normal ECG Compared to ECG 06/22/2024 13:07:48 Sinus arrhythmia no longer present Electronically Signed On 08-22-2024 20:39:04 EDT by JENNY CORADO M.D.
[2024-08-22 20:39] LABS: Hematocrit 41.3 % (36.0-48.0); Hemoglobin 14.5 g/dL (12.0-16.0); Immature Granulocytes Abs Auto 0.02 10^3/uL (0.00-0.03); Immature Granulocytes Pct Auto 0.3 % (0.0-0.5); Lymphocytes Absolute Auto 1.9 10^3/uL (1.2-3.8); Mean Corpuscular HGB Conc 35.1 g/dL (29.9-35.2); Mean Corpuscular Hemoglobin 30.1 pg (26.7-34.0); Mean Corpuscular Volume 85.9 fL (81.0-99.0); Platelet Count 277 10^3/uL (150-450); Red Blood Count 4.81 10^6/uL (4.20-5.40); White Blood Count 7.7 10^3/uL (4.0-11.0)
[2024-08-22] MEDS: 0.9 % SODIUM CHLORIDE 1,000 ML 1000 ML IV (20:42)
[2024-08-22 20:54] LABS: Alanine Aminotransferase 15 U/L (14-59); Albumin Globulin Ratio 1.0; Albumin Level 3.4 g/dL (3.4-5.0); Alkaline Phosphatase 58 U/L (46-116); Anion Gap 13.4; Aspartate Amino Transferase 13 U/L (15-37); Blood Urea Nitrogen 19.0 mg/dL (7.0-18.0); Calcium 9.6 mg/dL (8.5-10.1); Carbon Dioxide 24.7 mmol/L (21.0-32.0); Chloride 109 mmol/L (98-107); Estimated GFR (African America >60 (>=60 mL/min/1.73m^2); Estimated GFR (Non-African Ame >60 (>=60 mL/min/1.73m^2); Globulin 3.3 g/dL; Glucose 117 mg/dL (74-106); Potassium 4.1 mmol/L (3.5-5.1); Sodium 143 mmol/L (136-145); Total Protein 6.7 g/dL (6.4-8.2)
[2024-08-22 21:03] LABS: TSH W/ REFLEX FT4 1.286 uIU/mL (0.358-3.740)
== END 2024-08-22 21:30 | disposition home or self-care (01) ==
PROVIDERS: Emergency Provider Emergency Medicine; PCP Nurse Practitioner Family
DX: R07.9 Chest pain, unspecified (principal); R42 Dizziness and giddiness; E05.91 Thyrotoxicosis, unspecified with thyrotoxic crisis or storm; Z79.890 Hormone replacement therapy; Z87.891 Personal history of nicotine dependence
CPT/HCPCS: 36415; 80053; 84443; 84484; 84703; 85025; 93005; 99285

== ENCOUNTER 2024-09-13 23:24 | Emergency (ER) | payer OTHER, SELFPAY ==
--- OUTSIDE RECORDS SUMMARY | 2024-09-13 23:48 | XMS_ITS | CCD ---
Author Organization [facility] Care Team Providers Care Coding Educator Name Role Phone DR DAVID ESCOBEDO Admitting Unavailable FANNY, DR HERANNDEZ Attending Unavailable DR LE MENDOZA Primary Care Unavailable FANNY, DR HERNANDEZ Consulting Unavailable Anamika CLEARY, Joceline Primary Care Provider Reed CASH APPLICATIONS ANALYST, Jayro Unavailable David Escobedo DO R Unavailable KYLEIGH LYONS Attending Unavailable JAYRO MCBRIDE Attending Unavailable REED, JAYRO Attending Unavailable JAYRO MCBRIDE Attending Unavailable REED, JAYRO Attending Unavailable REED, JAYRO Attending Unavailable DAVID ESCOBEDO Attending Unavailable Medications Current Medications Medication Drug Class(es) Dates Sig (Normalized) Sig (Original) desogestrel 0.15 mg / ethinyl estradiol 0.03 mg oral tablet (13 sources) Progestin, Estrogen Start: 06-27-2024 End: 07-25-2024 take 1 tablet by mouth once daily, then take 1 tablet by mouth once daily desogestrel-ethinyl estradiol (Apri) 0.15-30 MG-MCG tablet Indications: Thyroid disease , Encounter for initial prescription of contraceptive pills Take 1 tablet by mouth Daily for 28 days Take 1 tablet by mouth daily, start medication as directed by provider as discussed via phone call. 28 tablet 6 06/27/2024 Active Ethinyl Estradiol / Ferrous fumarate / Norethindrone (20 sources) Estrogen Start: 05-30-2024 take 1 tablet by mouth once daily, then take 1 tablet by mouth once daily norethindrone-ethin yl estradiol (03/07) 1-20 MG-MCG tablet Indications: History of miscarriage Take 1 tablet by mouth Daily for 28 days Take 1 tablet by mouth daily 28 tablet 11 05/30/2024 Active Start: 05-30-2024 End: 06-27-2024 take 1 tablet by mouth once daily, then take 1 tablet by mouth once daily norethindrone-ethinyl estradiol (Junel F E 03/07) 1-20 MG-MCG tablet Indications: History of miscarriage Take 1 tablet by mouth Daily for 28 days Take 1 tablet by mouth daily 28 tablet 11 05/30/2024 06/27/2024 Active FLUoxetine 20 mg oral tablet (5 sources) Serotonin Reuptake Inhibitor Start: 08-08-2024 take 1 tablet by mouth once daily FLUoxetine (PROzac) 20 MG tablet Indications: Anxiety Take 1 tablet (20 mg) by mouth Daily 90 tablet 08/08/2024 Active hydrOXYzine hydrochloride 25 mg oral tablet (5 sources) Antihistamine Start: 08-08-2024 End: 09-07-2024 take 1 tablet by mouth three times daily as needed for anxiety hydrOXYzine HCl (Atarax) 25 MG tablet Indications: Anxiety Take 1 tablet (25 mg) by mouth 3 (three) times a day as needed for anxiety 90 tablet 08/08/2024 Active ketoconazole 20 mg/ml medicated shampoo (5 sources) Azole Antifungal Start: 08-08-2024 ketoconazole (NIZOral) 2 % shampoo Indications: Dermatitis Apply topically 2 (two) times a week 120 mL 1 08/08/2024 Active levothyroxine sodium 0.2 mg oral tablet (20 sources) l-Thyroxine Start: 08-10-2024 take 1 tablet by mouth three times weekly levothyroxine (Synthroid, Levoxyl) 200 MCG tablet Indications: Acquired hypothyroidism Take 1 tablet (200 mcg) by mouth 3 (three) times a week 12 tablet 1 08/10/2024 Active Start: 08-10-2024 take 1 tablet by ariel th three times weekly levothyroxine (Synthroid, Levoxyl) 200 MCG tablet Indications: Acquired hypothyroidism Take 1 tablet (200 mcg) by mouth 3 (three) times a week 12 tablet 1 08/10/2024 Active Start: 2024 take 1 tablet by ariel th four times weekly levothyroxine (Synthroid, Levoxyl) 175 MCG tablet Indications: Acquired hypothyroidism Take 1 tablet (175 mcg) by mouth 4 (four) times a week 16 tablet 1 2024 Active Start: 06-22-2024 End: 06-24-2024 take 1 tablet by mouth once daily levothyroxine (Synthroid, Levoxyl) 200 MCG tablet Indications: Acquired hypothyroidism Take 1 tablet (200 mcg) by mouth Daily Take on an empty stomach 90 tablet 06/24/2024 Active Start: 05-09-2024 End: 05-09-2025 take 1 tablet by mouth before mealtime levothyroxine (Synthroid) 50 MCG tablet Indications: Thyroid disease Take 1 tablet (50 mcg) by mouth in the morning. Take before meals. 30 tablet 11 05/09/2024 06/22/2024 Discontinued (Dose adjustment) Start: 10-01-2023 End: 06-22-2024 take 1 tablet by mouth before mealtime levothyroxine (Synthroid, Levoxyl) 175 MCG tablet Indications: Hypothyroidism (acquired) TAKE 1 TABLET BY MOUTH IN THE MORNING. TAKE BEFORE MEALS 100 tablet 05/30/2024 06/22/2024 Discontinued (Dose adjustment) Start: 01-16-2023 End: 04-26-2023 take 1 tablet [...] Translations: [Pelvic and perineal pain] 12-07-2023 Episodic Allergic reactions (2 sources) Inflammatory dermatosis; Translations: [Dermatitis, unspecified] 08-08-2024 Episodic Anxiety disorders (2 sources) Anxiety; Translations: [Anxiety disorder, unspecified] 08-08-2024 Chronic Cardiac dysrhythmias (4 sources) Tachycardia; Translations: [Tachycardia, unspecified] 06-20-2024 Episodic Conditions associated with dizziness or vertigo (4 sources) Dizziness; Translations: [Dizziness and giddiness] 06-20-2024 Episodic Genitourinary symptoms and ill-defined conditions (1 source) Abnormal urinary stream; Translations: [Other difficulties with micturition] 09-07-2024 Episodic Immunizations and screening for infectious disease [...] Translations: [Nonscarring hair loss, unspecified] 11-17-2023 Episodic Spondylosis; intervertebral disc disorders; other back problems (2 sources) Neck pain; Translations: [Cervicalgia] 08-23-2024 Episodic Thyroid disorders (10 sources) Acquired hypothyroidism; Translations: [Hypothyroidism, unspecified] 11-17-2023 Chronic Thyroid disorders (2 sources) Disorder of thyroid gland; Translations: [Disorder of thyroid, unspecified] 08-08-2024 Episodic Unclassified (5 sources) Patient on antidepressant monitoring plan Onset: 08-08-2024 08-08-2024 Unclassified (5 sources) Baseline PHQ-9 Onset: 08-08-2024 08-08-2024 Results Test Name Value Interpretation Reference Range Facility No Panel Informationon 08-09 Performing Organization Information Site ID: QPT Name: [employer] [facility] Address: [address] [place] [address], [address] [place] [place] [id number] Director: Kolby Guardado MD [facility] T4, freeon 2024 Free T4 [Mass/Vol] 1.5 ng/dL 0.8 - 1.8 ng/dL [facility] TSH W/REFLEX TO FT4on 2024 Interpretation and review of laboratory results Abnormal [facility] TSH Qn 0.2 m[IU]/L Low mIU/L [facility] Comment on above: Reference Range > or = 20 Years 0.40-4.50 Ranges First trimester 0.26-2.66 Second trimester 0.55-2.73 Third trimester 0.43-2.91 [facility] PREG QUANT HCGon 025 HCG QUANTITATIVE <1 mIU/mL [facility] Comment on above: 5-50 0.2-1 WEEK 50-500 1-2 WEEKS 100-5,000 2-3 WEEKS 500-10,000 3-4 WEEKS 1,000-50,000 4-5 WEEKS 10,000-100,000 5-6 WEEKS 15,000-200,000 6-8 WEEKS 10,000-100,000 2-[facility] 025 HCG QUANTITATIVE 35 mIU/mL [facility] Comment on above: 5-50 0.2-1 WEEK 50-500 1-2 WEEKS 100-5,000 2-3 WEEKS 500-10,000 3-4 WEEKS 1,000-50,000 4-5 WEEKS 10,000-100,000 5-6 WEEKS 15,000-200,000 6-8 WEEKS 10,000-100,000 2-[facility] 025 HCG QUANTITATIVE 78 mIU/mL [facility] Comment on above: 5-50 0.2-1 WEEK 50-500 1-2 WEEKS 100-5,000 2-3 WEEKS 500-10,000 3-4 WEEKS 1,000-50,000 4-5 WEEKS 10,000-100,000 5-6 WEEKS 15,000-200,000 6-8 WEEKS 10,000-100,000 2[facility] [address] [place] [address] Ultrasound Report Signed Patient: PAM SAN MR#: [id number] : 1990 Acct:[id number] Age/Sex: 33 / F ADM Date: 06/27/24 Loc: US Attending Dr: David Escobedo D.O. Ordering Physician: David Escobedo D.O. Date of Service: 06/27/24 Procedure(s): US thyroid Accession Number(s): [id number] cc: David sEcobedo D.O.; Jayro Mcbride NP [address] [address] Patient Name: PAM SAN MRN: [facility]:[id number] date: 1990 Sex: F Assigned Patient Location: US Current Patient Location: US Accession/Order Number: [id number] Exam Date: 06/27/2024 13:27 Report Date: 06/27/2024 13:34 At the request of: DAVID ESCOBEDO DO Procedure: US thyroid THYROID ULTRASOUND CLINICAL DATA: Thyroid disease COMPARISON: None The right thyroid lobe is slightly larger than left measuring 5.5 x 2.1 x 1.7 cm. Left lobe measures 4.4 x 1.4 x 1.5 cm . The isthmus measures 3 - 4 mm. Thyroid echotexture is diffusely heterogeneous on both sides. There is slight hyperemia. No discrete cystic or solid nodules are identified. US/US thyroid IMPRESSION: HETEROGENEOUS THYROID. ALTHOUGH NONSPECIFIC, THIS CAN BE SEEN WITH GRAVES' DISEASE AND AUTOIMMUNE THYROIDITIS. CORRELATION WITH LABORATORY DATA IS SUGGESTED. Impression dictated by: Johana Lackey M.D. 06/27/2024 1:34 PM Dictation Location: [place] [address] Electronically authenticated by: [id number] Y Date: 06/27/2024 13:34 Dictated By: Johana Lackey M.D. Signed By: 06/27/24 1336 DD/ 1334 TD/TT: Press Helper: [facility] Radiology, Radiologist, MD - 06/27/2024 [place] [address] Ultrasound Report Signed Patient: PAM SAN MR#: [id number] : 1990 Acct:[id number] Age/Sex: 33 / F ADM Date: 06/27/24 Loc: US Attending Dr: David Escobedo D.O. Ordering Physician: David Escobedo D.O. Date of Service: 06/27/24 Procedure(s): US thyroid Accession Number(s): [id number] cc: David Escobedo D.O.; Jayro Mcbride NP The [address] [address] Patient Name: PAM SAN MRN: [facility]:[id number] date: 1990 Sex: F Assigned Patient Location: US Current Patient Location: US Accession/Order Number: [id number] Exam Date: 06/27/2024 13:27 Report Date: 06/27/2024 13:34 At the request of: DAVID ESCOBEDO DO Procedure: US thyroid THYROID ULTRASOUND CLINICAL DATA: Thyroid disease COMPARISON: None The right thyroid lobe is slightly larger than left measuring 5.5 x 2.1 x 1.7 cm. Left lobe measures 4.4 x 1.4 x 1.5 cm . The isthmus measures 3 - 4 mm. Thyroid echotexture is diffusely heterogeneous on both sides. There is slight hyperemia. No discrete cystic or solid nodules are identified. US/US thyroid IMPRESSION: HETEROGENEOUS THYROID. ALTHOUGH NONSPECIFIC, THIS CAN BE SEEN WITH GRAVES' DISEASE AND AUTOIMMUNE THYROIDITIS. CORRELATION WITH LABORATORY DATA IS SUGGESTED. Impression dictated by: Johana Lackey M.D. 06/27/2024 1:34 PM Dictation Location: [place] [address] Electronically authenticated by: [id number] Y Date: 06/27/2024 13:34 Dictated By: Johana Lackey M.D. Signed By: 06/27/24 1336 DD/ 1334 TD/TT: Press Helper: [facility] Radiology Study observation (narrative) [facility] US Thyroid glandOrdered By: Radiologist Radiology on 06-27-2024 [facility] Work Phone: TB PREG QUANT HCGon 025 HCG QUANTITATIVE 368 mIU/mL [facility] Comment on above: 5-50 0.2-1 WEEK 50-500 1-2 WEEKS 100-5,000 2-3 WEEKS 500-10,000 3-4 WEEKS 1,000-50,000 4-5 WEEKS 10,000-100,000 5-6 WEEKS 15,000-200,000 6-8 WEEKS 10,000-100,000 2-3 MONTHS [facility] TB PREG QUANT HCGon 025 HCG QUANTITATIVE 936 mIU/mL [facility] Comment on above: 5-50 0.2-1 WEEK 50-500 1-2 WEEKS 100-5,000 2-3 WEEKS 500-10,000 3-4 WEEKS 1,000-50,000 4-5 WEEKS 10,000-100,000 5-6 WEEKS 15,000-200,000 6-8 WEEKS 10,000-100,000 2-3 MONTHS [facility] PREG QUANT HCGon 025 HCG QUANTITATIVE 2021 mIU/mL [facility] Comment on above: 5-50 0.2-1 WEEK 50-500 1-2 WEEKS 100-5,000 2-3 WEEKS 500-10,000 3-4 WEEKS 1,000-50,000 4-5 WEEKS 10,000-100,000 5-6 WEEKS 15,000-200,000 6-8 WEEKS 10,000-100,000 2-3 MONTHS [facility] ALL THYROID STIM HORMONEon 0 - TSH Qn 1.029 m[IU]/L [facility] PREG QUANT HCGon 025 HCG QUANTITATIVE 4187 mIU/mL [facility] Comment on above: 5-50 0.2-1 WEEK 50-500 1-2 WEEKS 100-5,000 2-3 WEEKS 500-10,000 3-4 WEEKS 1,000-50,000 4-5 WEEKS 10,000-100,000 5-6 WEEKS 15,000-200,000 6-8 WEEKS 10,000-100,000 2-3 MONTHS [facility] PREG QUANT HCGon 025 HCG QUANTITATIVE 4020 mIU/mL [facility] Comment on above: 5-50 0.2-1 WEEK 50-500 1-2 WEEKS 100-5,000 2-3 WEEKS 500-10,000 3-4 WEEKS 1,000-50,000 4-5 WEEKS 10,000-100,000 5-6 WEEKS 15,000-200,000 6-8 WEEKS 10,000-100,000 2-3 MONTHS [facility] PREG QUANT HCGon 025 HCG QUANTITATIVE 2873 mIU/mL [facility] Comment on above: 5-50 0.2-1 WEEK 50-500 1-2 WEEKS 100-5,000 2-3 WEEKS 500-10,000 3-4 WEEKS 1,000-50,000 4-5 WEEKS 10,000-100,000 5-6 WEEKS 15,000-200,000 6-8 WEEKS 10,000-100,000 2-3 MONTHS [facility] PREG QUANT HCGon 025 HCG QUANTITATIVE 1411 mIU/mL [facility] Comment on above: 5-50 0.2-1 WEEK 50-500 1-2 WEEKS 100-5,000 2-3 WEEKS 500-10,000 3-4 WEEKS 1,000-50,000 4-5 WEEKS 10,000-100,000 5-6 WEEKS 15,000-200,000 6-8 WEEKS 10,000-100,000 2-3 MONTHS [facility] PREG QUANT HCGon 025 HCG QUANTITATIVE 1449 mIU/mL [facility] Comment on above: 5-50 0.2-1 WEEK 50-500 1-2 WEEKS 100-5,000 2-3 WEEKS 500-10,000 3-4 WEEKS 1,000-50,000 4-5 WEEKS 10,000-100,000 5-6 WEEKS 15,000-200,000 6-8 WEEKS 10,000-100,000 2-3 MONTHS [facility] PREG QUANT HCGon 025 HCG QUANTITATIVE 45 mIU/mL [facility] Comment on above: 5-50 0.2-1 WEEK 50-500 1-2 WEEKS 100-5,000 2-3 WEEKS 500-10,000 3-4 WEEKS 1,000-50,000 4-5 WEEKS 10,000-100,000 5-6 WEEKS 15,000-200,000 6-8 WEEKS 10,000-100,000 2-3 MONTHS [facility] PREG QUANT HCGon 025 HCG QUANTITATIVE 5 mIU/mL [facility] Comment on above: 5-50 0.2-1 WEEK 50-500 1-2 WEEKS 100-5,000 2-3 WEEKS 500-10,000 3-4 WEEKS 1,000-50,000 4-5 WEEKS 10,000-100,000 5-6 WEEKS 15,000-200,000 6-8 WEEKS 10,000-100,000 2-[address] [facility] OB TRANSVAGINALon [address] [address] Ultrasound Report Signed Patient: PAM SAN MR#: [id number] : 1990 Acct:[id number] Age/Sex: 33 / F ADM Date: 03/16/24 Loc: US Attending Dr: David Escobedo D.O. Ordering Physician: David Escobedo D.O. Date of Service: 03/16/24 Procedure(s): US OB transvaginal Accession Number(s): [id number] cc: David Escobedo D.O.; Jayro Mcbride NP [place] [address] Patient Name: PAM SAN MRN: [facility]:[id number] date: 1990 Sex: F Assigned Patient Location: US Current Patient Location: US Accession/Order Number: [id number] Exam Date: 03/16/2024 16:09 Report Date: 03/16/2024 [...] M.D. Signed By: 03/16/241941 DD/ 38 TD/TT: Press Helper: [facility] Radiology, Radiologist, MD - 03/16/2024 [place] [address] Ultrasound Report Signed Patient: PAM SAN MR#: [id number] : 1990 Acct:[id number] Age/Sex: 33 / F ADM Date: 03/16/24 Loc: US Attending Dr: David Escobedo D.O. Ordering Physician: David Escoebdo D.O. Date of Service: 03/16/24 Procedure(s): US OB transvaginal Accession Number(s): [id number] cc: David Escobedo D.O.; Jayro Mcbride NP The [place] [address] Patient Name: PAM SAN MRN: [facility]:[id number] date: 1990 Sex: F Assigned Patient Location: US Current Patient Location: US Accession/Order Number: [id number] Exam Date: 03/16/2024 16:09 Report Date: 03/16/2024 [...] M.D. Signed By: 03/16/241941 DD/ 38 TD/TT: Press Helper: [facility] Radiology Study observation (narrative) [facility] US OB TRANSVAGINALOrdered By : Radiologist Radiology on 03-16-2024 [facility] Work Phone: ALL CBC WITH AUTO DIFFon BASOPHILS ABSOLUTE AUTO 0.1 N [facility] Basophils/100 WBC (Bld) 1.8 % 0.2 - 2.0 % [facility] Eosinophils/100 WBC (Bld) 6.1 % 0.9 - 7.0 % [facility] Erythrocyte distribution width (RBC) [Ratio] 12 % 11.0 - 15.0 % [facility] Hematocrit (Bld) [Volume fraction] 41.5 % 36.0 - 48.0 % [facility] Hemoglobin (Bld) [Mass/Vol] 14.2 g/dL 12.0 - 16.0 g/dL [facility] IMMATURE GRANULOCYTES ABS AUTO 0.05 High [facility] Immature granulocytes/100 WBC (Bld) 0.6 % High 0.0 - 0.5 % [facility] Interpretation and review of laboratory results Abnormal [facility] LYMPHOCYTES ABSOLUTE AUTO 2.4 [facility] Lymphocytes/100 WBC (Bld) 31.3 % 20.5 - 60.0 % [facility] MCH (RBC) [Entitic mass] 30.1 pg 26.7 - 34.0 pg [facility] MCHC (RBC) [Mass/Vol] 34.2 g/dL 29.9 - 35.2 g/dL [facility] MCV (RBC) [Entitic vol] 88.1 fL 81.0 - 99.0 fL [facility] MONOCYTES ABSOLUTE AUTO 0.6 N [facility] Monocytes/100 WBC (Bld) 7.5 % 1.7 - 12.0 % [facility] NEUTROPHILS ABSOLUTE AUTO 4.1 [facility] Neutrophils/100 WBC (Bld) 52.7 % 43.0 - 75.0 % [facility] Platelet mean volume (Bld) [Entitic vol] 9.9 fL 9.5 - 13.5 fL [facility] TBH EO # 0.5 [facility] TB PLT 286 [facility] TB RBC 4.71 [facility] WBC 7.7 [facility] PREG QUANT HCGon 025 HCG QUANTITATIVE 4176 mIU/mL [facility] Comment on above: 5-50 0.2-1 WEEK 50-500 1-2 WEEKS 100-5,000 2-3 WEEKS 500-10,000 3-4 WEEKS 1,000-50,000 4-5 WEEKS 10,000-100,000 5-6 WEEKS 15,000-200,000 6-8 WEEKS 10,000-100,000 2-[facility]ANT HCGon 025 HCG QUANTITATIVE 4654 mIU/mL [facility] Comment on above: 5-50 0.2-1 WEEK 50-500 1-2 WEEKS 100-5,000 2-3 WEEKS 500-10,000 3-4 WEEKS 1,000-50,000 4-5 WEEKS 10,000-100,000 5-6 WEEKS 15,000-200,000 6-8 WEEKS 10,000-100,000 2-[facility]REG QUANT HCGon 024 HCG QUANTITATIVE 5388 mIU/mL [facility] Comment on above: 5-50 0.2-1 WEEK 50-500 1-2 WEEKS 100-5,000 2-3 WEEKS 500-10,000 3-4 WEEKS 1,000-50,000 4-5 WEEKS 10,000-100,000 5-6 WEEKS 15,000-200,000 6-8 WEEKS 10,000-100,000 2-3 MONTHS [facility] PREG QUANT HCGon 024 HCG QUANTITATIVE 4079 mIU/mL [facility] Comment on above: 5-50 0.2-1 WEEK 50-500 1-2 WEEKS 100-5,000 2-3 WEEKS 500-10,000 3-4 WEEKS 1,000-50,000 4-5 WEEKS 10,000-100,000 5-6 WEEKS 15,000-200,000 6-8 WEEKS 10,000-100,000 2-3 MONTHS [facility] PREG QUANT HCGon 024 HCG QUANTITATIVE 2981 mIU/mL [facility] Comment on above: 5-50 0.2-1 WEEK 50-500 1-2 WEEKS 100-5,000 2-3 WEEKS 500-10,000 3-4 WEEKS 1,000-50,000 4-5 WEEKS 10,000-100,000 5-6 WEEKS 15,000-200,000 6-8 WEEKS 10,000-100,000 2-3 MONTHS [facility] PREG QUANT HCGon 024 HCG QUANTITATIVE 2239 mIU/mL [facility] Comment on above: 5-50 0.2-1 WEEK 50-500 1-2 WEEKS 100-5,000 2-3 WEEKS 500-10,000 3-4 WEEKS 1,000-50,000 4-5 WEEKS 10,000-100,000 5-6 WEEKS 15,000-200,000 6-8 WEEKS 10,000-100,000 2-3 MONTHS [facility] PREG QUANT HCGon 024 HCG QUANTITATIVE 158 mIU/mL [facility] Comment on above: 5-50 0.2-1 WEEK 50-500 1-2 WEEKS 100-5,000 2-3 WEEKS 500-10,000 3-4 WEEKS 1,000-50,000 4-5 WEEKS 10,000-100,000 5-6 WEEKS 15,000-200,000 6-8 WEEKS 10,000-100,000 2-3 MONTHS [facility] PREG QUANT HCGon 024 HCG QUANTITATIVE 79 mIU/mL [facility] Comment on above: 5-50 0.2-1 WEEK 50-500 1-2 WEEKS 100-5,000 2-3 WEEKS 500-10,000 3-4 WEEKS 1,000-50,000 4-5 WEEKS 10,000-100,000 5-6 WEEKS 15,000-200,000 6-8 WEEKS 10,000-100,000 2-3 MONTHS CLIN[facility] IGP,APTIMA HPV,AGE GDLNon AGE GDLN ACOG TESTING Note . [facility] Comment on above: TESTS RESULT FLAG UN ITS REF RANGE LAB Clinician Provided Cytology Information Source.............Cervix;Endocervix No. of containers..01 ThinPrep Vial Age Algo ACOG Wendy... 30-65 FLAG LEGEND: L-Low Normal,H-High Normal,LL-Alert Low,HH-Alert High <-Panic Low,>-Panic High,A-Abnormal,AA-Critical Abnormal Performed at: 01 =G [facility] [address] [address] Chanel Francois MD, HPV APTIMA Negative Negative [facility] Comment on above: This nucleic acid am plification test detects fourteen high- risk HPV types (16,18,31,33,35,39,45,51,52,56,58,59,66,68) without differentiation. Performed at: =G - [facility] [place] [id number] Access Spec: Chanel Francois MD, Phone: [phone] Performed at: - [facility] [id number] Access Spec: Chanel Francois MD, Phone: [phone] IGP, APTIMA HPV, RFX 16/18,45 Note . [facility] Comment on above: TESTS RESULT FLAG UN ITS REF RANGE LAB DIAGNOSIS: 02 NEGATIVE FOR INTRAEPITHELIAL LESION OR MALIGNANCY. Specimen adequacy: 02 Satisfactory for evaluation. Endocervical and/or squamous metaplastic cells (endocervical component) are present. Performed by: 02 Vega Madden, Patient Placement Coordinator ([facility]) . 02 Note: Note 02 [...] <-Panic Low,>-Panic High,A-Abnormal,AA-Critical Abnormal Performed at: [address] [place] [address] Chanel Francois MD, BRUSH-SPATULA CERVIX [facility]IX [facility]ANT HCGon 024 HCG QUANTITATIVE 6 mIU/mL [facility] Comment on above: 5-50 0.2-1 WEEK 50-500 1-2 WEEKS 100-5,000 2-3 WEEKS 500-10,000 3-4 WEEKS 1,000-50,000 4-5 WEEKS 10,000-100,000 5-6 WEEKS 15,000-200,000 6-8 WEEKS 10,000-100,000 2-3 [facility] PAP ACOG PANEL 2: 30 to 65on 11-26-2021 . . Normal [facility] Comment on above: Result Comment: Perf ormed at: WB Performed By: #### [id number] #### [facility] [address] [place] [address] Dr. Florencia Carpenter Age Gdln ACOG Testing 30-65 Normal [facility] Comment on above: Performed By: #### [id number] #### [facility] [address] [place] [address] [address] Florencia Carpenter DIAGNOSIS: Comment Normal [facility] Comment on above: Result Comment: NEGA TIVE FOR INTRAEPITHELIAL LESION OR MALIGNANCY. Performed at: WB Performed By: #### [id number] #### [facility] [address] [place] [address] [address] Florencia Carpenter HPV Aptima Negative Normal Negative [facility] Comment on above: Result Comment: This nucleic acid amplification test detects fourteen high-risk HPV types (16,18,31,33,35,39,45,51,52,56,58,59,66,68) without differentiation. Performed at: =G Performed By: #### [id number] #### [facility] [address] [place] [address] [address] Florencia Carpenter Methodology: Comment Normal [facility] Comment on above: Result Comment: This liquid based ThinPrep(R) pap test was screened with the use of an image guided system. Performed at: WB Performed By: #### [id number] #### [facility] [address] [place] [address] [address] Florencia Carpenter Note: Comment Normal [facility] Comment on above: Result Comment: The Pap smear is a screening test designed to aid in the detection of premalignant and malignant conditions of the uterine cervix. It is not a diagnostic procedure and should not be used as the sole means of detecting cervical cancer. Both false-positive and false-negative reports do occur. . Performed at: WB Performed By: #### [id number] #### [facility] [address] [place] [address] [address] Florencia Carpenter Performed by: Comment Normal [facility] Comment on above: Result Comment: Ermelinda Ricketts, Patient Placement Coordinator (ASCP) Performed at: WB Performed By: #### [id number] #### [facility] [address] [place] [address] [address] Florencia Carpenter Specimen adequacy: Comment Normal [facility] Comment on above: Result Comment: Sati sfactory for evaluation. Endocervical and/or squamous metaplastic cells (endocervical component) are present. Performed at: WB Performed By: #### [id number] #### [facility] [address] [place] [address] [address] Florencia Carpenter Vital Signs Date Time Vital Sign Value Performing Clinician Eulalia giang 08-08-2024 15:29040 Body height 167.6 cm Jayro Mcbride CASH APPLICATIONS ANALYST Work Phone: [facility] 08-08-2024 15:29040 Body mass index (BMI) [Ratio] 36.41 kg/m2 Jayro Mcbride CASH APPLICATIONS ANALYST Work Phone: [facility] 08-08-2024 15:29040 Body weight 102.33 kg Jayro Mcbride CASH APPLICATIONS ANALYST Work Phone: [facility] 08-08-2024 15:29-040 Diastolic blood pressure 70 mm[Hg] Jayro Mcbride CASH APPLICATIONS ANALYST Work Phone: [facility] 08-08-2024 15:29-040 Heart rate 81 /min Jayro Mcbride CASH APPLICATIONS ANALYST Work Phone: [facility] 08-08-2024 15:29-0400 SaO2% (BldA) [Mass fraction] 99 % Jayro Mcbride CASH APPLICATIONS ANALYST Work Phone: [facility] 08-08-2024 15:29-0400 Systolic blood pressure 128 mm[Hg] Jayro Mcbride CASH APPLICATIONS ANALYST Work Phone: [facility] 06-29-2024 15:34-0400 Body height 167.6 cm Jayro Mcbride CASH APPLICATIONS ANALYST Work Phone: [facility] 06-29-2024 15:34-0400 Body mass index (BMI) [Ratio] 35.96 kg/m2 Jayro Mcbride CASH APPLICATIONS ANALYST Work Phone: [facility] 06-29-2024 15:34-0400 Body weight 101.06 kg Jayro Mcbride CASH APPLICATIONS ANALYST Work Phone: [facility] 06-29-2024 15:34-0400 Diastolic blood pressure 70 mm[Hg] Jayro Mcbride CASH APPLICATIONS ANALYST Work Phone: [facility] 06-29-2024 15:34-0400 Heart rate 94 /min Jayro Mcbride CASH APPLICATIONS ANALYST Work Phone: [facility] 06-29-2024 15:34-0400 SaO2% (BldA) [Mass fraction] 98 % Jayro Mcbride CASH APPLICATIONS ANALYST Work Phone: [facility] 06-29-2024 15:34-0400 Systolic blood pressure 122 mm[Hg] Jayro Mcbride CASH APPLICATIONS ANALYST Work Phone: [facility] 06-20-2024 13:31-0400 Body height 167.6 cm Jayro Mcbride CASH APPLICATIONS ANALYST Work Phone: [facility] 06-20-2024 13:31-0400 Body mass index (BMI) [Ratio] 35.02 kg/m2 Jayro Mcbride CASH APPLICATIONS ANALYST Work Phone: [facility] 06-20-2024 13:31-0400 Body weight 98.43 kg Jayro Mcbride CASH APPLICATIONS ANALYST Work Phone: [facility] 06-20-2024 13:31-0400 Diastolic blood pressure 70 mm[Hg] Jayro Mcbride CASH APPLICATIONS ANALYST Work Phone: [facility] 06-20-2024 13:31-0400 Heart rate 118 /min Jayro Mcbride CASH APPLICATIONS ANALYST Work Phone: [facility] 06-20-2024 13:31-0400 SaO2% (BldA) [Mass fraction] 98 % Jayro Mcbride CASH APPLICATIONS ANALYST Work Phone: [facility] 06-20-2024 13:31-0400 Systolic blood pressure 138 mm[Hg] Jayro Mcbride CASH APPLICATIONS ANALYST Work Phone: [facility] 05-04-2024 15:46-0400 Body height 167.6 cm Jayro Mcbride CASH APPLICATIONS ANALYST Work Phone: [facility] 05-04-2024 15:46-0400 Body mass index (BMI) [Ratio] 35.02 kg/m2 Jayro Mcbride CASH APPLICATIONS ANALYST Work Phone: [facility] 05-04-2024 15:46-0400 Body temperature 99.39 [degF] Jayro Mcbride CASH APPLICATIONS ANALYST Work Phone: [facility] 05-04-2024 15:46-0400 Body weight 98.43 kg Jayro Mcbride CASH APPLICATIONS ANALYST Work Phone: [facility] 05-04-2024 15:46-0400 Diastolic blood pressure 60 mm[Hg] Jayro Mcbride CASH APPLICATIONS ANALYST Work Phone: [facility] 05-04-2024 15:46-0400 Heart rate 102 /min Jayro Mcbride CASH APPLICATIONS ANALYST Work Phone: [facility] 05-04-2024 15:46-0400 SaO2% (BldA) [Mass fraction] 98 % Jayro Mcbride CASH APPLICATIONS ANALYST Work Phone: [facility] 05-04-2024 15:46-0400 Systolic blood pressure 120 mm[Hg] Jayro Mcbride CASH APPLICATIONS ANALYST Work Phone: [facility] 03-14-2024 15:22-0500 Body mass index (BMI) [Ratio] 35.35 kg/m2 Kyleigh Lyons PA Work Phone: [facility] 03-14-2024 15:22-0500 Body weight 99.34 kg Kyleigh Lyons PA Work Phone: [facility] 03-14-2024 15:22-0500 Diastolic blood pressure 70 mm[Hg] Kyleigh Lyons PA Work Phone: [facility] 03-14-2024 15:22-0500 Systolic blood pressure 110 mm[Hg] Kyleigh Lyons PA Work Phone: [facility] 12-07-2023 16:37-0400 Body mass index (BMI) [Ratio] 31.31 kg/m2 David Fanny DO Work Phone: [facility] 12-07-2023 16:37-0400 Body weight 88 kg David Fanny DO Work Phone: [facility] 12-07-2023 16:37-0400 Diastolic blood pressure 78 mm[Hg] David Fanny DO Work Phone: [facility] 12-07-2023 16:37-0400 Systolic blood pressure 114 mm[Hg] David Fanny DO Work Phone: [facility] 11-17-2023 15:26-0400 Body height 167.6 cm Jayro Mcbride CASH APPLICATIONS ANALYST Work Phone: [facility] 11-17-2023 15:26-0400 Body mass index (BMI) [Ratio] 30.09 kg/m2 Jayro Mcbride CASH APPLICATIONS ANALYST Work Phone: [facility] 11-17-2023 15:26-0400 Body weight 84.55 kg Jayro Mcbride CASH APPLICATIONS ANALYST Work Phone: [facility] 11-17-2023 15:26-0400 Diastolic blood pressure 86 mm[Hg] Jayro Mcbride CASH APPLICATIONS ANALYST Work Phone: [facility] 11-17-2023 15:26-0400 Heart rate 96 /min Jayro Laneconniekenia CASH APPLICATIONS ANALYST Work Phone: [facility] 11-17-2023 15:26-0400 SaO2% (BldA) [Mass fraction] 96 % Jayro Mcbride CASH APPLICATIONS ANALYST Work Phone: [facility] 11-17-2023 15:26-0400 Systolic blood pressure 118 mm[Hg] Jayro Mcbride CASH APPLICATIONS ANALYST Work Phone: [facility] Encounters Encounter Date Encounter Type Care Provider Facility Start: 09-12-2024 End: 09-12-2024 Telephone encounter Joceline Willson MD Work Phone: [facility] Start: 09-08-2024 End: 09-08-2024 ambulatory KYLEIGH LYONS Not Available Start: 09-07-2024 End: 09-07-2024 Orders Only Jayro Laneconniekenia CASH APPLICATIONS ANALYST Work Phone: [facility] Comment on above: Abnormal urinary str eam (Primary Dx) Start: 08-23-2024 End: 08-23-2024 Orders Only Jayro Lanetheresa CASH APPLICATIONS ANALYST Work Phone: [facility] Comment on above: Neck pain (Primary D x); Vertigo Start: 08-08-2024 End: 08-08-2024 Office outpatient visit 25 minutes Jayro Lanetheresa CASH APPLICATIONS ANALYST Work Phone: [facility] Comment on above: Acquired hypothyroid ism (Primary Dx); Anxiety; Dermatitis Start: 08-08-2024 End: 08-08-2024 Bamboo flowsheet Jayro Lanetheresa CASH APPLICATIONS ANALYST Work Phone: [facility] Start: 08-08-2024 End: 08-08-2024 Bamboo flowsheet Jayro Lanetheresa CASH APPLICATIONS ANALYST Work Phone: [facility] Start: 08-08-2024 End: 08-08-2024 Transcribe Orders David Escobedo DO Work Phone: Referring Physician Comment on above: Thyroid disease ([facility] Dx) Start: 08-03-2024 End: 08-03-2024 Clinisync Result Encounter David Escobedo DO Work Phone: [facility]solic[facility] Start: 08-03-2024 End: 08-03-2024 Clinisync Result Encounter David Fanny DO Work Phone: [facility] Start: 07-21-2024 End: 07-21-2024 Clinisync Result Encounter David Fanny DO Work Phone: [facility] Start: 07-21-2024 End: 07-21-2024 Clinisync Result Encounter David Fanny DO Work Phone: [facility] Start: 07-14-2024 End: 07-14-2024 Clinisync Result Encounter David Fanny DO Work Phone: [facility] Start: 07-14-2024 End: 07-14-2024 Clinisync Result Encounter David Fanny DO Work Phone: [facility] Start: 06-29-2024 End: 06-29-2024 Office outpatient visit 15 minutes Jayro Reed CASH APPLICATIONS ANALYST Work Phone: [facility] Comment on above: Acquired hypothyroid ism (CMS/HCC) (Primary Dx); Tachycardia Start: 06-29-2024 End: 06-29-2024 ambulatory JAYRO REED Not Available Start: 06-29-2024 End: 06-29-2024 Bamboo flowsheet Jayro Reed CASH APPLICATIONS ANALYST Work Phone: [facility] Start: 06-29-2024 End: 06-29-2024 Bamboo flowsheet Jayro Reed CASH APPLICATIONS ANALYST Work Phone: [facility] Start: 06-27-2024 End: 06-27-2024 Clinisync Result Encounter David Fanny DO Work Phone: [facility] Start: 06-27-2024 End: 06-27-2024 Clinisync Result Encounter David Fanny DO Work Phone: [facility] Start: 06-24-2024 End: 06-24-2024 Clinisync Result Encounter David Fanny DO Work Phone: [facility] Start: 06-24-2024 End: 06-24-2024 Clinisync Result Encounter David Fanny DO Work Phone: [facility] Start: 06-22-2024 End: 2024 Follow-up encounter Jayro Reed CASH APPLICATIONS ANALYST Work Phone: [facility] Comment on above: Acquired hypothyroid ism (Primary Dx) Start: 06-22-2024 End: 06-22-2024 Telephone encounter Joceline Willson MD Work Phone: [facility] Start: 06-20-2024 End: 06-20-2024 Bamboo flowsheet Jayro Reed CASH APPLICATIONS ANALYST Work Phone: [facility] Start: 06-20-2024 End: 06-20-2024 Bamboo flowsheet Jayro Lanetheresa CASH APPLICATIONS ANALYST Work Phone: [facility] Start: 06-20-2024 End: 06-20-2024 Office outpatient visit 25 minutes Jayro Reed CASH APPLICATIONS ANALYST Work Phone: [facility] Comment on above: Dizziness (Primary D x); Tachycardia Start: 06-20-2024 End: 06-20-2024 ambulatory JAYRO REED Not Available Start: 06-16-2024 End: 06-16-2024 Clinisync Result Encounter David Fanny DO Work Phone: [facility] Start: 06-16-2024 End: 06-16-2024 Clinisync Result Encounter David Fanny DO Work Phone: [facility] Start: 06-09-2024 End: 06-09-2024 Clinisync Result Encounter David Fanny DO Work Phone: [facility] Start: 06-09-2024 End: 06-09-2024 Clinisync Result Encounter David Fanny DO Work Phone: [facility] Start: 06-04-2024 End: 06-04-2024 Clinisync Result Encounter David Fanny DO Work Phone: [facility] Start: 06-04-2024 End: 06-04-2024 Clinisync Result Encounter David Fanny DO Work Phone: [facility] Start: 06-02-2024 End: 06-02-2024 Clinisync Result Encounter David Fanny DO Work Phone: [facility] Start: 06-02-2024 End: 06-02-2024 Clinisync Result Encounter David Fanny DO Work Phone: [facility] Start: 05-30-2024 End: 05-30-2024 Refill Susu Miller CASH APPLICATIONS ANALYST Work Phone: [facility] Comment on [...] End: 05-04-2024 Patient encounter status Jayro Mcbride CASH APPLICATIONS ANALYST Work Phone: [facility] Work Phone: Start: 05-04-2024 End: 05-04-2024 Periodic preventive med est patient 18-39 yrs Jayro Mcbride CASH APPLICATIONS ANALYST Work Phone: [facility] Comment on above: Encounter for wellne ss [...] Office outpatient visit 15 minutes Jayro Mcbride CASH APPLICATIONS ANALYST Work Phone: [facility] Comment on above: Alopecia; Other fatigue; Acquired hypothyroidism (CMS/HCC) Start: 11-17-2023 End: 11-17-2023 ambulatory JAYRO MCBRIDE Not Available Start: 11-17-2023 End: 11-17-2023 Bamboo flowsheet Jayro Mcbride CASH APPLICATIONS ANALYST Work Phone: [facility] Start: 11-17-2023 End: 11-17-2023 Bamboo flowsheet Jayro Laneconniekenia CASH APPLICATIONS ANALYST Work Phone: [facility] Start: 03-28-2023 Clinisync Result Encounter David Fanny DO Work Phone: [facility] Start: 03-28-2023 Clinisync Result Encounter David Fanny DO Work Phone: [facility] Start: 11-19-2021 End: 11-19-[address] DAVID ESCOBEDO Facility: Procedures Date Procedure Procedure Detail Performing Clinician Start: 08-08-2024 Assay of free thyroxine Jayro Reed CASH APPLICATIONS ANALYST Work Phone: Start: 08-08-2024 TSH W/REFLEX TO FT4 Raquel Lanetheresa CASH APPLICATIONS ANALYST Work Phone: Start: 08-03-2024 [facility] Core y Fanny DO Work Phone: Start: 07-21-2024 [facility] PREG QUANT HCG Core y Fanny DO Work Phone: Start: 07-14-2024 [facility] PREG QUANT HCG Core y Fanny DO Work Phone: Start: 06-27-2024 Us soft tissue head & neck real time imge docm David Fanny DO Work Phone: Start: 06-24-2024 [facility] PREG QUANT HCG Core y Fanny DO Work Phone: Start: 06-16-2024 [facility] PREG QUANT HCG Core y Fanny DO Work Phone: Start: 06-09-2024 [facility] PREG QUANT HCG Core y Fanny DO Work Phone: Start: 06-04-2024 ALL THYROID STIM HORMONE David Fanny DO Work Phone: Start: 06-02-2024 [facility] PREG QUANT HCG Core y Fanny [...] [Identifier] in Cervix by Cyto stain David Afnny DO Work Phone: Plan of Treatment Date Care Activity Detail Author Start: 11-26-2027 Screening for malign ant neoplasm of cervix [facility] Start: 12-06-2026 Screening for malign ant neoplasm of cervix Pap Smear [facility] Start: 12-12-2024 End: 12-12-2024 Patient encounter procedure 12/12/2024 3:50 PM EDT Procedure Visit [facility] CRESPO [address] [facility] [place] [id number] David Escobedo, DO [address] [place] [address] [facility] Start: 10-17-2024 Influenza vaccination [facility] Start: 09-21-2024 End: 09-21-2024 ambulatory [facility] Start: 09-20-2024 End: 09-20-2024 Patient encounter procedure [facility] Start: 09-20-2024 End: 2025 TSH W/REFLEX TO FT4 TSH W/REFLEX TO FT4 Lab Routine Acquired hypothyroidism Expected: 09/20/2024 (Approximate), Expires: 2025 [facility] Work Phone: Comment on above: Expected: 09/20/2024 (Approximate), Expires: 2025 Start: 09-14-2024 End: 09-14-2024 ambulatory [facility] Start: 09-07-2024 End: 09-07-2025 Comprehensive metabolic 2000 panel - Serum or Plasma Comprehensive metabolic panel Lab Routine Abnormal urinary stream Expected: 09/07/2024 (Approximate), Expires: 09/07/2025 [facility] Work Phone: Comment on above: Expected: 09/07/2024 (Approximate), Expires: 09/07/2025 Start: 08-08-2024 End: 08-08-2024 Patient encounter procedure 08/08/2024 3:30 PM EDT Office Visit [facility] [address] [place] [phone] Jayro Mcbride, CASH APPLICATIONS ANALYST [address] [place] [address] Arrived [facility] Comment on above: Arrived Start: 06-29-2024 End: 06-29-2024 Patient encounter procedure [facility] Comment on above: Arrived Start: 06-20-2024 End: 06-20-2025 CBC W Auto Differential panel - Blood CBC and differential Lab Routine Dizziness Tachycardia Expected: 06/20/2024 (Approximate), Expires: 06/20/2025 [facility] Work Phone: Comment on above: Expected: 06/20/2024 (Approximate), Expires: 06/20/2025 Start: 06-20-2024 End: 06-20-2025 Comprehensive metabolic 2000 panel - Serum or Plasma Comprehensive metabolic panel Lab Routine Dizziness Tachycardia Expected: 06/20/2024 (Approximate), Expires: 06/20/2025 [facility] Comment on above: Expected: 06/20/2024 (Approximate), Expires: 06/20/2025 Start: 06-20-2024 End: 06-20-2025 TSH W/REFLEX TO FT4 TSH W/REFLEX TO FT4 Lab Routine Dizziness Tachycardia Expected: 06/20/2024 (Approximate), Expires: 06/20/2025 [facility] Comment on above: Expected: 06/20/2024 (Approximate), Expires: 06/20/2025 Start: 06-20-2024 End: 06-20-2024 Patient encounter procedure 06/20/2024 1:30 PM EDT Office Visit [facility] [address] [place] [phone] Jayro Mcbride, CASH APPLICATIONS ANALYST [address] [place] [address] Arrived [facility] Comment on above: Arrived Start: 05-04-2024 End: 05-04-2024 Patient encounter procedure 05/04/2024 4:00 PM EDT Office Visit [facility] [address] [place] [phone] Jayro Mcbride, CASH APPLICATIONS ANALYST [address] [place] [address] [facility] Start: 03-14-2024 End: 03-14-2024 Patient encounter procedure 03/14/2024 3:20 PM EST Office Visit [facility] [address] [facility] [place] [address] Kyleigh Lyons PA [address] [facility] [address] [place], [place] [id number] Arrived [facility] Comment on above: Arrived Start: 02-25-2024 End: 02-25-2024 ambulatory 02/25/2024 2:00 PM EST Initial [facility] [address] [place] [address] [facility] Start: 02-25-2024 End: 02-25-2024 Professional / ancillary services management 02/25/2024 1:30 PM EST Ancillary Procedure [facility] [address] [place] [address] [facility] Start: 01-12-2024 Influenza [...] procedure 11/30/2023 10:00 AM EDT Office Visit [facility] [address] [facility] [phone] David Escobedo DO [address] [facility] [facility] [place] [address] [facility] Start: 11-17-2023 End: 11-17-2023 Patient encounter procedure 11/17/2023 3:30 PM EDT Office Visit [facility] [address] [facility] [place] [phone] Jayro Mcbride CASH APPLICATIONS ANALYST [address] [place] [facility] [address] Arrived [facility] Comment on above: Arrived Start: 11-17-2023 End: 11-16-2024 CBC W Auto Differential panel - Blood CBC and differential Lab Routine Alopecia Other fatigue Expected: 11/17/2023 (Approximate), Expires: 11/16/2024 [facility] Comment on above: Expected: 11/17/2023 (Approximate), Expires: 11/16/2024 Start: 11-17-2023 End: 11-16-2024 Ferritin [Mass/volume] in Serum or Plasma Ferritin Lab Routine Alopecia Other fatigue Expected: 11/17/2023 (Approximate), Expires: 11/16/2024 [facility] Comment on above: Expected: 11/17/2023 (Approximate), Expires: 11/16/2024 Start: 11-17-2023 End: 11-16-2024 TSH W/REFLEX TO FT4 TSH W/REFLEX TO FT4 Lab Routine Alopecia Other fatigue Acquired hypothyroidism (CMS/HCC) Expected: 11/17/2023 (Approximate), Expires: 11/16/2024 [facility] Work Phone: Comment on above: Expected: 11/17/2023 (Approximate), Expires: 11/16/2024 Start: 10-18-2023 Influenza vaccination Influenza Vacc ine (#1) [facility] Start: 08-16-2023 Influenza vaccination Influenza Vacc ine (#1) [facility] Comment on above: Postponed from 10/17 (Patient Refused) Cytology Cervical or vaginal smear or scraping study Pap Smear Pathology and Cytology Routine Well woman exam with routine gynecological exam Ordered: 12/07/2023 [facility] Work Phone: Comment on above: Ordered: 12/07/2023 Human papilloma viru s DNA [Presence] in Unspecified specimen by Probe with amplification HPV DNA probe, amplified Microbiology Routine Well woman exam with routine gynecological exam Ordered: 12/07/2023 [facility] Comment on above: Ordered: 12/07/2023 Immunizations Immunization Date Immunization Notes Care Provider Ronaldo romo 12-20-2020 Pfizer Purple Cap SARS-CoV-2 Vaccination Jayro Mcbride CASH APPLICATIONS ANALYST Work Phone: [facility] 11-29-2020 Pfizer Purple Cap SARS-CoV-2 Vaccination Jayro Mcbride CASH APPLICATIONS ANALYST Work Phone: [facility] 08-24-2017 tetanus toxoid, redu devon diphtheria toxoid, and acellular pertussis vaccine, adsorbed Jayrogilberto Mcbride CASH APPLICATIONS ANALYST Work Phone: [facility] 09-05-1996 diphtheria, tetanus toxoids and acellular pertussis vaccine, unspecified formulation Jayro Mcbride CASH APPLICATIONS ANALYST Work Phone: [facility] 09-05-1996 measles, mumps and rubella virus vaccine Jayro Mcbride CASH APPLICATIONS ANALYST Work Phone: [facility] Payers Date Payer Category Payer Private Health Insurance [id number] 2022 Unknown [employer] [id number] 2022-Present [phone] [address] [address] [place] [address] [id number] 2022 Unknown [id number] 1990 Unknown [id number] 1990 Unknown [id number] .[id number] 1990 Unknown [id number] .[id number] 1990 Unknown [id number] .[id number] 1990 Unknown [id number] .[id number] 1990 Unknown [id number] .[id number] 1990 Unknown [id number] .2.9 1990 Unknown [id number] .[id number] 1990 Unknown [id number] 1959 Unknown [id number] Social History Date Type Detail Facility Start: 12-19-2022 End: 08-28-2023 Tobacco smoking status IAIS Ex-smoker [facility] Start: 11-26-2015 End: 07-22-2022 History of tobacco use Current smoker [facility] Start: 11-26-2015 End: 07-22-2022 History of tobacco use Cigarette Smoker [facility] Start: 12-19-2022 End: 04-27-2024 Cigarettes smoked current (pack per day) - Reported 0.5 [facility] Start: 12-19-2022 End: 08-28-2023 Tobacco use and exposure Smokeless tobacco non-user [facility] Start: 02-05-2023 End: 08-28-2023 Alcohol intake Ex-drinker (finding) [facility] Start: 12-12-2022 End: 04-27-2024 Humiliation, Afraid, Rape, and Kick questionnaire [HARK] [facility] Within the last year , have [...] file [facility] Start: 11-17-2023 End: 08-08-2024 Alcoholic beverage intake Current drinker of alcohol [...] days [OSQ] Not at all [facility] Goals Date Patient Goal Desired Activity /State Personal health goal Functional Status Date Assessment Result Facility 08-08-2024 Generalized anxiety disorder 7 item (MADINA-7) [facility] Work Phone: Clinical Notes 11-17-2023 to 09-12-2024 Telephone Encounter - Lin Bullock - 09/12/2024 8:48 AM EDTTelephone Encounter - Lin Bullock - 09/12/2024 8:48 AM Dominique Mcbride NP - 08/08/2024 3:30 PM EDT Note Date & Type Note Facility 09-12-2024 Telephone encount er Note [facility] Antidepressant Medication Check-In Question 09/12/2024 8:35 AM EDT - Filed by Patient How have you been doing with taking your antidepressant medication? I haven't missed a dose What (if any) side effects are you having? Nausea Dry mouth Loss of appetite Sexual problems Headaches Feeling nervous or on edge Feeling drowsy in the daytime Would you like to talk to your doctor about your medications? No Number of side effects? (range: 0 - 12) 7 [facility] 09-12-2024 Miscellaneous Notes Formattin g of this note is different from the original. [facility] Antidepressant Medication Check-In Question 09/12/2024 8:35 AM EDT - Filed by Patient How have you been doing with taking your antidepressant medication? I haven't missed a dose What (if any) side effects are you having? Nausea Dry mouth Loss of appetite Sexual problems Headaches Feeling nervous or on edge Feeling drowsy in the daytime Would you like to talk to your doctor about your medications? No Number of side effects? (range: 0 - 12) 7 documented in this encounter [facility] 08-08-2024 History of Presen t illness Narrative Images from the original note were not included. Pam San is a 33 y.o. female presents with chief complaint of Anxiety (Needs to check her thyroid) HPI: HPI History of Present Illness The patient presents for evaluation of scalp sensitivity and anxiety. She reports experiencing significant scalp sensitivity, which she attributes to a recent thyroid storm. For approximately a week after the thyroid storm, she felt better, but her symptoms have since returned. She describes intermittent itching at the base of her scalp, accompanied by pain behind her ears and a palpable bump on the back of her head that extends down the side of her neck. Mild sensitivity on the top of her head is also noted. She has been attempting to limit her phone usage due to perceived exacerbation of her symptoms when bending over, but this is challenging due to her work commitments. Despite working two jobs, she does not perceive her life as generally stressful. She has an upcoming appointment with an annealing operator in 11/2024. Increased hormonal fluctuations have been noted recently, but she does not believe she is . She has been using Biolage shampoo and has noticed increased sweating today. She expresses concern about potential dental issues, as she has been experiencing pressure in her molars and reports teeth grinding. Her dentist advised her to consult with her primary care physician first. Elevated anxiety levels are reported, which she finds distressing. She does not believe she is depressed and has previously tried antidepressants without success. She has not experienced significant anxiety for approximately 5 years, with the exception of occasional nervousness related to job interviews. She is currently taking Prozac. She mentions shoulder discomfort, which she attributes to overuse. Additionally, sinus pain is reported, although she has not been taking her allergy medication. SUBJECTIVE: MEDICATIONS: Current Outpatient Medications Medication Instructions desogestrel-ethinyl estradiol (Apri) 0.15-30 MG-MCG tablet 1 tablet, Oral, Daily, Take 1 tablet by mouth daily, start medication as directed by provider as discussed via phone call. levothyroxine (SYNTHROID, LEVOXYL) 200 mcg, Oral, Daily, Take on an empty stomach norethindrone-ethinyl estradiol (June03/07) 1-20 MG-MCG tablet 1 tablet, Oral, Daily, Take 1 tablet by mouth daily I have reviewed and reconciled the history and medication list with the patient today. REVIEW OF SYMPTOMS: Review of Systems OBJECTIVE: Visit Vitals BP 128/70 Pulse 81 Ht 5' 6 Wt 225 lb 9.6 oz SpO2 99% BMI 36.41 kg/m OB Status Having periods Smoking Status Former BSA 2.18 m Physical Exam Vitals reviewed. HENT: Head: Normocephalic and atraumatic. Mouth/Throat: Mouth: Mucous membranes are moist. Eyes: Pupils: Pupils are equal, round, and reactive to light. Cardiovascular: Rate and Rhythm: Normal rate and regular rhythm. Pulses: Normal pulses. Heart sounds: Normal heart sounds. Pulmonary: Effort: Pulmonary effort is normal. Breath sounds: Normal breath sounds. Musculoskeletal: Cervical back: Normal range of motion and neck supple. Right lower leg: No edema. Left lower leg: No edema. Skin: General: Skin is warm and dry. Capillary Refill: Capillary refill takes less than 2 seconds. Findings: Rash present. Comments: Slight erythema noted to hair line of neck Neurological: General: No focal deficit present. Mental Status: She is alert and oriented to person, place, and time. ASSESSMENT AND PLAN: Assessment/Plan Diagnoses and all orders for this visit: Acquired hypothyroidism -on synthroid. Labs today in office Anxiety - FLUoxetine (PROzac) 20 MG tablet; Take 1 tablet (20 mg) by mouth Daily - hydrOXYzine HCl (Atarax) 25 MG tablet; Take 1 tablet (25 mg) by mouth 3 (three) times a day as needed for anxiety -initiate prozac. Educated it can take up to 4-6 weeks to see real improvement in symptoms, will add hydroxyzine to be used prn. Reviewed importance of healthy diet and exercise, stress management, and social support. Dermatitis - ketoconazole (NIZOral) 2 % shampoo; Apply topically 2 (two) times a week -initiate nizoral shampoo documented in this encounter [facility] 06-29-2024 History of Presen t illness Narrative Images from the original note were not included. Pam San is a 33 y.o. female presents with chief complaint of ER Follow-up HPI: HPI Flowsheet Row Office Visit from 06/29/2024 in [facility] FM with Jayro Mcbride NP Hospital Information ED, Hospital or Prison Facility Discharge? ED Patient has been contacted within 2 days of being seen in the ED Yes Diagnosis Hypothyrodism Discharge Date 06/22/24 Discharged To: Home Setting Discharge Hospital [facility] Engagement Admission Date 06/22/24 Medications Discharge medications reviewed and reconciled from hospital? Yes Is the patient having any side effects they believe may be caused by any medication additions or changes? No Does the patient have all medications ordered at discharge? Yes Is the patient taking all medications as directed (includes completed medication regime)? Yes Appointments Does the patient have a primary care provider? Yes Does the patient have any upcoming specialty appointments? No Self Management Does patient have home health? no Patient Teaching Does the patient have access to their discharge instructions? Yes Wrap Up SUBJECTIVE: MEDICATIONS: Current Outpatient Medications Medication Instructions desogestrel-ethinyl estradiol (Apri) 0.15-30 MG-MCG tablet 1 tablet, Oral, Daily, Take 1 tablet by mouth daily, start medication as directed by provider as discussed via phone call. levothyroxine (SYNTHROID, LEVOXYL) 200 mcg, Oral, Daily, Take on an empty stomach norethindrone-ethinyl estradiol (Junel 03/07) 1-20 MG-MCG tablet 1 tablet, Oral, Daily, Take 1 tablet by mouth daily I have reviewed and reconciled the history and medication list with the patient today. REVIEW OF SYMPTOMS: Review of Systems OBJECTIVE: Visit Vitals BP 122/70 Pulse 94 Ht 5' 6 Wt 222 lb 12.8 oz SpO2 98% BMI 35.96 kg/m OB Status Having periods Smoking Status Former BSA 2.17 m Physical Exam Vitals reviewed. HENT: Head: Normocephalic and atraumatic. Nose: Nose normal. Mouth/Throat: Mouth: Mucous membranes are moist. Eyes: Pupils: Pupils are equal, round, and reactive to light. Cardiovascular: Rate and Rhythm: Normal rate and regular rhythm. Pulses: Normal pulses. Heart sounds: Normal heart sounds. Pulmonary: Effort: Pulmonary effort is normal. Breath sounds: Normal breath sounds. Musculoskeletal: Cervical back: Normal range of motion [...] Diagnoses and all orders for this visit: Acquired hypothyroidism (CMS/HCC) -discussed thyroid results. Dose has been adjusted, recheck in 6 weeks. Tachycardia -resolved, documented in this encounter [facility] 06-22-2024 Telephone encount er Note Antwon left at 2:57 pm Ky, this is Pam San. I am just calling to let you gurodolfo know I did send a Jayro Lanepfer a message and I know she probably has not gotten to it, but I did have to be sent to the ER today at work because of a thyroid storm, so I am actually still in the hospital right now, but my boss at work said to contact Rafaela and see if I can file for FMLA for Thursday, since I had to leave work to come to your office so you might get some paperwork, text over to the office. If you have any questions, please give me a call back. Phone number is [phone], thank you. [facility] 06-22-2024 Miscellaneous Notes Formattin g of this note might be different from the original. Vm left at 2:57 pm Ky, this is Pam San. I am just calling to let you edgardo know I did send a Jayro Lanepfer a message and I know she probably has not gotten to it, but I did have to be sent to the ER today at work because of a thyroid storm, so I am actually still in the hospital right now, but my boss at work said to contact Rafaela and see if I can file for FMLA for Thursday, since I had to leave work to come to your office so you might get some paperwork, text over to the office. If you have any questions, please give me a call back. Phone number is [phone], thank you. documented in this encounter [facility] 06-20-2024 History of Presen t illness Narrative Images from the original note were not included. Pam San is a 33 y.o. female presents with chief complaint of Dizziness HPI: HPI History of Present Illness The patient presents for evaluation of palpitations, lightheadedness, and left ankle swelling. She reports experiencing palpitations, describing a sensation of her heart pounding in her chest and hearing her pulse in her ears. On Thursday, she experienced an episode of near syncope at work, accompanied by unexplained coldness in her legs. Upon awakening yesterday, she felt intermittent pressure in her shoulder, which escalated to a persistent sensation while seated, leading to tunnel vision. She has been experiencing severe lightheadedness. Her daily caffeine intake is limited to one cup of coffee in the morning, and she does not consume energy drinks. She occasionally drinks soda but has recently reduced her consumption. She did not consume coffee this morning. Her fluid intake primarily consists of water. Additionally, she reports swelling in her left ankle, which she noticed last night. She has not experienced any recent trauma or injury to the ankle. She is currently on thyroid medication, which was recently adjusted by Dr. Escobedo. Her thyroid function was within normal limits when last checked three weeks ago. SUBJECTIVE: MEDICATIONS: Current Outpatient Medications Medication Instructions levothyroxine (SYNTHROID) 50 mcg, Oral, Daily before breakfast levothyroxine (Synthroid, Levoxyl) 175 MCG tablet TAKE 1 TABLET BY MOUTH IN THE MORNING. TAKE BEFORE MEALS norethindrone-ethinyl estradiol (June03/07) 1-20 MG-MCG tablet 1 tablet, Oral, Daily, Take 1 tablet by mouth daily I have reviewed and reconciled the history and medication list with the patient today. REVIEW OF SYMPTOMS: Review of Systems OBJECTIVE: Visit Vitals BP 138/70 Pulse (!) 118 Ht 5' 6 Wt 217 lb SpO2 98% BMI 35.02 kg/m OB Status Having periods Smoking Status Former BSA 2.14 m Physical Exam Vitals reviewed. Constitutional: Appearance: She is obese. HENT: Head: Normocephalic and atraumatic. Nose: Nose normal. Mouth/Throat: Mouth: Mucous membranes are moist. Eyes: Pupils: Pupils are equal, round, and reactive to light. Cardiovascular: Rate and Rhythm: Normal rate and regular rhythm. Pulses: Normal pulses. Heart sounds: Normal heart sounds. Pulmonary: Effort: Pulmonary effort is normal. Breath sounds: Normal breath sounds. Musculoskeletal: Cervical back: Normal range of motion and neck supple. Right lower leg: No edema. Left lower leg: No edema. Skin: General: Skin is warm and dry. Capillary Refill: Capillary refill takes less than 2 seconds. Findings: No rash. Neurological: General: No focal deficit present. Mental Status: She is alert and oriented to person, place, and time. Psychiatric: Mood and Affect: Mood is anxious. ASSESSMENT AND PLAN: Assessment/Plan Diagnoses and all orders for this visit: Dizziness - CBC and differential; Future - Comprehensive metabolic panel; Future - TSH W/REFLEX TO FT4; Future -obtain labs for further evaluation Tachycardia - CBC and differential; Future - Comprehensive metabolic panel; Future - TSH W/REFLEX TO FT4; Future documented in this encounter [facility] 05-04-2024 History of Presen t illness Narrative [...] smoke or drink alcohol. 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 documented in this encounter [facility] 03-14-2024 History of Presen t illness [...] Problems Past Medical History: Diagnosis Date Asthma ([facility]) 1994 Disease of thyroid gland ([facility]) 2002 Miscarriage 01/26/2023 HISTORY PAST MEDICAL HISTORY SOCIAL HISTORY Past Medical History: Diagnosis Date Asthma ([facility]) 1994 Disease of thyroid gland ([facility]) 2002 Miscarriage 01/26/2023 Social History Tobacco [...] nursing note reviewed. Exam conducted with a young adult librarian present. Vitals: Estimated body mass index is 35.35 kg/m as calculated from the following: Height as of 11/17/23: 5' 6 . Weight as of this encounter: 219 lb. BP: 110/70 No LMP recorded. ASSESSMENT & PLAN ICD-10-CM 1. Postoperative examination Z09 Patient presents for post operative appointment from [facility] on 02/26/2024. Patient voiced that she was good for 6 days and then had a gush of blood. Patient voiced she is still losing tissue. Patient voiced that she had some questions in regards to insurance coverage for surgical procedure and [employer] aware and will reach out to insurance to further look into. Answered patients questions in regards to conceiving in the future. Patient to return to office for annual and PRN. Documented by Che Huitron LPN on behalf of: GAIL Morales documented in this encounter [facility] 12-07-2023 History of Presen t illness [...] Asthma (CMS/HCC) 1994 Disease of thyroid gland (CMS/[facility]) 2002 Miscarriage 01/26/2023 HISTORY PAST MEDICAL HISTORY SOCIAL HISTORY Past Medical History: Diagnosis Date Asthma (CMS/HCC) 1994 Disease of thyroid gland (CMS/[facility]) 2002 Miscarriage 01/26/2023 Social History Tobacco [...] nursing note reviewed. Exam conducted with a young adult librarian present. Vitals: Estimated body mass index is [...] Escobedo DO documented in this encounter [facility] 11-20-2023 Telephone encount er Note Pt called back and I gave her the message :) [facility] 11-20-2023 Miscellaneous Notes Formattin g of this note might be different from the original. Pt called back and I gave her the message :) MyChart message: Your labs are all normal range. Could definitely be a side effect of the semaglutide your using. documented in this encounter [facility] 11-20-2023 Telephone encount er Note MyChart message: Your labs are all normal range. Could definitely be a side effect of the semaglutide your using. [facility] 11-17-2023 History of Presen t illness [...] Future -On synthroid documented in this encounter [facility] Healthcare Evaluation note Diagnosis Alopecia Other fatigue [...] (CMS/HCC) Unspecified hypothyroidism documented in this encounter [facility] HealthcareEvaluation note* Diagnosis Dizziness- Primary Dizziness and giddiness Tachycardia Unspecified tachycardia documented in this encounter [facility] HealthcareEvaluation note* Diagnosis Acquired hypothyroidism (CMS/HCC)- Primary Unspecified hypothyroidism Tachycardia Unspecified tachycardia documented in this encounter [facility] HealthcareEvaluation note* Diagnosis Acquired hypothyroidism- Primary Unspecified hypothyroidism Anxiety Anxiety state, unspecified Dermatitis Contact dermatitis and other eczema, due to unspecified cause documented in this encounter [facility]* Diagnosis Thyroid disease- Primary Unspecified disorder of thyroid [facility] Acquired hypothyroidism- Primary Unspecified hypothyroidism documented in this encounter [facility] HealthcareEvaluation note* Diagnosis Neck pain- Primary Cervicalgia Vertigo Dizziness and giddiness documented in this encounter [facility] HealthcareEvaluation note* Diagnosis Abnormal urinary stream- Primary Other abnormality of urination documented in this encounter [facility] Healthcare Summary Purpose Family History No Family History Records FoundNo Family History Records Found Advance Directives No Advanced Directives Records FoundNo Advanced Directives Records Found Additional Source Comments INFORMATION SOURCE (unrecogn ized section and content) DATE CREATED AUTHOR 11/26/2021 [facility] DATE CREATED AUTHOR AUTHOR'S ROSLYN JOHANSEN 09/10/2024 [facility] Care Teams (unrecognized sec tion and content) Coding Educator Relationship Specialty Start Date End Date Joceline Willson MD [address] [place] [address] PCP - General Family Medicine 12/19/22 Coding Educator Relationship Specialty Start Date End Date Joceline Willson MD [address] [facility] [place], [place] [id number] PCP - General Family Medicine 12/19/22 Coding Educator Relationship Specialty Start Date End Date Joceline Willson MD [address] [facility] [place] [address] PCP - General Family Medicine 12/19/22 Coding Educator Relationship Specialty Start Date End Date Joceline Willson MD [address] [place] [address] PCP - General Family Medicine 12/19/22 Coding Educator Relationship Specialty Start Date End Date Joceline Willson MD [address] [place] [address] PCP - General Family Medicine 12/19/22 Coding Educator Relationship Specialty Start Date End Date Joceline Willson MD [address] [place] [address] PCP - General Family Medicine 12/19/22 Coding Educator Relationship Specialty Start Date End Date Joceline Willson MD [address] [place] [address] PCP - General Family Medicine 12/19/22 Coding Educator Relationship Specialty Start Date End Date Joceline Willson MD [address] [place] [address] PCP - General Family Medicine 12/19/22 Coding Educator Relationship Specialty Start Date End Date Joceline Willson MD [address] [place] [address] PCP - General Family Medicine 12/19/22 Coding Educator Relationship Specialty Start Date End Date Joceline Willson MD [address] [place] [address] PCP - General Family Medicine 12/19/22 Coding Educator Relationship Specialty Start Date End Date Joceline Willson MD [address] [place] [address] PCP - General Family Medicine 12/19/22 Coding Educator Relationship Specialty Start Date End Date Joceline Willson MD [address] [place] [address] PCP - General Family Medicine 12/19/22 Coding Educator Relationship Specialty Start Date End Date Joceline Willson MD [address] [place] [address] PCP - General Family Medicine 12/19/22 Coding Educator Relationship Specialty Start Date End Date Joceline Willson MD [address] [place] [address] PCP - General Family Medicine 12/19/22 Coding Educator Relationship Specialty Start Date End Date Joceline Willson MD [address] [place] [address] PCP - General Family Medicine 12/19/22 Coding Educator Relationship Specialty Start Date End Date Joceline Willson MD [address] [place] [address] PCP - General Family Medicine 12/19/22 Coding Educator Relationship Specialty Start Date End Date Joceline Willson MD [address] [place] [address] PCP - General Family Medicine 12/19/22 Jayro Mcbride NP [address] [place] [address] Nurse Practitioner Family Medicine 08/08/24 Coding Educator Relationship Specialty Start Date End Date David Escobedo DO [address] [place], [place] [address] [address] Referring [employer] 08/08/24 Coding Educator Relationship Specialty Start Date End Date Joceline Willson MD [address] [place] [address] PCP - General Family Medicine 12/19/22 Jayro Mcbride NP [address] [place] [address] Nurse Practitioner Family Medicine 08/08/24 Coding Educator Relationship Specialty Start Date End Date Joceline Willson MD [address] [place] [address] PCP - General Family Medicine 12/19/22 Jayro Mcbride NP [address] [facility] [place] [address] Nurse Practitioner Family Medicine 08/08/24 Reason for Visit (unrecogniz ed section and content) Reason Comments Fatigue Alopecia Reason Comments Well Women Visit Reason Comments Post-op Visit Reason Comments Annual Exam Reason Comments Med Refill Reason Comments Dizziness Reason Comments ER Follow-up Reason Comments Anxiety Needs to check her t hyroid Source Comments (unrecognize d section and content) In the event this informatio n is protected by the Federal Confidentiality of Alcohol and Drug Abuse Patient Records regulations: The Federal rules restrict any use of the information to criminally investigate or prosecute any alcohol or drug abuse patient.[facility] FOR RECORDS PERTAINING TO PATIENTS WHO ARE [...] BE BASED ON THE PRIMARY CLINICAL RECORDS. [facility], [facility]. provides no warranty or guarantee of the accuracy or completeness of information in this document.
[2024-09-14 00:02] VITALS: BP 106/67; PULSE 70; TEMP 37.1; O2SAT 99; BMI 35.5
--- NOTE | 2024-09-14 00:27 | ED_ITS ---
HPI - Female Genitourinary General Chief complaint: Urogenital-Female Stated complaint: POSSIBLE KIDNEY INFECTION? Time Seen by Provider: 09/13/24 23:37 Source: patient Mode of arrival: walk-in Limitations: no limitations History of Present Illness HPI Narrative: This 34-year-old female presents for evaluation of low back pain. She is concerned that she has a kidney infection. She has not had any fevers, chills, rigors, nausea or vomiting. She states she started having pain on the right low back earlier in the week. She contacted her doctor who told her to check her urine. At that time her urine was negative for infection. She states since that time she has pain on both sides of her back. She denies the possibility of . She has not had any urinary frequency urgency or dysuria. She den ies any hematuria but states that earlier in the week before contacting her doctor her urine was dark. She has no abdominal pain. She does not have a history of kidney stones. Related Data Home Medications ?Medication ?Instructions ?Recorded ?Confirmed levothyroxine 175 mcg tablet 175 mcg PO DAILY 01/24/23 09/13/24 fluoxetine 20 mg tablet 20 mg PO PRN anxiety 5 Allergies Allergy/AdvReac Type Severity Reaction Status Date / Time No Known Drug Allergies Allergy Verified 09/13/24 23:56 Review of Systems ROS Status of ROS 10 or more systems reviewed and unremark able except as noted in history and below [facility] Medical History Missed (~02/2024) ?O02.1 - Missed (ICD-10) Miscarriage (~2023) ?O03.9 - Complete or unspecified spontaneous without complication (ICD-10) COVID-19 (01/2024) ?U07.1 - COVID-19 (ICD-10) Asthma ?J45.909 - Unspecified asthma, uncomplicated (ICD-10) Migraine ?G43.909 - Migraine, unspecified, not intractable, without status migrainosus (ICD-10) Heartburn ?R12 - Heartburn (ICD-10) Hypothyroidism ?E03.9 - Hypothyroidism, unspecified (ICD-10) Surgical History History of tonsillectomy ?Z90.89 - Acquired absence of other organs (ICD-10) Family History Other Family history of DVT Family history of cancer Family history of myocardial infarction Social History Within the past year, how often did you have a drink containing alcohol: monthly or less Smoking status: Former smoker Non-prescribed substance use: denies use 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[employer], 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 Highest level of school completed/degree received: Associate degree: academic program Little interest or pleasure in doing things: not at all Feeling down, depressed, or hopeless: not at all Exam Narrative Exam Narrative: Vital signs and Nursing Notes reviewed: Patient is afebrile with a normal pulse, normal blood pressure, she is not hypoxic with pulse ox of 99% on room air General: Awake, alert, oriented, no acute distress, lying comfortably on the stretcher HEENT: Normocephalic atraumatic, mucous membranes are moist and pink, eyes are clear, normal conjunctiva, vision is grossly intact Chest: Lungs are clear to auscultation with good air entry, there is no wheezing rhonchi or rales appreciated no accessory muscle use, patient is speaking in complete sentences-no chest wall tenderness to palpation CVS: Regular rate and rhythm S1-S2, no murmurs rubs or gallops, pulses are brisk and equal bilaterally ABD: Obese, soft, nondistended, nontender, no rebound guarding or rigidity, bowel sounds are normal, no pulsatile masses appreciated, no flank tenderness- mild tenderness in the lower lumbar region, left greater than right with no midline vertebral tenderness or step-off and no skin rash Extremities: Moving all extremities, no lower extremity tenderness or swelling noted, negative Homans' sign, pulses are brisk and equal bilaterally Skin: Normal in appearance without rash,pallor, petechiae or purpura Neuro: No focal deficits Constitutional Vital Signs, click to edit/add: Last Vital Signs Temp 98.7 F 09/14/24 00:02 Pulse 70 09/14/24 00:02 Resp 20 09/14/24 00:02 BP 106/67 09/14/24 00:02 Pulse Ox 99 09/14/24 00:02 O2 Del Method Room Air 09/14/24 00:02 Course Vital Signs Vital signs: Vital Signs Temperature 98.7 F 09/14/24 00:02 Pulse Rate 70 09/14/24 00:02 Respiratory Rate 20 09/14/24 00:02 Blood Pressure 106/67 09/14/24 00:02 Pulse Oximetry 99 09/14/24 00:02 Oxygen Delivery Method Room Air 09/14/24 00:02 Temperature 98.7 F 09/14/24 00:02 Pulse Rate 70 09/14/24 00:02 Respiratory Rate 20 09/14/24 00:02 Blood Pressure 106/67 09/14/24 00:02 Pulse Oximetry 99 09/14/24 00:02 Oxygen Delivery Method Room Air 09/14/24 00:02 MDM - Female Genitourinary MDM Narrative Medical decision making narrative: This 34-year-old female presents for evaluation and concerned that she has a kidney infection. She has had right low back pain which I spread to the left low back over the course of the last several days. She is not having any urinary symptoms. She has not had any fevers chills, rigors, nausea or vomiting. She has mild tenderness in her lower lumbar region. She denies possibility of . Her urine is negative for red blood cells, white blood cells, nitrites. I explained to her that her urine is clear. She likely does not have a kidney infection without the fevers, chills, rigors, nausea vomiting. She will be treated for low back pain with ibuprofen and Robaxin. Lab Data Attestation: I reviewed the patient's lab results. Labs: Lab Results 09/14/24 Range/Units 01:00 Urine Color Lt. yellow (YELLOW) Urine Clarity Clear (CLEAR) Urine pH 6.0 (5.0-9.0) Ur Specific [place] 1.020 (1.005-1.025) Urine Protein Negative (NEG/TRACE) mg/dL Urine Glucose (UA) Negative (NEGATIVE) mg/dL Urine Ketones Negative (NEGATIVE) mg/dL Urine Occult Blood Negative (NEGATIVE) Urine Nitrite Negative (NEGATIVE) Urine Bilirubin Negative (NEGATIVE) Urine Urobilinogen 0.2 (0.2-1.0) EU/dL Ur Leukocyte Esterase Negative (NEGATIVE) Urine RBC None seen (0-2) #/HPF Urine WBC None seen (NONE SEEN) #/HPF Ur Squamous Epith Cells Rare (NONE/RARE) #/LPF Urine Crystals None seen (None Seen) #/HPF Urine Bacteria Small A (NONE SEEN) #/HPF Urine Casts None seen (NONE SEEN) #/LPF Urine Mucus None seen (NONE SEEN) Ur Culture Indicated? Yes-[facility] [place] Urine HCG, Qual Negative (NEGATIVE) Discharge Plan Discharge Chief Complaint: Urogenital-Female Clinical Impression: Low back pain Patient Disposition: Home, Self-Care Time of Disposition Decision: 01:13 Condition: Good Prescriptions / Home Meds: No Action levothyroxine 175 mcg tablet 175 mcg PO DAILY fluoxetine 20 mg tablet 20 mg PO PRN (Reason: anxiety) Print Language: Danish Instructions: Acute Low Back Pain (ED) Referrals: Genna Mcbride INSURANCE AND FINANCIAL SERVICES AGENT [Primary Care Provider] - 1 week Discharge Date/Time: 09/14/24 01:38
[2024-09-14 01:06] LABS: Glucose Urine UA NEGATIVE (NEGATIVE)
[2024-09-14 01:07] LABS: HCG Qualitative Urine* NEGATIVE (NEGATIVE)
[2024-09-14 01:13] LABS: Cast Seen? NONE SEEN #/LPF (NONE SEEN); Crystals Seen? None Seen #/HPF (None Seen); Urine Culture Indicated YES-FRMC
[2024-09-14] MEDS: IBUPROFEN 600 MG TABLET PO (01:29)
== END 2024-09-14 01:38 | disposition home or self-care (01) ==
PROVIDERS: Emergency Provider Emergency Medicine; PCP Nurse Practitioner Family
DX: M54.50 Low back pain, unspecified (principal)
CPT/HCPCS: 81001; 84703; 87086; 99285

== ENCOUNTER 2024-12-12 19:29 | Outpatient (REF) | payer OTHER, SELFPAY ==
--- OUTSIDE RECORDS SUMMARY | 2024-12-12 15:50 | XMS_ITS | Encounter Summary ---
Author Organization [facility] Address [address] [place] [address] Care Team Providers Care Hypertrichologist Name Role Phone Joceline Willson MD Primary Care Provider [phone] Genna Mcbride NP Unavailable [phone] Reason for Visit * ReasonCommentsGynecologic Exam Encounter Details DateTypeDepartmentCare Team (Latest Contact Info)Xqcfysylyjs01/27/2025 3:50 PM EDTProcedure Visit [facility] [address] [place] [address] Isael Escobedo DO [address] [place], [facility]11 Well woman exam with routine gynecological exam Social History Tobacco UseTypesPacks/DayYears UsedDateSmoking Tobacco: FormerCigarettes0.57 11/26/2015 - 07/22/2022Smokeless Tobacco: NeverAlcohol UseStandard Drinks/Week CommentsNot Currently1 (1 standard drink = 0.6 oz pure alcohol)caffeine intake: 1 cup [id number] Health LiteracyAnswerDate RecordedHow often do you need to have someone help you when you read instructions, pamphlets, or other written material from your doctor or pharmacy?Never04/27/2024Humiliation, Afraid, Rape, and Kick questionnaireAnswerDate RecordedWithin the last year, have you been afraid of your partner or ex-partner?No12/12/2022Within the last year, have you been humiliated or emotionally abused in other ways by your partner or ex-partner?No12/12/2022Within the last year, have you been kicked, hit, slapped, or otherwise physically hurt by your partner or ex-partner?No12/12/2022Within the last year, have you been raped or forced to have any kind of sexual activity by your partner or ex-partner?No12/12/2022Social Connection and Isolation Panel AnswerDate RecordedIn a typical week, how many times do you talk on the phone with family, friends, or neighbors?More than three times a week04/27/2024How often do you get together with friends or relatives?Once a week04/27/2024How often do you attend lutheran or samaritan services?Never04/27/2024Do you belong to any clubs or organizations such as lutheran groups, unions, fraternal or athletic groups, or school groups?No04/27/2024How often do you attend meetings of the clubs or organizations you belong to?Never04/27/2024re you , , , , never , or living with a partner?Huocpgak63/12/2025 AUDIT-CAnswerDate RecordedQ1: How often do you have a drink containing alcohol? 2-4 times a month04/27/2024Q2: How many drinks containing alcohol do you have on a typical day when you are drinking?1 or Q3: How often do you have six or more drinks on one occasion?Never04/27/2024Overall Financial Resource Strain (CARDIA)AnswerDate RecordedHow hard is it for you to pay for the very basics like food, housing, medical care, and heating?Not very hard04/27/2024 PHQ-2AnswerDate RecordedPatient Health Questionnaire-2 [id number] [place] of Occupational Health - Occupational Stress QuestionnaireAnswerDate RecordedDo you feel stress - tense, restless, nervous, or anxious, or unable to sleep at night because yourmind is troubled all the time - these days?Not at all 04/27/2024Exercise Vital SignAnswerDate RecordedOn average, how many days per week do you engage in moderate to strenuous exercise (like a brisk walk)?3 days 04/27/2024On average, how many minutes do you engage in exercise at this level? 30 min04/27/2024Hunger Vital SignAnswerDate RecordedWithin the past 12 months, you worried that your food would run out before you got the money to buymore. Never true04/27/2024Within the past 12 months, the food you bought just didn't last and you didn't have money to get more.Never true04/27/2024PRAPARE - TransportationAnswerDate RecordedIn the past 12 months, has lack of transportation kept you from medical appointments or from getting medications?No 04/27/2024In the past 12 months, has lack of transportation kept you from meetings, work, or from getting things needed for daily living?No04/27/2024 Housing Stability Vital SignAnswerDate RecordedIn the last 12 months, was there a time when you were not able to pay the mortgage or rent on time?No12/12/2022In the last 12 months, how many places have you lived?In the last 12 months, was there a time when you did not have a steady place to sleep or slept in [place] (including now)?No12/12/2022Housing Stability Vital SignAnswerDate RecordedIn the last 12 months, was there a time when you were not able to pay the mortgage or rent on time?No04/27/2024In the past 12 months, how many times have you moved where you were living?t any time in the past 12 months, were you homeless or living in a halfway (including now)?No04/27/2024 CommentsNoSex and Gender InformationValueDate RecordedSex Assigned at BirthNot on fileLegal AelVsvjml22/15/2023 6:41 PM EDTGender IdentityNot on file Sexual OrientationNot on filedocumented as of this encounter Plan of Treatment DateTypeDepartmentCare Team (Latest Contact Info)Hpmplxeotqm19/04/2025 3:30 PM ESTOffice Visit [facility] [address] [place] [address] Genna Mcbride NP [address] [place] [address] 12/21/2025 11:00 AM ESTProcedure Visit [facility] [address] [place] [address] Isael Escobedo, [address] [place] [address] NameTypePriorityAssociated DiagnosesOrder SchedulePap SmearPathology and CytologyRoutine Well woman exam with routine gynecological exam Ordered: 12/12/2024HPV DNA probe, amplifiedMicrobiologyRoutine Well woman exam with routine gynecological exam Ordered: 12/12/2024documented as of this encounter Visit Diagnoses Diagnosis Well woman exam with routine gynecological exam Routine gynecological examination documented in this encounter Additional Health Concerns AssessmentNoted TimePHQ-9 Depression Total Score: 8009/20/2024 3:00 PM EDT documented as of this encounter Care Teams Team MemberRelationshipSpecialtyStart DateEnd Date Joceline Willson MD [address] [place], [place] [id number] PCP - GeneralFamily Spuumqtd88/3/23 Genna Mcbride NP [address] [facility] [address] [place] [id number] Nurse PractitionerFamily Medicine08/08/24documented as of this encounter
--- OUTSIDE RECORDS SUMMARY | 2024-12-12 19:33 | XMS_ITS | Clinical Summary ---
Author Organization [facility] Address [address] [place] [address] Care Team Providers Care Nailer Operator Name Role Phone Isael Escobedo DO Unavailable [phone] Allergies No known active allergies Medications MedicationSigDispense QuantityRefillsLast FilledStart DateEnd DateStatus APRI 0.15-0.03 mg per tablet Take 1 tablet by mouth once daily.5Active FLUoxetine HCl 20 mg tablet Take 20 mg by mouth once daily.5Active ibuprofen (MOTRIN) 600 mg tablet Take 600 mg by mouth every 6 hours as needed.5Active ketoconazole (NIZORAL) 2 % shampoo Apply to affected area as needed for itching/rash.5Active levothyroxine (SYNTHROID) 175 mcg tablet Take 175 mcg by mouth daily before breakfast.4Active loperamide (IMODIUM) 2 mg cap(s) Take 2 mg by mouth as needed for diarrhea.5Active Active Problems No known active problems Encounters DateTypeDepartmentCare KjbiXmtlfzshytb88/06/2025Results Follow-Up Endocrinology [address] [place] [address] Herbert Harvey MD 09/20/2024 8:00 AM EDTOffice Visit Endocrinology [address] [id number] Herbert Harvey MD Hypothyroidism, unspecified type (Primary Dx); Thyroid utzzczt8009/20/20246492Xzqtqy18/29/2025Travelfrom Last 3 Months Social History Tobacco UseTypesPacks/DayYears UsedDateSmoking Tobacco: NeverPassive Smoke Exposure: NeverSmokeless Tobacco: NeverAlcohol UseStandard Drinks/WeekComments Yes0 (1 standard drink = 0.6 oz pure alcohol)occasCommentsNoSex and Gender InformationValueDate RecordedSex Assigned at BirthNot on fileLegal Sex Gsonjk7708/08/2024 1:55 PM EDTGender IdentityNot on fileSexual OrientationNot on file Last Filed Vital Signs Vital SignReadingTime TakenCommentsBlood Qnqhqayi26/6608 7:48 AM EDT Mitfi724309/20/2024 7:48 AM EDTTemperature--Respiratory Rate--Oxygen Saturation-- Inhaled Oxygen Concentration--Mlksly897.2 kg (220 lb 14.4 oz)09/20/2024 7:48 AM EDTHeight--Body Mass Index-- Plan of Treatment Health MaintenanceDue DateLast DoneCommentsAnxiety Ngwavjbhn81/24/2009Depression Zmouxobiw56/24/2009HIV Fzxqedmff59/24/2009Hepatitis C Salbbaqdt15/24/2009 Hepatitis B Vaccine (1 of 3 - 19+ 3-dose series)2009Cervical Cancer Tqoeejkmu41/24/2012HPV Vaccine (1 - 3-dose SCDM series)2017Covid-19 Vaccine (3 - 2024- season), 11/29/2020Influenza Vaccine (#1)2024DTaP,Tdap,Td Vaccine (3 - Td or Tdap), 09/05/1996 Procedures Procedure NamePriorityDate/TimeAssociated DiagnosisCommentsIGA BLDRoutine 09/20/2024 8:46 AM EDT Hypothyroidism, unspecified type CELIAC LHKMGWNnuibqa70/05/2025 8:46 AM EDT Hypothyroidism, unspecified type CELIAC SCREEN WITH KWSIFBSxkgfgo34/05/2025 8:46 AM EDT Hypothyroidism, unspecified type THYROID PEROXIDASE ANTIBODY ELJGPGynwhft16/05/2025 8:46 AM EDT Thyroid disease Hypothyroidism, unspecified type T4 FREE/FREE IZCAHBRvcostq24/05/2025 8:46 AM EDT Thyroid disease Hypothyroidism, unspecified type TSH XKAYzkexrp09/05/2025 8:46 AM EDT Thyroid disease Hypothyroidism, unspecified type from Last 3 Months Results * CELIAC SCREEN (09/20/2024 8:46 AM EDT)ComponentValueRef RangeTest Method Analysis TimePerformed AtPathologist SignatureTransglutaminase IgA Abs<2<4 U/mL09/21/2024 1:24 PM EDMARIETTA [facility] LABTransglutaminase IgA Abs DvviaxoghmrfokVpvldzwjKbeiwagc55/06/2025 1:24 PM [facility] LABComment: The following results were obtained with Joome QUANTA Lite R h-tTG IgA ANGELA.??R h-tTG IgA values obtained with different manufacturers' assay methods may not be used interchangeably. The magnitude of the reported IgA levels cannot be corelated to an endpoint??concentration. This is used as an aid in diagnosis of celiac disease. Clinical correlation is required. Interpretation (Celiac Screen)No serological evidence of celiac disease, however, if celiac disease is clinically suspected and patient is not on gluten- free diet, histological diagnosis may be considered. HLA testing may help with risk assessment.09/21/2024 1:24 PM [facility] LABGliadin Ab, IgA2<20 Units09/21/2024 1:24 PM [facility] LABGliad Deamidated IgA QualNegativeNegative, Test not Tsnistbqy03/06/2025 1:24 PM EDT [facility] LABComment: This is used as an aid in diagnosis of celiac disease. Clinical correlation is required. The following results were obtained with an Joome QUANTA Lite Gliadin IgA ANGELA Gliadin. Gliadin IgA values obtained with different manufacturers' assay methods may not be used interchangeably. The magnitude of the reported IgA levels cannot be correlated to an endpoint titer. Specimen (Source)Anatomical Location / LateralityCollection Method / Volume Collection TimeReceived TimeBloodBLOOD SPECIMEN / UnknownVenipuncture / Unknown 09/20/2024 8:46 AM EDT09/20/2024 8:46 AM EDT Narrative Authorizing ProviderResult TypeResult StatusAysha Garg MDLABORATORYFinal Result Performing OrganizationAddressCity/State/ZIP CodePhone Number [facility] [address] [place] [address], * THYROID STIMULATING HORMONE (09/20/2024 8:46 AM EDT)ComponentValueRef Range Test MethodAnalysis TimePerformed AtPathologist SignatureTSH1.0400.270 - 4.200 mIU/L09/20/2024 12:34 PM EDMARIETTA MEMORIAL HOS[facility] LABComment: If the patient is , TSH reference range varies by gestational period: First Trimester (weeks 9-12): 0.180-2.990 mIU/L Second Trimester: 0.110-3.980 mIU/L Third Trimester: 0.480-4.710 mIU/L Alexis Gerard et al. A Practical Approach for the Verifications and Determination of Site- and Trimester-Specific Reference Intervals for Thyroid Function tests in . Thyroid, 2019:29:3:412-420.Adam E, et al. 2017 Guidelines of the [place] Thyroid Association for the Diagnosis and Management of Thyroid Disease during and the . Thyroid, 2017:27:3:315-389. Specimen (Source)Anatomical Location / LateralityCollection Method / Volume Collection TimeReceived TimeBloodBLOOD SPECIMEN / UnknownVenipuncture / Unknown 09/20/2024 8:46 AM EDT09/20/2024 8:46 AM EDT Narrative Authorizing ProviderResult TypeResult Paula Garg MDLABORATORYFinal Result Performing OrganizationAddressCity/State/ZIP CodePhone Number [facility] [address] [place] [address], * T4 FREE/FREE THYROXINE (09/20/2024 8:46 AM EDT)ComponentValueRef RangeTest MethodAnalysis TimePerformed AtPathologist SignatureFree T41.70.9 - 1.7 ng/dL 09/20/2024 12:34 PM EDMARIETTA MEMORIAL HOSPITAL LABSpecimen (Source) Anatomical Location / LateralityCollection Method / VolumeCollection Time Received TimeBloodBLOOD SPECIMEN / UnknownVenipuncture / Pjuyvqe2009/20/2024 8:46 AM EDT09/20/2024 8:46 AM EDT Narrative Authorizing ProviderResult TypeResult StatusAysha Garg MDLABORATORYFinal Result Performing OrganizationAddressCity/State/ZIP CodePhone Number [facility] [address] [place] [address], * (ABNORMAL) THYROID PEROXIDASE ANTIBODY (09/20/2024 8:46 AM EDT)ComponentValue Ref RangeTest MethodAnalysis TimePerformed AtPathologist SignatureTHYROID PEROXIDASE SSXGCTXV712.9(H)<5.6 IU/mL09/20/2024 12:14 PM [facility] LABComment:Thyroid Peroxidase Antibody test is used as an aid in diagnosis of autoimmune thyroid disease. Clinical correlation is required. Specimen (Source)Anatomical Location / LateralityCollection Method / Volume Collection TimeReceived TimeBloodBLOOD SPECIMEN / UnknownVenipuncture / Jypzsro9509/20/2024 8:46 AM EDT09/20/2024 8:46 AM EDT Narrative Authorizing ProviderResult TypeResult Paula Garg MDLABORATORYFinal Result Performing OrganizationAddressCity/State/ZIP CodePhone Number [facility] [address] [place] [address], * IMMUNOGLOBULIN A (09/20/2024 8:46 AM EDT)ComponentValueRef RangeTest Method Analysis TimePerformed AtPathologist DdffhwenrMhL7079 - 400 mg/dL09/20/2024 11:44 AM [facility] LABSpecimen (Source)Anatomical Location / LateralityCollection Method / VolumeCollection TimeReceived Time BloodBLOOD SPECIMEN / UnknownVenipuncture / Pmdupmb5309/20/2024 8:46 AM EDT 09/20/2024 8:46 AM EDT Narrative Authorizing ProviderResult TypeResult Paula ALMARAZORATORYFinal Result Performing OrganizationAddressCity/State/ZIP CodePhone Number [facility] [address] [place] [address], [place] from Last 3 Months Insurance Care Teams Team MemberRelationshipSpecialtyStart DateEnd Date Isael Escobedo DO [address] [place] [address] [place] [address] ReferringOb/Gyn08/08/24
--- OUTSIDE RECORDS SUMMARY | 2024-12-12 19:33 | XMS_ITS | Clinical Summary ---
Author Organization [facility] Address [address] [place] [address] Care Team Providers Care Scout Professional Sports Name Role Phone Joceline Willson MD Primary Care Provider [phone] Genna Mcbride NP Unavailable [phone] Allergies No known active allergies Medications MedicationSigDispense QuantityRefillsLast FilledStart DateEnd DateStatus ketoconazole (NIZOral) 2 % shampoo Indications:DermatitisApply topically 2 (two) times a week 120 mL 5Active ibuprofen 600 MG tablet Take 600 mg by mouth every 6 (six) hours if kvtjvf135Active FLUoxetine (PROzac) 40 MG capsule Indications:AnxietyTake 1 capsule (40 mg) by mouth Daily 90 capsule 5Active tiZANidine (Zanaflex) 2 MG tablet Indications:Neck painTake 1 tablet (2 mg) by mouth 3 (three) times a day as needed for muscle spasms for up to 5 days 15 tablet 5Active norethindrone-ethinyl estradiol (03/07) 1-20 MG-MCG tablet Indications:History of miscarriageTake 1 tablet by mouth Daily Take 1 tablet by mouth daily 28 tablet [id number] levothyroxine (Synthroid, Levoxyl) 175 MCG tablet Indications:Acquired hypothyroidismTake 1 tablet (175 mcg) by mouth Daily Take on an empty stomach 90 tablet 5Active Active Problems No known active problems Encounters DateTypeDepartmentCare IjumXfxabywxggd77/27/2025 3:50 PM EDTProcedure Visit [facility] [address] [place] [phone] Isael Escobedo, DO Well woman exam with routine gynecological exam12/12/2024amboo flowsheet [facility] [address] [place] [address] Isael Escobedo DO 12/05/20246879Uzhhsf47/12/2025Orders Only [facility] [address] [place] [phone] Genna Mcbride, GLORIA Acquired kuaksauwpsioeu33/08/2025Telephone [facility] [address] [place] [phone] Gabriela Clancy MA 09/21/2024 4:00 PM EDTTreatment [facility] [place] [facility] [address] [place] [address] Vianca Posadas PT Benign paroxysmal positional vertigo of right ear (Primary Dx); Neck pain; Cuhxchn1009/21/20247364Xeffqi61/05/2025 3:30 PM EDTOffice Visit [facility] [address] [facility] [place] [phone] Genna Mcbride, GLORIA Anxiety (Primary Dx); Acquired hypothyroidism ; Neck pain; Diarrhea, unspecified type09/20/2024amboo flowsheet [facility] [address] [facility] [place] [phone] Genna Mcbride NP 09/20/20241917Akoyyy93/31/2025[facility]phone [facility] [address] [facility] [place] [phone] Ana Laura Brennan MA 09/15/2024Plan of Care Documentation [facility] [place] [facility] [address] [place] [address] 09/14/2024 5:00 PM EDTEvaluation [facility] [place] [facility] [address] [place] [address] Vianca Posadas, ROBERT Neck pain (Primary Dx); Benign paroxysmal positional vertigo of right ear; Momqbct5809/14/20244352Vhkbsz07/28/2025Telephone [facility] [address] [place] [phone] Joceline Willson MD from Last 3 Months Immunizations ImmunizationAdministration DatesNext DueDTaP, Igikupmtiqi15/21/0713YSC2909/05/1996 Pfizer Purple Cap SARS-CoV-2 Kylrqelhldx60/04/2021,11/29/2020Tdap08/24/2017 Family History Medical HistoryRelationNameCommentsArthritisMaternal GrandmotherSandra ripple CancerMaternal GrandmotherSandra rippleMiscarriages / StillbirthsMotherAnnette GuggisbergMiscarriages / StillbirthsSister 1Brittani GuggisbergMiscarriages / StillbirthsSister 2Abbey BollingerMiscarriages / StillbirthsSonKayla Guggisberg RelationNameStatusCommentsMaternal GrandmotherSandra rippleMotherAnnette GuggisbergSister 1Brittani GuggisbergSister 2Abbey BollingerSonKayla Guggisberg Alive Social History Tobacco UseTypesPacks/DayYears UsedDateSmoking Tobacco: FormerCigarettes0.57 11/26/2015 - 07/22/2022Smokeless Tobacco: Never Tobacco Cessation:Counseling Given: Not Answered Alcohol UseStandard Drinks/WeekCommentsNot Currently1 (1 standard drink = 0.6 oz pure alcohol)caffeine intake: 1 cup [id number] Health LiteracyAnswerDate RecordedHow often do you need to have someone help you when you read instructions, pamphlets, or other written material from your doctor or pharmacy? Never04/27/2024Humiliation, Afraid, Rape, and Kick questionnaireAnswerDate RecordedWithin the last year, have you been afraid of your partner or ex-partner?No12/12/2022Within the last year, have you been humiliated or emotionally abused in other ways by your partner or ex-partner?No12/12/2022 Within the last year, have you been kicked, hit, slapped, or otherwise physically hurt by your partner or ex-partner?No12/12/2022Within the last year, have you been raped or forced to have any kind of sexual activity by your part ner or ex-partner?No12/12/2022Social Connection and Isolation PanelAnswerDate RecordedIn a typical week, how many times do you talk on the phone with family, friends, or neighbors?More than three times a week04/27/2024How often do you get together with friends or relatives?Once a week04/27/2024How often do you attend rastafari or scientology services?Never04/27/2024Do you belong to any clubs or organizations such as rastafari groups, unions, fraternal or athletic groups, or school groups?No04/27/2024How often do you attend meetings of the clubs or organizations you belong to?Never04/27/2024re you , , , , never , or living with a partner?Eiralgfv39/12/2025UDIT-C AnswerDate RecordedQ1: How often do you have a drink containing alcohol?2-4 times a month04/27/2024Q2: How many drinks containing alcohol do you have on a typical day when you are drinking?1 or Q3: How often do you have six or more drinks on one occasion?Never04/27/2024Overall Financial Resource Strain (CARDIA)AnswerDate RecordedHow hard is it for you to pay for the very basics like food, housing, medical care, and heating?Not very hard04/27/2024PHQ-2Answer Date RecordedPatient Health Questionnaire-2 Jrxmi460Finbear river valley hospital [place] of Occupational Health - Occupational Stress QuestionnaireAnswerDate RecordedDo you feel stress - tense, restless, nervous, or anxious, or unable to sleep at night because yourmind is troubled all the time - these days?Not at all04/27/2024 Exercise Vital SignAnswerDate RecordedOn average, how many days per week do you engage in moderate to strenuous exercise (like a brisk walk)?3 days04/27/2024On average, how many minutes do you engage in exercise at this level?30 min 04/27/2024Hunger Vital SignAnswerDate RecordedWithin the past 12 months, you worried that your food would run out before you got the money to buymore.Never true04/27/2024Within the past 12 months, the food [...] steady place to sleep [facility] ([facility] now)?No12/12/2022Housing Stability Vital SignAnswerDate RecordedIn the last 12 months, was there a time when you were not able to pay the mortgage or rent on time?No04/27/2024In the past 12 months, how many times have you moved where you were living?t any time in the past 12 months, were you homeless or living in a alf (including now)?No04/27/2024 CommentsNoSex and Gender InformationValueDate RecordedSex Assigned at BirthNot on fileLegal DpoQyihfe23/15/2023 6:41 PM EDTGender IdentityNot on file Sexual OrientationNot on file Last Filed Vital Signs Vital SignReadingTime TakenCommentsBlood Wsqxcqfk229/8208 3:14 PM EDT Jwbit1370 3:14 PM JJKWegqsafewlz62.4 ??C (99.4 ??F)05/04/2024 3:46 PM EDTRespiratory Rate--Oxygen Eevfzmogrr63%09/20/2024 3:14 PM EDTInhaled Oxygen Concentration--Afyyqy54.8 kg (220 lb)09/20/2024 3:14 PM NIYCyogri872.6 cm (5' 6 )08/08/2024 3:29 PM EDTBody Mass Index35.51008/08/2024 3:29 PM EDT Plan of Treatment DateTypeDepartmentCare Team (Latest Contact Info)Qpkrmuihees43/04/2025 3:30 PM ESTOffice Visit [facility] [address] [place] [phone] Genna Mcbride NP [address] [facility], [place] [phone] 12/21/2025 11:00 AM ESTProcedure Visit [facility] [address] [place] [address] Isael Escobedo DO [address] [place] [address] Health MaintenanceDue DateLast DoneCommentsVaricella Vaccines (1 of 2 - 13+ 2- dose series)08/10/2003Hepatitis B Vaccines (1 of 3 - 19+ 3-dose series) 2009HPV Vaccines (1 - 3-dose SCDM series)2017DTaP/Tdap/Td Vaccines (3 - Td or Tdap), 09/05/1996COVID-19 Vaccine (3 - 2024- season), 11/29/2020Influenza Vaccine (#1)2024Pap Smear /, 11/25/2022, 11/19/2021ervical Cancer Zzkqpbqok50/10/2028 HPV/Iakpuk1811/26/2027MMR CyuhwtpyCxfrnlmmo30/21/1997HIB VaccinesAged OutNo longer eligible based on patient's age to complete this topicHepatitis A VaccinesAged OutNo longer eligible based on patient's age to complete this topicIPV Vaccines Aged OutNo longer eligible based on patient's age to complete this topic Meningococcal B VaccineAged OutNo longer eligible based on patient's age to complete this topicMeningococcal VaccineAged OutNo longer eligible based on patient's age to complete this topicPneumococcal Vaccine: Pediatrics (0 to 5 Years) and At-Risk Patients (6 to 64 Years)Aged OutNo longer eligible based on patient's age to complete this topicRotavirus VaccinesAged OutNo longer eligible based on patient's age to complete this topic Procedures Procedure NamePriorityDate/TimeAssociated DiagnosisCommentsPAP SMEARRoutine 12/07/2023 12:00 AM EDTfrom Last 3 Months or Most Recently Relevant to Health Maintenance Results * Pap Smear (12/07/2023 12:00 AM EDT)Specimen (Source)Anatomical Location / LateralityCollection Method / VolumeCollection TimeReceived TimeSwabCervical swab / Unknown Narrative Authorizing ProviderResult TypeResult StatusFazio Nurse [facility] Ob[facility] CYTOLOGY ORDERABLESFinal ResultPerforming OrganizationAddressCity/State/ZIP CodePhone Number EXTERNAL LAB from Last 3 Months or Most Recently Relevant to Health Maintenance Insurance Care Teams Team MemberRelationshipSpecialtyStart DateEnd Date Joceline Willson MD [address] [place], [place] [phone] PCP - GeneralFamily Zaoxaqye19/3/23 Genna Mcbride NP [address] [place] [address] Nurse PractitionerBoston [facility] Hospital Medicine08/08/24
--- OUTSIDE RECORDS SUMMARY | 2024-12-12 19:33 | XMS_ITS | Encounter Summary ---
Author Organization [facility] Address [address] [place] [address] Care Team Providers Care Airway Traffic Controller Name Role Phone Joceline Willson MD Primary Care Provider [phone] Genna Mcbride NP Unavailable [phone] Encounter Details DateTypeDepartmentCare Team (Latest Contact Info)Gexxlzutzka23/20/2025Travel Social History Tobacco UseTypesPacks/DayYears UsedDateSmoking Tobacco: FormerCigarettes0.57 11/26/2015 - 07/22/2022Smokeless Tobacco: NeverAlcohol UseStandard Drinks/Week CommentsNot Currently1 (1 standard drink = 0.6 oz pure alcohol)caffeine intake: 1 cup [id number] Health LiteracyAnswerDate RecordedHow often do you need [...] relatives?Once a week04/27/2024How often do you attend yarsani or yazdanism services?Never04/27/2024Do you belong to any clubs or organizations such as yarsani groups, unions, fraternal or athletic groups, or school groups?No04/27/2024How often do you attend meetings of the clubs or organizations you belong to?Never04/27/2024re you , , , , never , or living with a partner?Jkqhcdmw15/12/2025 AUDIT-CAnswerDate RecordedQ1: How often do you have [...] heating?Not very hard04/27/2024 PHQ-2AnswerDate RecordedPatient Health Questionnaire-2 Mstji327Finencompass health [place] of Occupational Health - Occupational Stress QuestionnaireAnswerDate [...] steady place to sleep or slept in ashelter (including now)?No12/12/2022Housing Stability Vital SignAnswerDate RecordedIn the last 12 months, was there a time when you were not able to pay the mortgage or rent on time?No04/27/2024In the past 12 months, how many times have you moved where you were living?t any time in the past 12 months, were you homeless or living in a usp (including now)?No04/27/2024 CommentsNoSex and Gender InformationValueDate RecordedSex Assigned at BirthNot on fileLegal AugTyldrj01/15/2023 6:41 PM EDTGender IdentityNot on file Sexual OrientationNot on filedocumented as of this encounter Plan of Treatment DateTypeDepartmentCare Team (Latest Contact Info)Syiuxdqvcqv04/04/2025 3:30 PM ESTOffice Visit [facility] [address] [place] [address] Genna Mcbride NP [address] [place], [place] [phone] 12/21/2025 11:00 AM ESTProcedure Visit [facility] [address] [place] [address] Isael Escobedo DO [address] [place] [address] documented as of this encounter Visit Diagnoses Not on filedocumented in this encounter Additional Health Concerns AssessmentNoted TimePHQ-9 Depression Total Score: 8009/20/2024 3:00 PM EDT documented as of this encounter Care Teams Team MemberRelationshipSpecialtyStart DateEnd Date Joceline Willson MD [address] [facility] [address] [place], [place] [phone] PCP - GeneralFamily Nryenaje54/3/23 Genna Mcbride NP [address] [facility] [address] Nurse PractitionerFamily Medicine08/08/24documented as of this encounter
--- OUTSIDE RECORDS SUMMARY | 2024-12-12 19:33 | XMS_ITS | Encounter Summary ---
Author Organization [facility] Address [address] [place] [address] Phone Care Team Providers Care Garden Tractor Mechanic Name Role Phone Sabine Jackson LPN Unavailable Un available Encounter Details DateTypeDepartmentCare Team (Latest Contact Info)Ssksamymcpw57/13/2025Scanned Document [facility] [address] [place] [phone] Luz Nagel MD [address] [place] [address] Social History Tobacco UseTypesPacks/DayYears UsedDateSmoking Tobacco: FormerCigarettes Smokeless Tobacco: FormerAlcohol UseStandard Drinks/WeekCommentsYes1 (1 standard drink = 0.6 oz pure alcohol)rarelyPHQ-2AnswerDate RecordedPatient Health Questionnaire-2 Fxjzb980CommentsUnknownSex and Gender InformationValueDate RecordedSex Assigned at BirthNot on fileLegal SexFemale 05/13/2024 1:16 PM EDTGender IdentityNot on fileSexual OrientationNot on file documented as of this encounter Plan of Treatment DateTypeDepartmentCare Team (Latest Contact Info)Joojhvcfqio20/08/2026 1:30 PM ESTTelemedicine Sandy Donato [address] [place] [phone] Luz Nagel MD [address] [place] [address] (work) documented as of this encounter Procedures Procedure NamePriorityDate/TimeAssociated DiagnosisCommentsMYRIAD - 2BP RESULTED 11/28/2024documented in this encounter Results * Myriad - 2bP Resulted (11/28/2024) Narrative Authorizing ProviderResult TypeResult StatusRarigoberto Nagel MDNEOSHO MEMORIAL [facility] CYTOGENETICS ORDERABLESFinal Result documented in this encounter Visit Diagnoses Not on filedocumented in this encounter Additional Health Concerns AssessmentNoted TimeA fall risk assessment has been completed for the patient 11/10/2024 10:55 AM EDTdocumented as of this encounter Care Teams Team MemberRelationshipSpecialtyStart DateEnd Date Sabine Jackson LPN Licensed Practical NurseReproductive Endocrinology and Infertility11/09/24 documented as of this encounter
--- OUTSIDE RECORDS SUMMARY | 2024-12-12 19:33 | XMS_ITS | Clinical Summary ---
Author Organization [facility] Address [address] [place] [address] Phone Care Team Providers Care Lumber Grader Name Role Phone Sabine Jackson LPN Unavailable Un available Allergies No known active allergies Medications MedicationSigDispense QuantityRefillsLast FilledStart DateEnd DateStatus FLUoxetine (PROzac) 40 mg capsule Take 1 capsule (40 mg) by mouth once daily.5Active levothyroxine (Synthroid, Levoxyl) 175 mcg tablet Take 1 tablet (175 mcg) by mouth once daily.4Active Encounters DateTypeDepartmentCare GbxqHssluxnvcgy03/13/2025Scanned Document [facility] [address] [place] [address] Luz Nagel MD 11/24/2024Results Follow-Up Sandy [address] [place] [address] Patience Hargrove, LITHOGRAPHIC PHOTOGRAPHER-RECOVERY UNIT OPERATOR Quxlabmvoffklqr44/08/2025 1:30 PM EDTOffice [place] [address] Isidra Galicia, LITHOGRAPHIC PHOTOGRAPHER-RECOVERY UNIT OPERATOR Recurrent loss without current ; Encounter for preprocedural laboratory iameenidybc33/08/2025Orders Only SANDEE Donato [address] [place] [address] Patience Hargrove, LITHOGRAPHIC PHOTOGRAPHER-RECOVERY UNIT OPERATOR Endometrial polyp (Primary Dx)11/22/20249131Ywwikj17/27/2025Results Follow-Up Sandy Woods Kinga [address] [place] [phone] Luz Nagel MD [facility] ANTI-MULLERIAN HORMONE ([facility]), FEMALE, Type And Screen Is this order related to or an upcoming surgery? No, Rubella Antibody, Igg, Additional followed-up results: 10:45 AM EDTConsult [facility] [address] [place] [phone] Luz Nagel MD Fertility testing (Primary Dx); Screening for diabetes mellitus; Encounter for screening for other viral diseases; Encounter for Rh blood typing; Screening for STDs (sexually transmitted diseases); Screening for genetic disease carrier status; Recurrent loss without current ; Encounter for preprocedural laboratory srvuucwweze19/25/2694Mzivkq85/18/2025 Travelfrom Last 3 Months Social History Tobacco UseTypesPacks/DayYears UsedDateSmoking Tobacco: FormerCigarettes Smokeless Tobacco: Former Tobacco Cessation:Counseling Given: Not Answered Alcohol UseStandard Drinks/WeekCommentsYes1 (1 standard drink = 0.6 oz pure alcohol)rarelyPHQ-2AnswerDate RecordedPatient Health Questionnaire-2 Score0 11/10/2024CommentsUnknownSex and Gender InformationValueDate RecordedSex Assigned at BirthNot on fileLegal XieIhjgnk60/28/2025 1:16 PM EDTGender Identity Not on fileSexual OrientationNot on file Last Filed Vital Signs Vital SignReadingTime TakenCommentsBlood Xbpowvfb770/80011/10/2024 10:47 AM EDT Cdwmy808611/10/2024 10:47 AM LQAKvzsizzwtmf86.2 ??C (97.2 ??F)11/10/2024 10:47 AM EDTRespiratory Jpbz397011/10/2024 10:47 AM EDTOxygen Mqftxdcuda304%11/10/2024 10:47 AM EDTInhaled Oxygen Concentration--Xrfhdx77.9 kg (209 lb 3.2 oz) 11/10/2024 10:47 AM AXRLtcqlg587.6 cm (5' 6 )11/10/2024 10:47 AM EDTBody Mass Index33.77011/10/2024 10:47 AM EDT Plan of Treatment DateTypeDepartmentCare Team (Latest Contact Info)Cmsjjeacwkb90/08/2026 1:30 PM ESTTelemedicine DelgadoGigi Blanchardana maría Donato [address] [place] [phone] Luz Nagel MD [address] [place] [address] Health MaintenanceDue DateLast DoneCommentsLipid Panel1990Hepatitis B Vaccines (1 of 3 - 19+ 3-dose series)2009Pneumococcal Vaccine: Pediatrics and At-Risk Adult Patients (1 of 2 - PCV)2009HPV/Hkrzqy8308/10/2011HPV Vaccines (1 - 3-dose standard series)2017Influenza Vaccine (#1)2024 COVID-19 Vaccine (1 - season)5Yearly Adult Wuexkvah86/20/2026 05/04/2024, 12/07/2023, 01/16/2023, Additional history existsTSH Level09/20/2025 09/20/2024ervical Cancer Aioatjtoa06/21/2027Pap Smear DTaP/Tdap/Td Vaccines (3 - Td or Tdap)/10/2017, 09/05/1996Zoster Vaccines (1 of 2)2040MMR SauemwpaJaeqvqmvq67/21/1997HIV ScreeningCompleted 11/10/2024Hepatitis C RtwxlynqaQawqoskuq03/25/2025HIB VaccinesAged OutNo longer eligible based on patient's age to complete this topicHepatitis A VaccinesAged OutNo longer eligible based on patient's age to complete this topicIPV Vaccines Aged OutNo longer eligible based on patient's age to complete this topic Meningococcal VaccineAged OutNo longer eligible based on patient's age to complete this topicRotavirus VaccinesAged OutNo longer eligible based on patient's age to complete this topic Procedures Procedure NamePriorityDate/TimeAssociated DiagnosisCommentsMYRIAD - 2BP RESULTED 11/28/2024GYN FTOYGUPVMRPKQCWRappctc95/08/2025 2:24 PM EDT Recurrent loss without current US ZHUYZAODUQBRMEJLmoxwmm35/08/2025 2:23 PM EDT Recurrent loss without current POCT , YHVZSJoazzbl97/08/2025 1:18 PM EDT Encounter for preprocedural laboratory examination C. TRACHOMATIS / N. GONORRHOEAE, AMPLIFIED, APNBZKNBGVFvqdzqs06/25/2025 2:06 PM EDT Screening for STDs (sexually transmitted diseases) [facility] MISCELLANEOUS TEST (ROOM TEMPERATURE)Wktrcsl7511/10/2024 12:20 PM EDT Recurrent loss without current LUPUS ANTICOAG. WITH NORUUESUADNVVCGettlaq24/25/2025 12:20 PM EDT Recurrent loss without current BETA-2 GLYCOPROTEIN JXUGYQOGXGJncivjf55/25/2025 12:20 PM EDT Recurrent loss without current ANTI-CARDIOLIPIN ANTIBODY (IGA, IGG, AND IGM)Sxrkinz1011/10/2024 12:20 PM EDT Recurrent loss without current HEMOGLOBIN L4RPzbvjng28/25/2025 12:20 PM EDT Screening for diabetes mellitus TESTOSTERONE,FREE AND TBHXKCjnbxka74/25/2025 12:20 PM EDT Recurrent loss without current PQYVNCYRARnhtuyw79/25/2025 12:20 PM EDT Recurrent loss without current SYPHILIS SCREENING WITH WFMJZTJirxdjn44/25/2025 12:20 PM EDT Screening for STDs (sexually transmitted diseases) HIV 1/2 ANTIGEN/ANTIBODY SCREEN [facility] REFLEX TO QWNNGEXWYPYDDahumbn04/25/2025 12:20 PM EDT Screening for STDs (sexually transmitted diseases) HEPATITIS C LWYMFQIUAthsrcj88/25/2025 12:20 PM EDT Screening for STDs (sexually transmitted diseases) HEPATITIS B SURFACE GYWNNWFLhevvgd85/25/2025 12:20 PM EDT Screening for STDs (sexually transmitted diseases) VARICELLA ZOSTER ANTIBODY, LLZWgymvej90/25/2025 12:20 PM EDT Encounter for screening for other viral diseases RUBELLA ANTIBODY, YTBDuuoixb00/25/2025 12:20 PM EDT Encounter for screening for other viral diseases [facility] ANTI-MULLERIAN HORMONE ([facility]), YJHWTBYtkfelx22/25/2025 12:20 PM EDT Recurrent loss without current TYPE AND AHWKDPQtusbjj14/25/2025 12:18 PM EDT Encounter for Rh blood typing MYRIAD FORESIGHT CARRIER OUWQJJJvxjhkw80/25/2025 12:18 PM EDT Screening for genetic disease carrier status from Last 3 Months Results * [facility] - 2bP Resulted (11/28/2024) Narrative Authorizing ProviderResult TypeResult StatusRachel Senait Nagel [facility]ET[facility] ORDERABLESFinal Result * Sonohysterogram (11/23/2024 2:24 PM EDT) Narrative [facility] - 11/23/2024 2:24 PM EDT ANGEL Ramirez 11/23/2024 2:28 PM Sonohysterogram Date/Time: 11/23/2024 2:24 PM Performed by: ANGEL Ramirez Authorized by: ANGEL Ramirez ?? Consent: ??Consent obtained: ??Verbal and written ??Consent given by: ??Patient ??Procedural risks discussed: ??Bleeding, possible continued pain and infection ??Patient questions answered: yes ?Patient agrees, verbalizes understanding, and wants to proceed: yes ?Instructions and paperwork completed: yes ?? Pre-procedure: ??Pre-procedure timeout performed: yes ?Prepped with: Betadine ?? Procedure: ??Cervix cleaned and prepped: yes ?Cervix dilated: no ?Tenaculum applied to cervix: no ?Uterus sounded: no ?Catheter inserted: yes ?Uterine cavity distended with saline: yes ?? Post-procedure: ??Patient observed: no ?No complications: no ?Estimated blood loss (mL): minimal. ??Post procedure instructions given to patient: yes ?Patient tolerated procedure well with no complications: yes ?? Comments: ?? Prior to the procedure, the patient was counseled regarding risks, benefits, and alternatives. Patient declined. Saline Ultrasound Findings: Uterus: normal countor with filling defect noted on left side wall, concerning for polyp vs. adhesions Bubble Test performed: Yes Additional Findings: Left tubal patency confirmed, right tube fills to distal end, but unable to confirm patency Follow up: Follow up required, chart forwarded to primary MD. Reviewed with patient. Plan for hysteroscopy/polypectomy/lysis of adhesions in the procedure area. Patient to call with next cycle. Patience Hargrove 11/23/24 2:27 PM Authorizing ProviderResult TypeResult StatusPatience Hargrove LITHOGRAPHIC PHOTOGRAPHER-CNPIN CLINIC/BEDSIDE ORDERABLESFinal ResultPerforming OrganizationAddress City/State/ZIP CodePhone Number [facility] [address] [address] * US sonohysterogram (11/23/2024 2:23 PM EDT)Anatomical RegionLateralityModality PelvisUltrasoundSpecimen (Source)Anatomical Location / LateralityCollection Method / VolumeCollection TimeReceived Time11/23/2024 1:27 PM EDT1 1:27 PM EDT Narrative 11/23/2024 4:27 PM EDT Interpreted by: Aquilino Velarde Indication ======== Fertility Testing Impression ========= Mid-position uterus. Following instillation of saline, there is a hypoechoic intracavitary filling defect with echogenic foci oriented toward the left aspect of the uterine body measuring 9.3 x 9.3-mm. Transabdominal images were acquired in addition to transvaginal images for optimal visualization of pelvic structures. Follow-up ======== Follow up for repeat assessment per clinical team Uterus ====== Uterus: Visualized Uterus position: mid-position Description of uterine malformations: none Myometrium: normal Endometrium: trilaminar Cervix details: cystic lesions identified suggesting superficial Nabothian cysts Uterus length 66.0 mm Uterus width 37.9 mm Uterus height 37.1 mm Endometrial thickness, total 6.0 mm Right Ovary ========= Rt ovary: Visualized Rt ovary morphology: normal Rt ovary D1 40.7 mm Rt ovary D2 21.9 mm Rt ovary D3 19.4 mm Rt ovary Vol 9.1 cm? Rt ovarian follicle(s): Follicles identified Rt ovarian follicle D1 11.5 mm Rt ovarian follicle D2 11.4 mm Rt ovarian follicle mean 11.4 mm Rt ovarian follicle vol 0.785 cm? Rt ovarian follicles other findings: Antral Follicles 10+ < 10 mm Left Ovary ======== Lt ovary: Visualized Lt ovary morphology: normal Lt ovary D1 31.2 mm Lt ovary D2 15.6 mm Lt ovary D3 31.4 mm Lt ovary Vol 8.0 cm? Lt ovarian follicle(s): Follicles identified Lt ovarian follicles other findings: Antral Follicles 10+ < 10 mm Cul de Sac ========= Visualized. No free fluid visualized Method ====== Transabdominal and transvaginal ultrasound examination. View: Sufficient Procedure Note Aquilino Velarde MD - 11/23/2024 Interpreted by: Aquilino Velarde Indication ======== Fertility Testing Impression ========= Mid-position uterus. Following instillation of saline, there is ahypoechoic intracavitary filling defect with echogenic foci orientedtoward the left aspect of the uterine body measuring 9.3 x 9.3-mm. Transabdominal images were acquired in addition to transvaginal images for optimal visualization of pelvic structures. Follow-up ======== Follow up for repeat assessment per clinical team Uterus ====== Uterus:Visualized Uterus position:mid-position Description of uterine malformations:none Myometrium:normal Endometrium:trilaminar Cervix details:cystic lesions identified suggesting superficial Nabothiancysts Uterus ywpewl00.0 mm Uterus width37.9 mm Uterus iqvype30.1 mm Endometrial thickness, total6.0 mm Right Ovary ========= Rt ovary:Visualized Rt ovary morphology:normal Rt ovary D140.7 mm Rt ovary D221.9 mm Rt ovary D319.4 mm Rt ovary Vol9.1 cm? Rt ovarian follicle(s):Follicles identified Rt ovarian follicle D111.5 mm Rt ovarian follicle D211.4 mm Rt ovarian follicle mean11.4 mm Rt ovarian follicle vol0.785 cm? Rt ovarian follicles other findings:Antral Follicles 10+ < 10 mm Left Ovary ======== Lt ovary:Visualized Lt ovary morphology:normal Lt ovary D131.2 mm Lt ovary D215.6 mm Lt ovary D331.4 mm Lt ovary Vol8.0 cm? Lt ovarian follicle(s):Follicles identified Lt ovarian follicles other findings:Antral Follicles 10+ < 10 mm Cul de Sac ========= Visualized. No free fluid visualized Method ====== Transabdominal and transvaginal ultrasound examination. View: Sufficient Authorizing ProviderResult TypeResult StatusLuz Nagel MDIMG US PROCEDURESFinal Result * POCT , urine manually resulted (11/23/2024 1:18 PM EDT)ComponentValue Ref RangeTest MethodAnalysis TimePerformed AtPathologist SignaturePreg Test, UrNegativeNegativeREI LAB RISSpecimen (Source)Anatomical Location / Laterality Collection Method / VolumeCollection TimeReceived TnakYfeuv70/08/2025 1:18 PM EDT Narrative Authorizing ProviderResult TypeResult StatusLuz Nagel MDPOINT OF CARE TEST ENTER/EDIT ORDERABLESFinal ResultPerforming OrganizationAddress City/State/ZIP CodePhone Number [facility] [address] [address] * C. trachomatis / N. gonorrhoeae, Amplified, Urogenital (11/10/2024 2:06 PM EDT)ComponentValueRef RangeTest MethodAnalysis TimePerformed AtPathologist SignatureCHLAMYDIA TRACHOMATIS RNA, TMA, UROGENITALNOT DETECTEDNOT DETECTED [facility] HospitalNEISSERIA GONORRHOEAE RNA, TMA, UROGENITALNOT DETECTEDNOT DETECTED[facility] (Always Message)[facility] HospitalComment: The analytical performance characteristics of this assay, when used to test SurePath(TM) specimens have been determined by [facility]. The modifications have not been cleared or approved by the FDA. This assay has been validated pursuant to the CLIA regulations and is used for clinical purposes. For additional information, please refer to https://education.Prestiamoci/faq/JGO228 (This link is being provided for information/ educational purposes only.) Specimen (Source)Anatomical Location / LateralityCollection Method / Volume Collection TimeReceived TimeUrineUrine specimen / Npdkzoi3811/10/2024 2:06 PM EDT 11/10/2024 2:06 PM EDT Narrative [facility] - 11/11/2024 11:23 AM EDT SPLIT 11/10/2024 FROM [id number] Authorizing ProviderResult TypeResult StatusRarigoberto [facility] ORDERABLESFinal ResultPerforming OrganizationAddressCity/State/ZIP CodePhone Number [facility] [address] [facility], [address] [place] [phone] * [facility] MISCELLANEOUS TEST (ROOM TEMPERATURE) Chromosome Analysis, Blood (11/10/2024 12:20 PM EDT)ComponentValueRef RangeTest MethodAnalysis Time Performed AtPathologist SignatureRESULTS:See KirstenMyWishBoard/Dru RodriguezYolie VAComment: CHROMOSOME ANALYSIS, BLOOD TEST NAME ? RESULT ?FLAG UNITS ?REF RANGE ========= ? ====== ?==== ===== ?========= Karyotyp Bld/T ?see note ? Order ID: ? [id number] Specimen Type: ?Blood Clinical Indication: ?Recurrent loss RESULT: NORMAL FEMALE KARYOTYPE INTERPRETATION: Chromosome analysis revealed normal G-band patterns within the limits of standard cytogenetic analysis. Please expect the results of any other concurrent study in a separate report. NOMENCLATURE: 46,XX ASSAY INFORMATION: Method: ? G-Band (Digital Analysis: Systems Integration/[employer]) Cells Counted: ?20 Band Level: ? 550 Cells Analyzed: ? 5 Cells Karyotyped: ? 5 This test does not address genetic disorders that cannot be detected by standard cytogenetic methods or rare events such as low level mosaicism or subtle rearrangements. Shilo Mcconnell, Ph.D., [facility], Pound Attendant, Cytogenetics and Genomics, Electronic Signature: ? 11/21/2024 3:54 PM For additional information, please refer to http://education.simplifyMD.Eligible/faq/chromsblheather (This link is being provided for informational/ educational purposes only). Test Performed by Yolie Desir, [facility], [address] [place], [place] Andres Dunn M.D., Ph.D., Director of Laboratories , [place] [id number] Test Performed at: [facility] [address] [place], [place] ? Andres Dunn M.D.,PhD Specimen (Source)Anatomical Location / LateralityCollection Method / Volume Collection TimeReceived TimeUrineVenous blood specimen / Vmikoqq2111/10/2024 12:20 PM EDT11/10/2024 12:23 PM EDT Narrative [facility] - 11/21/2024 6:41 PM EDT PATIENT UNABLE TO VOID; ADVISED TO RETURN FOR COLLECTION. Authorizing ProviderResult TypeResult StatusRachel Senait Nagel [facility] BLOOD ORDERABLESFinal ResultPerforming OrganizationAddressCity/State/ZIP CodePhone Number MARGARET [facility] [address] [place], [place] [phone] [employer] [facility] [address] [address] [place], [place] * [facility] ANTI-MULLERIAN HORMONE ([facility]), FEMALE (11/10/2024 12:20 PM EDT)Component ValueRef RangeTest MethodAnalysis TimePerformed AtPathologist SignatureANTI- MULLERIAN HORMONE ([facility]), FEMALE3.420.36 - 10.07 ng/mLQuest Diagnostics/[facility].,Specimen (Source)Anatomical Location / Laterality Collection Method / VolumeCollection TimeReceived TimeBloodVenous blood specimen / Iivbuoy5711/10/2024 12:20 PM EDT11/10/2024 12:23 PM EDT Narrative [facility] - 11/21/2024 6:41 PM EDT PATIENT UNABLE TO VOID; ADVISED TO RETURN FOR COLLECTION. Authorizing ProviderResult TypeResult StatusRachel Senait Nagel [facility] BLOOD ORDERABLESFinal ResultPerforming OrganizationAddressCity/State/ZIP CodePhone Number [facility] [address] [place] [address] [employer] [facility] [address] [place] [address] * Syphilis Screen with Reflex (11/10/2024 12:20 PM EDT)ComponentValueRef Range Test MethodAnalysis TimePerformed AtPathologist SignatureT. PALLIDUM AB NEGATIVENEGATIVEMyWishBoard [facility] HospitalComment: No antibodies to T. pallidum (the agent causing syphilis) were detected in the specimen. This result, however, does not exclude very recent T. pallidum infection; testing of a second specimen, collected 2-4 weeks after this specimen, is recommended if the index of suspicion for recent infection is high. Specimen (Source)Anatomical Location / LateralityCollection Method / Volume Collection TimeReceived TimeBloodVenous blood specimen / Usznugg1211/10/2024 12:20 PM EDT11/10/2024 12:23 PM EDT Narrative [facility] - 11/21/2024 6:41 PM EDT PATIENT UNABLE TO VOID; ADVISED TO RETURN FOR COLLECTION. Authorizing ProviderResult TypeResult StatusLuz Nagel [facility] BLOOD ORDERABLESFinal ResultPerforming OrganizationAddressCity/State/ZIP CodePhone Number [facility] [address] [facility], [address] [place] [address] * Lupus Anticoag. With Interpretation[Killian] (11/10/2024 12:20 PM EDT)Component ValueRef RangeTest MethodAnalysis TimePerformed AtPathologist SignatureLUPUS ANTICOAGULANTsee noteQuest Diagnostics/[facility] VAComment: A Lupus Anticoagulant is not detected. Reference Range: ??Not Detected For additional information, please refer to http://education.Prestiamoci/faq/SFT35b3 (This link is being provided for informational/ educational purposes only.) ? This interpretation is based on the following test results. PTT-LA DKSHMK51<=40 secQuest Diagnostics/[facility] [place] VADRVVT EUVDSM59<=45 secQuest Diagnostics/[facility] [place] VASpecimen (Source)Anatomical Location / LateralityCollection Method / VolumeCollection TimeReceived TimeBloodVenous blood specimen / Xekjmaf5611/10/2024 12:20 PM EDT 11/10/2024 12:23 PM EDT Narrative [facility] - 11/21/2024 6:41 PM EDT PATIENT UNABLE TO VOID; ADVISED TO RETURN FOR COLLECTION. Authorizing ProviderResult TypeResult StatusLuz Nagel [facility] BLOOD ORDERABLESFinal ResultPerforming OrganizationAddressCity/State/ZIP CodePhone Number [facility] [address] [place], [place] [phone] [facility] [address] [place] [address] * Hepatitis C Antibody (11/10/2024 12:20 PM EDT)ComponentValueRef RangeTest MethodAnalysis TimePerformed AtPathologist SignatureHEPATITIS C ANTIBODY SHB-SJSJBHSGVPA-QCYCWZERHbnfs [facility] HospitalComment: HCV antibody was non-reactive. There is no laboratory evidence of HCV infection. In most cases, no further action is required. However, if recent HCV exposure is suspected, a test for HCV RNA (test code 19961) is suggested. For additional information please refer to http://education.Prestiamoci/faq/EDP09t3 (This link is being provided for informational/ educational purposes only.) Specimen (Source)Anatomical Location / LateralityCollection Method / Volume Collection TimeReceived TimeBloodVenous blood specimen / Ivtdbtk2611/10/2024 12:20 PM EDT11/10/2024 12:23 PM EDT Narrative [facility] - 11/21/2024 6:41 PM EDT PATIENT UNABLE TO VOID; ADVISED TO RETURN FOR COLLECTION. Authorizing ProviderResult TypeResult StatusLuz Nagel [facility] BLOOD ORDERABLESFinal ResultPerforming OrganizationAddressCity/State/ZIP CodePhone Number [facility] [address] [facility], [address] [place] [address] * Beta-2 Glycoprotein Antibodies (11/10/2024 12:20 PM EDT)ComponentValueRef RangeTest MethodAnalysis TimePerformed AtPathologist SignatureB2 GLYCOPROTEIN I (IGG)AB<2.0<20.0 U/mLMyWishBoard/[facility] Comment: Value ?Interpretation ----- ? < 20.0 Antibody not detected > or = 20.0 Antibody detected B2 GLYCOPROTEIN I (IGM)AB<2.0<20.0 U/mLMyWishBoard/[facility] VAComment: Value ?Interpretation ----- ? < 20.0 Antibody not detected > or = 20.0 Antibody detected B2 GLYCOPROTEIN I (IGA)AB<2.0<20.0 U/mLMyWishBoard/[facility] VAComment: Value ?Interpretation ----- ? < 20.0 Antibody not detected > or = 20.0 Antibody detected The antiphospholipid antibody syndrome (APS) is a clinical-pathologic correlation that includes a clinical event (e.g. arterial or venous thrombosis, morbidity) and persistent positive antiphospholipid antibodies (IgM, IgG Cardiolipin or b2GPI antibodies greater than the 99th percentile; or a lupus anticoagulant). International consensus guidelines for APS suggest waiting at least 12 weeks before retesting to confirm antibody persistence. The Systemic Lupus International Collaborating [facility] immunological classification criteria for systemic lupus erythematosus (SLE) include testing for isotype IgA, which has yet to be incorporated into APS criteria. Low level antiphospholipid antibodies may sometimes be detected in the setting of infection, drug therapy or aging. For additional information, please refer to http://education.simplifyMD.Eligible/faq/FUY794 (This link is being provided for informational/ educational purposes only.) ? Specimen (Source)Anatomical Location / LateralityCollection Method / Volume Collection TimeReceived TimeBloodVenous blood specimen / Wjgadxw4711/10/2024 12:20 PM EDT11/10/2024 12:23 PM EDT Narrative [facility] - 11/21/2024 6:41 PM EDT PATIENT UNABLE TO VOID; ADVISED TO RETURN FOR COLLECTION. Authorizing ProviderResult TypeResult StatusRachel Senait Nagel [facility] BLOOD ORDERABLESFinal ResultPerforming OrganizationAddressCity/State/ZIP CodePhone Number MARGARET ALANA [address] [place], [place] [phone] [facility] [address] [place] [address] * Prolactin (11/10/2024 12:20 PM EDT)ComponentValueRef RangeTest MethodAnalysis TimePerformed AtPathologist SignaturePROLACTIN7.2ng/mLQuest [facility]Com[facility]: ?Reference Range Females ?Non- ?3.0-30.0 ? 10.0-209.0 ?Postmenopausal ?2.0-20.0 ? Specimen (Source)Anatomical Location / LateralityCollection Method / Volume Collection TimeReceived TimeBloodVenous blood specimen / Kvjfnvx0711/10/2024 12:20 PM EDT11/10/2024 12:23 PM EDT Narrative [facility] - 11/21/2024 6:41 PM EDT PATIENT UNABLE TO VOID; ADVISED TO RETURN FOR COLLECTION. Authorizing ProviderResult TypeResult StatusRachel Senait ALMARAZ BLOOD ORDERABLESFinal ResultPerforming OrganizationAddressCity/State/[facility] CodePhone Number [facility] [address] [place] [address], [address] [place] [phone] * Rubella Antibody, Igg (11/10/2024 12:20 PM EDT)ComponentValueRef RangeTest MethodAnalysis TimePerformed AtPathologist SignatureRUBELLA AB (IGG), IMMUNE LZEMNU71.80IndexQuest [facility]: ?Index ?Interpretation ?----- ? <0.90 Not consistent with immunity ?0.90-0.99 ?Equivocal > or = 1.00 Consistent with immunity The presence of rubella IgG antibody suggests immunization or past or current infection with rubella virus. Specimen (Source)Anatomical Location / LateralityCollection Method / Volume Collection TimeReceived TimeBloodVenous blood specimen / Cbbkbvi3811/10/2024 12:20 PM EDT11/10/2024 12:23 PM EDT [facility] - 11/21/2024 6:41 PM EDT PATIENT UNABLE TO VOID; ADVISED TO RETURN FOR COLLECTION. Authorizing ProviderResult TypeResult Statuschel Senait [facility] BLOOD ORDERABLESFinal ResultPerforming OrganizationAddressCity/State/ZIP CodePhone Number [facility] [employer] [facility] [address], [address] [place] [address] * HIV 1/2 Antigen/Antibody Screen with Reflex to Confirmation (11/10/2024 12:20 PM EDT)ComponentValueRef RangeTest MethodAnalysis TimePerformed AtPathologist SignatureHIV FINAL INTERPRETATIONHIV NEGATIVEQuest [facility] HospitalComment: HIV-1 antigen and HIV-1/HIV-2 antibodies were not detected. There is no laboratory evidence of HIV infection. HIV AG/AB, 4TH VHJBZW-ITKZBJMBNNM-CWBCPORQGbtgk [facility] HospitalSpecimen (Source)Anatomical Location / Laterality Collection Method / VolumeCollection TimeReceived TimeBloodVenous blood specimen / Jzokpqg2311/10/2024 12:20 PM EDT11/10/2024 12:23 PM EDT [facility] - 11/21/2024 6:41 PM EDT PATIENT UNABLE TO VOID; ADVISED TO RETURN FOR COLLECTION. Authorizing ProviderResult TypeResult Statuschegianni UrbanoParma Community General [facility] BLOOD ORDERABLESFinal ResultPerforming OrganizationAddressCity/State/ZIP CodePhone Number [facility] [employer] [employer] [facility] [address], [address] [place] [address] * Hepatitis B surface antigen (11/10/2024 12:20 PM EDT)ComponentValueRef Range Test MethodAnalysis TimePerformed AtPathologist SignatureHEPATITIS B SURFACE KYUWHMLOBU-HXFBNQCNBEW-KOSYAWSFBqezw [facility] Comment: For additional information, please refer to http://education.simplifyMD.Eligible/faq/QDD764 (This link is being provided for informational/ educational purposes only.) Specimen (Source)Anatomical Location / LateralityCollection Method / Volume Collection TimeReceived TimeBloodVenous blood specimen / Pnwytfo6211/10/2024 12:20 PM EDT11/10/2024 12:23 PM EDT Narrative [facility] - 11/21/2024 6:41 PM EDT PATIENT UNABLE TO VOID; ADVISED TO RETURN FOR COLLECTION. Authorizing ProviderResult TypeResult StatusRachel Senait Nagel [facility] BLOOD ORDERABLESFinal ResultPerforming OrganizationAddressCity/State/ZIP CodePhone Number [facility] [address] [facility], [address] [place] [address] * Cardiolipin Antibody (11/10/2024 12:20 PM EDT)ComponentValueRef RangeTest MethodAnalysis TimePerformed AtPathologist SignatureCARDIOLIPIN AB (IGA)<2.0 APL-U/mLMyWishBoard [facility] HospitalComment: Value ?Interpretation ----- ? < 20.0 Antibody not detected > or = 20.0 Antibody detected CARDIOLIPIN AB (IGG)<2.0GPL-U/mLMyWish[facility] Comment: Value ?Interpretation ----- ? < 20.0 Antibody not detected > or = 20.0 Antibody detected CARDIOLIPIN AB (IGM)<2.0MPL-U/mLMyWishBoard [facility] Comment: Value ?Interpretation ----- ? < 20.0 Antibody not detected > or = 20.0 Antibody detected The antiphospholipid antibody syndrome (APS) is a clinical-pathologic correlation that includes a clinical event (e.g. arterial or venous thrombosis, morbidity) and persistent positive antiphospholipid antibodies (IgM, IgG Cardiolipin or b2GPI antibodies greater than the 99th percentile; or a lupus anticoagulant). International consensus guidelines for APS suggest waiting at least 12 weeks before retesting to confirm antibody persistence. The Systemic Lupus International Collaborating Clinics immunological classification criteria for systemic lupus erythematosus (SLE) include testing for isotype IgA, which has yet to be incorporated into APS criteria. Low level antiphospholipid antibodies may sometimes be detected in the setting of infection, drug therapy or aging. For additional information, please refer to http://[employer].Prestiamoci/faq/OHY965 (This link is being provided for informational/ educational purposes only.) Specimen (Source)Anatomical Location / LateralityCollection Method / Volume Collection TimeReceived TimeBloodVenous blood specimen / Kpgvdbn6011/10/2024 12:20 PM EDT11/10/2024 12:23 PM EDT Narrative [facility] - 11/21/2024 6:41 PM EDT PATIENT UNABLE TO VOID; ADVISED TO RETURN FOR COLLECTION. Authorizing ProviderResult TypeResult StatusRachel Senait Nagel [facility] BLOOD ORDERABLESFinal ResultPerforming OrganizationAddressCity/State/ZIP CodePhone Number [facility] [employer] [facility] [address] [facility], [address] [place] [address] * Testosterone,Free and Total (11/10/2024 12:20 PM EDT)ComponentValueRef Range Test MethodAnalysis TimePerformed AtPathologist SignatureTESTOSTERONE, TOTAL, MS182 - 45 ng/dLMyWishBoard/[facility] ElementsUniversity [facility]als [facility] VAComment: For additional information, please refer to http://[employer].Prestiamoci/faq/ NuzczLpptgsbokituNLKZMGXKL814 (This link is being provided for informational/ educational purposes only.) This test was developed and its analytical performance characteristics have been determined by [employer] [place], [place]. It has not been cleared or approved by the U.S. Food and Drug Administration. This assay has been validated pursuant to the CLIA regulations and is used for clinical purposes. ? TESTOSTERONE, FREE1.90.1 - 6.4 pg/mLMyWishBoard/[facility]German [facility] VAComment: This test was developed and its analytical performance characteristics have been determined by [employer] [place], [place]. It has not been cleared or approved by the U.S. Food and Drug Administration. This assay has been validated pursuant to the CLIA regulations and is used for clinical purposes. ? Specimen (Source)Anatomical Location / LateralityCollection Method / Volume Collection TimeReceived TimeBloodVenous blood specimen / Cigmgex4611/10/2024 12:20 PM EDT11/10/2024 12:23 PM EDT Narrative [facility] - 11/21/2024 6:41 PM EDT PATIENT UNABLE TO VOID; ADVISED TO RETURN FOR COLLECTION. Authorizing ProviderResult TypeResult StatusRachel Senait Nagel [facility] BLOOD ORDERABLESFinal ResultPerforming OrganizationAddressCity/State/ZIP CodePhone Number MARGARET [facility] [address] [facility] [place], [place] [phone] Margaret Barba/Dru [facility] [address] [place] [address] * Varicella Zoster Antibody, Igg (11/10/2024 12:20 PM EDT)ComponentValueRef RangeTest MethodAnalysis TimePerformed AtPathologist SignatureVARICELLA ZOSTER VIRUS ANTIBODY (IGG)8.01S/COQuest Diagnostics [facility] Comment: ?Signal to Cut-off ? S/CO ?Interpretation ? --------- ? <1.00 Negative - Antibody not detected > or = 1.00 Positive - Antibody detected ?A positive result indicates that the patient ?has antibody to VZV but does not differentiate ?between an active or past infection. ?The clinical diagnosis must be interpreted in ?conjunction with the clinical signs and symptoms of ?the patient. This assay reliably measures immunity ?due to previous infection but may not be ?sensitive enough to detect antibodies induced by ?vaccination. Thus, a negative result in a vaccinated ?individual does not necessarily indicate ?susceptibility to VZV infection. A more sensitive ?test for vaccination-induced immunity is Varicella ?Zoster Virus Antibody Immunity Screen, ACIF. Specimen (Source)Anatomical Location / LateralityCollection Method / Volume Collection TimeReceived TimeBloodVenous blood specimen / Xtbsvlx4811/10/2024 12:20 PM EDT11/10/2024 12:23 PM EDT Narrative [employer] [facility] - 11/21/2024 6:41 PM EDT PATIENT UNABLE TO VOID; ADVISED TO RETURN FOR COLLECTION. Authorizing ProviderResult TypeResult StatusLuz ALMARAZ BLOOD ORDERABLESFinal ResultPerforming OrganizationAddressCity/State/ZIP CodePhone Number [facility] [address] [facility], [address] [place] [address] * Hemoglobin A1C (11/10/2024 12:20 PM EDT)ComponentValueRef RangeTest Method Analysis TimePerformed AtPathologist SignatureHEMOGLOBIN A1c5.0<5.7 %[facility] HospitalComment: For the purpose of screening for the presence of diabetes: <5.7% Consistent with the absence of diabetes 5.7-6.4% ?Consistent with increased risk for diabetes ?(prediabetes) > or =6.5% Consistent with diabetes This assay result is consistent with a decreased risk of diabetes. Currently, no consensus exists regarding use of hemoglobin A1c for diagnosis of diabetes in children. According to [place] Diabetes Association (ADA) guidelines, hemoglobin A1c <7.0% represents optimal control in non- diabetic patients. Different metrics may apply to specific patient populations. Standards of Medical Care in Diabetes(ADA). ?? eAG (mg/dL)97mg/dLQuest [facility] HospitaleAG (mmol/L)5.4 mmol/LQuest [facility] HospitalSpecimen (Source)Anatomical Location / LateralityCollection Method / VolumeCollection TimeReceived TimeBlood Venous blood specimen / Awjloso8011/10/2024 12:20 PM EDT11/10/2024 12:23 PM EDT Narrative [employer] [facility] - 11/21/2024 6:41 PM EDT PATIENT UNABLE TO VOID; ADVISED TO RETURN FOR COLLECTION. Authorizing ProviderResult TypeResult StatusLuz ALMARAZ BLOOD ORDERABLESFinal ResultPerforming OrganizationAddressCity/State/ZIP CodePhone Number [facility] [address], [address] [place] [address] * My[employer] Foresight Carrier Screen (11/10/2024 12:18 PM EDT)ComponentValueRef RangeTest MethodAnalysis TimePerformed AtPathologist SignatureScan Result 3pPfoiwpr53/15/2025 1:13 PM EDTMYRIAD GENETICSCommentsReport can be found in the 2bPrecise tab.11/30/2024 1:13 PM EDTMYRIAD GENETICSSpecimen (Source) Anatomical Location / LateralityCollection Method / VolumeCollection Time Received TimeBloodVenous blood specimen / UnknownVenipuncture / Unknown 11/10/2024 12:18 PM EDT11/10/2024 5:34 PM EDT Narrative Authorizing ProviderResult TypeResult StatusLuz ALMARAZ [facility] ORDERABLESFinal ResultPerforming OrganizationAddressCity/State/ZIP CodePhone Number [facility] [address] [facility] [place] [place] [address] * Type And Screen Is this order related to or an upcoming surgery? No (11/10/2024 12:18 PM EDT)ComponentValueRef RangeTest MethodAnalysis Time Performed AtPathologist SignatureABO TYPEA11/10/2024 2:56 PM EDTAHUJA BLOOD BANKRh EEROQJX0211/10/2024 2:56 PM EDTAJA BLOOD BANKANTIBODY SCREENNEG 11/10/2024 2:56 PM EDTAJA BLOOD BANKSpecimen (Source)Anatomical Location / LateralityCollection Method / VolumeCollection TimeReceived TimeBloodVenous blood specimen / UnknownVenipuncture / Oyasvlm3911/10/2024 12:18 PM EDT 11/10/2024 1:45 PM EDT Narrative Authorizing ProviderResult TypeResult StatusRachegianni ALMARAZ BLOOD BANK TEST ORDERABLESFinal ResultPerforming OrganizationAddressCity/State/ZIP Code Phone Number [facility] [address] [place] [address], from Last 3 Months Insurance * Guarantor: Santos San TypeRelation to PatientDate of BirthPhone Billing GrutkqgUIXUquo77/[birth year][address] [place] [address] Care Teams Team MemberRelationshipSpecialtyStart DateEnd Date Sabine Jackson LPN Licensed Practical NurseReproductive Endocrinology and Infertility11/09/24
--- OUTSIDE RECORDS SUMMARY | 2024-12-12 19:33 | XMS_ITS | Encounter Summary ---
Author Organization [facility] Address [address] [place] [address] Care Team Providers Care Corsage Maker Name Role Phone Joceline Willson MD Primary Care Provider [phone] Genna Mcbride NP Unavailable [phone] Encounter Details DateTypeDepartmentCare Team (Latest Contact Info)Cvapvccmvys72/27/2025amboo flowsheet [facility] [address] [place] [address] Isael Escobedo DO [address] [facility] [place] [id number] Social History Tobacco UseTypesPacks/DayYears UsedDateSmoking Tobacco: FormerCigarettes0.57 11/26/2015 - 07/22/2022Smokeless Tobacco: NeverAlcohol UseStandard Drinks/Week CommentsNot Currently1 (1 standard drink = 0.6 oz pure alcohol)caffeine intake: 1 cup ouybwB1212 Health LiteracyAnswerDate RecordedHow often do you need [...] relatives?Once a week04/27/2024How often do you attend hoahaoism or mandaeism services?Never04/27/2024Do you belong to any clubs or organizations such as hoahaoism groups, unions, fraGuidecentral or athletic groups, or school groups?No04/27/2024How often do you attend meetings of the clubs or organizations you belong to?Never04/27/2024re you , , , , never , or living with a partner?Aryolyoa63/12/2025 AUDIT-CAnswerDate RecordedQ1: How often do you have [...] heating?Not very hard04/27/2024 PHQ-2AnswerDate RecordedPatient Health Questionnaire-2 Ojrtw099[facility] [place] of Occupational Health - Occupational Stress QuestionnaireAnswerDate [...] steady place to sleep or slept in [facility] (including now)?No12/12/2022Housing Stability Vital SignAnswerDate RecordedIn the last 12 months, was there a time when you were not able to pay the mortgage or rent on time?No04/27/2024In the past 12 months, how many times have you moved where you were living?t any time in the past 12 months, were you homeless or living in a detention (including now)?No04/27/2024 CommentsNoSex and Gender InformationValueDate RecordedSex Assigned at BirthNot on fileLegal AavHscrum10/15/2023 6:41 PM EDTGender IdentityNot on file Sexual OrientationNot on filedocumented as of this encounter Plan of Treatment DateTypeDepartmentCare Team (Latest Contact Info)Qtoizbxmpzi73/04/2025 3:30 PM ESTOffice Visit [facility] [address] [place] [phone] Genna Mcbride NP [address] [place] [address] 12/21/2025 11:00 AM ESTProcedure Visit [facility] [address] [place] [address] Isael Escobedo DO [address] [place] [address] documented as of this encounter Visit Diagnoses Not on filedocumented in this encounter Additional Health Concerns AssessmentNoted TimePHQ-9 Depression Total Score: 8009/20/2024 3:00 PM EDT documented as of this encounter Care Teams Team MemberRelationshipSpecialtyStart DateEnd Date Joceline Willson MD [address] [place], [place] [id number] PCP - GeneralFamily Gpekrtkx66/3/23 Genna Mcbride NP [address] [place], [place] [id number] Nurse PractitionerFamily Medicine08/08/24documented as of this encounter
--- OUTSIDE RECORDS SUMMARY | 2024-12-12 19:33 | XMS_ITS | Clinical Summary ---
Author Organization [employer] Address [id number] [address] [place] [address] Care Team Providers Care Pneumatic Press Hand Name Role Phone Taiwo Small MD Primary Care Provider [phone] Allergies No known active allergies Medications MedicationSigDispense QuantityRefillsLast FilledStart DateEnd DateStatus metFORMIN (GLUCOPHAGE) 500 mg tablet Take 1 tablet by mouth 2 (two) times a day with meals.Active levothyroxine (SYNTHROID, LEVOTHROID) 75 MCG tablet Take 75 mcg by mouth daily.Active Active Problems No known active problems Immunizations ImmunizationAdministration DatesNext PhsXles9908/24/2017 Social History Tobacco UseTypesPacks/DayYears UsedDateSmoking Tobacco: Every DaySmokeless Tobacco: NeverChildcareAnswerDate YozuhfjzXhsdylqncHwsantr18/12/2019Employment AnswerDate NpwrosqoPmnnptlzqlXfxnoek82/12/2019Purpose - LifeAnswerDate Recorded Purpose and direction in cvrtKmyicoj84/11/2021CommentsNoSex and Gender InformationValueDate RecordedSex Assigned at BirthNot on fileLegal SexFemale 09/21/2014 11:50 AM EDTGender IdentityNot on fileSexual OrientationNot on file Last Filed Vital Signs Vital SignReadingTime TakenCommentsBlood Xyyszuin659/8609 1:43 PM EDT Tipho6226 1:43 PM EMOMbwzolvwrna50.4 ??C (99.3 ??F)11/14/2018 1:43 PM EDTRespiratory Hepl4672 1:43 PM EDTOxygen Zxkdvjjemr700%11/14/2018 1:43 PM EDTInhaled Oxygen Concentration--Lzhtfv63.8 kg (220 lb)11/14/2018 1:43 PM EDT Bnpbqw911.6 cm (5' 6 )11/14/2018 1:43 PM EDTBody Mass Index35.51011/14/2018 1:43 PM EDT Plan of Treatment Health MaintenanceDue DateLast DoneCommentsDepression Imurnudbd49/24/2003Tobacco Jrsewfirv71/24/2003Adult BMI Ptnpkkgfb92/24/2009COVID-19 Vaccine (3 - season)/05/2020, 11/29/2020Influenza Rxtyonn3410/17/2024Pap Smear /11/2022, 11/19/2021TaP,Tdap and Td Vaccines (3 - Td or Tdap) /10/2017, 09/05/1996 Medical Devices Not on file Insurance Care Teams Team MemberRelationshipSpecialtyStart DateEnd Date Taiwo Small MD [facility]10/18/16
[2024-12-15 17:08] LABS: Age Gdln ACOG Testing Note (.); IGP, Aptima HPV, rfx 16/18,45 Note (.)
== END 2024-12-12 19:30 | disposition home or self-care (01) ==
LOC: LAB 19:29
PROVIDERS: PCP Nurse Practitioner Family; Visit Provider Obstetrics & Gynecology
DX: Z01.419 Encounter for gynecological examination (general) (routine) without abnormal findings (principal)
CPT/HCPCS: 87624; 88175